=== PATIENT | male | born 1940 | race Caucasian/White ===

== ENCOUNTER 2016-05-04 06:25 | Day surgery (SDC) | payer OTHER, MEDICARE ==
[2016-05-03 11:36] VITALS: BMI 33.9
--- NOTE | 2016-05-04 06:13 | HP ---
History & Physical Update - History History: No Change - Physical Physical: No Change - Assessment Assessment: No Change - Plan Plan: No Change
[~2016-05-04 06:25] MED LIST: BUPIVACAINE HCL/PF 0.75% 10 ML VIAL RB ONE; CHONDROITIN SU A/HYALUR SOD 1 KIT IO ONE; CYCLOPENTOLATE HCL 1% OPHTH SOLN 2 ML BOTTLE OP SCH; EPINEPHrine/PF 1 MG/1 ML (1:1,000) AMPULE SQ ONE; LIDOCAINE HCL/PF 2% SDV 5ML VIAL PNB ONE; MOXIFLOXACIN HCL 0.5% OPHTHALMIC 3 ML BOTTLE OP SCH; PHENYLEPHRINE 2.5% OPHTH SOLN 15 ML BOTTLE OP SCH; TETRACAINE 0.5% HCL 0.6ML DROPPER.BOTTLE TP ONE; TOBRAMYCIN/DEXAMETHASONE OPHTH. OINTMENT 1 TUBE TP ONE; TROPICAMIDE 1% OPHTH SOLN 15 ML BOTTLE OP SCH
[2016-05-04] MEDS ORDERED: TROPICAMIDE 1% OPHTH SOLN 15 ML BOTTLE ONE (06:40)
[2016-05-04] MEDS ORDERED: MOXIFLOXACIN HCL 0.5% OPHTHALMIC 3 ML BOTTLE ONE (06:40)
[2016-05-04] MEDS ORDERED: CYCLOPENTOLATE HCL 1% OPHTH SOLN 2 ML BOTTLE ONE (06:40)
[2016-05-04] MEDS ORDERED: PHENYLEPHRINE 2.5% OPHTH SOLN 15 ML BOTTLE ONE (06:40)
[2016-05-04 06:51] VITALS: TEMP 97.7
[2016-05-04] MEDS ORDERED: EPINEPHrine/PF 1 MG/1 ML (1:1,000) AMPULE ONE (07:22)
[2016-05-04] MEDS ORDERED: TOBRAMYCIN/DEXAMETHASONE OPHTH. OINTMENT 1 TUBE ONE (07:22)
[2016-05-04] MEDS ORDERED: LIDOCAINE HCL/PF 2% SDV 5ML VIAL ONE (07:23)
[2016-05-04] MEDS ORDERED: BUPIVACAINE HCL/PF 0.75% 10 ML VIAL ONE ×2 (07:23→07:24)
[2016-05-04] MEDS ORDERED: TETRACAINE 0.5% OPHTH SOLN 2 ML BOTTLE ONE (07:23)
[2016-05-04] MEDS ORDERED: LIDOCAINE HCL/PF 1% SDV 5ML VIAL ONE (07:23)
[2016-05-04] MEDS ORDERED: POVIDONE-IODINE 5% OPHTHALMIC PREP 30 ML SOLUTION ONE (07:23)
[2016-05-04] MEDS ORDERED: PROPOFOL 20 ML ONE (07:55)
[2016-05-04] MEDS ORDERED: SUCCINYLCHOLINE CHLORIDE 200 MG/10 ML VIAL ONE (07:55)
[2016-05-04] MEDS ORDERED: TETRACAINE 0.5% HCL 0.6ML DROPPER.BOTTLE TP ONE (08:00)
[2016-05-04] MEDS ORDERED: LIDOCAINE HCL/PF 2% SDV 5ML VIAL PNB ONE (08:04)
[2016-05-04] MEDS ORDERED: BUPIVACAINE HCL/PF 0.75% 10 ML VIAL RB ONE (08:04)
[2016-05-04] MEDS ORDERED: CHONDROITIN SU A/HYALUR SOD 1 KIT IO ONE ×2 (08:06→08:25)
[2016-05-04] MEDS ORDERED: EPINEPHrine/PF 1 MG/1 ML (1:1,000) AMPULE SQ ONE (08:18)
[2016-05-04] MEDS ORDERED: TOBRAMYCIN/DEXAMETHASONE OPHTH. OINTMENT 1 TUBE TP ONE (08:33)
[2016-05-04 12:20] VITALS: BP 146/50; PULSE 51
--- NOTE | 2016-05-04 15:03 | OP ---
DATE OF OPERATION: 05/04/2016 SURGEON: Thierry Morel MD PREOPERATIVE DIAGNOSIS: Cataract, right eye. OPERATION: Phacoemulsification and intraocular lens implantation, right eye. POSTOPERATIVE DIAGNOSIS: Cataract, right eye. ANESTHESIA: Local with intravenous sedation. COMPLICATIONS: None. BLOOD LOSS: None. SPECIMEN: None. BRIEF HISTORY: The patient is a 76-year-old man with a past medical history of diabetes, who presented with decreased vision in the right eye down to 20/100 due to a dense 2+ nuclear sclerotic lens. After the risks, benefits and alternatives to cataract surgery were discussed with the patient, including the limited visual outcome due to his history of macular degeneration, the patient consented to surgery. The patient was brought to the operating room and administered retrobulbar block after receiving intravenous sedation. He was then prepped and draped in the usual sterile fashion and an eyelid speculum was inserted in the right eye. A paracentesis was made and the anterior chamber was inflated with Viscoat. A groove was made in the temporal clear cornea which tunneled forward with a crescent blade. The anterior chamber was entered with a 2.75 keratome. The cystotome was used to make an incision in the center of the capsule and a continuous curvilinear capsulorrhexis was created. The lens was hydrodissected until it was found to rotate freely within the capsular bag. Phacoemulsification was then used to remove the lens in its entirety. Irrigation and aspiration was used to remove residual cortical material. The anterior chamber and capsular bag were reinflated with ProVisc and a 21.5 diopter [id number] AcrySof intraocular lens was injected into the capsular bag using the [place] injector. The lens was dialed into place using the [place] hook. Irrigation and aspiration was used to remove residual viscoelastic. The wound was stromally hydrated until it was found to be watertight and the eye was at an appropriate pressure. The eyelid speculum was removed from the eye and TobraDex ointment and a patch and shield were placed over the right eye. The patient was transferred to the recovery room in stable condition and will follow up tomorrow. Fausto MEYERS/[id number] [facility]
== END 2016-05-04 09:30 | disposition home or self-care (01) ==
LOC: JASU-SURG 06:25
PROVIDERS: ATTEND Ophthalmology
PROC: 08RJ3JZ Replacement of Right Lens with Synthetic Substitute, Percutaneous Approach (ICD-10-PCS; principal; 2016-05-04 08:00)
DX: H25.11 Age-related nuclear cataract, right eye (principal); E11.9 Type 2 diabetes mellitus without complications

== ENCOUNTER 2016-06-22 07:24 | Day surgery (SDC) | payer OTHER, MEDICARE ==
[2016-06-17 13:34] VITALS: BMI 33.9
--- NOTE | 2016-06-22 06:18 | HP ---
History & Physical Update - History History: No Change - Physical Physical: No Change - Assessment Assessment: No Change - Plan Plan: No Change
[~2016-06-22 07:24] MED LIST changes: -BUPIVACAINE HCL/PF 0.75% 10 ML VIAL RB ONE; -CHONDROITIN SU A/HYALUR SOD 1 KIT IO ONE; -EPINEPHrine/PF 1 MG/1 ML (1:1,000) AMPULE SQ ONE; -LIDOCAINE HCL/PF 2% SDV 5ML VIAL PNB ONE; -TETRACAINE 0.5% HCL 0.6ML DROPPER.BOTTLE TP ONE
[2016-06-22] MEDS: MOXIFLOXACIN HCL 0.5% OPHTHALMIC 3 ML BOTTLE ONE ×3 (07:50→08:00)
[2016-06-22] MEDS: PHENYLEPHRINE 2.5% OPHTH SOLN 15 ML BOTTLE ONE ×3 (07:50→08:00)
[2016-06-22] MEDS: CYCLOPENTOLATE HCL 1% OPHTH SOLN 2 ML BOTTLE ONE ×3 (07:50→08:00)
[2016-06-22] MEDS: TROPICAMIDE 1% OPHTH SOLN 15 ML BOTTLE ONE ×3 (07:50→08:00)
[2016-06-22] MEDS ORDERED: TOBRAMYCIN/DEXAMETHASONE OPHTH. OINTMENT 1 TUBE ONE (08:50)
[2016-06-22] MEDS ORDERED: LIDOCAINE HCL/PF 2% SDV 5ML VIAL ONE (08:51)
[2016-06-22] MEDS ORDERED: BUPIVACAINE HCL/PF 0.75% 10 ML VIAL ONE (08:51)
[2016-06-22] MEDS ORDERED: LIDOCAINE 1% P/F 10 MG/ML VIAL ONE (08:51)
[2016-06-22] MEDS ORDERED: TETRACAINE 0.5% OPHTH SOLN 2 ML BOTTLE TP ONE (08:56)
[2016-06-22] MEDS ORDERED: LIDOCAINE HCL/PF 2% SDV 5ML VIAL PNB ONE (09:03)
[2016-06-22] MEDS ORDERED: BUPIVACAINE HCL/PF 0.75% 10 ML VIAL RB ONE (09:03)
[2016-06-22] MEDS ORDERED: CHONDROITIN SU A/HYALUR SOD 1 KIT IO ONE (09:13)
[2016-06-22] MEDS ORDERED: TOBRAMYCIN/DEXAMETHASONE OPHTH. OINTMENT 1 TUBE TP ONE (09:32)
[2016-06-22 09:55] VITALS: TEMP 97.9
[2016-06-22 10:28] VITALS: BP 130/66; PULSE 54
--- NOTE | 2016-06-23 08:06 | OP ---
DATE OF OPERATION: 06/22/2016 SURGEON: Thierry Morel MD PREOPERATIVE DIAGNOSIS: Cataract, left eye. OPERATION: Phacoemulsification and intraocular lens implantation, left eye. POSTOPERATIVE DIAGNOSIS: Cataract, left eye. ANESTHESIA: Local with intravenous sedation. COMPLICATIONS: None. BLOOD LOSS: None. SPECIMEN: None. BRIEF HISTORY: The patient is a 76-year-old man with a past medical history of diabetes who presented with decreased vision in the left eye down to 20/50+ due to a dense 2+ nuclear sclerotic lens. After the risks, benefits, and alternatives to cataract surgery were discussed with the patient, he consented to cataract surgery for the left eye. DESCRIPTION OF PROCEDURE: The patient was brought to the operating room and administered retrobulbar block after receiving intravenous sedation. He was then prepped and draped in the usual sterile fashion. Then, an eyelid speculum was inserted in the left eye, a paracentesis was made, and the anterior chamber was inflated with nonpreserved lidocaine. This was followed by injection of Viscoat. A groove was made in the superotemporal clear cornea which was tunneled forward with a crescent blade, and the anterior chamber was entered with a 2.75 keratome. The cystotome was used to make an incision at the center of the capsule, and a continuous curvilinear capsulorrhexis was created. The lens was hydrodissected until it was found to rotate freely within the capsular bag. Phacoemulsification was then used to remove the lens in its entirety. Irrigation and aspiration were used to remove residual cortical material. The anterior chamber and capsular bag were reinflated with Provisc, and a 21.0 diopter [id number] AcrySof intraocular lens was injected into the capsular bag using the Williams injector. The lens was dialed into place using the [employer] hook. Irrigation and aspiration were used to remove residual viscoelastic. The wound was stromally hydrated until it was found to be watertight and the eye was in an appropriate pressure. The eyelid speculum was removed from the eye and TobraDex ointment and a patch and shield were placed over the left eye. The patient was transferred to the recovery room in stable condition and will follow up tomorrow. Fausto [id number] [facility]TD[facility]
== END 2016-06-22 10:30 | disposition home or self-care (01) ==
LOC: JASU-SURG 07:24
PROVIDERS: ATTEND Ophthalmology
PROC: 08RK3JZ Replacement of Left Lens with Synthetic Substitute, Percutaneous Approach (ICD-10-PCS; principal; 2016-06-22 09:00)
DX: H25.12 Age-related nuclear cataract, left eye (principal)

== ENCOUNTER 2016-07-24 11:23 | Inpatient (IN) | payer OTHER, MEDICARE ==
[2016-07-24 11:31] VITALS: BMI 33.7
[2016-07-24 12:16] LABS: BASOPHIL 0.7 % (0-2.0); EOSINOPHIL 2.2 % (0-4.5); MCH 30.2 pg (25.7-33.7); MCHC 33.4 g/dl (32.0-35.9); MEAN CELL VOLUME 90.2 fl (80-96); MEAN PLT VOLUME 7.9 fl (7.5-11.1); NEUTROPHILS 71.2 % (42.8-82.8); PLATELET COUNT 168 K/MM3 (134-434); RDW 16.7 % (11.9-15.9); WHITE BLOOD COUNT 7.3 K/mm3 (4.0-10.0)
--- NOTE | 2016-07-24 12:18 | PDOC ---
History of Present Illness <Prem Howell - Last Filed: 07/24/16 14:01> - General History Source: Patient Exam Limitations: No Limitations - History of Present Illness Initial Comments: 07/24/16 14:52 The patient is a 76 year old male with a significant past medical history of stroke, CHF (on Eliquis and aspirin), ASHD, PVD, DM, COPD (former smoker), spinal stenosis, right cataract surgery and ?hernied disk in lower back who presents to the ED with left lower extremity weakness. Patient states that he was in the car for a couple of hours yesterday and started to experience tingling/numbness in the upper and lower left extremity.When he tried to get out of the car, he states he had some weakness of LLE and LUE as well as some tingilng. pt states he sometimes has some tingling of his LLE after he sits for long period of time but it resulves after he gets up. Pt had some back pain yesterday but had resolved. Pt denies any speech changes, cp, sob, f/c, cough, recent illness, diarrhea, dysuria, melena, bpr, headache, dizziness, n/v, vision changes, weakness of his RLE and RUE. The pt states he has had a former stroke with L sided weakness an daphasia but sypmtoms had basically resolved. He denies fever, chills, nausea, vomiting, diarrhea or constipation. PCP - Dr. Fallon <Kelly Child - Last Filed: 07/24/16 14:54> - General Chief Complaint: Weakness Stated Complaint: LT LEG NUMBNESS Time Seen by Provider: 07/24/16 11:39 Past History - Past Medical History Anemia: No Asthma: No Cardiac Disorders: Yes (UT, CARDIOVERSION X2) CVA: Yes (2009,2002 (NO RESIDUAL)) COPD: No CHF: Yes (H/O) Dementia: No Diabetes: Yes (BORDERLINE-DIET CONTROLLED) GI Disorders: Yes (diverticulosis) Disorders: No HTN: Yes Liver Disease: No Seizures: No Thyroid Disease: No - Surgical History Abdominal Surgery: No Appendectomy: No Cardiac Surgery: Yes (MARIS CAROTID EDARTERECTOMY) Cholecystectomy: No Lung Surgery: No Neurologic Surgery: No Orthopedic Surgery: No - Psycho/Social/Smoking Cessation Hx Anxiety: Yes Suicidal Ideation: No Smoking History: Never smoked Have you smoked in the past 12 months: No Number of Cigarettes Smoked Daily: 0 If you are a former smoker, when did you quit?: 7YRS AGO Information on smoking cessation initiated: No Hx Alcohol Use: No Drug/Substance Use Hx: No Substance Use Type: None Hx Substance Use Treatment: No <Prem Howell - Last Filed: 07/24/16 14:01> <Kelly Child - Last Filed: 07/24/16 14:54> - Past Medical History Allergies/Adverse Reactions: Allergies Allergy/AdvReac Type Severity Reaction Status Date / Time Penicillins Allergy "RASH" Verified 07/24/16 11:31 Home Medications: Ambulatory Orders Allopurinol [Zyloprim -] 300 mg PO DAILY 07/24/16 Amiodarone HCl 100 mg PO DAILY 07/24/16 Apixaban [Eliquis -] 5 mg PO BID 07/24/16 Aspirin [ASA -] 81 mg PO DAILY 07/24/16 Atorvastatin Ca [Lipitor] 20 mg PO HS 07/24/16 Doxazosin Mesylate 2 mg PO DAILY 07/24/16 Escitalopram Oxalate [Lexapro -] 15 mg PO DAILY 07/24/16 Furosemide [Lasix] 40 mg PO DAILY 07/24/16 Metoprolol Succinate [Toprol Xl] 50 mg PO DAILY 07/24/16 Review of Systems - Review of Systems Able to Perform ROS?: Yes Comments:: 07/24/16 14:53 CONSTITUTIONAL: No reported: Fever, Chills, Diaphoresis, Generalized Weakness, Malaise, Loss of Appetite HEENT: No reported: Rhinorrhea, Nasal Congestion, Throat Pain, Throat Swelling, Difficulty Swallowing, Mouth Swelling, Ear Pain, Eye Pain, Visual Changes CARDIOVASCULAR: No reported: Chest Pain, Syncope, Palpitations, Irregular Heart Rate, Lightheadedness, Peripheral Edema RESPIRATORY: No reported: Cough, Shortness of Breath, SOB with Exertion, Orthopnea, Wheezing , Stridor, Hemoptysis GASTROINTESTINAL: No reported: Abdominal pain, Abdominal Distension, Nausea, Vomiting, Diarrhea, Constipation, Melena, Hematochezia GENITOURINARY: No reported: Dysuria, Frequency, Urgency, Hesitancy, Flank Pain, Genital Pain MUSCULOSKELETAL: Reported: back pain No reported: Myalgia, Arthralgia, Joint Swelling, Neck Pain SKIN: No reported: Rash, Itching, Pallor HEMEATOLOGIC/IMMUNOLOGIC: No reported: Easy Bleeding, Easy Bruising, Lymphadenopathy, Frequent infections ENDOCRINE: No reported: Unexplained Weight Gain, Unexplained Weight Loss, Heat Intolerance , Cold Intolerance NEUROLOGIC: Reported: left lower extremity weakness, left upper extremity weakness No reported: Headache, Focal Weakness, Paresthesias, Vertigo, Lightheadedness, Seizure, Mental Status Changes, Incontinence PSYCHIATRIC: No reported: Anxiety, Depression <Kelly Child - Last Filed: 07/24/16 14:54> *Physical Exam - Vital Signs Last Vital Signs Temp Pulse Resp BP Pulse Ox 98.1 F 47 L 18 164/53 97 07/24/16 11:29 07/24/16 11:29 07/24/16 11:29 07/24/16 11:29 07/24/16 11:29 <DantePrem zamora - Last Filed: 07/24/16 14:01> - Vital Signs Last Vital Signs Temp Pulse Resp BP Pulse Ox 98.1 F 47 L 18 164/53 97 07/24/16 11:29 07/24/16 11:29 07/24/16 11:29 07/24/16 11:29 07/24/16 11:29 - Physical Exam Comments: 07/24/16 14:53 GENERAL: The patient is awake, alert, and fully oriented, Nontoxic - in no acute distress. HEAD: Normocephalic, atraumatic. EYES: extraocular movements intact, sclera anicteric, conjunctiva clear. ENT: Normal voice, Moist mucous membranes. NECK: Normal range of motion, supple BACK: No focal tenderness on cervical/throacic/lower back midline or paraspinal. LUNGS: Breath sounds equal, clear to auscultation bilaterally. No wheezes, no rhonchi, no rales. HEART: Regular rate and rhythm, normal S1 and S2 without murmur, rub or gallop. ABDOMEN: Soft, nontender, normoactive bowel sounds. No guarding, no rebound. . No CVA tenderness EXTREMITIES: Normal range of motion, no edema. No clubbing or cyanosis. No cords, erythema, or tenderness. NEURO: Mental status: The patient is oriented x3. Cranial nerves: Cranial nerves II through XII are intact Motor: The upper extremities are 5 over 5 in all muscle groups. mild drift of LLE (5-/5), rest of extermities 5/5. Negative pronator drift Sensation: Sensation is intact to light touch throughout. Cerebellar: [id number] is normal in both upper extremities. Heel-knee- hare is normal in both lower extremities. Gait: unsteady gait PSYCH: Normal mood, normal affect. SKIN: Warm, Dry, normal turgor, <Kelly Child - Last Filed: 07/24/16 14:54> NIH Stroke Scale - Last Known Well Date/Time & Onset Date Last Known Well: 07/23/16 Time Last Known Well: 11:00 - Initial Evaluation Level of consciousness: Alert Ask patient the month and their age: Answers both correctly Ask patient to open & close eyes; make fist and let go: Obeys both correctly Best gaze (horizontal eye movement): Normal Visual field testing: No visual field loss Facial paresis (Show teeth/raise eyebrows/close eyes tight): Normal symmetrical movement Motor Function: Left Arm: Normal Motor Function: Right Arm: Normal (extends arm 90 (or 45) degrees for 10 seconds without drift Motor Function: Left Leg: Drift Motor Function: Right Leg: Normal (extends leg 30 degrees for 5 seconds without drift) Limb Ataxia: No ataxia Sensory(Use pinprick test arms,legs,trunk,face/side to side): Normal Best language (Describe picture, name items, read sentences): No Aphasia Dysarthria (read several words): Normal articulation Extinction and Inattention: No abnormality - Total Score NIH Stroke Scale Score: 1 <Prem Howell - Last Filed: 07/24/16 14:01> tPA Exclusion Checklist 0-3hr - Time Elapsed Date last known well: 07/24/16 Time last known well: 11:00 Elaspsed time: Day(s) and 3 Hour(s) and 1 Minutes - Thrombolytic Therapy Candidate Is the patient eligible for Thrombolytic Therapy?: No - Ineligibility reason(s) Reasons No tPA given: Outside of window - delayed arrival <Prem Howell - Last Filed: 07/24/16 14:01> Heart Score/ECG Review - ECG Impressions Comment:: 07/24/16 12:26 Twelve-lead EKG was performed and reviewed by me. There is rate of 47 q wave in III no ST changes suggestive of acute ishemia <Prem Howell - Last Filed: 07/24/16 14:01> Critical Care Time/MDM Note - Medical Decision Making Note: 07/24/16 12:19 76y M hx of CVA, cad s/p mi, chf, htn, presents with L sided weakness and difficulty walking - the pt states he was in the car yesterday when he had some tingling/weakness in his left leg and arm, onset approx 11:30 yesterday, the arm weakness hasd improved/resolved, but pt was still unable to walk normally so came to the ED today. pt has no other complaints in cluding recent infectious complaints, cp, palpitations, dizziness. suspect possible cva as there is involvement of the LUE vs radiculopahty will obtain ct head sophia lobtain lab work, pt on media monitor will reassess anticipate admission/observation 07/24/16 13:26 labs reviewed case everton gutierrez states he will put in his own consult as there is a new neurologist he wants to use agree with admission for further management will admit for further management. 07/24/16 13:[address] changes on CT head will place in tele pts BP noted for approx 47 but not syptomatic - bp normal and pt not dizzy -- possible due BB? everton gutierrez, he will decrease her bb Case discussed in detail with admitting physician including history, physical exam and ancillary studies. Admitting physician has assumed care for the patient, will follow all pending diagnostics and will complete the evaluation and treatment. <Prem Howell - Last Filed: 07/24/16 14:01> Discharge Disposition - Discharge Dispostion Last Admission D/C Date: 02/24/14 Admit: Yes <Prem Howell - Last Filed: 07/24/16 14:01> <Kelly Child - Last Filed: 07/24/16 14:54> - Diagnosis Weakness, Bradycardia - Referrals
[2016-07-24 12:29] LABS: INR 1.8 (0.82-1.09)
[2016-07-24 12:39] LABS: ALBUMIN 3.5 g/dl (3.4-5.0); BILIRUBIN,TOTAL 0.6 mg/dL (0.2-1.0); CALCIUM 8.8 mg/dL (8.5-10.1); COCKROFT - GAULT 40.75; CREATININE 2.1 mg/dL (0.7-1.3); TOT PROT 6.6 g/dl (6.4-8.2)
[2016-07-24 12:41] LABS: TROPONIN I 0.02 ng/ml (0.00-0.05)
[2016-07-24 14:40] LABS: URINE APPEARANCE CLEAR; URINE BILIRUBIN NEGATIVE (NEGATIVE); URINE BLOOD NEGATIVE (NEGATIVE); URINE COLOR STRAW; URINE GLUCOSE (UA) NEGATIVE (NEGATIVE); URINE KETONE NEGATIVE (NEGATIVE); URINE LEUK ESTERASE NEGATIVE (NEGATIVE); URINE NITRITE NEGATIVE (NEGATIVE); URINE PROTEIN NEGATIVE (NEGATIVE); URINE UROBILINOGEN NEGATIVE E.U./dl (0.2-1.0)
--- NOTE | 2016-07-24 19:24 | CON.CARD ---
Consult Consult Specialty:: cardio Referred by:: zhao Reason for Consultation:: h/o afib, LLE weakness/tingling - History of Present Illness Chief Complaint: as above History of Present Illness: 76 yo male followed by Dr. Chadwick for cardiology for h/o chronic CAD and afib , came for acute LLE weakness after prolonged car ride. sx's resolved yest in hospital. returned this am after sat in chair next to bed for a while. denies palpitations, cp, sob, orthopnea PMH: AF CAD HTN HPL DM (borderline) h/o CEA CKD - Past Medical History DRY MIXER: Yes: CVA (Left sided weakness facial droop cognitive loss c/w Right CVA) Cardio/Vascular: Yes: Other (Severe PVD Bilateral Carotid Endarterectomies Claudication SFA occlusions bilaterally) Pulmonary: Yes: COPD Gastrointestinal: Yes: Diverticulitis (receurrent), Gastritis, GERD, GI Bleed ( Rectal), Hemorrhoids Renal/: Yes: Renal Inusuff, BPH Infectious Disease: Yes: C-Diff (recent resolved), Other (Chronic folliculitis) Psych: Yes: Other (Behavioral changes after CVA) Musculoskeletal: Yes: Chronic low back pain (Active presently) Endocrine: Yes: Diabetes Mellitus, Other (Insulin Resistance) Dermatology: Yes: Other (Acneiform rash/folliculitis/rosacea) - Past Surgical History Past Surgical History: Yes: Carotid Endarterectomy (Bilateral) - Alcohol/Substance Use Hx Alcohol Use: No - Smoking History Smoking history: Never smoked Have you smoked in the past 12 months: No Aproximately how many cigarettes per day: 0 If you are a former smoker, when did you quit?: 7YRS AGO - Social History ADL: Family Assistance Home Medications - Allergies Allergies/Adverse Reactions: Allergies Allergy/AdvReac Type Severity Reaction Status Date / Time Penicillins Allergy "RASH" Verified 07/24/16 11:31 - Home Medications Home Medications: Ambulatory Orders Allopurinol [Zyloprim -] 300 mg PO DAILY 07/24/16 Amiodarone HCl 100 mg PO DAILY 07/24/16 Apixaban [Eliquis -] 5 mg PO BID 07/24/16 Aspirin [ASA -] 81 mg PO DAILY 07/24/16 Atorvastatin Ca [Lipitor] 20 mg PO HS 07/24/16 Doxazosin Mesylate 2 mg PO DAILY 07/24/16 Escitalopram Oxalate [Lexapro -] 15 mg PO DAILY 07/24/16 Furosemide [Lasix] 40 mg PO DAILY 07/24/16 Metoprolol Succinate [Toprol Xl] 50 mg PO DAILY 07/24/16 Family Disease History - Family Disease History Family History: Denies (no cmp) Review of Systems - Review of Systems Constitutional: denies: Chills, Fever Eyes: denies: Eye Pain HENT: denies: Nasal Congestion Neck: denies: Stiffness Cardiovascular: denies: Palpitations Respiratory: denies: Orthopnea, PND Gastrointestinal: denies: Diarrhea, Rectal Bleeding Genitourinary: denies: Burning, Hematuria Musculoskeletal: denies: Muscle Pain Integumentary: denies: Rash Neurological: denies: Seizure, Syncope Endocrine: denies: Excessive Sweating Hematology/Lymphatic: denies: Excessive Bleeding Vital Signs: Vital Signs Temperature 97.9 F 07/24/16 18:20 Pulse Rate 46 L 07/24/16 18:20 Respiratory Rate 16 07/24/16 18:20 Blood Pressure 170/59 07/24/16 18:20 O2 Sat by Pulse Oximetry (%) 95 07/24/16 18:20 Constitutional: Yes: Well Nourished, No Distress Eyes: No: Sclera Icterus HENT: No: Nasal Congestion Neck: No: Decreased ROM Respiratory: Yes: CTA Bilaterally. No: Accessory Muscle Use, Rales, Wheezes Gastrointestinal: Yes: Normal Bowel Sounds. No: Distention, Hepatomegaly, Palpable Mass, Tenderness Cardiovascular: Yes: Regular Rate and Rhythm JVD: No Carotid Bruit: No PMI: Non-Displaced Heart Sounds: Yes: S1, S2. No: Gallop Murmur: Yes: Systolic Murmur (3/6 early DOMINIQUE rusb to carotids). No: Diastolic Murmur Musculoskeletal: Yes: Other (No kyphosis) Extremities: No: Cool, Cyanosis Edema: No Peripheral Pulses: 2+ Left Carotid, 2+ Right Carotid, 2+ Left Doralis Pedis, 2+ Right Dorsalis Pedis Integumentary: No: Jaundice Neurological: Yes: Alert, Oriented (x3) Psychiatric: No: Agitated - Other Data Labs, Other Data: INR, PTT INR 1.80 (0.82-1.09) H D 07/24/16 12:09 tele: NSR, sinus vesna to 40s during overnight/early AM hours ekg 07/24: sinus vesna 47 bpm, normal asix; IVCD; QT ok; no ST-T abnl; no path q' s (no old) Imaging - Results Chest X-ray: Report Reviewed, Image Reviewed Assessment/Plan 10/2015 L and R heart cath (at [facility]): KILN SETTER of LCX, diffuse 95% RCA, nonob ramus; luminal irregs LMCA and LAD; normal cardiac output; wedge 30; PA ; moderate with mean gradient 20 mmHg Echo 10/2015: mild LVH; nl LVEF; mild LAE; mild-mod AI/MR/TR; severe (mean 41 mmHg); RVSP 50-55 LLE weakness: -? 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 further w/u CAD: -remote VT , medically managed after cath at that time -cath last year KILN SETTER of LCX, diffuse obstructive RCA dz--managed medically -cont home meds: ASA (on this in addition to AC per outpt cardio), atorva (40), metopr (50 qd) -denies any angina sx's -outpt f/u with dr kaye re: need for ASA, ? AYANNA-I AFib: -s/p DCCV 10/17, maintained on amio by outpt cardio--QT <500 msec--cont same meds -on eliquis (5 bid) for AC -of note are chronic bilateral infarcts on CT head here -same meds as home regimen chronic diast chf: -outpt cardio notes scanned in dr olmstead's chart state pt with chronic SOTO sx's -wedge 30 at [facility] last year, with PA -pt hospitalized 2015 for chf he says--no sob sx's presently -on lasix 40 qd at home -cxr here likely mild incr intersitial markings chronic > mild interstitial edema (no vasc redistribution appreciated) -cont same lasix, outpt f/u with dr chadwick (scheduled for 07/28) sinus bradycardia: -HRs vary 40s-50s here -pt without any presyncope/syncope/new generalized weakness sx's -? vagal tone effect here (in bed) -? combo of metoprolol 50 plus amio 100 -given pt asymptomatic, has been tolerating this med combo for many months, and seeing his identification technician in 3 days, will cont same meds and defer to dr netta crowley HTN: -RHC suggests WHO 2 classification, i.e. secondary to LV diast chf -diuresis as doing h/o CEA: -cont home meds h/o PAD: -claudication sx's with abnormal PVRs -cont home meds HTN: -on BB only at home CKD: -office creatinine range 1.8-2.1 -renal fxn stable here OK FOR DISCHARGE FROM CV P.O.V., ONCE LEG WEAKNESS IS WORKED UP TO SATISFACTION OF DR OLMSTEAD
--- NOTE | 2016-07-24 19:48 | HP ---
Admitting History and Physical - Primary Care Physician PCP: Martinez Fallon - Admission Chief Complaint: left upper and lower extremity weakness. 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 According to the patient, he was in the car for couple of hours yesterday and started to experience tingling/numbness in the upper and lower left extremity.When he tried to get out of the car, he experienced weakness in left lower extremity with associated numbness. Patient gives h/o some tingling of his LLE after he sits for long period of time but it resolves after he gets up. He also reported back pain yesterday due to sitting in the car for a long time. Denies speech disturbance. Denies headache or blurring of vision. Denies bladder or bowel incontinence. Denies chest pain, shortness of breath, palpitation or dizziness. 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 cognitive loss c/w Right CVA) Cardiovascular: Yes: Other (Severe PVD Bilateral Carotid Endarterectomies Claudication SFA occlusions bilaterally) Pulmonary: Yes: COPD Gastrointestinal: Yes: Diverticulitis (receurrent), Gastritis, GERD, GI Bleed ( Rectal), Hemorrhoids Renal/: Yes: Renal Inusuff, BPH Infectious Disease: Yes: C-Diff (recent resolved), Other (Chronic folliculitis) Psych: Yes: Other (Behavioral changes after CVA) Musculoskeletal: Yes: Chronic low back pain (Active presently) Endocrine: Yes: Diabetes Mellitus, Other (Insulin Resistance) Dermatology: Yes: Other (Acneiform rash/folliculitis/rosacea) - Past Surgical History Past Surgical History: Yes: Carotid Endarterectomy (Bilateral) - Smoking History Smoking history: Never smoked Have you smoked in the past 12 months: No Aproximately how many cigarettes per day: 0 If you are a former smoker, when did you quit?: 7YRS AGO - Alcohol/Substance Use Hx Alcohol Use: No - Social History ADL: Family Assistance Home Medications - Allergies Allergies/Adverse Reactions: Allergies Allergy/AdvReac Type Severity Reaction Status Date / Time Penicillins Allergy "RASH" Verified 07/24/16 11:31 - Home Medications Home Medications: Ambulatory Orders Allopurinol [Zyloprim -] 300 mg PO DAILY 07/24/16 Amiodarone HCl 100 mg PO DAILY 07/24/16 Apixaban [Eliquis -] 5 mg PO BID 07/24/16 Aspirin [ASA -] 81 mg PO DAILY 07/24/16 Atorvastatin Ca [Lipitor] 20 mg PO HS 07/24/16 Doxazosin Mesylate 2 mg PO DAILY 07/24/16 Escitalopram Oxalate [Lexapro -] 15 mg PO DAILY 07/24/16 Furosemide [Lasix] 40 mg PO DAILY 07/24/16 Metoprolol Succinate [Toprol Xl] 50 mg PO DAILY 07/24/16 Review of Systems - Review of Systems Constitutional: reports: Weakness Eyes: reports: No Symptoms HENT: reports: No Symptoms Neck: reports: No Symptoms Cardiovascular: reports: No Symptoms Respiratory: reports: No Symptoms Gastrointestinal: reports: No Symptoms Genitourinary: reports: No Symptoms Musculoskeletal: reports: Back Pain, Muscle Weakness Integumentary: reports: No Symptoms Neurological: reports: Unsteady Gait, Weakness Endocrine: reports: No Symptoms Hematology/Lymphatic: reports: No Symptoms Psychiatric: reports: No Symptoms Physical Examination Vital Signs: Vital Signs Temperature 97.9 F 07/24/16 18:20 Pulse Rate 46 L 07/24/16 18:20 Respiratory Rate 16 07/24/16 18:20 Blood Pressure 170/59 07/24/16 18:20 O2 Sat by Pulse Oximetry (%) 95 07/24/16 18:20 Constitutional: Yes: Well Nourished, Calm, Mild Distress Eyes: Yes: Conjunctiva Clear, EOM Intact, PERRL HENT: Yes: Atraumatic, Normocephalic Neck: Yes: Supple, Trachea Midline Cardiovascular: Yes: Regular Rate and Rhythm, S1, S2 Respiratory: Yes: Regular, CTA Bilaterally Gastrointestinal: Yes: Normal Bowel Sounds, Soft ...Rectal Exam: Yes: WNL Musculoskeletal: Yes: Back Pain, Muscle Weakness Edema: No Peripheral Pulses WNL: Yes ...Motor Strength: LUE (5/5), LLE (4/5) Psychiatric: Yes: Alert, Oriented Imaging - Results Chest X-ray: Report Reviewed Cat Scan: Report Reviewed Problem List - Problems (1) Left-sided muscle weakness Assessment/Plan: CT head reviewed. Old infarcts. No acute pathology. Left lower extremity - 4/5 Left upper extremity -5/5. Left lower extremity weakness most likely from lower back due to prolonged sitting. Will consult neurology for opinion. Dr. Willie Ledezma. Code(s): M62.81 - MUSCLE WEAKNESS (GENERALIZED) (2) Back pain Assessment/Plan: H/O chronic back pain. Pain management and physical therapy. Code(s): M54.9 - DORSALGIA, UNSPECIFIED (3) Bradycardia Assessment/Plan: HR in high 40s. Patient asymptomatic. Will reduce metoprolol to 25 mg daily. Cardiac monitoring. Cardiology consulted. Code(s): R00.1 - BRADYCARDIA, UNSPECIFIED (4) Atrial fibrillation Assessment/Plan: Rate controlled. Continue Eliquis Code(s): I48.91 - UNSPECIFIED ATRIAL FIBRILLATION (5) Arteriosclerotic heart disease (ASHD) Assessment/Plan: Stable. Continue current medications. Code(s): I25.10 - ATHSCL HEART DISEASE OF [place] CORONARY ARTERY W/O ANG PCTRS (6) Diabetes Assessment/Plan: ISS Code(s): E11.9 - TYPE 2 DIABETES MELLITUS WITHOUT COMPLICATIONS (7) Hyperlipemia Assessment/Plan: Continue atorvastatin 20 mg daily. Code(s): E78.5 - HYPERLIPIDEMIA, UNSPECIFIED (8) Hypertension Assessment/Plan: Reasonable control. Continue current meds. Code(s): I10 - ESSENTIAL (PRIMARY) HYPERTENSION (9) Obesity Code(s): E66.9 - OBESITY, UNSPECIFIED (10) CKD (chronic kidney disease) Assessment/Plan: Creatinine 2.1. Baseline. Code(s): N18.9 - CHRONIC KIDNEY DISEASE, UNSPECIFIED
[2016-07-24] MEDS ORDERED: traMADol HCL 50 MG TABLET PO PRN (20:17)
[2016-07-24] MEDS ORDERED: ACETAMINOPHEN 325 MG TABLET (FP) PO PRN (20:17)
[2016-07-24] MEDS: APIXABAN 5 MG TABLET PO SCH (22:05)
[2016-07-24] MEDS: ATORVASTATIN CA 20 MG TABLET (FP) PO SCH (22:05)
[2016-07-25 08:14] LABS: EOSINOPHIL 3.5 % (0-4.5); MCH 30.4 pg (25.7-33.7); MCHC 33.6 g/dl (32.0-35.9); MEAN CELL VOLUME 90.4 fl (80-96); MEAN PLT VOLUME 8.9 fl (7.5-11.1); NEUTROPHILS 64.7 % (42.8-82.8); PLATELET COUNT 164 K/MM3 (134-434); RDW 15.8 % (11.9-15.9); WHITE BLOOD COUNT 7.3 K/mm3 (4.0-10.0)
[2016-07-25 08:34] LABS: ALBUMIN 3.4 g/dl (3.4-5.0); CALCIUM 8.7 mg/dL (8.5-10.1)
[2016-07-25 08:39] LABS: BILIRUBIN,TOTAL 0.6 mg/dL (0.2-1.0); COCKROFT - GAULT 40.75; CREATININE 2.1 mg/dL (0.7-1.3); TOT PROT 6.4 g/dl (6.4-8.2)
[2016-07-25] MEDS ORDERED: PT OWN MED DRAWER 7, Y5N ONE (09:40)
[2016-07-25] MEDS: DOXAZOSIN MESYLATE 2 MG TABLET (FP) PO SCH (09:43)
[2016-07-25] MEDS: AMIODARONE HCL 200 MG TABLET (FP) PO SCH (09:46)
[2016-07-25] MEDS: ESCITALOPRAM OXALATE 10 MG TABLET (FP) PO SCH (09:48)
[2016-07-25] MEDS: APIXABAN 5 MG TABLET PO SCH ×2 (09:48→22:55)
[2016-07-25] MEDS: PANTOPRAZOLE 40 MG TABLET (FP) PO SCH (09:49)
[2016-07-25] MEDS: METOPROLOL SUCCINATE 25 MG TAB.SR.24H (FP) PO SCH (09:49)
[2016-07-25] MEDS: FUROSEMIDE 40 MG TABLET (FP) PO SCH (09:49)
[2016-07-25] MEDS: ASPIRIN 81 MG CHEWABLE TABLETS PO SCH (09:49)
[2016-07-25] MEDS: ALLOPURINOL 300 MG TABLET (FP) PO SCH (09:49)
--- NOTE | 2016-07-25 10:40 | PN ---
Progress Note, Physician Chief Complaint: Left leg weakness History of Present Illness: As per previous notes. 76 yo male with long h/o diffuse vascular disease and multiple risk factors for vasculopathy, presented with weakness and dysfunction in left leg above the baseline post CVA status..Findings occurred after a prolonged car ride and appeared to have resolved spontaneously while in ER Admitted for further assessment. Cardiology note appreciated. Labs reviewed. Possible temporary peripheral nerve dysfunction related to physical factors. - Current Medication List Current Medications: Active Medications Acetaminophen (Tylenol -) 650 mg PO Q6H PRN PRN Reason: FEVER OR PAIN Last Admin: 07/24/16 22:28 Dose: 650 mg Allopurinol (Zyloprim -) 300 mg PO DAILY [facility] Last Admin: 07/25/16 09:49 Dose: 300 mg Amiodarone HCl (Cordarone -) 100 mg PO DAILY [facility] Last Admin: 07/25/16 09:46 Dose: 100 mg Apixaban (Eliquis -) 5 mg PO BID [facility] Last Admin: 07/25/16 09:48 Dose: 5 mg Aspirin (Asa -) 81 mg PO DAILY [facility] Last Admin: 07/25/16 09:49 Dose: 81 mg Atorvastatin Calcium (Lipitor -) 20 mg PO HS [facility] Last Admin: 07/24/16 22:05 Dose: 20 mg Doxazosin Mesylate (Cardura -) 2 mg PO DAILY [facility] Last Admin: 07/25/16 09:43 Dose: 2 mg Escitalopram Oxalate (Lexapro -) 15 mg PO DAILY [facility] Last Admin: 07/25/16 09:48 Dose: 15 mg Furosemide (Lasix -) 40 mg PO DAILY [facility] Last Admin: 07/25/16 09:49 Dose: 40 mg Metoprolol Succinate (Toprol Xl -) 25 mg PO DAILY [facility] Last Admin: 07/25/16 09:49 Dose: Not Given Pantoprazole Sodium (Protonix -) 40 mg PO DAILY [facility] Last Admin: 07/25/16 09:49 Dose: 40 mg Tramadol HCl (Ultram -) 50 mg PO Q8H PRN PRN Reason: PAIN - Objective Vital Signs: Vital Signs Temperature 98 F 07/25/16 10:00 Pulse Rate 48 L 07/25/16 10:00 Respiratory Rate 20 07/25/16 10:00 Blood Pressure 133/54 07/25/16 10:00 O2 Sat by Pulse Oximetry (%) 97 04/23/17 06:00 Constitutional: Yes: No Distress, Calm Eyes: No: Sclera Icterus Cardiovascular: Yes: Bradycardia, Pulse Irregular, Murmur (3/6 systolic murmur c /w radiating to both carotids) Respiratory: Yes: CTA Bilaterally Gastrointestinal: Yes: Normal Bowel Sounds, Soft. No: Tenderness Edema: No Neurological: Yes: Alert, Oriented, Unsteady Gait, Other (Left sided weakness( baseline) upper and lower extremity) Psychiatric: Yes: Alert, Oriented Labs: CBC, BMP 07/25/16 06:00 07/25/16 06:00 INR, PTT INR 1.80 (0.82-1.09) H D 07/24/16 12:09 Problem List - Problems (1) Left leg weakness Assessment/Plan: Appears to be at baseline Neuro evaluation due PT for ambulation Code(s): R29.898 - OTH SYMPTOMS AND SIGNS INVOLVING THE MUSCULOSKELETAL SYSTEM (2) Left-sided muscle weakness Assessment/Plan: Old Right CVA See above Code(s): M62.81 - MUSCLE WEAKNESS (GENERALIZED) (3) Atrial fibrillation Assessment/Plan: Chronic stable On Eliquis Code(s): I48.91 - UNSPECIFIED ATRIAL FIBRILLATION (4) Bradycardia Assessment/Plan: Telemetry noted Remains asymptomatic Code(s): R00.1 - BRADYCARDIA, UNSPECIFIED (5) CKD (chronic kidney disease) Assessment/Plan: Chronic stable Code(s): N18.9 - CHRONIC KIDNEY DISEASE, UNSPECIFIED (6) Arteriosclerotic heart disease (ASHD) Assessment/Plan: Stable Has cardiologic follow-up Code(s): I25.10 - ATHSCL HEART DISEASE OF [place] CORONARY ARTERY W/O ANG PCTRS (7) COPD (chronic obstructive pulmonary disease) Assessment/Plan: Stable Code(s): J44.9 - CHRONIC OBSTRUCTIVE PULMONARY DISEASE, UNSPECIFIED (8) Hyperlipemia Assessment/Plan: Stable on Rx Code(s): E78.5 - HYPERLIPIDEMIA, UNSPECIFIED (9) Hypertension Assessment/Plan: Stable on Rx Code(s): I10 - ESSENTIAL (PRIMARY) HYPERTENSION (10) Obesity Assessment/Plan: Chronic issue Code(s): E66.9 - OBESITY, UNSPECIFIED (11) PVD (peripheral vascular disease) Assessment/Plan: Multiple surgeries including bilateral CEAs Code(s): I73.9 - PERIPHERAL VASCULAR DISEASE, UNSPECIFIED (12) Aortic stenosis Assessment/Plan: Severe Close follow-up Code(s): I35.0 - NONRHEUMATIC AORTIC (VALVE) STENOSIS (13) Fatty liver Assessment/Plan: Chronic stable Code(s): K76.0 - FATTY (CHANGE OF) LIVER, NOT ELSEWHERE CLASSIFIED (14) Impaired glucose tolerance Assessment/Plan: Chronic Watch diet Encourage weight loss Code(s): R73.02 - IMPAIRED GLUCOSE TOLERANCE (ORAL) Assessment/Plan Plan as enumerated above Await neurology input Possible discharge in AM when cleared Would benefit from PT
--- NOTE | 2016-07-25 12:31 | EKG ---
Test Reason : Blood Pressure : / mmHG Vent. Rate : 047 BPM Atrial Rate : 047 BPM P-R Int : 156 ms QRS Dur : 104 ms QT Int : 530 ms P-R-T Axes : -19 053 048 degrees QTc Int : 469 ms MARKED SINUS BRADYCARDIA NONSPECIFIC T WAVE ABNORMALITY Confirmed by SCOTT SANTIAGO MD ([id number]) on 07/25/2016 12:31:27 PM Referred By: Confirmed By:SCOTT SANTIAGO MD
--- NOTE | 2016-07-25 20:38 | CON.NEURO ---
Consult Consult Specialty:: Neurology Referred by:: Derrick Lawson Reason for Consultation:: left leg and ? arm weakness - History of Present Illness Chief Complaint: left leg and left arm? weakness History of Present Illness: 76 year old male history of DM, HTN , CAD, S/P [place] , Kidney failure , stroke 7 years ago and bilateral CEA. He was coming from [place] and he was sitting in car for a long time and after that he has trouble getting out of car and felt left leg was weaker and also feel tingling and numbess. There is conflict of information about arm, thought that he bump into wall because of leg weakness and felt arm weakness while patient says his arm was weaker as well. there was no dysphagia , dysarthria or diplopia. His symptoms got better and now came back again, but no arm numbness. he denies any trauma, fever or cancer. He do nto have any incontinence of bladder or bowel. he had ct scan in ED and was unremarkable. 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 cognitive loss c/w Right CVA) Cardio/Vascular: Yes: Other (Severe PVD Bilateral Carotid Endarterectomies Claudication SFA occlusions bilaterally) Pulmonary: Yes: COPD Gastrointestinal: Yes: Diverticulitis (receurrent), Gastritis, GERD, GI Bleed ( Rectal), Hemorrhoids Renal/: Yes: Renal Inusuff, BPH Infectious Disease: Yes: C-Diff (recent resolved), Other (Chronic folliculitis) Psych: Yes: Other (Behavioral changes after CVA) Musculoskeletal: Yes: Chronic low back pain (Active presently) Endocrine: Yes: Diabetes Mellitus, Other (Insulin Resistance) Dermatology: Yes: Other (Acneiform rash/folliculitis/rosacea) - Past Surgical History Past Surgical History: Yes: Carotid Endarterectomy (Bilateral) - Alcohol/Substance Use Hx Alcohol Use: No - Smoking History Smoking history: Never smoked Have you smoked in the past 12 months: No Aproximately how many cigarettes per day: 0 If you are a former smoker, when did you quit?: 7YRS AGO - Social History ADL: Family Assistance Home Medications - Allergies Allergies/Adverse Reactions: Allergies Allergy/AdvReac Type Severity Reaction Status Date / Time Penicillins Allergy "RASH" Verified 07/24/16 11:31 - Home Medications Home Medications: Ambulatory Orders Allopurinol [Zyloprim -] 300 mg PO DAILY 07/24/16 Amiodarone HCl 100 mg PO DAILY 07/24/16 Apixaban [Eliquis -] 5 mg PO BID 07/24/16 Aspirin [ASA -] 81 mg PO DAILY 07/24/16 Atorvastatin Ca [Lipitor] 20 mg PO HS 07/24/16 Doxazosin Mesylate 2 mg PO DAILY 07/24/16 Escitalopram Oxalate [Lexapro -] 15 mg PO DAILY 07/24/16 Furosemide [Lasix] 40 mg PO DAILY 07/24/16 Metoprolol Succinate [Toprol Xl] 50 mg PO DAILY 07/24/16 Physical Exam-Neuro Vital Signs: Vital Signs Temperature 97.6 F 07/25/16 13:40 Pulse Rate 52 L 07/25/16 13:40 Respiratory Rate 19 07/25/16 13:40 Blood Pressure 153/51 07/25/16 13:40 O2 Sat by Pulse Oximetry (%) 98 07/25/16 09:00 Labs: CBC, BMP 07/25/16 06:00 07/25/16 06:00 INR, PTT INR 1.80 (0.82-1.09) H D 07/24/16 12:09 - Neuro Exam Level Of Consciousness: Yes: Alert, Oriented to Person, Oriented to Place, Oriented to Time Eyes: Yes: PERRLA Speech: WNL Cranial Nerves II-XII Intact: Yes Gag: Present DTR's: 2+ Left Bicep, 2+ Right Bicep, 2+ Left Achilles, 2+ Right Achilles Babinski: Absent Response to light touch: Normal Response to pain prick: Normal Motor Strength: 4/5: Left Arm, Left Leg, 5/5: Right Arm, Right Leg (slight dragging fo left leg ) NIH Stroke Scale - Total Score NIH Stroke Scale Score: 0 Imaging - Results Cat Scan: Report Reviewed Problem List - Problems (1) Atrial fibrillation Code(s): I48.91 - UNSPECIFIED ATRIAL FIBRILLATION (2) Left leg weakness Code(s): R29.898 - OT SYMPTOMS AND SIGNS INVOLVING THE MUSCULOSKELETAL SYSTEM Assessment/Plan 76 year old male history of left leg weakness after sitting for long time along with sensory symptoms, and he has history of spinal stenosis in past and also baseline left sided weakness and there is some doubt that he has left arm weakness/ numbness. his symptoms resolved yesterday adn came back again though very mild left leg weakness and no upper arm symptoms. on examination there is no sensory findings and there is mild left arm and leg weakness upto grade 4 , no sensory findings and reflexes are symmetrical. Suspect it could be spinal stenosis causing these symptoms and though possibility of tia cant be ruled out . Given he has risk factor and CEA in past Plan-- mri of brain and carotid ultrasound, echo , continue aspirin and anticoagulation - increase lipitor to 80 mg once a day for one month and than can be reduced to 40 mg once a day - PT , DVT Prophylaxis -mri of l spine for spinal stnosis , though it is doubtful that he would be surgical candidate given his medical condition and spoken to his and patient , and they agree . -- MRI of brain to rule out stroke -- as far as antithrmbotic therapy he is already on maximal medical therapy.
[2016-07-25] MEDS: ATORVASTATIN CA 80 MG TABLET (FP) PO SCH (22:55)
[2016-07-25] MEDS ORDERED: diphenhydrAMINE HCL 25 MG CAPSULE (FP) PO ONE (23:45)
[2016-07-25] MEDS: ATORVASTATIN CA 20 MG TABLET (FP) PO SCH (23:52)
--- NOTE | 2016-07-26 09:04 | PN ---
Progress Note, Physician Chief Complaint: LE weakness History of Present Illness: denies sob, orthopnea, leg swelling concerned that wt went up 2 lbs (209 to 211) here says home wt range 209-212 ( confirms) no cp, palpit - Current Medication List Current Medications: Active Medications Acetaminophen (Tylenol -) 650 mg PO Q6H PRN PRN Reason: FEVER OR PAIN Last Admin: 07/24/16 22:28 Dose: 650 mg Allopurinol (Zyloprim -) 300 mg PO DAILY [facility] Last Admin: 07/25/16 09:49 Dose: 300 mg Amiodarone HCl (Cordarone -) 100 mg PO DAILY [facility] Last Admin: 07/25/16 09:46 Dose: 100 mg Apixaban (Eliquis -) 5 mg PO BID [facility] Last Admin: 07/25/16 22:55 Dose: 5 mg Aspirin (Asa -) 81 mg PO DAILY [facility] Last Admin: 07/25/16 09:49 Dose: 81 mg Atorvastatin Calcium (Lipitor -) 80 mg PO HS [facility] Last Admin: 07/25/16 22:55 Dose: 80 mg Doxazosin Mesylate (Cardura -) 2 mg PO DAILY [facility] Last Admin: 07/25/16 09:43 Dose: 2 mg Escitalopram Oxalate (Lexapro -) 15 mg PO DAILY [facility] Last Admin: 07/25/16 09:48 Dose: 15 mg Furosemide (Lasix -) 40 mg PO DAILY [facility] Last Admin: 07/25/16 09:49 Dose: 40 mg Metoprolol Succinate (Toprol Xl -) 25 mg PO DAILY [facility] Last Admin: 07/25/16 09:49 Dose: Not Given Pantoprazole Sodium (Protonix -) 40 mg PO DAILY [facility] Last Admin: 07/25/16 09:49 Dose: 40 mg Tramadol HCl (Ultram -) 50 mg PO Q8H PRN PRN Reason: PAIN - Objective Vital Signs: Vital Signs Temperature 97.7 F 07/26/16 01:00 Pulse Rate 58 L 07/26/16 05:00 Respiratory Rate 20 07/26/16 05:00 Blood Pressure 148/56 07/26/16 05:00 O2 Sat by Pulse Oximetry (%) 98 07/25/16 21:00 Constitutional: Yes: Well Nourished, No Distress, Calm Cardiovascular: Yes: Regular Rate and Rhythm, Murmur (3/6 RSB c/w --as before) , S1, S2. No: JVD, Gallop Respiratory: Yes: Regular, CTA Bilaterally. No: Accessory Muscle Use, Rales, Wheezes Extremities: No: Cold Edema: No Neurological: Yes: Alert, Oriented Psychiatric: No: Agitated Labs: CBC, BMP 07/25/16 06:00 07/25/16 06:00 INR, PTT INR 1.80 (0.82-1.09) H D 07/24/16 12:09 - ....Imaging EKG: Other (tele: NSR, artifact) Assessment/Plan 10/2015 L and R heart cath (at [place]): VP PRODUCTION of LCX, diffuse 95% RCA, nonob ramus; luminal irregs LMCA and LAD; normal cardiac output; wedge 30; PA 51/26; moderate with mean gradient 20 mmHg Echo 10/2015: mild LVH; nl LVEF; mild LAE; mild-mod AI/MR/TR; severe (mean 41 mmHg); RVSP 50-55 LLE weakness: -? 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 spinal stenosis -bilateral old cerebral infarcts on CT head -neuro input reviewed--can't exclude superimposed TIA on top of chronic weakness --recommending mri of brain and carotid ultrasound (note pt had recent echo 10/17 --results above) -pt is adequately anticoagulated on eliquis 5 bid at home (confirms compliance) , continuing ASA as well for now per neuro rec CAD: -[place] , medically managed after cath at that time -cath last year VP PRODUCTION of LCX, diffuse obstructive RCA dz--managed medically -cont home meds: ASA (on this in addition to AC per outpt cardio), atorva (40), metopr (50 qd) -no angina sx's -outpt f/u with dr chadwick re: need for ASA, ? AYANNA-I AFib: -s/p DCCV 10/17, maintained on amio by outpt cardio--QT <500 msec--cont same meds -on eliquis (5 bid) for AC -of note are chronic bilateral infarcts on CT head here -same meds as home regimen chronic diast chf: -outpt cardio notes scanned in dr churchill's chart state pt with chronic SOTO sx's -wedge 30 at [facility] last year, with PA -pt hospitalized 2016 for chf he says--no sob sx's presently -on lasix 40 qd at home -cxr here likely mild incr intersitial markings chronic > mild interstitial edema (no vasc redistribution appreciated) -no s/sx of chf, wt up 2 lb, pt concerned -in light of signif renal dysfxn (chronic) with creat here at high end of his baseline range, will defer incr lasix unless wt rises further or if has any signs chf -cont same lasix, outpt f/u with dr chadwick (scheduled for 07/28) sinus bradycardia: -HRs vary 40s-50s here HD #1--stable 50s yesterday -pt without any presyncope/syncope/new generalized weakness sx's -? vagal tone effect here (in bed) -? 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 secondary to LV diast chf -diuresis as doing h/o CEA: -cont home meds h/o PAD: -claudication sx's with abnormal PVRs -cont home meds HTN: -on BB only at home CKD: -office creatinine range 1.8-2.1 -renal fxn stable here NO ONGOING INDICATION FOR TELE MONITORING--D/C'D
[2016-07-26] MEDS: AMIODARONE HCL 200 MG TABLET (FP) PO SCH (09:24)
[2016-07-26] MEDS: ESCITALOPRAM OXALATE 10 MG TABLET (FP) PO SCH (09:24)
[2016-07-26] MEDS: DOXAZOSIN MESYLATE 2 MG TABLET (FP) PO SCH (09:25)
[2016-07-26] MEDS: ASPIRIN 81 MG CHEWABLE TABLETS PO SCH (09:25)
[2016-07-26] MEDS: FUROSEMIDE 40 MG TABLET (FP) PO SCH (09:25)
[2016-07-26] MEDS: PANTOPRAZOLE 40 MG TABLET (FP) PO SCH (09:25)
[2016-07-26] MEDS: METOPROLOL SUCCINATE 25 MG TAB.SR.24H (FP) PO SCH (09:25)
[2016-07-26] MEDS: ALLOPURINOL 300 MG TABLET (FP) PO SCH (09:25)
[2016-07-26] MEDS: APIXABAN 5 MG TABLET PO SCH ×2 (09:25→21:40)
--- NOTE | 2016-07-26 11:54 | PN ---
Progress Note, Physician Chief Complaint: Mr Da Silva says he is doing well. However says he can only ambulate minimal distance secondary to weakness and numbness. This is chronic but worsening since Tuesday. No cp, sob, n/v. - Current Medication List Current Medications: Active Medications Acetaminophen (Tylenol -) 650 mg PO Q6H PRN PRN Reason: FEVER OR PAIN Last Admin: 07/24/16 22:28 Dose: 650 mg Allopurinol (Zyloprim -) 300 mg PO DAILY [facility] Last Admin: 07/26/16 09:25 Dose: 300 mg Amiodarone HCl (Cordarone -) 100 mg PO DAILY [facility] Last Admin: 07/26/16 09:24 Dose: 100 mg Apixaban (Eliquis -) 5 mg PO BID [facility] Last Admin: 07/26/16 09:25 Dose: 5 mg Aspirin (Asa -) 81 mg PO DAILY [facility] Last Admin: 07/26/16 09:25 Dose: 81 mg Atorvastatin Calcium (Lipitor -) 80 mg PO HS [facility] Last Admin: 07/25/16 22:55 Dose: 80 mg Doxazosin Mesylate (Cardura -) 2 mg PO DAILY [facility] Last Admin: 07/26/16 09:25 Dose: 2 mg Escitalopram Oxalate (Lexapro -) 15 mg PO DAILY [facility] Last Admin: 07/26/16 09:24 Dose: 15 mg Furosemide (Lasix -) 40 mg PO DAILY [facility] Last Admin: 07/26/16 09:25 Dose: 40 mg Lorazepam (Ativan Injection -) 1 mg IM ONCE ONE Stop: 07/26/16 11:49 Metoprolol Succinate (Toprol Xl -) 25 mg PO DAILY [facility] Last Admin: 07/26/16 09:25 Dose: 25 mg Pantoprazole Sodium (Protonix -) 40 mg PO DAILY [facility] Last Admin: 07/26/16 09:25 Dose: 40 mg Tramadol HCl (Ultram -) 50 mg PO Q8H PRN PRN Reason: PAIN - Objective Vital Signs: Vital Signs Temperature 97.7 F 07/26/16 01:00 Pulse Rate 58 L 07/26/16 05:00 Respiratory Rate 20 07/26/16 05:00 Blood Pressure 148/56 07/26/16 05:00 O2 Sat by Pulse Oximetry (%) 98 07/25/16 21:00 Constitutional: Yes: No Distress, Calm, Obese Cardiovascular: Yes: Regular Rate and Rhythm, Murmur. No: Gallop, Rub Respiratory: Yes: Regular, CTA Bilaterally. No: Rales, Rhonchi, Wheezes Gastrointestinal: Yes: Normal Bowel Sounds, Soft. No: Distention, Tenderness Extremities: Yes: WNL Edema: No Labs: CBC, BMP 07/25/16 06:00 07/25/16 06:00 INR, PTT INR 1.80 (0.82-1.09) H D 07/24/16 12:09 Problem List - Problems (1) Left leg weakness Code(s): R29.898 - OTH SYMPTOMS AND SIGNS INVOLVING THE MUSCULOSKELETAL SYSTEM (2) Left-sided muscle weakness Code(s): M62.81 - MUSCLE WEAKNESS (GENERALIZED) (3) Atrial fibrillation Code(s): I48.91 - UNSPECIFIED ATRIAL FIBRILLATION (4) Bradycardia Code(s): R00.1 - BRADYCARDIA, UNSPECIFIED (5) CKD (chronic kidney disease) Code(s): N18.9 - CHRONIC KIDNEY DISEASE, UNSPECIFIED (6) Arteriosclerotic heart disease (ASHD) Code(s): I25.10 - ATHSCL HEART DISEASE OF [place] CORONARY ARTERY W/O ANG PCTRS (7) COPD (chronic obstructive pulmonary disease) Code(s): J44.9 - CHRONIC OBSTRUCTIVE PULMONARY DISEASE, UNSPECIFIED (8) Hyperlipemia Code(s): E78.5 - HYPERLIPIDEMIA, UNSPECIFIED Assessment/Plan (1) Left leg weakness Assessment/Plan: -appreciate neurology assistance -carotid ultrasound read reviewed -MRI today -PT consult Code(s): R29.898 - OTH SYMPTOMS AND SIGNS INVOLVING THE MUSCULOSKELETAL SYSTEM (2) Left-sided muscle weakness Assessment/Plan: -secondary to old CVA -stable Code(s): M62.81 - MUSCLE WEAKNESS (GENERALIZED) (3) Atrial fibrillation Assessment/Plan: -chronic -on eliquis -rate controlled Code(s): I48.91 - UNSPECIFIED ATRIAL FIBRILLATION (4) Bradycardia Assessment/Plan: -asymptomatic Code(s): R00.1 - BRADYCARDIA, UNSPECIFIED (5) CKD (chronic kidney disease) Assessment/Plan: -stable Code(s): N18.9 - CHRONIC KIDNEY DISEASE, UNSPECIFIED (6) Arteriosclerotic heart disease (ASHD) Assessment/Plan: -appreciate cardiology assistance -continue current management Code(s): I25.10 - ATHSCL HEART DISEASE OF [place] CORONARY ARTERY W/O ANG PCTRS (7) COPD (chronic obstructive pulmonary disease) Assessment/Plan: -stable Code(s): J44.9 - CHRONIC OBSTRUCTIVE PULMONARY DISEASE, UNSPECIFIED (8) Hyperlipemia Assessment/Plan: -continue current regimen Code(s): E78.5 - HYPERLIPIDEMIA, UNSPECIFIED (9) Hypertension Assessment/Plan -controlled Code(s): I10 - ESSENTIAL (PRIMARY) HYPERTENSION (10) Obesity Assessment/Plan: -outpatient management Code(s): E66.9 - OBESITY, UNSPECIFIED (11) PVD (peripheral vascular disease) Assessment/Plan: -stable Code(s): I73.9 - PERIPHERAL VASCULAR DISEASE, UNSPECIFIED (12) Aortic stenosis Assessment/Plan: -murmur noted -cardiology following Code(s): I35.0 - NONRHEUMATIC AORTIC (VALVE) STENOSIS (13) Fatty liver Assessment/Plan: -chronic -continue current management Code(s): K76.0 - FATTY (CHANGE OF) LIVER, NOT ELSEWHERE CLASSIFIED (14) Impaired glucose tolerance Assessment/Plan: -diet control Code(s): R73.02 - IMPAIRED GLUCOSE TOLERANCE (ORAL)
[2016-07-26] MEDS ORDERED: LORAZEPAM CARPU-JECT 2 MG/ML DISP.SYRIN IM ONE (12:15)
[2016-07-26] MEDS ORDERED: LORAZEPAM CARPU-JECT 2 MG/ML DISP.SYRIN ONE (14:56)
[2016-07-26] MEDS: ATORVASTATIN CA 80 MG TABLET (FP) PO SCH (21:40)
[2016-07-27] MEDS ORDERED: PT OWN MED DRAWER 7, Y5N ONE (08:53)
[2016-07-27] MEDS: ASPIRIN 81 MG CHEWABLE TABLETS PO SCH (09:39)
[2016-07-27] MEDS: AMIODARONE HCL 200 MG TABLET (FP) PO SCH (09:39)
[2016-07-27] MEDS: DOXAZOSIN MESYLATE 2 MG TABLET (FP) PO SCH (09:39)
[2016-07-27] MEDS: METOPROLOL SUCCINATE 25 MG TAB.SR.24H (FP) PO SCH (09:39)
[2016-07-27] MEDS: FUROSEMIDE 40 MG TABLET (FP) PO SCH (09:39)
[2016-07-27] MEDS: PANTOPRAZOLE 40 MG TABLET (FP) PO SCH (09:39)
[2016-07-27] MEDS: APIXABAN 5 MG TABLET PO SCH ×2 (09:40→21:09)
[2016-07-27] MEDS: ALLOPURINOL 300 MG TABLET (FP) PO SCH (09:40)
[2016-07-27] MEDS: ESCITALOPRAM OXALATE 10 MG TABLET (FP) PO SCH (09:40)
--- NOTE | 2016-07-27 09:52 | PN ---
Progress Note (short form) - Note Progress Note: 76 year old male history of dm, htn , cad s/p mi , stroke x 7 years ago and mild left sided hemiparesis and became weak when he was coming from [place] after sitting for a long time. He is on novel anticoagulant and aspirin and had bilateral CEA in past. He developed left leg weakness and ? left arm weakness, initially thought was if it is due to spinal stenosis and mri of brain showed there is right albright radiata acute infarct On exmainatoin alert oriented x 3 cranial nerve intact left sided hemiparesis, leg is weaker than arm MRI of brain reviewd Assesmsent- Right mca acute stroke in albright radiata Plan -- already on maximal antithrombotic, incrase lipitor 80 mg swallowing evluation pt stroke education DVT Prophylaxis Thanks for consult feel free to call me if any concern mariusz charles MD Problem List - Problems (1) Atrial fibrillation Code(s): I48.91 - UNSPECIFIED ATRIAL FIBRILLATION (2) Left leg weakness Code(s): R29.898 - OT SYMPTOMS AND SIGNS INVOLVING THE MUSCULOSKELETAL SYSTEM
--- NOTE | 2016-07-27 10:22 | PN ---
Progress Note (short form) - Note Progress Note: Chief Complaint: LE weakness History of Present Illness: denies sob, orthopnea, leg swelling, cp, palps. says home wt range 209-212 ( confirms) Current Medications Acetaminophen (Tylenol -) 650 mg PO Q6H PRN PRN Reason: FEVER OR PAIN Last Admin: 07/24/16 22:28 Dose: 650 mg Allopurinol (Zyloprim -) 300 mg PO DAILY [facility] Last Admin: 07/27/16 09:40 Dose: 300 mg Amiodarone HCl (Cordarone -) 100 mg PO DAILY [facility] Last Admin: 07/27/16 09:39 Dose: 100 mg Apixaban (Eliquis -) 5 mg PO BID [facility] Last Admin: 07/27/16 09:40 Dose: 5 mg Aspirin (Asa -) 81 mg PO DAILY [facility] Last Admin: 07/27/16 09:39 Dose: 81 mg Atorvastatin Calcium (Lipitor -) 80 mg PO HS [facility] Last Admin: 07/26/16 21:40 Dose: 80 mg Doxazosin Mesylate (Cardura -) 2 mg PO DAILY [facility] Last Admin: 07/27/16 09:39 Dose: 2 mg Escitalopram Oxalate (Lexapro -) 15 mg PO DAILY [facility] Last Admin: 07/27/16 09:40 Dose: 15 mg Furosemide (Lasix -) 40 mg PO DAILY [facility] Last Admin: 07/27/16 09:39 Dose: 40 mg Metoprolol Succinate (Toprol Xl -) 25 mg PO DAILY [facility] Last Admin: 07/27/16 09:39 Dose: 25 mg Pantoprazole Sodium (Protonix -) 40 mg PO DAILY [facility] Last Admin: 07/27/16 09:39 Dose: 40 mg Tramadol HCl (Ultram -) 50 mg PO Q8H PRN PRN Reason: PAIN Vital Signs - 24 hr 07/26/16 07/26/16 07/26/16 14:10 17:00 21:00 Temperature 97.5 F L 98.3 F 98 F Pulse Rate 54 L 53 L 52 L Respiratory 20 20 20 Rate Blood Pressure 137/54 133/69 143/50 O2 Sat by Pulse 98 Oximetry (%) 07/27/16 07/27/16 01:00 05:00 Temperature 98.0 F 98 F Pulse Rate 51 L 58 L Respiratory 20 20 Rate Blood Pressure 140/50 170/78 O2 Sat by Pulse Oximetry (%) Intake & Output 07/25/16 07/26/16 07/27/16 07/28/16 07:59 07:59 07:59 07:59 Intake Total 500 260 Output Total 300 Balance 500 -300 260 Weight 209 lb 211 lb 6.4 oz 212 lb Constitutional: Yes: Well Nourished, No Distress, Calm. lying flat on his back. Cardiovascular: Yes: Regular Rate and Rhythm, Murmur (06/07 RSB c/w --as before) , S1, S2. No: JVD, Gallop Respiratory: Yes: Regular, CTA Bilaterally. 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 MRI report reveiwed LLE weakness/CVA: -? 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 spinal stenosis, but also with acute stroke on MRI (MCA territory) -bilateral old cerebral infarcts on CT head (h/o bilateral CEA) -neuro input reviewed-- lipitor dose was increased. -pt is adequately anticoagulated on eliquis 5 bid at home (confirms compliance) , continuing ASA as well for now per outpatient regimen. Discussed with pmd, will confirm also OK per neuro rec. Will defer to neuro regarding whether there is risk of hemorrhagic conversion. Currently no recommendation to hold AC. - In setting of recurrent CVA, will repeat echo to assess LV function and make sure no risk for LV thrombus as embolic source as that would change advisor ( NOAC change to coumadin). 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 AYANNA-I AFib: -s/p DCCV 10/17, maintained on amio by outpt cardio--QT <500 msec--cont same meds -on longstanding eliquis (5 bid) for AC as outpatient. Monitor closely with this degree of renal dysfunction. -of note are chronic bilateral infarcts on CT head here. Now here with acute stroke. On ASA in addition to AC. (see discussion above ) chronic diast chf/severe (mod on cath): -outpt cardio notes scanned in dr churchill's chart state pt with chronic SOTO sx's -wedge 30 at [facility] last year, with PA -pt hospitalized 2015 for chf he says--no sob sx's presently -on lasix 40 qd at home -cxr here likely mild incr intersitial markings chronic > mild interstitial edema (no vasc redistribution appreciated) -no s/sx of chf, wt up 1 lb, from yesterday, but patient denies sx's of volume retention today 07/27 (was concerned about weight yesterday) -in light of signif renal dysfxn (chronic) with creat here at high end of his baseline range, will defer incr lasix unless wt rises further or if has any signs chf -cont same lasix, outpt f/u with dr chadwick sinus bradycardia: -HRs vary 40s-50s here -pt without any presyncope/syncope/new generalized weakness sx's -? vagal tone effect here (in bed) -? 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 pulm HTN: -[facility] suggests WHO 2 classification, i.e. secondary to LV diast chf -diuresis as doing h/o CEA: -cont home meds h/o PAD: -claudication sx's with abnormal PVRs -cont home meds HTN: -on BB only at home CKD: -office creatinine range 1.8-2.1 -renal fxn stable here NO ONGOING INDICATION FOR TELE MONITORING--D/C'D
[2016-07-27 11:12] LABS: ALBUMIN 3.5 g/dl (3.4-5.0); BILIRUBIN,TOTAL 0.7 mg/dL (0.2-1.0); CALCIUM 9.2 mg/dL (8.5-10.1); COCKROFT - GAULT 43.4; TOT PROT 6.5 g/dl (6.4-8.2)
--- NOTE | 2016-07-27 14:47 | CONSULT ---
Admitting History and Physical - Primary Care Physician PCP: Josep Ochoa - Admission History of Present Illness: Per emr: "76 year old male history of dm, htn , cad s/p mi , stroke x 7 years ago and mild left sided hemiparesis and became weak when he was coming from [place] after sitting for a long time. He is on novel anticoagulant and aspirin and had bilateral CEA in past. He developed left leg weakness and ? 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 (Left sided weakness facial droop cognitive loss c/w Right CVA) Cardiovascular: Yes: Other (Severe PVD Bilateral Carotid Endarterectomies Claudication SFA occlusions bilaterally) Pulmonary: Yes: COPD Gastrointestinal: Yes: Diverticulitis (receurrent), Gastritis, GERD, GI Bleed ( Rectal), Hemorrhoids Renal/: Yes: Renal Inusuff, BPH Infectious Disease: Yes: C-Diff (recent resolved), Other (Chronic folliculitis) Psych: Yes: Other (Behavioral changes after CVA) Musculoskeletal: Yes: Chronic low back pain (Active presently) Endocrine: Yes: Diabetes Mellitus, Other (Insulin Resistance) Dermatology: Yes: Other (Acneiform rash/folliculitis/rosacea) - Past Surgical History Past Surgical History: Yes: Carotid Endarterectomy (Bilateral) - Smoking History Smoking history: Never smoked Have you smoked in the past 12 months: No Aproximately how many cigarettes per day: 0 If you are a former smoker, when did you quit?: 7YRS AGO - Alcohol/Substance Use Hx Alcohol Use: No - Social History ADL: Family Assistance History - Admission Reason For Visit: BRADYCARDIA, WEAKNESS - Diagnostics X-ray: Report Reviewed CT Scan: Report Reviewed MRI: Report Reviewed - General Mental Status: Alert and Oriented, Awake and Alert, Able to Follow Commands Attention: Intact Ability to Follow Directions: Good Head/Neck Control: WFL - Hearing Hearing: Normal Hearing Aide: No With Patient: No Speech Evaluation - Communication Primary Language: [place]UR[place] Communication: Yes: Within Normal Limits Oral Expression Ability: Yes: No Impairment - Speech Production Able to Make Needs Known: Yes: WNL Intelligibility: Yes: WNL - Speech Characteristics Voice Loudness: Normal Voice Pitch: Yes: Normal Voice Phonatory-based Quality: Yes: Normal Speech Pattern: Normal Speech Clarity: < 100% Nasal Resonance: Normal Articulation: Yes: Precise Rate of Speech: Intact - Language/Auditory Comprehension Follows: Yes: 2 Stage Simple Commands - Language/Verbal Expression Able to Respond to Simple Queries: Yes: WNL Able to Communicate Wants and Needs: Yes: WNL Functional Communication Status: Yes: WNL Attention: Yes: Intact - 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 "eats steak without teeth"), Dental Appliance Upper Facial Symmetry at Rest: Symmetrical Facial Symmetry on Retraction: Symmetrical Facial Movement: Controlled Against Resistance Opening: Normal Against Resistance Closing: Normal Pucker Lips: Normal Smile: Normal Lingual Movement: Normal, Symmetric Lingual Speed of Movement: Normal Lingual Movement Strgth Against Opposition: Normal Lingual Movement Characteristics: Normal Velopharyngeal Movement: Normal Laryngeal Elevation: WFL Laryngeal Movement: Able to Palpate Rate of Intake: WFL Bolus Size: WFL Labial Seal: WFL Chewing: WFL Oral Prep Time: WFL A-P Transit: WFL Pocketing: None Timing of Swallow: WFL Coughing/Throat Clear: No Change in Voice: No Recommendations - Speech Evaluation, Impression/Plan Impression: Speech,swallow, cognition unaffected by r mca acute stroke. - Dysphagia Impressions/Plan Swallowing Skills: WFL Dysphagia Impressions: No Impairment *Silent aspiration: cannot be R/O at bedside - Recommendations Diet Consistency: Regular Medication Administration: Whole with water Liquids: Thin Liquids
--- NOTE | 2016-07-27 14:59 | PN ---
Progress Note, Physician Chief Complaint: Mr Da Silva still with weakness on his left side, unchanged. No cp, sob, n/v. - Current Medication List Current Medications: Active Medications Acetaminophen (Tylenol -) 650 mg PO Q6H PRN PRN Reason: FEVER OR PAIN Last Admin: 07/24/16 22:28 Dose: 650 mg Allopurinol (Zyloprim -) 300 mg PO DAILY [facility] Last Admin: 07/27/16 09:40 Dose: 300 mg Amiodarone HCl (Cordarone -) 100 mg PO DAILY [facility] Last Admin: 07/27/16 09:39 Dose: 100 mg Apixaban (Eliquis -) 5 mg PO BID [facility] Last Admin: 07/27/16 09:40 Dose: 5 mg Aspirin (Asa -) 81 mg PO DAILY [facility] Last Admin: 07/27/16 09:39 Dose: 81 mg Atorvastatin Calcium (Lipitor -) 80 mg PO HS [facility] Last Admin: 07/26/16 21:40 Dose: 80 mg Doxazosin Mesylate (Cardura -) 2 mg PO DAILY [facility] Last Admin: 07/27/16 09:39 Dose: 2 mg Escitalopram Oxalate (Lexapro -) 15 mg PO DAILY [facility] Last Admin: 07/27/16 09:40 Dose: 15 mg Furosemide (Lasix -) 40 mg PO DAILY [facility] Last Admin: 07/27/16 09:39 Dose: 40 mg Metoprolol Succinate (Toprol Xl -) 25 mg PO DAILY [facility] Last Admin: 07/27/16 09:39 Dose: 25 mg Pantoprazole Sodium (Protonix -) 40 mg PO DAILY [facility] Last Admin: 07/27/16 09:39 Dose: 40 mg Tramadol HCl (Ultram -) 50 mg PO Q8H PRN PRN Reason: PAIN - Objective Vital Signs: Vital Signs Temperature 98.9 F 07/27/16 09:00 Pulse Rate 57 L 07/27/16 09:00 Respiratory Rate 20 07/27/16 09:00 Blood Pressure 136/55 07/27/16 09:00 O2 Sat by Pulse Oximetry (%) 98 07/27/16 09:00 Constitutional: Yes: Well Nourished, No Distress, Calm Cardiovascular: Yes: Pulse Irregular. No: Tachycardia, Gallop, Murmur, Rub Respiratory: Yes: Regular, CTA Bilaterally. No: Rales, Rhonchi, Wheezes Gastrointestinal: Yes: Normal Bowel Sounds, Soft. No: Distention, Tenderness Extremities: Yes: WNL Edema: No Labs: CBC, BMP 07/25/16 06:00 07/27/16 10:30 INR, PTT INR 1.80 (0.82-1.09) H D 07/24/16 12:09 Problem List - Problems (1) CVA (cerebrovascular accident) Code(s): I63.9 - CEREBRAL INFARCTION, UNSPECIFIED Qualifiers: CVA mechanism: embolism Laterality of affected vessel: right (2) Left leg weakness Code(s): R29.898 - OTH SYMPTOMS AND SIGNS INVOLVING THE MUSCULOSKELETAL SYSTEM (3) Left-sided muscle weakness Code(s): M62.81 - MUSCLE WEAKNESS (GENERALIZED) (4) Atrial fibrillation Code(s): I48.91 - UNSPECIFIED ATRIAL FIBRILLATION (5) Bradycardia Code(s): R00.1 - BRADYCARDIA, UNSPECIFIED (6) CKD (chronic kidney disease) Code(s): N18.9 - CHRONIC KIDNEY DISEASE, UNSPECIFIED (7) Arteriosclerotic heart disease (ASHD) Code(s): I25.10 - ATHSCL HEART DISEASE OF [place] CORONARY ARTERY W/O ANG PCTRS (8) COPD (chronic obstructive pulmonary disease) Code(s): J44.9 - CHRONIC OBSTRUCTIVE PULMONARY DISEASE, UNSPECIFIED (9) Hyperlipemia Code(s): E78.5 - HYPERLIPIDEMIA, UNSPECIFIED Assessment/Plan (1) R CVA Assessment/Plan: -MRI reviewed -neurology following and note reviewed -start on aspirin -PT consulted, speech consult -continue eliquis Code(s): R29.898 - OTH SYMPTOMS AND SIGNS INVOLVING THE MUSCULOSKELETAL SYSTEM (2) Left-sided muscle weakness Assessment/Plan: -exacerbated by new CVA -PT Code(s): M62.81 - MUSCLE WEAKNESS (GENERALIZED) (3) Atrial fibrillation Assessment/Plan: -chronic -on eliquis -rate controlled Code(s): I48.91 - UNSPECIFIED ATRIAL FIBRILLATION (4) Bradycardia Assessment/Plan: -asymptomatic Code(s): R00.1 - BRADYCARDIA, UNSPECIFIED (5) CKD (chronic kidney disease) Assessment/Plan: -stable Code(s): N18.9 - CHRONIC KIDNEY DISEASE, UNSPECIFIED (6) Arteriosclerotic heart disease (ASHD) Assessment/Plan: -appreciate cardiology assistance -continue current management Code(s): I25.10 - ATHSCL HEART DISEASE OF [place] CORONARY ARTERY W/O ANG PCTRS (7) COPD (chronic obstructive pulmonary disease) Assessment/Plan: -stable Code(s): J44.9 - CHRONIC OBSTRUCTIVE PULMONARY DISEASE, UNSPECIFIED (8) Hyperlipemia Assessment/Plan: -continue current regimen Code(s): E78.5 - HYPERLIPIDEMIA, UNSPECIFIED (9) Hypertension Assessment/Plan -controlled Code(s): I10 - ESSENTIAL (PRIMARY) HYPERTENSION (10) Obesity Assessment/Plan: -outpatient management Code(s): E66.9 - OBESITY, UNSPECIFIED (11) PVD (peripheral vascular disease) Assessment/Plan: -stable Code(s): I73.9 - PERIPHERAL VASCULAR DISEASE, UNSPECIFIED (12) Aortic stenosis Assessment/Plan: -murmur noted -cardiology following Code(s): I35.0 - NONRHEUMATIC AORTIC (VALVE) STENOSIS (13) Fatty liver Assessment/Plan: -chronic -continue current management Code(s): K76.0 - FATTY (CHANGE OF) LIVER, NOT ELSEWHERE CLASSIFIED (14) Impaired glucose tolerance Assessment/Plan: -diet control Code(s): R73.02 - IMPAIRED GLUCOSE TOLERANCE (ORAL)
[2016-07-27] MEDS: ATORVASTATIN CA 80 MG TABLET (FP) PO SCH (21:09)
[2016-07-28 08:11] LABS: EOSINOPHIL 4.5 % (0-4.5); MCH 29.7 pg (25.7-33.7); MCHC 32.9 g/dl (32.0-35.9); MEAN CELL VOLUME 90.4 fl (80-96); NEUTROPHILS 63.2 % (42.8-82.8); PLATELET COUNT 155 K/MM3 (134-434); RDW 16.1 % (11.9-15.9)
--- NOTE | 2016-07-28 08:55 | DS ---
Physical Examination Vital Signs: Vital Signs Temperature 98.5 F 07/28/16 06:00 Pulse Rate 53 L 07/28/16 06:00 Respiratory Rate 20 07/28/16 06:00 Blood Pressure 141/49 07/28/16 06:00 O2 Sat by Pulse Oximetry (%) 97 07/27/16 21:00 Constitutional: Yes: No Distress, Calm Eyes: No: Sclera Icterus Cardiovascular: Yes: Pulse Irregular, Murmur (3/6 systolic at base) Respiratory: Yes: Other (Clear with mild dry rales at bases). No: Rhonchi, Wheezes Gastrointestinal: Yes: Normal Bowel Sounds, Soft Edema: No Neurological: Yes: Weakness (mild residual LLE LUE) Labs: CBC, BMP 07/28/16 05:40 Discharge Summary Reason For Visit: BRADYCARDIA, WEAKNESS Current Active Problems Aortic stenosis (Chronic) Atrial fibrillation (Chronic) Bradycardia (Chronic) CKD (chronic kidney disease) (Chronic) Fatty liver (Chronic) Impaired glucose tolerance (Chronic) Left leg weakness (Chronic) Left-sided muscle weakness (Chronic) Weakness (Chronic) Hospital Course: Please refer to daily notes LLE>LUE weakness after prolonged car ride. Possibility of peripheral nerve involvement related to spinal OA was raised, but aftr an inbitial CT can, an MRI revealed acute/subacute ischemic changes in Right cerebral hemisphere c/w possible new CVA See scanned reports Cardiologic follow-up reviewed Currently scheduled for transfer to acute care [facility] [place] pending cardiologic clearance Condition: Fair - Instructions Diet, Activity, Other Instructions: Low Na+ diabetic diet low cholesterol PT as directed and as tolerated Referrals: Caleb Feliz [Non Staff, Medical] - Disposition: TRANSFER ACUTE CARE/OTHER HOSP - Home Medications Comprehensive Discharge Medication List: Ambulatory Orders Allopurinol [Zyloprim -] 300 mg PO DAILY 07/24/16 Amiodarone HCl 100 mg PO DAILY 07/24/16 Apixaban [Eliquis -] 5 mg PO BID 07/24/16 Aspirin [ASA -] 81 mg PO DAILY 07/24/16 Doxazosin Mesylate 2 mg PO DAILY 07/24/16 Escitalopram Oxalate [Lexapro -] 15 mg PO DAILY 07/24/16 Furosemide [Lasix] 40 mg PO DAILY 07/24/16 Acetaminophen [Tylenol .Regular Strength -] 650 mg PO Q6H PRN #0 tablet Atorvastatin Ca [Lipitor] 80 mg PO HS tablet 07/28/16 Tramadol HCl [Ultram -] 50 mg PO Q8H PRN #30 tablet MDD 3 07/28/16
[2016-07-28 09:01] LABS: CALCIUM 9.1 mg/dL (8.5-10.1); COCKROFT - GAULT 45.5; CREATININE 1.9 mg/dL (0.7-1.3); MAGNESIUM 2.4 mg/dL (1.8-2.4); PHOSPHOROUS 3.6 mg/dL (2.5-4.9)
[2016-07-28] MEDS ORDERED: PT OWN MED DRAWER 7, Y5N ONE (09:13)
[2016-07-28] MEDS: ASPIRIN 81 MG CHEWABLE TABLETS PO SCH (09:16)
[2016-07-28] MEDS: AMIODARONE HCL 200 MG TABLET (FP) PO SCH (09:17)
[2016-07-28] MEDS: ESCITALOPRAM OXALATE 10 MG TABLET (FP) PO SCH (09:18)
[2016-07-28] MEDS: APIXABAN 5 MG TABLET PO SCH (09:18)
[2016-07-28] MEDS: FUROSEMIDE 40 MG TABLET (FP) PO SCH (09:18)
[2016-07-28] MEDS: PANTOPRAZOLE 40 MG TABLET (FP) PO SCH (09:19)
[2016-07-28] MEDS: METOPROLOL SUCCINATE 25 MG TAB.SR.24H (FP) PO SCH (09:19)
[2016-07-28] MEDS: ALLOPURINOL 300 MG TABLET (FP) PO SCH (09:20)
[2016-07-28 10:17] LABS: THYROID STIMULATING HORMONE 5.66 uIU/ml (0.358-3.74)
--- NOTE | 2016-07-28 10:56 | PN ---
Progress Note (short form) - Note Progress Note: s: no cp sob palps dizzy o: Vital Signs Period Temp Pulse Resp BP Sys/Garcia Pulse Ox Last 24 Hr 97.4 F-98.5 F 53-57 18-20 141-154/49-54 97-97 Constitutional: Yes: Well Nourished, No Distress, Calm. Cardiovascular: Yes: Regular Rate and Rhythm, Murmur (3/6 RSB c/w --as before) , S1, S2. No: JVD, Gallop Respiratory: Yes: Regular, CTA Bilaterally. No: Accessory Muscle Use, Rales, Wheezes Extremities: No: Cold Edema: No le e/c/c Neurological: Yes: aaox3 Psychiatric: No: Agitated no jaundice diaphoresis Current Medications Generic Name Dose Route Start Last Admin Trade Name Freq PRN Reason Stop Dose Admin Acetaminophen 650 mg 07/24/16 20:17 07/24/16 22:28 Tylenol - PO 650 mg Q6H PRN Administration FEVER OR PAIN Allopurinol 300 mg 07/25/16 10:00 07/28/16 09:20 Zyloprim - PO 300 mg DAILY ABI Administration Amiodarone HCl 100 mg 07/25/16 10:00 07/28/16 09:17 Cordarone - PO 100 mg DAILY ABI Administration Apixaban 5 mg 07/24/16 22:00 07/28/16 09:18 Eliquis - PO 5 mg BID ABI Administration Aspirin 81 mg 07/25/16 10:00 07/28/16 09:16 Asa - PO 81 mg DAILY ABI Administration Atorvastatin Calcium 80 mg 07/25/16 22:00 07/27/16 21:09 Lipitor - PO 80 mg HS ABI Administration Doxazosin Mesylate 2 mg 07/25/16 10:00 07/27/16 09:39 Cardura - PO 2 mg DAILY ABI Administration Escitalopram Oxalate 15 mg 07/25/16 10:00 07/28/16 09:18 Lexapro - PO 15 mg DAILY ABI Administration Furosemide 40 mg 07/25/16 10:00 07/28/16 09:18 Lasix - PO 40 mg DAILY ABI Administration Metoprolol Succinate 25 mg 07/25/16 10:00 07/28/16 09:19 Toprol Xl - PO 25 mg DAILY ABI Administration Pantoprazole Sodium 40 mg 07/25/16 10:00 07/28/16 09:19 Protonix - PO 40 mg DAILY ABI Administration Tramadol HCl 50 mg 07/24/16 20:17 07/27/16 20:02 Ultram - PO 50 mg Q8H PRN Administration PAIN CBC, BMP 07/28/16 05:40 07/28/16 05:40 no tele 10/2015 L and R heart cath (at [place]): 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 a/p: LLE weakness/CVA: -? 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 spinal stenosis, but also with acute stroke on MRI (MCA territory) -bilateral old cerebral infarcts on CT head (h/o bilateral CEA) -neuro input reviewed-- lipitor dose was increased. -pt is adequately anticoagulated on eliquis 5 bid at home (confirms compliance) , continuing ASA as well for now per outpatient regimen. - In setting of recurrent CVA, will repeat echo to assess LV function and make sure no risk for LV thrombus as embolic source as that would guide changer ( NOAC change to coumadin). 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 AYANNA-I AFib: -s/p DCCV 10/17, maintained on amio by outpt cardio--QT <500 msec--cont same meds -on longstanding eliquis (5 bid) for AC as outpatient. -of note are chronic bilateral infarcts on CT head here. Now here with acute stroke. On ASA in addition to AC. (see discussion above ) chronic diast chf/severe (mod on cath): -outpt cardio notes scanned in dr churchill's chart state pt with chronic SOTO sx's -wedge 30 at [facility] last year, with PA -pt hospitalized 2016 for chf he says--no sob sx's presently -on lasix 40 qd at home -cxr here likely mild incr intersitial markings chronic > mild interstitial edema (no vasc redistribution appreciated) -no s/sx of chf, wt up 1 lb, from yesterday, but patient denies sx's of volume retention today 07/27 (was concerned about weight yesterday) -in light of signif renal dysfxn (chronic) with creat here at high end of his baseline range, will defer incr lasix unless wt rises further (baseline is 209- 212 lbs) or if has any signs chf -cont same lasix, outpt f/u with dr chadwick sinus bradycardia: -HRs vary 40s-50s here -pt without any presyncope/syncope/new generalized weakness sx's -? vagal tone effect here (in bed) -? combo of metoprolol plus amio 100 -given pt asymptomatic, has been tolerating this med combo for many months, will cont same meds and defer to dr netta crowley HTN: -[facility] suggests WHO 2 classification, i.e. secondary to LV diast chf -diuresis as doing h/o CEA: -cont home meds h/o PAD: -claudication sx's with abnormal PVRs -cont home meds HTN: -on BB only at home CKD: -office creatinine range 1.8-2.1 -renal fxn stable here cardiac garcia stable for the planned rehab of 3 hours daily at SNF.
[2016-07-28] MEDS ORDERED: ONDANSETRON *ODT* 4 MG TABLET SL ONE (12:25)
[2016-07-28] MEDS: DOXAZOSIN MESYLATE 2 MG TABLET (FP) PO SCH (12:30)
[2016-07-28 12:54] VITALS: BP 140/76; PULSE 78; TEMP 97.5
== END 2016-07-28 13:16 | DRG 65 ==
LOC: JER 11:23 → JERBED 13:28 → J4W 18:57
PROVIDERS: ADMIT Internal Medicine Geriatric Medicine; ATTEND Internal Medicine Geriatric Medicine
DX: I63.9 Cerebral infarction, unspecified (principal); I69.354 Hemiplegia and hemiparesis following cerebral infarction affecting left non-dominant side; I50.32 Chronic diastolic (congestive) heart failure; I13.0 Hypertensive heart and chronic kidney disease with heart failure and stage 1 through stage 4 chronic kidney disease, or unspecified chronic kidney disease; N18.9 Chronic kidney disease, unspecified; M54.9 Dorsalgia, unspecified; R00.1 Bradycardia, unspecified; I48.91 Unspecified atrial fibrillation; I25.10 Atherosclerotic heart disease of native coronary artery without angina pectoris; E11.9 Type 2 diabetes mellitus without complications; E78.5 Hyperlipidemia, unspecified; I73.9 Peripheral vascular disease, unspecified; I35.0 Nonrheumatic aortic (valve) stenosis; K76.0 Fatty (change of) liver, not elsewhere classified; I27.2 Other secondary pulmonary hypertension; E66.9 Obesity, unspecified; Z68.33 Body mass index [BMI] 33.0-33.9, adult
CPT/HCPCS: 36415; 70450-TC; 70551-TC; 71010-TC; 72148-TC; 80048; 80053; 81003; 82550; 83036; 83735; 84100; 84443; 84484; 85025; 85610; 93005; 93010; 93306-TC; 93880-TC; 97116-GP; 97161-GP; 99283-25

== ENCOUNTER 2017-09-22 08:48 | Emergency (ER) | payer OTHER, MEDICARE ==
[2017-09-22 09:03] VITALS: BMI 32.8
--- NOTE | 2017-09-22 09:09 | PDOC ---
History of Present Illness <Angelica Ugarte - Last Filed: 09/22/17 12:57> - General History Source: Patient Exam Limitations: No Limitations - History of Present Illness Initial Comments: 09/22/17 10:08 The patient is a 77 year old male with past medical history of COPD, DM, HTN, PVD, ASHD, CHF (on Eliquis), stroke w/ L. side residual (05/2009 and 07/2016), spinal stenosis, chronic back pain, baseline low creatinine level and diverticulosis presents to the emergency department complaining of abdominal pain. The patient states a history of chronic back pain, with a new onset of radiating pain to the abdomen, progressively worsening for the past 3 days. The patient rates the pain 10/10 in severity, no relief with extra strength tylenol (last dose 2:00 am today). The patient reports associated concerns of nausea, increase weakness to the lower extremity and to the left side of the body. The patient reports hes been following up with a chiropractor for the past 4 weeks. Denies fever, chills, cough or a headache. Denies chest pain or shortness of breath. Denies dysuria, hematuria, frequency or urgency to urinate. Denies diarrhea, constipation, melena or hematochezia. Denies vomiting or hematemesis. Denies any recent falls or trauma. Denies taking Eliquis today. Allergies: Penicillins Social history:Former smoker. Denies the use of alcohol or recreational drug. Surgical history: Right cataract Surgery, MARIS CAROTID ENDARTERECTOMY, and triple bypass and Aortic replacement. PCP: Dr. Fallon <Oneyda Ashford - Last Filed: 09/22/17 13:32> - General Chief Complaint: Back Pain Stated Complaint: PAIN/ BACK, LEG Time Seen by Provider: 09/22/17 09:08 Past History - Past Medical History Anemia: No Asthma: No Cardiac Disorders: Yes ([place], CARDIOVERSION X2) CVA: Yes ( mild L hemiparesis) COPD: No CHF: Yes (H/O) Dementia: No Diabetes: Yes (BORDERLINE-DIET CONTROLLED) GI Disorders: Yes (diverticulosis) Disorders: No HTN: Yes Liver Disease: No Seizures: No Thyroid Disease: No - Surgical History Abdominal Surgery: No Appendectomy: No Cardiac Surgery: Yes (MARIS CAROTID EDARTERECTOMY) Cholecystectomy: No Lung Surgery: No Neurologic Surgery: No Orthopedic Surgery: No - Suicide/Smoking/Psychosocial Hx Smoking History: Former smoker Have you smoked in the past 12 months: No Number of Cigarettes Smoked Daily: 0 If you are a former smoker, when did you quit?: 2009 Information on smoking cessation initiated: Yes Hx Alcohol Use: No Drug/Substance Use Hx: No Substance Use Type: None Hx Substance Use Treatment: No <Angelica Ugarte - Last Filed: 09/22/17 12:57> <Oneyda Ashford - Last Filed: 09/22/17 13:32> - Past Medical History Allergies/Adverse Reactions: Allergies Allergy/AdvReac Type Severity Reaction Status Date / Time Penicillins Allergy "RASH" Verified 09/22/17 08:58 Home Medications: Ambulatory Orders Allopurinol [Zyloprim -] 300 mg PO DAILY 07/24/16 Amiodarone HCl 100 mg PO DAILY 07/24/16 Apixaban [Eliquis -] 5 mg PO BID 07/24/16 Aspirin [ASA -] 81 mg PO DAILY 07/24/16 Doxazosin Mesylate 2 mg PO DAILY 07/24/16 Escitalopram Oxalate [Lexapro -] 15 mg PO DAILY 07/24/16 Furosemide [Lasix] 40 mg PO DAILY 07/24/16 Acetaminophen [Tylenol .Regular Strength -] 650 mg PO Q6H PRN #0 tablet Atorvastatin Ca [Lipitor] 80 mg PO HS tablet 07/28/16 traMADol HCL [Ultram -] 50 mg PO Q8H PRN #30 tablet MDD 3 07/28/16 Review of Systems - Review of Systems Able to Perform ROS?: Yes Comments:: 09/22/17 10:09 GENERAL/CONSTITUTIONAL: No fever or chills. No weakness. HEAD, EYES, EARS, NOSE AND THROAT: No change in vision. No ear pain or discharge. No sore throat. CARDIOVASCULAR: No chest pain or shortness of breath. RESPIRATORY: No cough, wheezing, or hemoptysis. GASTROINTESTINAL: (+) Abdominal pain. Nausea. No vomiting, diarrhea or constipation. GENITOURINARY: No dysuria, frequency, or change in urination. MUSCULOSKELETAL: (+) Chronic back pain.(+) Increased weakness to the legs. No joint or muscle swelling or pain. No neck. SKIN: No rash NEUROLOGIC: (+) Increased weakness to the Left side of the body. No headache, vertigo, loss of consciousness, or change in sensation. ENDOCRINE: No increased thirst. No abnormal weight change. HEMATOLOGIC/LYMPHATIC: No anemia, easy bleeding, or history of blood clots. ALLERGIC/IMMUNOLOGIC: No hives or skin allergy. <Oneyda Ashford - Last Filed: 09/22/17 13:32> *Physical Exam - Vital Signs Last Vital Signs Temp Pulse Resp BP Pulse Ox 98 F 68 16 158/79 99 09/22/17 08:59 09/22/17 08:59 09/22/17 08:59 09/22/17 08:59 09/22/17 08:59 <Angelica Ugarte - Last Filed: 09/22/17 12:57> - Vital Signs Last Vital Signs Temp Pulse Resp BP Pulse Ox 98 F 68 16 158/79 99 09/22/17 08:59 09/22/17 08:59 09/22/17 08:59 09/22/17 08:59 09/22/17 08:59 - Physical Exam Comments: 09/22/17 10:09 GENERAL: Awake, alert, and fully oriented, in no acute distress HEAD: No signs of trauma EYES: PERRLA, EOMI, sclera anicteric, conjunctiva clear ENT: Auricles normal inspection, hearing grossly normal, nares patent, oropharynx clear without exudates. Moist mucosa NECK: Normal ROM, supple, no lymphadenopathy, JVD, or masses LUNGS: Breath sounds equal, clear to auscultation bilaterally. No wheezes, and no crackles HEART: Regular rate and rhythm, normal S1 and S2, no murmurs, rubs or gallops ABDOMEN:(+) Mild tenderness to deep palpation diffused to the lower abdomen. Soft, normoactive bowel sounds. No guarding, no rebound. No masses EXTREMITIES: (+) No point tenderness to the back. Normal range of motion, no edema. No clubbing or cyanosis. No cords, erythema, or tenderness <Oneyda Ashford - Last Filed: 09/22/17 13:32> ED Treatment Course - LABORATORY CBC & Chemistry Diagram: 09/22/17 09:43 09/22/17 09:43 <Angelica Ugarte - Last Filed: 09/22/17 12:57> - LABORATORY CBC & Chemistry Diagram: 09/22/17 09:43 09/22/17 09:43 - ADDITIONAL ORDERS Additional order review: 09/22/17 09:43 RBC 3.83 L MCV 86.7 MCHC 33.6 RDW 16.5 H MPV 8.3 Neutrophils % 65.1 Lymphocytes % 20.8 Monocytes % 8.5 Eosinophils % 4.6 H Basophils % 1.0 - Medications Given in the ED: ED Medications Discontinued Medications Generic Name Dose Route Start Last Admin Trade Name Neymar PRN Reason Stop Dose Admin Acetaminophen 1,000 mg 09/22/17 09:23 09/22/17 09:48 Ofirmev Injection - IVPB 09/22/17 09:24 1,000 mg ONCE ONE Administration <Oneyda Ashford - Last Filed: 09/22/17 13:32> Medical Decision Making - Medical Decision Making 09/22/17 12:57 Pt presents to the ED complaining of lower abdominal pain and acute exacerbation of his chronic lower back pain. Initial concern for diverticulitis , abscess, less likely aortic pathology. CT scan checked to rule out abdominal pathology and is negative except for umbilical hernia. PAtient has no pain or tenderness in that area, and reports that the umbilical hernia is long standing. Pain is greatly improved after IV tylenol. Will discharge home. Patient will follow up with his PMD tomorrow. <Angelica Ugarte - Last Filed: 09/22/17 12:57> *DC/Admit/Observation/Transfer - Discharge Dispostion Decision to Admit order: No <Angelica Ugarte - Last Filed: 09/22/17 12:57> - Attestations Scribe Attestion: 09/22/17 10:09 Documentation prepared by Oneyda Ashford, acting as medical records director for Angelica Ugarte MD. <Oneyda Ashford - Last Filed: 09/22/17 13:32> Diagnosis at time of Disposition: Abdominal pain Qualifiers: Abdominal location: generalized Qualified Code(s): R10.84 - Generalized abdominal pain Back pain Qualifiers: Back pain location: low back pain Chronicity: chronic Back pain laterality: bilateral Sciatica presence: without sciatica Qualified Code(s): M54.5 - Low back pain - Discharge Dispostion Disposition: HOME Condition at time of disposition: Good - Referrals Referrals: Martinez Fallon MD [Primary Care Provider] - - Patient Instructions Printed Discharge Instructions: DI for Low Back Pain, DI for Abdominal Pain- Adult Additional Instructions: return to the ED for worsening pain, pain with fever, severe nausea and vomiting , new weakness in your legs, problems controlling your bowels or bladder, bloody vomit or stool, other new or worsening symptoms. Make sure you see Dr. Fallon tomorrow.
[2017-09-22] MEDS ORDERED: ACETAMINOPHEN 1000 MG/100 ML VIAL (NON FORMULARY) IVPB ONE (09:23)
[2017-09-22] MEDS ORDERED: ACETAMINOPHEN INJECTION 100 ML IVPB ONE (09:30)
[2017-09-22 10:01] LABS: EOS % 4.6 % (0-4.5); HEMATOCRIT 33.2 % (35.4-49); HEMOGLOBIN 11.2 GM/dL (11.7-16.9); LYMPH % 20.8 % (8-40); MCH 29.1 pg (25.7-33.7); MCHC 33.6 g/dl (32.0-35.9); MEAN CELL VOLUME 86.7 fl (80-96); MEAN PLT VOLUME 8.3 fl (7.5-11.1); MONO % 8.5 % (3.8-10.2); NEUT % 65.1 % (42.8-82.8); PLATELET COUNT 196 K/MM3 (134-434); RBC 3.83 M/mm3 (4.00-5.60); RDW 16.5 % (11.9-15.9); WHITE BLOOD COUNT 5.8 K/mm3 (4.0-10.0)
[2017-09-22 10:34] LABS: ALBUMIN 3.1 g/dl (3.4-5.0); ANION GAP 7 (8-16); BILIRUBIN,TOTAL 0.4 mg/dL (0.2-1.0); BLOOD UREA NITROGEN 40 mg/dL (7-18); CALCIUM 8.4 mg/dL (8.5-10.1); CHLORIDE 109 mmol/L (98-107); CO2 26 mmol/L (21-32); CREATININE 1.7 mg/dL (0.7-1.3); GLUCOSE,RANDOM 98 mg/dL (74-106); POTASSIUM 4.6 mmol/L (3.5-5.1); SGOT/AST 23 U/L (15-37); SGPT/ALT 25 U/L (12-78); SODIUM 142 mmol/L (136-145); TOT PROT 6.5 g/dl (6.4-8.2)
[2017-09-22 10:35] LABS: ALK PHOS 150 U/L (45-117)
[2017-09-22 10:45] LABS: INR 1.14 (0.82-1.09); PROTHROMBIN TIME (PATIENT) 12.9 SEC (9.7-13.0)
[2017-09-22 11:26] LABS: URINE APPEARANCE CLEAR; URINE BILIRUBIN NEGATIVE (<2.0 mg/dL); URINE COLOR LTYELLOW; URINE GLUCOSE (UA) NEGATIVE (NEGATIVE); URINE KETONE NEGATIVE (NEGATIVE); URINE LEUK ESTERASE NEGATIVE (NEGATIVE); URINE NITRITE NEGATIVE (NEGATIVE); URINE PROTEIN NEGATIVE (NEGATIVE); URINE UROBILINOGEN NEGATIVE mg/dL (0.2-1.0)
[2017-09-22 13:21] VITALS: BP 138/63; PULSE 67; TEMP 98.2
== END 2017-09-22 13:34 | disposition home or self-care (01) ==
LOC: JER 08:48
PROC: 3E033NZ Introduction of Analgesics, Hypnotics, Sedatives into Peripheral Vein, Percutaneous Approach (ICD-10-PCS; principal; 2017-09-22)
DX: R10.84 Generalized abdominal pain (principal); M54.5 Low back pain; G89.29 Other chronic pain; I25.10 Atherosclerotic heart disease of native coronary artery without angina pectoris; I11.0 Hypertensive heart disease with heart failure; Z95.1 Presence of aortocoronary bypass graft; Z87.891 Personal history of nicotine dependence; I25.2 Old myocardial infarction; Z79.01 Long term (current) use of anticoagulants; E11.9 Type 2 diabetes mellitus without complications; I73.89 Other specified peripheral vascular diseases; I69.854 Hemiplegia and hemiparesis following other cerebrovascular disease affecting left non-dominant side
CPT/HCPCS: 36415; 74176-TC; 80053; 81003; 83605; 85025; 85610; 99284-25; J0131

== ENCOUNTER 2017-10-27 09:11 | Observation (INO) | payer OTHER, MEDICARE ==
[2017-10-27 09:30] VITALS: BMI 32.3
--- NOTE | 2017-10-27 09:50 | PDOC ---
History of Present Illness <Juan C Power - Last Filed: 10/27/17 14:14> - History of Present Illness Initial Comments: 10/27/17 10:28 The patient is a 77 year old male with past medical history of COPD, DM, HTN, PVD, ASHD, afib (on Eliquis), stroke w/ L side residual weakness (05/2009 and 2016), spinal stenosis, chronic back pain, baseline low creatinine level and diverticulosis presents to the emergency department complaining of left foot pain for 11 hours. The patient states the left foot pain began gradually around 10 pm last night. The patient denies any recent injuries, trauma or twisting. The patient states he took 2 Tylenol last night for the left foot pain with minimal relief. The patient states he has a history of poor circulation which he thinks may be related to the pain. The patient also endorses slight left lower extremity swelling. The patient reports a history of CVA with residual baseline left lower extremity numbness/ weakness which he states is unchanged. The patient states his most recent surgery was a triple bypass 6 months ago. The patient states he is currently compliant with his Eliquis. The patient denies chest pain, palpitations, calf tenderness, lightheadedness, shortness of breath, headache and dizziness. Denies fever, chills, nausea, vomit, diarrhea and constipation. Denies dysuria, frequency, urgency and hematuria. Allergies: Penicillins Social history:Former smoker. Denies the use of alcohol or recreational drug. Surgical history: Right cataract Surgery, MARIS CAROTID ENDARTERECTOMY, and triple bypass and Aortic replacement. PCP: Dr. Fallon <Eliot Gonzalez - Last Filed: 10/29/17 08:30> - General Chief Complaint: Pain, Acute Stated Complaint: LT LEG PAIN, SWOLLEN FOOT PAIN Time Seen by Provider: 10/27/17 09:31 Past History <Juan C Power - Last Filed: 10/27/17 14:14> - Past Medical History Anemia: No Asthma: No Cardiac Disorders: Yes ([place], CARDIOVERSION X2) CVA: Yes ( mild L hemiparesis) COPD: No CHF: Yes (H/O) Dementia: No Diabetes: Yes (BORDERLINE-DIET CONTROLLED) GI Disorders: Yes (diverticulosis) Disorders: No HTN: Yes Liver Disease: No Seizures: No Thyroid Disease: No - Surgical History Abdominal Surgery: No Appendectomy: No Cardiac Surgery: Yes (MARIS CAROTID EDARTERECTOMY) Cholecystectomy: No Lung Surgery: No Neurologic Surgery: No Orthopedic Surgery: No - Immunization History Immunization Up to Date: Yes - Suicide/Smoking/Psychosocial Hx Smoking History: Former smoker Have you smoked in the past 12 months: No Number of Cigarettes Smoked Daily: 0 If you are a former smoker, when did you quit?: 2009 Information on smoking cessation initiated: No Hx Alcohol Use: No Drug/Substance Use Hx: No Substance Use Type: None Hx Substance Use Treatment: No <Eliot Gonzalez - Last Filed: 10/29/17 08:30> - Past Medical History Allergies/Adverse Reactions: Allergies Allergy/AdvReac Type Severity Reaction Status Date / Time Penicillins Allergy "RASH" Verified 10/27/17 09:26 Home Medications: Ambulatory Orders Allopurinol [Zyloprim -] 150 mg PO DAILY 10/27/17 Apixaban [Eliquis -] 2.5 mg PO BID 10/27/17 Aspirin [Aspirin EC] 81 mg PO DAILY 10/27/17 Atorvastatin Ca [Lipitor] 80 mg PO HS 10/27/17 Metoprolol Succinate 50 mg PO DAILY 10/27/17 Torsemide 20 mg PO DAILY 10/27/17 Review of Systems - Review of Systems Comments:: 10/27/17 10:45 "GENERAL/CONSTITUTIONAL: No fever or chills. No weakness. HEAD, EYES, EARS, NOSE AND THROAT: No change in vision. No ear pain or discharge. No sore throat. CARDIOVASCULAR: No chest pain or shortness of breath. RESPIRATORY: No cough, wheezing, or hemoptysis. GASTROINTESTINAL: No nausea, vomiting, diarrhea or constipation. GENITOURINARY: No dysuria, frequency, or change in urination. MUSCULOSKELETAL: +Left foot pain. No neck or back pain. SKIN: No rash NEUROLOGIC: +Baseline left foot numbness and weakness. No headache, vertigo, loss of consciousness. ENDOCRINE: No increased thirst. No abnormal weight change. HEMATOLOGIC/LYMPHATIC: No anemia, easy bleeding, or history of blood clots. ALLERGIC/IMMUNOLOGIC: No hives or skin allergy. " <Eliot Gonzalez - Last Filed: 10/29/17 08:30> *Physical Exam - Vital Signs Last Vital Signs Temp Pulse Resp BP Pulse Ox 97.5 F L 72 18 138/64 100 10/27/17 09:27 10/27/17 12:14 10/27/17 12:14 10/27/17 12:14 10/27/17 12:14 <Juan C Power - Last Filed: 10/27/17 14:14> - Vital Signs Last Vital Signs Temp Pulse Resp BP Pulse Ox 97.5 F L 46 L 16 140/69 99 10/27/17 09:27 10/27/17 09:27 10/27/17 09:27 10/27/17 09:27 10/27/17 09:27 - Physical Exam Comments: 10/27/17 10:46 "GENERAL: Awake, alert, and fully oriented, in no acute distress. HEAD: No signs of trauma EYES: PERRLA, EOMI, sclera anicteric, conjunctiva clear ENT: Auricles normal inspection, hearing grossly normal, nares patent, oropharynx clear without exudates. Moist mucosa NECK: Nontender, no stepoffs, Normal ROM, supple, no lymphadenopathy, JVD, or masses LUNGS: Breath sounds equal, clear to auscultation bilaterally. No wheezes, and no crackles HEART: Regular rate and rhythm, normal S1 and S2, no murmurs, rubs or gallops ABDOMEN: Soft, nontender, normoactive bowel sounds. No guarding, no rebound. No masses EXTREMITIES: L foot with no significant effusion, no deformity, + diffuse tenderness to dorsum and plantar surface, no focal bony tenderness, palpable DP on R foot, ABSENT DP L foot NEUROLOGICAL: Cranial nerves II through XII intact. 5/5 strength and sensation in all extremities, Normal speech, normal gait, normal cerebellar function SKIN: Warm, Dry, normal turgor, no rashes or lesions noted. " <Ou,Eliot - Last Filed: 10/29/17 08:30> Heart Score/ECG Review - ECG Impressions Comment:: 10/27/17 10:48 NSR, no REMA/STDs, no TWIs, +PVCs, rate 71 <Ou,Eliot - Last Filed: 10/29/17 08:30> ED Treatment Course - LABORATORY CBC & Chemistry Diagram: 10/27/17 10:30 10/27/17 10:30 - ADDITIONAL ORDERS Additional order review: Laboratory Results 10/27/17 10/27/17 10/27/17 11:17 10:30 10:30 PT with INR 13.60 H INR 1.20 H PTT (Actin FS) Sodium Potassium Chloride Carbon Dioxide Anion Gap BUN Creatinine Creat Clearance w eGFR Random Glucose Lactic Acid 1.2 Calcium Total Bilirubin AST ALT Alkaline Phosphatase Total Protein Albumin Blood Type O POSITIVE Antibody Screen Negative 10/27/17 10/27/17 10:30 10:30 PT with INR INR PTT (Actin FS) 30.3 Sodium 146 H Potassium 4.3 Chloride 110 H Carbon Dioxide 28 Anion Gap 8 BUN 48 H Creatinine 2.1 H Creat Clearance w eGFR 30.86 Random Glucose 111 H Lactic Acid Calcium 9.1 Total Bilirubin 0.4 AST 21 ALT 23 Alkaline Phosphatase 168 H Total Protein 7.0 Albumin 3.5 Blood Type Antibody Screen 10/27/17 10:30 RBC 4.13 MCV 87.2 MCHC 33.2 RDW 16.9 H MPV 9.4 D Neutrophils % 69.9 Lymphocytes % 18.9 Monocytes % 7.0 Eosinophils % 3.2 Basophils % 1.0 - RADIOLOGY Radiograph Interpretation: 10/27/17 14:13 EXAM#: TYPE/EXAM: RESULT: [id number] US/DUPLEX VASCUL US-1 LEG HISTORY PROVIDED: Pain and swelling left lower extremity. Real time and doppler evaluation of the left lower extremity demonstrates the following: There is no evidence of deep venous thrombosis within the common, deep and superficial femoral veins, as well as the popliteal and posterior tibial veins. The greater saphenous vein is also patent. These veins are fully compressible, as well. IMPRESSION: No evidence of deep venous thrombosis. Reported By: David Pena MD EXAM#: TYPE/EXAM: RESULT: [id number] US/DUPLEX ART. LEGS- LIMITED US History provided: Absent left foot pulses. Real-time and Doppler evaluation of the arteries of the left lower extremity demonstrates the following: Extensive atherosclerotic plaque is identified on real time images of the common and superficial femoral arteries, as well as the popliteal and posterior tibial arteries. Abnormal monophasic flow is noted within the common femoral artery. There is complete occlusion of the superficial femoral artery with reconstituted monophasic flow noted within the popliteal artery. No flow could be identified within the posterior tibial artery. Additional imaging studies, such as CTA or conventional angiography, may be warranted. IMPRESSION: 1. Occluded left SFA and posterior tibial arteries. 2. Abnormal monophasic flow within the common femoral and popliteal arteries. Clinical correlation and follow-up recommended. Please see above discussion. Reported By: David Pena MD <Juan C Power - Last Filed: 10/27/17 14:14> - LABORATORY CBC & Chemistry Diagram: 10/28/17 07:00 10/28/17 07:00 - RADIOLOGY Radiology Studies Ordered: Category Date Time Status ABDOMEN CTA AOR & BLE RUNOFF [CT] Stat CT Scan 10/27/17 09:46 Ordered DUPLEX VASCUL US-1 LEG [US] Stat Ultrasound 10/27/17 09:46 Ordered <Eliot Gonzalez - Last Filed: 10/29/17 08:30> Medical Decision Making - Medical Decision Making 10/27/17 14:[address] Astudillo. Case discussed. <Juan C Power - Last Filed: 10/27/17 14:14> - Medical Decision Making 10/27/17 09:48 77 M with acute onset LLE pain from mid-hare to foot. No history of trauma and no deformity or joint effusion noted. Pt with asymmetric pulses (palpable DP on R foot, absent on L foot). Will need to r/o arterial occlusion. - Labs, coags - LLE doppler to r/o DVT - CTA aorta w/ BLE runoff 10/27/17 15:35 Unable to obtain CTA due to CKD Cr 2.1. Arterial doppler shows occlusion of SFA. Pt evaluated by Dr. Astudillo, who recommends reassessment in AM to evaluate for potential additional imaging. Pt admitted to Dr. Ochoa <Eliot Gonzalez - Last Filed: 10/29/17 08:30> *DC/Admit/Observation/Transfer - Attestations Scribe Attestion: 10/27/17 14:15 Documentation prepared by Juan C Power, acting as medical technologist clinical for Eliot Gonzalez MD. <Juan C Power - Last Filed: 10/27/17 14:14> - Discharge Dispostion Decision to Admit order: Yes - Attestations Physician Attestion: 10/27/17 15:37 I, Dr. Eliot Gonzalez MD, attest that this document has been prepared under my direction and personally reviewed by me in its entirety. I further attest, that it accurately reflects all work, treatment, procedures and medical decision -making performed by me. <Eliot Gonzalez - Last Filed: 10/29/17 08:30> Diagnosis at time of Disposition: Claudication in peripheral vascular disease - Discharge Dispostion Disposition: HOME Condition at time of disposition: Good
[2017-10-27 11:15] LABS: INR 1.2 (0.82-1.09); PROTHROMBIN TIME (PATIENT) 13.6 SEC (9.7-13.0)
[2017-10-27 11:38] LABS: ALBUMIN 3.5 g/dl (3.4-5.0); ALK PHOS 168 U/L (45-117); ANION GAP 8 (8-16); BILIRUBIN,TOTAL 0.4 mg/dL (0.2-1.0); BLOOD UREA NITROGEN 48 mg/dL (7-18); CALCIUM 9.1 mg/dL (8.5-10.1); CHLORIDE 110 mmol/L (98-107); CO2 28 mmol/L (21-32); CREATININE 2.1 mg/dL (0.7-1.3); GLUCOSE,RANDOM 111 mg/dL (74-106); POTASSIUM 4.3 mmol/L (3.5-5.1); SGOT/AST 21 U/L (15-37); SGPT/ALT 23 U/L (12-78); SODIUM 146 mmol/L (136-145)
[2017-10-27 11:45] LABS: EOS % 3.2 % (0-4.5); LYMPH % 18.9 % (8-40); MCH 28.9 pg (25.7-33.7); MCHC 33.2 g/dl (32.0-35.9); MEAN CELL VOLUME 87.2 fl (80-96); MEAN PLT VOLUME 9.4 fl (7.5-11.1); NEUT % 69.9 % (42.8-82.8); PLATELET COUNT 202 K/MM3 (134-434); RBC 4.13 M/mm3 (4.00-5.60); RDW 16.9 % (11.9-15.9); WHITE BLOOD COUNT 8.3 K/mm3 (4.0-10.0)
--- NOTE | 2017-10-27 14:27 | EKG ---
Test Reason : Blood Pressure : / mmHG Vent. Rate : 071 BPM Atrial Rate : 071 BPM P-R Int : 194 ms QRS Dur : 096 ms QT Int : 438 ms P-R-T Axes : 071 035 017 degrees QTc Int : 475 ms SINUS RHYTHM WITH FREQUENT PREMATURE VENTRICULAR COMPLEXES INFERIOR INFARCT , AGE UNDETERMINED ABNORMAL ECG WHEN COMPARED WITH ECG OF 24-JUL-2016 11:44, PREMATURE VENTRICULAR COMPLEXES ARE NOW PRESENT VENT. RATE HAS INCREASED BY 24 BPM NONSPECIFIC T WAVE ABNORMALITY NOW EVIDENT IN INFERIOR LEADS Confirmed by JIN NICOLAS MD ([id number]) on 10/27/2017 2:27:19 PM Referred By: Confirmed By:JIN NICOLAS MD
[2017-10-27] MEDS ORDERED: ONDANSETRON 4 MG/2 ML VIAL IVPUSH PRN (15:52)
[2017-10-27] MEDS ORDERED: ACETAMINOPHEN 325 MG TABLET (FP) PO PRN (15:52)
--- NOTE | 2017-10-27 15:53 | HP ---
Admitting History and Physical - Primary Care Physician PCP: Martinez Fallon - Admission Chief Complaint: My left foot is hurting History of Present Illness: Mr Da Silva is a very pleasant 77 year old male who comes in with L foot pain starting this morning. He had this pain in the past but not as severe and it resolved. This morning he woke up to an aching pain in his heel that radiated up into his calf. He says it was constant and was worsened by standing on it. He was unable to walk secondary to the pain. He says at it's worse this morning it was a 7/10. It was not improving so he came to the ER for further assistance. Currently he says it is improved, he is now able to walk on it and it is a 5/10. Aside from this he has no new complaints. He has orthopnea which is chronic and unchanged. He also has nausea for 2 months but without loss of appetite or weight loss. He denies fevers, chills, lightheadedness, dizziness, chest pain or pressure, shortness of breath except when lying flat, abdominal pain, vomiting, diarrhea, constipation, difficulty or pain on urination, or worsening swelling. 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: CVA (Left sided weakness facial droop cognitive loss c/w Right CVA) Cardiovascular: Yes: Other (Severe PVD Bilateral Carotid Endarterectomies Claudication SFA occlusions bilaterally) Pulmonary: Yes: COPD Gastrointestinal: Yes: Diverticulitis (receurrent), Gastritis, GERD, GI Bleed ( Rectal), Hemorrhoids Renal/: Yes: Renal Inusuff, BPH Infectious Disease: Yes: C-Diff (recent resolved), Other (Chronic folliculitis) Psych: Yes: Other (Behavioral changes after CVA) Musculoskeletal: Yes: Chronic low back pain (Active presently) Endocrine: Yes: Diabetes Mellitus, Other (Insulin Resistance) Dermatology: Yes: Other (Acneiform rash/folliculitis/rosacea) - Past Surgical History Past Surgical History: Yes: CABG (3 vessel), Carotid Endarterectomy (Bilateral) , Valve Replacement (aortic) - Smoking History Smoking history: Former smoker Have you smoked in the past 12 months: No Aproximately how many cigarettes per day: 0 If you are a former smoker, when did you quit?: 2009 - Alcohol/Substance Use Hx Alcohol Use: No History of Substance Use: reports: None - Social History Usual Living Arrangement: Yes: With Spouse ADL: Family Assistance History of Recent Travel: No Home Medications - Allergies Allergies/Adverse Reactions: Allergies Allergy/AdvReac Type Severity Reaction Status Date / Time Penicillins Allergy "RASH" Verified 10/27/17 09:26 - Home Medications Home Medications: Ambulatory Orders Acetaminophen 650 mg PO PRN PRN 10/27/17 Allopurinol [Zyloprim -] 150 mg PO DAILY 10/27/17 Apixaban [Eliquis -] 2.5 mg PO BID 10/27/17 Aspirin [Aspirin EC] 81 mg PO DAILY 10/27/17 Atorvastatin Ca [Lipitor] 80 mg PO HS 10/27/17 Furosemide [Lasix -] 40 mg PO DAILY 10/27/17 Metoprolol Succinate 50 mg PO DAILY 10/27/17 Torsemide 20 mg PO DAILY 10/27/17 Family Disease History - Family Disease History Family Disease History: Heart Disease: Father, Mother Review of Systems Findings/Remarks: Full review of systems obtained, as per HPI and otherwise negative Physical Examination Vital Signs: Vital Signs Temperature 36.4 C L 10/27/17 09:27 Pulse Rate 72 10/27/17 12:14 Respiratory Rate 18 10/27/17 12:14 Blood Pressure 138/64 10/27/17 12:14 O2 Sat by Pulse Oximetry (%) 100 10/27/17 12:14 Constitutional: Yes: Well Nourished, No Distress, Calm Eyes: Yes: Conjunctiva Clear, EOM Intact, PERRL Cardiovascular: Yes: Regular Rate and Rhythm. No: Gallop, Murmur, Rub Respiratory: Yes: Regular, CTA Bilaterally. No: Rales, Rhonchi, Wheezes Gastrointestinal: Yes: Normal Bowel Sounds, Soft. No: Distention, Tenderness Extremities: Yes: WNL Edema: Yes Edema: LLE: Trace Labs: CBC, BMP 10/27/17 10:30 10/27/17 10:30 Imaging - Results Ultrasound: Report Reviewed Problem List - Problems (1) Claudication in peripheral vascular disease Assessment/Plan: -arterial occlusion noted on vascular study -Dr Astudillo aware, feels chronic and not cause of symptoms -admit under observation -continue eliquis -pain already improving -possible discharge tomorrow if symptoms resolved Code(s): I73.9 - PERIPHERAL VASCULAR DISEASE, UNSPECIFIED (2) Arteriosclerotic heart disease (ASHD) Assessment/Plan: -quiscent -recent 3V CABG -continue aspirin, metoprolol, and lipitor Code(s): I25.10 - ATHSCL HEART DISEASE OF [place] CORONARY ARTERY W/O ANG PCTRS (3) CKD (chronic kidney disease) Assessment/Plan: -stable Code(s): N18.9 - CHRONIC KIDNEY DISEASE, UNSPECIFIED (4) Hypertension Assessment/Plan: -controlled -continue metoprolol and torsemide Code(s): I10 - ESSENTIAL (PRIMARY) HYPERTENSION (5) Impaired glucose tolerance Assessment/Plan: -diabetic diet -follow glucose on bmp Code(s): R73.02 - IMPAIRED GLUCOSE TOLERANCE (ORAL) (6) Gout Assessment/Plan: -continue allopurinol Code(s): M10.9 - GOUT, UNSPECIFIED (7) BPH (benign prostatic hyperplasia) Assessment/Plan: -continue tamsulosin Code(s): N40.0 - BENIGN PROSTATIC HYPERPLASIA WITHOUT LOWER URINRY TRACT SYMP (8) Hyperlipemia Assessment/Plan: -continue lipitor Code(s): E78.5 - HYPERLIPIDEMIA, UNSPECIFIED
[2017-10-27] MEDS ORDERED: PT OWN MED DRAWER 7, Y5N ONE (21:28)
[2017-10-27] MEDS ORDERED: ATORVASTATIN CA 80 MG TABLET (FP) PO SCH (22:00)
[2017-10-27] MEDS: APIXABAN 2.5 MG TABLET PO SCH (22:11)
[2017-10-28 06:48] VITALS: TEMP 98.1
[2017-10-28 07:54] LABS: BASO % 0.9 % (0-2.0); HEMATOCRIT 32.7 % (35.4-49); HEMOGLOBIN 11.3 GM/dL (11.7-16.9); LYMPH % 21.4 % (8-40); MCH 29.7 pg (25.7-33.7); MCHC 34.4 g/dl (32.0-35.9); MEAN CELL VOLUME 86.4 fl (80-96); MEAN PLT VOLUME 9.3 fl (7.5-11.1); MONO % 7.5 % (3.8-10.2); NEUT % 66.2 % (42.8-82.8); PLATELET COUNT 178 K/MM3 (134-434); RBC 3.79 M/mm3 (4.00-5.60); RDW 16.9 % (11.9-15.9); WHITE BLOOD COUNT 7.4 K/mm3 (4.0-10.0)
[2017-10-28 08:21] LABS: ANION GAP 10 (8-16); BLOOD UREA NITROGEN 47 mg/dL (7-18); CHLORIDE 109 mmol/L (98-107); CO2 27 mmol/L (21-32); GLUCOSE,RANDOM 94 mg/dL (74-106); SODIUM 146 mmol/L (136-145)
[2017-10-28 08:29] LABS: CALCIUM 8.6 mg/dL (8.5-10.1); CREATININE 1.8 mg/dL (0.7-1.3); MAGNESIUM 2.3 mg/dL (1.8-2.4); PHOSPHOROUS 3.5 mg/dL (2.5-4.9)
[2017-10-28 09:06] VITALS: BP 150/77; PULSE 79
[2017-10-28] MEDS ORDERED: ALLOPURINOL 100 MG TABLET (FP) PO SCH (10:00)
[2017-10-28] MEDS ORDERED: TORSEMIDE 20 MG TABLET (FP) PO SCH (10:00)
[2017-10-28] MEDS ORDERED: ASPIRIN COATED 81 MG TABLET.EC PO SCH (10:00)
[2017-10-28] MEDS ORDERED: PT OWN MED DRAWER 7, Y5N ONE (10:11)
[2017-10-28] MEDS: APIXABAN 2.5 MG TABLET PO SCH (11:00)
--- NOTE | 2017-10-28 11:41 | DS ---
Physical Examination Vital Signs: Vital Signs Temperature 36.7 C 10/28/17 09:05 Pulse Rate 79 10/28/17 09:05 Respiratory Rate 20 10/28/17 09:05 Blood Pressure 150/77 10/28/17 09:05 O2 Sat by Pulse Oximetry (%) 100 10/28/17 00:00 Labs: CBC, BMP 10/28/17 07:00 10/28/17 07:00 Discharge Summary Reason For Visit: PERIPHERAL VASCULAR DISEASE Current Active Problems BPH (benign prostatic hyperplasia) (Acute) Claudication in peripheral vascular disease (Acute) Gout (Acute) Condition: Good - Instructions Diet, Activity, Other Instructions: resume previous diet and activity Referrals: Evens Astudillo MD [Staff Physician] - Martinez Fallon MD [Primary Care Provider] - Disposition: HOME - Home Medications Comprehensive Discharge Medication List: Ambulatory Orders Allopurinol [Zyloprim -] 150 mg PO DAILY 10/27/17 Apixaban [Eliquis -] 2.5 mg PO BID 10/27/17 Aspirin [Aspirin EC] 81 mg PO DAILY 10/27/17 Atorvastatin Ca [Lipitor] 80 mg PO HS 10/27/17 Metoprolol Succinate 50 mg PO DAILY 10/27/17 Torsemide 20 mg PO DAILY 10/27/17
== END 2017-10-28 13:03 | disposition home or self-care (01) ==
LOC: JER 09:11 → JERBED 15:37 → J6S 17:00
PROVIDERS: ADMIT Internal Medicine; ATTEND Internal Medicine
DX: I73.9 Peripheral vascular disease, unspecified (principal); I12.9 Hypertensive chronic kidney disease with stage 1 through stage 4 chronic kidney disease, or unspecified chronic kidney disease; N18.9 Chronic kidney disease, unspecified; I25.10 Atherosclerotic heart disease of native coronary artery without angina pectoris; R73.02 Impaired glucose tolerance (oral); M10.9 Gout, unspecified; N40.0 Benign prostatic hyperplasia without lower urinary tract symptoms; E78.5 Hyperlipidemia, unspecified; I48.91 Unspecified atrial fibrillation; J44.9 Chronic obstructive pulmonary disease, unspecified; I69.354 Hemiplegia and hemiparesis following cerebral infarction affecting left non-dominant side; M48.00 Spinal stenosis, site unspecified; M54.9 Dorsalgia, unspecified; G89.29 Other chronic pain; R73.03 Prediabetes; Z87.891 Personal history of nicotine dependence; Z79.01 Long term (current) use of anticoagulants; Z88.0 Allergy status to penicillin; Z79.82 Long term (current) use of aspirin
CPT/HCPCS: 36415; 80048; 80053; 83605; 83735; 84100; 85025; 85610; 85730; 86850; 86900; 86901; 93005; 93010; 93926-TC; 93971-TC; 99285-25; G0378

== ENCOUNTER 2018-02-20 11:12 | Inpatient (IN) | payer OTHER, MEDICARE ==
[2018-02-20 11:35] VITALS: BMI 33.0
--- NOTE | 2018-02-20 11:50 | PDOC ---
Attending Attestation - Resident Resident Name: Tevin Mabry - ED Attending Attestation I have performed the following: I have examined & evaluated the patient, The case was reviewed & discussed with the resident, I agree w/resident's findings & plan, Exceptions are as noted - HPI HPI: 02/20/18 12:15 77y M hx of CVA x 2 (residual L sided weakness), cabg x 3, afib sp ablation, on eliquis, presents with suddenonset acute on chronic LUE weakness, but has since resolved. Started this morning. denies any other sypmtoms including cp, sob, palpitations, headache, dizziness, visio nchanges, NIHSS = 2 - Physicial Exam PE: General: no acute distress HEAD: atraumatic PULM: cta b/l, no acute resp distress CARD: rrr, nomrg ABD: soft nontender neuro: L sided facial droop, LUE 5-/5, RUE 5/5, LLE deminished sensation, strength symmetric in LE - Medical Decision Making pt admitted for eval of TIA Heart Score/ECG Review - ECG Impressions Comment:: 02/20/18 12:22 Twelve-lead EKG was performed and reviewed by me. There is normal sinus rhythm with a rate of 59 q wave inferior abnormal r wave pgression
--- NOTE | 2018-02-20 12:01 | PDOC ---
History of Present Illness - General Chief Complaint: Weakness Stated Complaint: CVA/TIA Time Seen by Provider: 02/20/18 11:45 - History of Present Illness Initial Comments: The patient is a 77M w/ a history of prior stroke (Eliquis), CABG x3, ablation, and AVR who presents for evaluation of transient LUE weakness which has since resolved. He reports residual L sided deficits 2/2 previous strokes. This morning he reported sudden onset LUE weakness greater than usual which has since resolved. The patient reports residual LLE decreased sensation, chronic worsening LLE weakness. LUE acute on chronic weakness reported as resolved. Denies LUE change in sensation. Denies any other new symptoms Denies fevers/chills, MARCELINO, vision changes, chest pain, palpitations, SOB, abdominal pain, N/V/C/D Previous CVAs in 2010 and 2016 Neurologist at [facility] 02/20/18 12:01 NIH Stroke Scale - Last Known Well Date/Time & Onset Date Last Known Well: 02/20/18 - Initial Evaluation Level of consciousness: Alert Ask patient the month and their age: Answers both correctly Ask patient to open & close eyes; make fist and let go: Obeys both correctly Best gaze (horizontal eye movement): Normal Visual field testing: No visual field loss Facial paresis (Show teeth/raise eyebrows/close eyes tight): Partial paralysis ( total or near paralysis of lower face) (At baseline per patient and ) Motor Function: Left Arm: Normal Motor Function: Right Arm: Normal (extends arm 90 (or 45) degrees for 10 seconds without drift Motor Function: Left Leg: Normal (extends leg 30 degrees for 5 seconds without drift) Motor Function: Right Leg: Normal (extends leg 30 degrees for 5 seconds without drift) Limb Ataxia: No ataxia Sensory(Use pinprick test arms,legs,trunk,face/side to side): Normal Best language (Describe picture, name items, read sentences): No Aphasia Dysarthria (read several words): Normal articulation Extinction and Inattention: No abnormality - Total Score NIH Stroke Scale Score: 2 Past History - Past Medical History Allergies/Adverse Reactions: Allergies Allergy/AdvReac Type Severity Reaction Status Date / Time Penicillins Allergy "RASH" Verified 10/27/17 09:26 Home Medications: Ambulatory Orders Allopurinol [Zyloprim -] 150 mg PO DAILY 10/27/17 Apixaban [Eliquis -] 2.5 mg PO BID 10/27/17 Aspirin [Aspirin EC] 81 mg PO DAILY 10/27/17 Atorvastatin Ca [Lipitor] 80 mg PO HS 10/27/17 Metoprolol Succinate 50 mg PO DAILY 10/27/17 Torsemide 20 mg PO DAILY 10/27/17 Omeprazole 40 mg PO DAILY 02/20/18 Paroxetine HCl [Paxil] 10 mg PO DAILY 02/20/18 Anemia: No Asthma: No Cardiac Disorders: Yes (NE, CARDIOVERSION X2) CVA: Yes ( mild L hemiparesis) COPD: No CHF: Yes (H/O) Dementia: No Diabetes: Yes (BORDERLINE-DIET CONTROLLED) GI Disorders: Yes (diverticulosis) Disorders: No HTN: Yes Liver Disease: No Seizures: No Thyroid Disease: No - Surgical History Abdominal Surgery: No Appendectomy: No Cardiac Surgery: Yes (MARIS CAROTID EDARTERECTOMY) Cholecystectomy: No Lung Surgery: No Neurologic Surgery: No Orthopedic Surgery: No - Immunization History Immunization Up to Date: Yes - Suicide/Smoking/Psychosocial Hx Smoking History: Never smoked Have you smoked in the past 12 months: No Number of Cigarettes Smoked Daily: 0 If you are a former smoker, when did you quit?: 2009 Information on smoking cessation initiated: No Hx Alcohol Use: No Drug/Substance Use Hx: No Substance Use Type: None Hx Substance Use Treatment: No Review of Systems - Review of Systems Able to Perform ROS?: Yes Comments:: GENERAL/CONSTITUTIONAL: No fever or chills HEAD, EYES, EARS, NOSE AND THROAT: No change in vision. No ear pain or discharge. No sore throat CARDIOVASCULAR: No chest pain or shortness of breath RESPIRATORY: No cough, wheezing, or hemoptysis GASTROINTESTINAL: No nausea, vomiting, diarrhea or constipation GENITOURINARY: No dysuria, frequency, or change in urination SKIN: +back rash being treated by Dermatology ENDOCRINE: No increased thirst. No abnormal weight change HEMATOLOGIC/LYMPHATIC: No anemia, easy bleeding, or history of blood clots ALLERGIC/IMMUNOLOGIC: No hives or skin allergy 02/20/18 22:17 Is the patient limited Micronesian proficient: No *Physical Exam - Vital Signs Last Vital Signs Temp Pulse Resp BP Pulse Ox 98.2 F 67 16 159/73 100 02/20/18 11:15 02/20/18 11:15 02/20/18 11:45 02/20/18 11:15 02/20/18 11:45 - Physical Exam Comments: GENERAL: Awake, alert, and fully oriented, in no acute distress HEAD: No signs of trauma, normocephalic, atraumatic EYES: PERRLA, EOMI, sclera anicteric, conjunctiva clear ENT: Hearing grossly normal, nares patent, oropharynx clear without exudates LUNGS: No distress, speaks full sentences, clear to auscultation bilaterally HEART: Regular rate and rhythm, normal S1 and S2, no murmurs appreciated, peripheral pulses normal and equal bilaterally CHEST: Well healed midline sternotomy incision ABDOMEN: Soft, nontender, normoactive bowel sounds. No guarding, no rebound. No masses EXTREMITIES : Normal inspection, Normal range of motion, no edema. No clubbing or cyanosis NEUROLOGICAL: L sided facial droop, LUE 5-/5 strength when compared to RUE, LLE decreased sensation to light touch but strength intact 02/20/18 13:28 ED Treatment Course - LABORATORY CBC & Chemistry Diagram: 02/20/18 11:51 02/20/18 11:51 - RADIOLOGY Radiology Studies Ordered: Category Date Time Status HEAD CT WITHOUT CONTRAST [CT] Stat CT Scan 02/20/18 11:55 Ordered Medical Decision Making - Medical Decision Making The patient is a 77M w/ a history of CVA x2 w/ L-sided residual deficits who presents for evaluation of acute LUE weakness which started this morning and has since resolved. Ddx: TIA v stroke, dysrhythmia, metabolic disturbance, considered but less likely intracranial infection or mass ED Course NIHSS 2, patient currently at baseline function per himself and CMP, CBC, Coags, cardiac profile, lipids, Mg ECG CT Head w/o 02/20/18 12:11 CT head w/o evidence of acute pathology Trop I neg Cr 1.8, at baseline Lytes wnl No leukocytosis ECG RRR w/o evidence of acute ischemia UA w/o evidence of UTI Plan for admission for TIA Plan discussed w/ patient who is in agreement and verbalized understanding Dispo: Admit 02/20/18 13:30 *DC/Admit/Observation/Transfer Diagnosis at time of Disposition: TIA (transient ischemic attack), PVD (peripheral vascular disease) COPD (chronic obstructive pulmonary disease) Qualifiers: COPD type: unspecified COPD Qualified Code(s): J44.9 - Chronic obstructive pulmonary disease, unspecified Hypertension Qualifiers: Hypertension type: essential hypertension Qualified Code(s): I10 - Essential ( primary) hypertension - Discharge Dispostion Condition at time of disposition: Good Decision to Admit order: Yes - Referrals - Patient Instructions - Post Discharge Activity
[2018-02-20 12:03] LABS: HEMOGLOBIN 11.9 GM/dL (11.7-16.9)
[2018-02-20 12:20] LABS: INR 1.2 (0.83-1.09); PROTHROMBIN TIME (PATIENT) 14.2 SEC (9.7-13.0)
[2018-02-20 12:22] LABS: ACTIVATED PTT 27.8 SECONDS (25.2-36.5); BASO % 0.8 % (0-2.0); HEMATOCRIT 37.4 % (35.4-49); LYMPH % 15.2 % (8-40); MCH 28.3 pg (25.7-33.7); MCHC 31.8 g/dl (32.0-35.9); MEAN CELL VOLUME 88.9 fl (80-96); MEAN PLT VOLUME 9.2 fl (7.5-11.1); PLATELET COUNT 185 K/MM3 (134-434); RBC 4.21 M/mm3 (4.00-5.60); RDW 17.9 % (11.9-15.9); WHITE BLOOD COUNT 7.4 K/mm3 (4.0-10.0)
[2018-02-20 12:33] LABS: ALBUMIN 3.3 g/dl (3.4-5.0); ALK PHOS 144 U/L (45-117); ANION GAP 9 MMOL/L (8-16); BILIRUBIN,TOTAL 0.6 mg/dL (0.2-1); BLOOD UREA NITROGEN 40 mg/dL (7-18); CALCIUM 8.7 mg/dL (8.5-10.1); CHLORIDE 105 mmol/L (98-107); CHOLESTEROL 155 mg/dL (50-200); CO2 27 mmol/L (21-32); CREATININE 1.8 mg/dL (0.55-1.3); GLUCOSE,RANDOM 133 mg/dL (74-106); HDL CHOLESTEROL 40 mg/dL (40-60); POTASSIUM 4.4 mmol/L (3.5-5.1); SGOT/AST 38 U/L (15-37); SGPT/ALT 25 U/L (13-61); SODIUM 141 mmol/L (136-145); TOT PROT 6.8 g/dl (6.4-8.2); TRIGLYCERIDES 179 mg/dL (0-150)
[2018-02-20 12:43] LABS: URINE APPEARANCE CLEAR; URINE BILIRUBIN NEGATIVE (<2.0 mg/dL); URINE COLOR STRAW; URINE GLUCOSE (UA) NEGATIVE (NEGATIVE); URINE KETONE NEGATIVE (NEGATIVE); URINE LEUK ESTERASE NEGATIVE (NEGATIVE); URINE NITRITE NEGATIVE (NEGATIVE); URINE PROTEIN NEGATIVE (NEGATIVE); URINE UROBILINOGEN NEGATIVE mg/dL (0.2-1.0)
--- NOTE | 2018-02-20 15:05 | HP ---
CHIEF COMPLAINT: could not move my arm PCP: HISTORY OF PRESENT ILLNESS: 77 yo M with PMhx of CAD,HTN,CHF,afib,DM II and CVAx2 presents with few hour history of inability to move left arm. He states that this morning he woke and was unable to move his left arm. Symptom persisted for over an hour which prompted trip to ER. He has history of 2 previous strokes with residual left sided weakness but todays presentation was completely new.He is currently on eliquis for his afib as well as ASA for his CAD and h/o CVA. Denies CP,MARCELINO,SOB, palpitations, abdominal pain, nausea ,vomiting, or visual changes. ER course was notable for: (1)Head CT did not show acute pathology (2)Trops (-) x1 (3)Outside thrombolytic window Recent Travel:denies PAST MEDICAL HISTORY:CAD,HTN,CHF,afib(on Eliquis),DM II, CVA, and gout. PAST SURGICAL HISTORY: CABG, Carotid endar. x2, cataract, MAZE Social History: Smoking:previous smoker quit 2009 Alcohol:denies Drugs: denies Family History: Allergies Penicillins Allergy (Verified 10/27/17 09:26) "RASH" HOME MEDICATIONS: Home Medications Medication Instructions Recorded Allopurinol [Zyloprim -] 150 mg PO DAILY 10/27/17 Apixaban [Eliquis -] 2.5 mg PO BID 10/27/17 Aspirin [Aspirin EC] 81 mg PO DAILY 10/27/17 Atorvastatin Ca [Lipitor] 80 mg PO HS 10/27/17 Metoprolol Succinate 50 mg PO DAILY 10/27/17 Torsemide 20 mg PO DAILY 10/27/17 Omeprazole 40 mg PO DAILY 02/20/18 Paroxetine HCl [Paxil] 10 mg PO DAILY 02/20/18 REVIEW OF SYSTEMS CONSTITUTIONAL: Absent: fever, chills, diaphoresis, generalized weakness, malaise, loss of appetite, weight change HEENT: Absent: rhinorrhea, nasal congestion, throat pain, throat swelling, difficulty swallowing, mouth swelling, ear pain, eye pain, visual changes CARDIOVASCULAR: Absent: chest pain, syncope, palpitations, irregular heart rate, lightheadedness , peripheral edema RESPIRATORY: Absent: cough, shortness of breath, dyspnea with exertion, orthopnea, wheezing, stridor, hemoptysis GASTROINTESTINAL: Absent: abdominal pain, abdominal distension, nausea, vomiting, diarrhea, constipation, melena, hematochezia GENITOURINARY: Absent: dysuria, frequency, urgency, hesitancy, hematuria, flank pain, genital pain MUSCULOSKELETAL: Absent: myalgia, arthralgia, joint swelling, back pain, neck pain SKIN: Absent: rash, itching, pallor HEMATOLOGIC/IMMUNOLOGIC: Absent: easy bleeding, easy bruising, lymphadenopathy, frequent infections ENDOCRINE: Absent: unexplained weight gain, unexplained weight loss, heat intolerance, cold intolerance NEUROLOGIC: focal weakness Absent: headache, or paresthesias, dizziness, unsteady gait, seizure, mental status changes, bladder or bowel incontinence PSYCHIATRIC: Absent: anxiety, depression, suicidal or homicidal ideation, hallucinations. PHYSICAL EXAMINATION Vital Signs - 24 hr 02/20/18 02/20/18 02/20/18 11:15 11:45 14:46 Temperature 98.2 F 98 F Pulse Rate 67 Pulse Rate [ 64 Right Radial] Respiratory 16 16 18 Rate Blood Pressure 159/73 Blood Pressure 150/78 [Left Arm] O2 Sat by Pulse 100 100 100 Oximetry (%) GENERAL: Awake, alert, and fully oriented, in no acute distress. HEAD: Normal with no signs of trauma. EYES: Pupils equal, round and reactive to light, extraocular movements intact, sclera anicteric, conjunctiva clear. No lid lag. EARS, NOSE, THROAT: Ears normal, nares patent, oropharynx clear without exudates. Moist mucous membranes. NECK: Normal range of motion, supple without lymphadenopathy, JVD, or masses. LUNGS: Breath sounds equal, clear to auscultation bilaterally. No wheezes, and no crackles. No accessory muscle use. HEART: Regular rate and rhythm, normal S1 and S2 without murmur, rub or gallop. ABDOMEN: Soft, nontender, not distended, normoactive bowel sounds, no guarding, no rebound, no masses. No hepatomegaly or splenomegaly. MUSCULOSKELETAL: Normal range of motion at all joints. No bony deformities or tenderness. No CVA tenderness. UPPER EXTREMITIES: 2+ pulses, warm, well-perfused. No cyanosis. No clubbing. No peripheral edema. LOWER EXTREMITIES: 2+ pulses, warm, well-perfused. No calf tenderness. No peripheral edema. NEUROLOGICAL: Cranial nerves II-XII intact. Normal speech. 4/5 strength Left upper and lower ext. 5/5 strength R upper and lower ext. PSYCHIATRIC: Cooperative. Good eye contact. Appropriate mood and affect. SKIN: Warm, dry, normal turgor, no rashes or lesions noted, normal capillary refill. Laboratory Results - last 24 hr 02/20/18 02/20/18 02/20/18 11:51 11:51 11:51 WBC 7.4 RBC 4.21 Hgb 11.9 Hct 37.4 MCV 88.9 MCH 28.3 MCHC 31.8 L RDW 17.9 H Plt Count 185 MPV 9.2 Absolute Neuts (auto) 5.5 Neutrophils % 74.0 Lymphocytes % 15.2 D Monocytes % 6.0 Eosinophils % 4.0 Basophils % 0.8 Nucleated RBC % 0 PT with INR 14.20 H INR 1.20 H PTT (Actin FS) 27.8 Sodium 141 Potassium 4.4 Chloride 105 Carbon Dioxide 27 Anion Gap 9 BUN 40 H Creatinine 1.8 H Creat Clearance w eGFR 36.87 Random Glucose 133 H Calcium 8.7 Magnesium Cancelled Total Bilirubin 0.6 AST 38 H ALT 25 Alkaline Phosphatase 144 H Creatine Kinase Troponin I Total Protein 6.8 Albumin 3.3 L Triglycerides 179 H Cholesterol 155 Total LDL Cholesterol 87 HDL Cholesterol 40 Urine Color Urine Appearance Urine pH Ur Specific [place] Urine Protein Urine Glucose (UA) Urine Ketones Urine Blood Urine Nitrite Urine Bilirubin Urine Urobilinogen Ur Leukocyte Esterase 02/20/18 02/20/18 02/20/18 11:51 11:51 12:30 WBC RBC Hgb Hct MCV MCH MCHC RDW Plt Count MPV Absolute Neuts (auto) Neutrophils % Lymphocytes % Monocytes % Eosinophils % Basophils % Nucleated RBC % PT with INR INR PTT (Actin FS) Sodium Potassium Chloride Carbon Dioxide Anion Gap BUN Creatinine Creat Clearance w eGFR Random Glucose Calcium Magnesium Total Bilirubin AST ALT Alkaline Phosphatase Creatine Kinase 144 Troponin I < 0.02 Total Protein Albumin Triglycerides Cancelled Cholesterol Cancelled Total LDL Cholesterol Cancelled HDL Cholesterol Cancelled Urine Color Straw Urine Appearance Clear Urine pH 6.0 Ur Specific [place] 1.009 L Urine Protein Negative Urine Glucose (UA) Negative Urine Ketones Negative Urine Blood Negative Urine Nitrite Negative Urine Bilirubin Negative Urine Urobilinogen Negative Ur Leukocyte Esterase Negative ASSESSMENT/PLAN: 77 yo M with PMhx of CAD,HTN,CHF,afib,DM II and CVAx2 presents with few hour history of inability to move left arm admitted for TIA despite being on eliquis. Problem List - Problem (1) TIA (transient ischemic attack) Assessment/Plan: High risk for re-stroke ABCD's >4 * Admit to telemetry * Echo and carotids pending. * Neurology consult * MRI pending. * cont asa and statin * Continuous Monitoring X48H * Fall Risk Precautions Continuous * HOB up 15 Degrees Ischemic As directed * Pain or Rhythm Change do EKG As needed * Page Scale DISCH * Vital Signs Q4H * Speech / Swallow Consult Routine * Neurological Assessment Q6H * Vital Signs, Orthostatic Q12H * Physical Therapy Request Routine (2) Atrial fibrillation Assessment/Plan: continue Eliquis (3) Diabetes Assessment/Plan: * ADA diet * BGM ACHS * ISS ACHS (4) Hypertension Assessment/Plan: * Torsemide (Demadex -) 20 mg PO DAILY (5) Hyperlipemia Assessment/Plan: continue Lipitor 80mg HS (6) BPH (benign prostatic hyperplasia) Assessment/Plan: continue Flomax (7) DVT prophylaxis Assessment/Plan: On eliquis * SCD's bilat. Visit type - Emergency Visit Emergency Visit: Yes ED Registration Date: 02/20/18 Care time: The patient presented to the Emergency Department on the above date and was hospitalized for further evaluation of their emergent condition. - New Patient This patient is new to me today: Yes Date on this admission: 02/21/18 - Critical Care Critical Care patient: No
--- NOTE | 2018-02-20 18:02 | PN ---
Progress Note (short form) - Note Progress Note: Kaycee Da Silva is a very pleasant 77 year old male who comes in with L arm weakness.
--- NOTE | 2018-02-20 18:24 | EKG ---
Test Reason : Blood Pressure : / mmHG Vent. Rate : 059 BPM Atrial Rate : 059 BPM P-R Int : 170 ms QRS Dur : 100 ms QT Int : 462 ms P-R-T Axes : 070 024 -18 degrees QTc Int : 457 ms SINUS BRADYCARDIA INFERIOR INFARCT (CITED ON OR BEFORE 27-OCT-2017) POSSIBLE ANTERIOR INFARCT , AGE UNDETERMINED ABNORMAL ECG WHEN COMPARED WITH ECG OF 27-OCT-2017 10:43, PREMATURE VENTRICULAR COMPLEXES ARE NO LONGER PRESENT T WAVE VARIATION Confirmed by ROMANA HAQUE MD ([id number]) on 02/20/2018 6:23:51 PM Referred By: Confirmed By:ROMANA HAQUE MD
[2018-02-20] MEDS ORDERED: ACETAMINOPHEN 325 MG TABLET (FP) PO ONE (21:00)
[2018-02-20] MEDS: ATORVASTATIN CA 80 MG TABLET (FP) PO SCH (21:09)
[2018-02-20] MEDS: APIXABAN 2.5 MG TABLET PO SCH (21:09)
[2018-02-21] MEDS: INSULIN SLIDING SCALE (NOVOLOG) 1 VIAL SQ SCH ×3 (06:34→17:35)
[2018-02-21 06:39] LABS: EOS % 4.8 % (0-4.5); HEMATOCRIT 34.1 % (35.4-49); HEMOGLOBIN 11.1 GM/dL (11.7-16.9); LYMPH % 24.7 % (8-40); MCH 28.6 pg (25.7-33.7); MCHC 32.5 g/dl (32.0-35.9); MEAN CELL VOLUME 88.2 fl (80-96); MEAN PLT VOLUME 8.9 fl (7.5-11.1); MONO % 8.4 % (3.8-10.2); NEUT % 61.1 % (42.8-82.8); PLATELET COUNT 156 K/MM3 (134-434); RBC 3.86 M/mm3 (4.00-5.60); RDW 17.9 % (11.9-15.9); WHITE BLOOD COUNT 6.9 K/mm3 (4.0-10.0)
[2018-02-21 07:09] LABS: ALK PHOS 132 U/L (45-117); ANION GAP 7 MMOL/L (8-16); BILIRUBIN,TOTAL 0.7 mg/dL (0.2-1); BLOOD UREA NITROGEN 37 mg/dL (7-18); CALCIUM 8.6 mg/dL (8.5-10.1); CHLORIDE 106 mmol/L (98-107); CO2 29 mmol/L (21-32); CREATININE 1.7 mg/dL (0.55-1.3); GLUCOSE,RANDOM 97 mg/dL (74-106); MAGNESIUM 2.3 mg/dL (1.8-2.4); PHOSPHOROUS 3.4 mg/dL (2.5-4.9); POTASSIUM 3.6 mmol/L (3.5-5.1); SGOT/AST 21 U/L (15-37); SGPT/ALT 24 U/L (13-61); SODIUM 142 mmol/L (136-145); TOT PROT 6.2 g/dl (6.4-8.2)
--- NOTE | 2018-02-21 08:41 | CON.NEURO ---
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: CVA (Left sided weakness facial droop cognitive loss c/w Right CVA) Cardio/Vascular: Yes: Other (Severe PVD Bilateral Carotid Endarterectomies Claudication SFA occlusions bilaterally) Pulmonary: Yes: COPD Gastrointestinal: Yes: Diverticulitis (receurrent), Gastritis, GERD, GI Bleed ( Rectal), Hemorrhoids Renal/: Yes: Renal Inusuff, BPH Infectious Disease: Yes: C-Diff (recent resolved), Other (Chronic folliculitis) Psych: Yes: Other (Behavioral changes after CVA) Musculoskeletal: Yes: Chronic low back pain (Active presently) Endocrine: Yes: Diabetes Mellitus, Other (Insulin Resistance) Dermatology: Yes: Other (Acneiform rash/folliculitis/rosacea) - Past Surgical History Past Surgical History: Yes: CABG (3 vessel), Carotid Endarterectomy (Bilateral) , Valve Replacement (aortic) - Alcohol/Substance Use Hx Alcohol Use: No History of Substance Use: reports: None - Smoking History Smoking history: Never smoked Have you smoked in the past 12 months: No Aproximately how many cigarettes per day: 0 If you are a former smoker, when did you quit?: 2009 - Social History ADL: Family Assistance History of Recent Travel: No Home Medications - Allergies Allergies/Adverse Reactions: Allergies Allergy/AdvReac Type Severity Reaction Status Date / Time Penicillins Allergy "RASH" Verified 10/27/17 09:26 - Home Medications Home Medications: Ambulatory Orders Allopurinol [Zyloprim -] 150 mg PO DAILY 10/27/17 Apixaban [Eliquis -] 2.5 mg PO BID 10/27/17 Aspirin [Aspirin EC] 81 mg PO DAILY 10/27/17 Atorvastatin Ca [Lipitor] 80 mg PO HS 10/27/17 Metoprolol Succinate 50 mg PO DAILY 10/27/17 Torsemide 20 mg PO DAILY 10/27/17 Omeprazole 40 mg PO DAILY 02/20/18 Paroxetine HCl [Paxil] 10 mg PO DAILY 02/20/18 Family Disease History - Family Disease History Family Disease History: Heart Disease: Father, Mother Physical Exam-Neuro Vital Signs: Vital Signs Temperature 97.6 F 02/21/18 02:00 Pulse Rate 56 L 02/21/18 02:56 Respiratory Rate 20 02/21/18 02:00 Blood Pressure 167/71 02/21/18 02:56 O2 Sat by Pulse Oximetry (%) 95 02/20/18 21:00 Labs: CBC, BMP 02/21/18 06:00 02/21/18 06:00 INR, PTT INR 1.20 (0.83-1.09) H 02/20/18 11:51 Assessment/Plan cc Left arm weakness and slurring of spech on February 20 am HPI 80 year old man lives with his at home, need assistance with ton. He has hitory of CAD, CHF, HTN, DM, Stroke , valve replacement. He did have left arm weakness and slurring of speech, He feels his arm is still weak. His speech is back to normal. His mri of brain no acute stroke and carotid ultrasound no stenosis. PAST MEDICAL HISTORY:CAD,HTN,CHF,afib(on Eliquis),DM II, CVA, and gout. PAST SURGICAL HISTORY: CABG, Carotid endar. x2, cataract, MAZE Social History: Smoking:previous smoker quit 2009 Alcohol:denies Drugs: denies Allergies Penicillins Allergy (Verified 10/27/17 09:26) "RASH" HOME MEDICATIONS: Home Medications Medication Instructions Recorded Allopurinol [Zyloprim -] 150 mg PO DAILY 10/27/17 Apixaban [Eliquis -] 2.5 mg PO BID 10/27/17 Aspirin [Aspirin EC] 81 mg PO DAILY 10/27/17 Atorvastatin Ca [Lipitor] 80 mg PO HS 10/27/17 Metoprolol Succinate 50 mg PO DAILY 10/27/17 Torsemide 20 mg PO DAILY 10/27/17 Omeprazole 40 mg PO DAILY 02/20/18 Paroxetine HCl [Paxil] 10 mg PO DAILY 02/20/18 ROS FH reviewed in chart NEUROLOGICAL EXAMINATION Alert oriented x 3, able to tell this is february 2018 and got date wrong( 15), speech is normal EOMI, pupils reacive, face symmetrical therd is left upper extermity is grade 4- and left lower extremity is grade 4- diminished senstaion on left arm and leg ( old as per patient) mri no acute stroke carotid ultrasound is normal Assessment- Concur with assessment of TIA, work up including mri o fbrain and carotid ultrasound is normal. He continue to have subjective left arm weakness ( possibly old ) Plan: PT, SPEECH, Dvt prophylaxis, stroke education - continue bp and diabetic control - at this time, he is on max medical therapy including eliquis , statin and apsirin - Consider Rehab Thanking you so much Willie Ledezma MD
[2018-02-21] MEDS ORDERED: TORSEMIDE 20 MG TABLET (FP) PO SCH (10:00)
--- NOTE | 2018-02-21 10:23 | CONSULT ---
Admitting History and Physical - Primary Care Physician PCP: Josep Ochoa - Admission History of Present Illness: HISTORY OF PRESENT ILLNESS: 77 yo M with PMhx of CAD,HTN,CHF,afib,DM II and CVAx2 presents with few hour history of inability to move left arm. He states that this morning he woke and was unable to move his left arm. Symptom persisted for over an hour which prompted trip to ER. He has history of 2 previous strokes with residual left sided weakness but todays presentation was completely new.He is currently on eliquis for his afib as well as ASA for his CAD and h/o CVA. Denies CP,MARCELINO,SOB, palpitations, abdominal pain, nausea ,vomiting, or visual changes. ER course was notable for: (1)Head CT did not show acute pathology (2)Trops (-) x1 (3)Outside thrombolytic window mri no acute stroke carotid ultrasound is normal Per nursing-Continues to have left sided weakness. Drags left foot when attempting to ambulate Pt's reports reduced functioning for ADL over last 1 1/2 weeks with significant decrease in left UE function since yesterday. Pt oriented except for date (day.year). pt's reports decline in memory, reasoning. 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: CVA (Left sided weakness facial droop cognitive loss c/w Right CVA) Cardiovascular: Yes: Other (Severe PVD Bilateral Carotid Endarterectomies Claudication SFA occlusions bilaterally) Pulmonary: Yes: COPD Gastrointestinal: Yes: Diverticulitis (receurrent), Gastritis, GERD, GI Bleed ( Rectal), Hemorrhoids Renal/: Yes: Renal Inusuff, BPH Infectious Disease: Yes: C-Diff (recent resolved), Other (Chronic folliculitis) Psych: Yes: Other (Behavioral changes after CVA) Musculoskeletal: Yes: Chronic low back pain (Active presently) Endocrine: Yes: Diabetes Mellitus, Other (Insulin Resistance) Dermatology: Yes: Other (Acneiform rash/folliculitis/rosacea) - Past Surgical History Past Surgical History: Yes: CABG (3 vessel), Carotid Endarterectomy (Bilateral) , Valve Replacement (aortic) - Smoking History Smoking history: Never smoked Have you smoked in the past 12 months: No Aproximately how many cigarettes per day: 0 If you are a former smoker, when did you quit?: 2009 - Alcohol/Substance Use Hx Alcohol Use: No History of Substance Use: reports: None - Social History ADL: Family Assistance History of Recent Travel: No History - Admission Reason For Visit: TRANSIENT ISCHEMIC ATTACK; COPD; HYPERTENSION - Diagnostics X-ray: Report Reviewed CT Scan: Report Reviewed MRI: Report Reviewed - General Mental Status: Awake and Alert, Able to Follow Commands, Forgetful, Flat Affect Attention: Mild Impairment Ability to Follow Directions: Fair Head/Neck Control: Fair - Hearing Hearing: Functional Hearing: Normal Speech Evaluation - Communication Primary Language: KYRGYZ - Speech Production Able to Make Needs Known: Yes: WNL Intelligibility: Yes: WNL - Speech Characteristics Voice Loudness: Normal Voice Pitch: Yes: Normal Voice Phonatory-based Quality: Yes: Normal Speech Pattern: Normal Speech Clarity: < 100% Nasal Resonance: Normal Articulation: Yes: Precise Rate of Speech: Too Slow (slight) - Language/Auditory Comprehension Follows: Yes: 1 Stage Simple Commands - Language/Verbal Expression Able to Respond to Simple Queries: Yes: WNL Able to Communicate Wants and Needs: Yes: WNL Functional Communication Status: Yes: WNL - Swallow Evaluation/Bedside Assessment Current Nutritional Intake: Regular, Thin Liquids Oral Secretions: Yes: WFL Dentition: Yes: Adequate Facial Symmetry at Rest: Facial Droop Left Facial Symmetry on Retraction: Facial Droop Left Against Resistance Opening: Normal Against Resistance Closing: Normal Pucker Lips: Droops Left Smile: Droops Left Lingual Movement: Symmetric Lingual Speed of Movement: Reduced Lingual Movement Strgth Against Opposition: Normal Lingual Movement Characteristics: Normal Velopharyngeal Movement: Normal Laryngeal Elevation: WFL Laryngeal Movement: Able to Palpate Rate of Intake: WFL Bolus Size: WFL Labial Seal: WFL Chewing: WFL Oral Prep Time: WFL A-P Transit: WFL Timing of Swallow: WFL Coughing/Throat Clear: No Change in Voice: No Recommendations - Speech Evaluation, Impression/Plan Impression: Pt's reports declining function for ADL over last 1 1/2 weeks. and new onset decreased left UE function, memory deficits/reasoning. - Disposition [facility]charge to: [facility], [facility], To be Determined - Dysphagia Impressions/Plan Swallowing Skills: WFL Dysphagia Impressions: No Impairment *Silent aspiration: cannot be R/O at bedside - Recommendations Diet Consistency: Regular Medication Administration: Whole with water Liquids: Thin Liquids
[2018-02-21] MEDS: PANTOPRAZOLE 40 MG TABLET (FP) PO SCH (10:59)
[2018-02-21] MEDS: ALLOPURINOL 100 MG TABLET (FP) PO SCH (10:59)
[2018-02-21] MEDS: PARoxetine HCL 10 MG TABLET (FP) PO SCH (10:59)
[2018-02-21] MEDS: APIXABAN 2.5 MG TABLET PO SCH ×2 (10:59→21:18)
[2018-02-21] MEDS: ASPIRIN COATED 81 MG TABLET.EC PO SCH (10:59)
--- NOTE | 2018-02-21 12:53 | ECHO ---
Name: NAOMYMATEUS TOBAR Exam:Adult Echocardiogram Study Date: 02/21/2018 09:50 AM Age: 77 yrs Reason For Study: ASSESS LV FN Height: 66 in Weight: 205 lb BSA: 2.0 m2 MMode/2D Measurements & Calculations IVSd: 1.1 cm Ao root diam: 3.6 cm LVIDd: 5.2 cm LA dimension: 4.8 cm LVIDs: 3.5 cm LVPWd: 0.86 cm IVSs: 1.4 cm LVPWs: 1.1 cm EDV(Teich): 132.4 ml ESV(Teich): 50.1 ml LVOT diam: 2.0 cm Doppler Measurements & Calculations MV E max ankur: 83.9 cm/sec Ao V2 max: 193.6 cm/sec MV A max ankur: 82.4 cm/sec Ao max P.0 mmHg MV E/A: 1.0 Ao V2 mean: 125.4 cm/sec Ao mean P.3 mmHg Ao V2 VTI: 41.6 cm JEN(I,D): 1.4 cm2 JEN(V,D): 1.3 cm2 LV V1 max P.7 mmHg MR max ankur: 493.0 cm/sec LV V1 mean P.7 mmHg MR max P.2 mmHg LV V1 max: 82.1 cm/sec LV V1 mean: 61.6 cm/sec LV V1 VTI: 19.6 cm SV(LVOT): 58.7 ml TR max ankur: 214.2 cm/sec TR max P.4 mmHg Med Peak E' Ankur: 4.6 cm/sec Med E/e': 18.2 Lat Peak E' Ankur: 8.1 cm/sec Lat E/e': 10.3 Procedure A complete two-dimensional transthoracic echocardiogram was performed (2D, M-mode, Doppler and color flow Doppler). Left Ventricle The left ventricular size, thickness and function are normal. Ejection Fraction = 60%. The transmitra l spectral Doppler flow pattern is suggestive of impaired LV relaxation. The left ventricular wall felice on is normal. Right Ventricle The right ventricle is normal in size and function. Atria Normal left and right atrial size and function. Mitral Valve There is mild mitral annular calcification. There is moderate mitral valve thickening. There is trace to mild mitral regurgitation. Tricuspid Valve The tricuspid valve is normal. There is trace tricuspid regurgitation. Right ventricular systolic pre ssure is 23 mmhg. Assuming the RA pressure is 5 mmHg. Aortic Valve There is moderate aortic valve thickening. Mild valvular aortic stenosis. Pulmonic Valve The pulmonic valve is normal in structure and function. Great Vessels The aortic root is normal size. Pericardium/Pleura There is no pericardial effusion. There is no pleural effusion. Interpretation Summary The left ventricular size, thickness and function are normal Ejection Fraction = 60%. There is mild mitral annular calcification. There is moderate mitral valve thickening. There is trace to mild mitral regurgitation. There is trace tricuspid regurgitation. Right ventricular systolic pressure is 23 mmhg. Assuming the RA pressure is 5 mmHg There is moderate aortic valve thickening. Mild valvular aortic stenosis. MD Santiago Lizama 02/21/2018 12:52 PM
--- NOTE | 2018-02-21 12:59 | EKG ---
Test Reason : Blood Pressure : / mmHG Vent. Rate : 062 BPM Atrial Rate : 062 BPM P-R Int : 174 ms QRS Dur : 094 ms QT Int : 446 ms P-R-T Axes : 082 033 015 degrees QTc Int : 452 ms NORMAL SINUS RHYTHM INFERIOR INFARCT (CITED ON OR BEFORE 27-OCT-2017) POSSIBLE ANTERIOR INFARCT (CITED ON OR BEFORE 20-FEB-2018) ABNORMAL ECG WHEN COMPARED WITH ECG OF 20-FEB-2018 11:24, QUESTIONABLE CHANGE IN INITIAL FORCES OF ANTERIOR LEADS Confirmed by Santiago Lizama MD ([id number]) on 02/21/2018 12:59:17 PM Referred By: ROBERT GALVAN Confirmed By:Santiago Lizama MD
--- NOTE | 2018-02-21 17:40 | PN ---
Teaching Attending Note Name of Resident: Juan Escamilla ATTENDING PHYSICIAN STATEMENT I saw and evaluated the patient. I reviewed the resident's note and discussed the case with the resident. I agree with the resident's findings and plan as documented. SUBJECTIVE: Mr Da Silva is a very pleasant 77 year old male with history of CVA who comes in with sudden onset L arm weakness and worsening LLE weakness OBJECTIVE: Gen: nad CV: rrr w/o m/r/g Pulm: ctab GI: +bs, s/nt/nd Ext: no c/c/e MSK: 4/5 strength in LUE and LLE ASSESSMENT AND PLAN: 1. L arm weakness -patient with history of CVA in past -anticoagulated with eliquis -admit to telemetry -ECHO and carotid ultrasound -MRI head w/o contrast -neurology consult -continue home regimen Problem List - Problems (1) TIA (transient ischemic attack) Code(s): G45.9 - TRANSIENT CEREBRAL ISCHEMIC ATTACK, UNSPECIFIED (2) COPD (chronic obstructive pulmonary disease) Code(s): J44.9 - CHRONIC OBSTRUCTIVE PULMONARY DISEASE, UNSPECIFIED Qualifiers: COPD type: unspecified COPD Qualified Code(s): J44.9 - Chronic obstructive pulmonary disease, unspecified (3) Hypertension Code(s): I10 - ESSENTIAL (PRIMARY) HYPERTENSION Qualifiers: Hypertension type: essential hypertension Qualified Code(s): I10 - Essential (primary) hypertension (4) PVD (peripheral vascular disease) Code(s): I73.9 - PERIPHERAL VASCULAR DISEASE, UNSPECIFIED (5) BPH (benign prostatic hyperplasia) Code(s): N40.0 - BENIGN PROSTATIC HYPERPLASIA WITHOUT LOWER URINRY TRACT SYMP Qualifiers: Lower urinary tract symptom presence: symptoms present Lower urinary tract symptom detail: nocturia Qualified Code(s): N40.1 - Benign prostatic hyperplasia with lower urinary tract symptoms; R35.1 - Nocturia (6) Atrial fibrillation Code(s): I48.91 - UNSPECIFIED ATRIAL FIBRILLATION (7) CKD (chronic kidney disease) Code(s): N18.9 - CHRONIC KIDNEY DISEASE, UNSPECIFIED (8) Diabetes Code(s): E11.9 - TYPE 2 DIABETES MELLITUS WITHOUT COMPLICATIONS Qualifiers: Diabetes mellitus type: type 2 Diabetes mellitus salvage determiner insulin use: without prison use Diabetes mellitus complication status: with unspecified complications Qualified Code(s): E11.8 - Type 2 diabetes mellitus with unspecified complications (9) Left leg weakness Code(s): R29.898 - OTH SYMPTOMS AND SIGNS INVOLVING THE MUSCULOSKELETAL SYSTEM (10) Obesity Code(s): E66.9 - OBESITY, UNSPECIFIED
--- NOTE | 2018-02-21 17:45 | PN ---
Teaching Attending Note Name of Resident: Juan Escamilla ATTENDING PHYSICIAN STATEMENT I saw and evaluated the patient. I reviewed the resident's note and discussed the case with the resident. I agree with the resident's findings and plan as documented. SUBJECTIVE: Mr Da Silva says he is still having LUE weakness. Denies cp, sob, n/ v OBJECTIVE: GEN: nad CV: irreg irreg, rate controlled, no m/r/g PULM: ctab w/o w/r/r ABD: +bs, s/nt/nd EXT: no c/c/e MSK: LUE 06/06 ASSESSMENT AND PLAN: 1. LUE weakness -stroke work-up negative -appreciate neurology assistance -patient states he has history of spinal canal stenosis -? if cause of weakness -will d/w Dr Fallon, patient states had recent MRI -continue PT -will need SNF placement 2. Orthostatic hypotension -will gently hydrate -hold torsemide -re-evaluate after hydration Otherwise continue current management Problem List - Problems (1) TIA (transient ischemic attack) Code(s): G45.9 - TRANSIENT CEREBRAL ISCHEMIC ATTACK, UNSPECIFIED (2) COPD (chronic obstructive pulmonary disease) Code(s): J44.9 - CHRONIC OBSTRUCTIVE PULMONARY DISEASE, UNSPECIFIED Qualifiers: COPD type: unspecified COPD Qualified Code(s): J44.9 - Chronic obstructive pulmonary disease, unspecified (3) Hypertension Code(s): I10 - ESSENTIAL (PRIMARY) HYPERTENSION Qualifiers: Hypertension type: essential hypertension Qualified Code(s): I10 - Essential (primary) hypertension (4) PVD (peripheral vascular disease) Code(s): I73.9 - PERIPHERAL VASCULAR DISEASE, UNSPECIFIED (5) BPH (benign prostatic hyperplasia) Code(s): N40.0 - BENIGN PROSTATIC HYPERPLASIA WITHOUT LOWER URINRY TRACT SYMP Qualifiers: Lower urinary tract symptom presence: symptoms present Lower urinary tract symptom detail: nocturia Qualified Code(s): N40.1 - Benign prostatic hyperplasia with lower urinary tract symptoms; R35.1 - Nocturia (6) Atrial fibrillation Code(s): I48.91 - UNSPECIFIED ATRIAL FIBRILLATION (7) CKD (chronic kidney disease) Code(s): N18.9 - CHRONIC KIDNEY DISEASE, UNSPECIFIED (8) Diabetes Code(s): E11.9 - TYPE 2 DIABETES MELLITUS WITHOUT COMPLICATIONS Qualifiers: Diabetes mellitus type: type 2 Diabetes mellitus skilled nursing insulin use: without skilled nursing use Diabetes mellitus complication status: with unspecified complications Qualified Code(s): E11.8 - Type 2 diabetes mellitus with unspecified complications (9) Left leg weakness Code(s): R29.898 - OTH SYMPTOMS AND SIGNS INVOLVING THE MUSCULOSKELETAL SYSTEM (10) Obesity Code(s): E66.9 - OBESITY, UNSPECIFIED
[2018-02-21] MEDS: ATORVASTATIN CA 80 MG TABLET (FP) PO SCH (21:18)
[2018-02-21] MEDS ORDERED: ACETAMINOPHEN 325 MG TABLET (FP) PO ONE (23:11)
[2018-02-22] MEDS: INSULIN SLIDING SCALE (NOVOLOG) 1 VIAL SQ SCH ×3 (06:30→17:06)
[2018-02-22 06:53] LABS: BASO % 0.7 % (0-2.0); EOS % 3.5 % (0-4.5); HEMATOCRIT 34.7 % (35.4-49); HEMOGLOBIN 11.3 GM/dL (11.7-16.9); LYMPH % 15.2 % (8-40); MCH 28.7 pg (25.7-33.7); MCHC 32.5 g/dl (32.0-35.9); MEAN CELL VOLUME 88.1 fl (80-96); MONO % 8.2 % (3.8-10.2); NEUT % 72.4 % (42.8-82.8); PLATELET COUNT 160 K/MM3 (134-434); RBC 3.94 M/mm3 (4.00-5.60); RDW 17.8 % (11.9-15.9); WHITE BLOOD COUNT 8.6 K/mm3 (4.0-10.0)
[2018-02-22 07:41] LABS: ALK PHOS 152 U/L (45-117); ANION GAP 8 MMOL/L (8-16); BILIRUBIN,TOTAL 0.6 mg/dL (0.2-1); BLOOD UREA NITROGEN 40 mg/dL (7-18); CALCIUM 8.5 mg/dL (8.5-10.1); CHLORIDE 106 mmol/L (98-107); CO2 28 mmol/L (21-32); CREATININE 1.9 mg/dL (0.55-1.3); GLUCOSE,RANDOM 110 mg/dL (74-106); POTASSIUM 3.8 mmol/L (3.5-5.1); SGOT/AST 25 U/L (15-37); SGPT/ALT 28 U/L (13-61); SODIUM 142 mmol/L (136-145); TOT PROT 6.2 g/dl (6.4-8.2)
[2018-02-22] MEDS ORDERED: predniSONE 10 MG TABLET (UD) PO ONE (09:07)
[2018-02-22] MEDS ORDERED: COLCHICINE 0.6 MG TABLET (FP) PO ONE ×2 (09:07→09:09)
[2018-02-22] MEDS: ALLOPURINOL 100 MG TABLET (FP) PO SCH (09:54)
[2018-02-22] MEDS: PANTOPRAZOLE 40 MG TABLET (FP) PO SCH (09:55)
[2018-02-22] MEDS: APIXABAN 2.5 MG TABLET PO SCH ×2 (09:56→22:12)
[2018-02-22] MEDS: PARoxetine HCL 10 MG TABLET (FP) PO SCH (09:56)
[2018-02-22] MEDS: ASPIRIN COATED 81 MG TABLET.EC PO SCH (09:56)
[2018-02-22] MEDS: COLCHICINE 0.6 MG TABLET (FP) PO SCH (11:18)
--- NOTE | 2018-02-22 14:40 | PN ---
Physical Exam: SUBJECTIVE: Patient seen and examined at bedside. NO overnight events. Is complaining of left wrist pain and increased weakness on Left side. Denies CP,MARCELINO ,SOB, abdominal pain, nausea or vomiting. OBJECTIVE: Vital Signs Period Temp Pulse Resp BP Sys/Garcia Pulse Ox Last 24 Hr 98.0 F-98.3 F 61-70 18-20 136-153/52-82 94-95 GENERAL: Awake and alert , NAD NECK: Supple, No JVD LUNGS: CTAB, no wheezes, no crackles, no accessory muscle use. HEART: RRR, S1, S2 without murmur, rub or gallop. ABDOMEN: Soft, NTND, NABS, no guarding, no rebound, no hepatosplenomegaly, no masses. EXTREMITIES: 2+ pulses, warm, well-perfused, no edema. NEUROLOGICAL: Cranial nerves II through XII grossly intact.2/5 strength upper left ext. 4/5 strength Left lower ext. sensation diminished lower ext. Normal speech, gait not observed. PSYCH: Normal mood, normal affect. Laboratory Results - last 24 hr 02/21/18 02/22/18 02/22/18 17:32 06:00 06:00 WBC 8.6 RBC 3.94 L Hgb 11.3 L Hct 34.7 L MCV 88.1 MCH 28.7 MCHC 32.5 RDW 17.8 H Plt Count 160 MPV 9.0 Absolute Neuts (auto) 6.2 Neutrophils % 72.4 Lymphocytes % 15.2 D Monocytes % 8.2 Eosinophils % 3.5 Basophils % 0.7 Nucleated RBC % 0 Sodium 142 Potassium 3.8 Chloride 106 Carbon Dioxide 28 Anion Gap 8 BUN 40 H Creatinine 1.9 H Creat Clearance w eGFR 34.64 POC Glucometer 117 Random Glucose 110 H Calcium 8.5 Total Bilirubin 0.6 AST 25 ALT 28 Alkaline Phosphatase 152 H Total Protein 6.2 L Albumin 3.0 L 02/22/18 02/22/18 06:07 11:25 WBC RBC Hgb Hct MCV MCH MCHC RDW Plt Count MPV Absolute Neuts (auto) Neutrophils % Lymphocytes % Monocytes % Eosinophils % Basophils % Nucleated RBC % Sodium Potassium Chloride Carbon Dioxide Anion Gap BUN Creatinine Creat Clearance w eGFR POC Glucometer 115 166 Random Glucose Calcium Total Bilirubin AST ALT Alkaline Phosphatase Total Protein Albumin Active Medications Generic Name Dose Route Start Last Admin Trade Name Freq PRN Reason Stop Dose Admin Allopurinol 150 mg 02/21/18 10:00 02/22/18 09:54 Zyloprim - PO 150 mg DAILY ABI Administration Apixaban 2.5 mg 02/20/18 22:00 02/22/18 09:56 Eliquis - PO 2.5 mg BID ABI Administration Aspirin 81 mg 02/21/18 10:00 02/22/18 09:56 Ecotrin - PO 81 mg DAILY ABI Administration Atorvastatin Calcium 80 mg 02/20/18 22:00 02/21/18 21:18 Lipitor - PO 80 mg HS ABI Administration Colchicine 0.6 mg 02/22/18 10:00 02/22/18 11:18 Colcrys - PO 0.6 mg DAILY ABI Administration Insulin Aspart 1 vial 02/21/18 07:00 02/22/18 11:34 Novolog Vial Sliding Scale - SQ Not Given [facility] Protocol Metoprolol Succinate 50 mg 02/21/18 10:00 02/22/18 09:56 Toprol Xl - PO 50 mg DAILY ABI Administration Pantoprazole Sodium 40 mg 02/21/18 10:00 02/22/18 09:55 Protonix - PO 40 mg DAILY ABI Administration Paroxetine HCl 10 mg 02/21/18 10:00 02/22/18 09:56 Paxil - PO 10 mg DAILY ABI Administration ASSESSMENT/PLAN: 77 yo M with PMhx of CAD,HTN,CHF,afib,DM II and CVAx2 presents with few hour history of inability to move left arm admitted for TIA despite being on eliquis. Problem List - Problems (1) Left-sided weakness Assessment/Plan: NO CVA on imaging however weakness persist. * Has history of spinal stenosis and chronic spine issues * WIll obtain an cervical and lumbar MRI r/o spinal cord pathology. (2) TIA (transient ischemic attack) Assessment/Plan: High risk for re-stroke ABCD's >4 * Admit to telemetry * Echo and carotids WNL * Neurology consult * MRI was negative for acute CVA * cont asa and statin * Speech / Swallow Consult done * Physical Therapy Request Routine (3) Atrial fibrillation Assessment/Plan: continue Eliquis (4) Diabetes Assessment/Plan: * ADA diet * BGM ACHS * ISS ACHS (5) Hypertension Assessment/Plan: * Torsemide (Demadex -) 20 mg PO DAILY (6) Hyperlipemia Assessment/Plan: continue Lipitor 80mg HS (7) BPH (benign prostatic hyperplasia) Assessment/Plan: continue Flomax (8) DVT prophylaxis Assessment/Plan: On eliquis * SCD's bilat. (9) Acute gout Assessment/Plan: * Given 0.6mg colchicine followed by 0.6mg one hour later * 10mg prednisone also given. * will continue colchicine daily. Visit type - Emergency Visit Emergency Visit: Yes ED Registration Date: 02/20/18 Care time: The patient presented to the Emergency Department on the above date and was hospitalized for further evaluation of their emergent condition. - New Patient This patient is new to me today: No - Critical Care Critical Care patient: No
--- NOTE | 2018-02-22 15:11 | PN ---
Teaching Attending Note Name of Resident: Juan Escamilla ATTENDING PHYSICIAN STATEMENT I saw and evaluated the patient. I reviewed the resident's note and discussed the case with the resident. I agree with the resident's findings and plan as documented. SUBJECTIVE: OBJECTIVE: ASSESSMENT AND PLAN:
[2018-02-22] MEDS: ATORVASTATIN CA 80 MG TABLET (FP) PO SCH (22:12)
[2018-02-22] MEDS ORDERED: ACETAMINOPHEN 325 MG TABLET (FP) PO ONE (22:30)
[2018-02-23] MEDS: INSULIN SLIDING SCALE (NOVOLOG) 1 VIAL SQ SCH ×3 (06:49→17:29)
[2018-02-23 08:36] LABS: BASO % 0.8 % (0-2.0); EOS % 2.5 % (0-4.5); HEMATOCRIT 33.2 % (35.4-49); HEMOGLOBIN 10.9 GM/dL (11.7-16.9); LYMPH % 19.5 % (8-40); MCH 28.9 pg (25.7-33.7); MCHC 32.8 g/dl (32.0-35.9); MEAN PLT VOLUME 8.6 fl (7.5-11.1); MONO % 7.2 % (3.8-10.2); PLATELET COUNT 168 K/MM3 (134-434); RBC 3.78 M/mm3 (4.00-5.60); RDW 17.5 % (11.9-15.9); WHITE BLOOD COUNT 8.8 K/mm3 (4.0-10.0)
[2018-02-23 09:07] LABS: BLOOD UREA NITROGEN 33 mg/dL (7-18); CHLORIDE 106 mmol/L (98-107); CO2 29 mmol/L (21-32); CREATININE 1.5 mg/dL (0.55-1.3); GLUCOSE,RANDOM 93 mg/dL (74-106); POTASSIUM 3.6 mmol/L (3.5-5.1); SODIUM 141 mmol/L (136-145)
[2018-02-23 09:08] LABS: ALK PHOS 141 U/L (45-117); ANION GAP 6 MMOL/L (8-16); BILIRUBIN,TOTAL 0.8 mg/dL (0.2-1); CALCIUM 8.6 mg/dL (8.5-10.1); SGOT/AST 27 U/L (15-37); SGPT/ALT 29 U/L (13-61); TOT PROT 6.4 g/dl (6.4-8.2)
--- NOTE | 2018-02-23 11:01 | PN ---
Physical Exam: SUBJECTIVE: Patient seen and examined at bedside. MRI cancelled yesterday. Will attempt again today. No new complains. Continued Left sided weakness. Denies CP, MARCELINO, SOB, abdominal pain. OBJECTIVE: Vital Signs Period Temp Pulse Resp BP Sys/Garcia Pulse Ox Last 24 Hr 97.8 F-98.3 F 60-72 18-20 124-170/62-88 94 GENERAL: Awake and alert , NAD NECK: Supple, No JVD LUNGS: CTAB, no wheezes, no crackles, no accessory muscle use. HEART: RRR, S1, S2 without murmur, rub or gallop. ABDOMEN: Soft, NTND, NABS, no guarding, no rebound, no hepatosplenomegaly, no masses. EXTREMITIES: 2+ pulses, warm, well-perfused, no edema. NEUROLOGICAL: Cranial nerves II through XII grossly intact.2/5 strength upper left ext. 4/5 strength Left lower ext. sensation diminished lower ext. Normal speech, gait not observed. PSYCH: Normal mood, normal affect. Laboratory Results - last 24 hr 02/22/18 02/22/18 02/22/18 11:25 17:03 22:03 WBC RBC Hgb Hct MCV MCH MCHC RDW Plt Count MPV Absolute Neuts (auto) Neutrophils % Lymphocytes % Monocytes % Eosinophils % Basophils % Nucleated RBC % Sodium Potassium Chloride Carbon Dioxide Anion Gap BUN Creatinine Creat Clearance w eGFR POC Glucometer 166 128 140 Random Glucose Calcium Total Bilirubin AST ALT Alkaline Phosphatase Total Protein Albumin 02/23/18 02/23/18 02/23/18 06:07 07:35 07:35 WBC 8.8 RBC 3.78 L Hgb 10.9 L Hct 33.2 L MCV 88.0 MCH 28.9 MCHC 32.8 RDW 17.5 H Plt Count 168 MPV 8.6 Absolute Neuts (auto) 6.1 Neutrophils % 70.0 Lymphocytes % 19.5 D Monocytes % 7.2 Eosinophils % 2.5 Basophils % 0.8 Nucleated RBC % 0 Sodium 141 Potassium 3.6 Chloride 106 Carbon Dioxide 29 Anion Gap 6 L BUN 33 H Creatinine 1.5 H Creat Clearance w eGFR 45.50 POC Glucometer 98 Random Glucose 93 Calcium 8.6 Total Bilirubin 0.8 AST 27 ALT 29 Alkaline Phosphatase 141 H Total Protein 6.4 Albumin 3.0 L Active Medications Generic Name Dose Route Start Last Admin Trade Name Neymar PRN Reason Stop Dose Admin Allopurinol 150 mg 02/21/18 10:00 02/22/18 09:54 Zyloprim - PO 150 mg DAILY ABI Administration Apixaban 2.5 mg 02/20/18 22:00 02/22/18 22:12 Eliquis - PO 2.5 mg BID AIB Administration Aspirin 81 mg 02/21/18 10:00 02/22/18 09:56 Ecotrin - PO 81 mg DAILY ABI Administration Atorvastatin Calcium 80 mg 02/20/18 22:00 02/22/18 22:12 Lipitor - PO 80 mg HS ABI Administration Colchicine 0.6 mg 02/22/18 10:00 02/22/18 11:18 Colcrys - PO 0.6 mg DAILY ABI Administration Insulin Aspart 1 vial 02/21/18 07:00 02/23/18 06:49 Novolog Vial Sliding Scale - SQ Not Given TIDAC [facility] Protocol Metoprolol Succinate 50 mg 02/21/18 10:00 02/22/18 09:56 Toprol Xl - PO 50 mg DAILY ABI Administration Pantoprazole Sodium 40 mg 02/21/18 10:00 02/22/18 09:55 Protonix - PO 40 mg DAILY ABI Administration Paroxetine HCl 10 mg 02/21/18 10:00 02/22/18 09:56 Paxil - PO 10 mg DAILY ABI Administration ASSESSMENT/PLAN: 77 yo M with PMhx of CAD,HTN,CHF,afib,DM II and CVAx2 presents with few hour history of inability to move left arm admitted for TIA despite being on eliquis. Problem List - Problems (1) Left-sided weakness Assessment/Plan: NO CVA on imaging however weakness persist. * Has history of spinal stenosis and chronic spine issues * cervical and lumbar MRI r/o spinal cord pathology today. (2) TIA (transient ischemic attack) Assessment/Plan: * Neurology consult appreciated. * No evidence of CVA on MRI- however small lacunar stroke may be missed on MRI * Patient is medically optimized on medical therapy. * Echo and carotids WNL * cont asa eliquis and statin * Speech / Swallow Consult completed * Physical Therapy Request Routine-will require short term rehab. (3) Atrial fibrillation Assessment/Plan: continue Eliquis (4) Diabetes Assessment/Plan: * ADA diet * BGM ACHS * ISS ACHS (5) Hypertension Assessment/Plan: * Torsemide (Demadex -) 20 mg PO DAILY (6) Hyperlipemia Assessment/Plan: continue Lipitor 80mg HS (7) BPH (benign prostatic hyperplasia) Assessment/Plan: continue Flomax (8) DVT prophylaxis Assessment/Plan: On eliquis * SCD's bilat. (9) Acute gout Assessment/Plan: * Colchicine 0.6mg PO daily. Visit type - Emergency Visit Emergency Visit: Yes ED Registration Date: 02/20/18 Care time: The patient presented to the Emergency Department on the above date and was hospitalized for further evaluation of their emergent condition. - New Patient This patient is new to me today: No - Critical Care Critical Care patient: No
[2018-02-23] MEDS: ASPIRIN COATED 81 MG TABLET.EC PO SCH (11:17)
[2018-02-23] MEDS: PARoxetine HCL 10 MG TABLET (FP) PO SCH (11:17)
[2018-02-23] MEDS: ALLOPURINOL 100 MG TABLET (FP) PO SCH (11:17)
[2018-02-23] MEDS: APIXABAN 2.5 MG TABLET PO SCH ×2 (11:17→22:25)
[2018-02-23] MEDS: PANTOPRAZOLE 40 MG TABLET (FP) PO SCH (11:17)
[2018-02-23] MEDS: COLCHICINE 0.6 MG TABLET (FP) PO SCH (11:18)
--- NOTE | 2018-02-23 14:31 | PN ---
Teaching Attending Note Name of Resident: Juan Escamilla ATTENDING PHYSICIAN STATEMENT I saw and evaluated the patient. I reviewed the resident's note and discussed the case with the resident. I agree with the resident's findings and plan as documented. SUBJECTIVE:c/o continued weakness of LUE with pain in the neck., pain and swelling of the L hand has improved. denies CP, SOB, fever, chills, N/V/C/D OBJECTIVE: Last Vital Signs Temp Pulse Resp BP Pulse Ox 97.9 F 65 18 156/98 94 L 02/23/18 09:14 02/23/18 11:31 02/23/18 11:31 02/23/18 11:31 02/22/18 21:00 General NAD CV S1 S2 RRR Extremities sensation grossly intact, LUE 1/5 with warmth and swelling noted at the 1st digit MCP joint. +tenderness LLE 3/5 proximal and distal motor strength. sensation grossly intact Point tenderness along the cervical spine, no muscle spasms ASSESSMENT AND PLAN: 77yo M with PMH CAD, CHF, HTN, DM, Stroke , valve replacement presenting with LUE and TIA/CVA was ruled out 1. LUE weakness- TIA/CVA r/o however could have had a small lacunar infarct not evident on imaging. high possibility of radiculopathy as pt has known DJD. underwent MRI this AM. if negative will need to consider EMG testing. symptoms do not seem to progress with fatigue. Neuro on board. will need DANNY on discharge 2. L hand gout flare- has known hx of gout. improved on colchicine. cont 3. CKD- stable 4. spoke with and daughter present at bedside. agreeable to DANNY placement. all questions answered.
[2018-02-23] MEDS: ATORVASTATIN CA 80 MG TABLET (FP) PO SCH (22:24)
[2018-02-24] MEDS: INSULIN SLIDING SCALE (NOVOLOG) 1 VIAL SQ SCH ×3 (06:29→17:13)
[2018-02-24 06:52] LABS: EOS % 4.4 % (0-4.5); HEMATOCRIT 36.9 % (35.4-49); HEMOGLOBIN 12.2 GM/dL (11.7-16.9); LYMPH % 18.9 % (8-40); MCH 29.1 pg (25.7-33.7); MCHC 32.9 g/dl (32.0-35.9); MEAN CELL VOLUME 88.5 fl (80-96); MEAN PLT VOLUME 8.9 fl (7.5-11.1); MONO % 8.2 % (3.8-10.2); NEUT % 67.5 % (42.8-82.8); PLATELET COUNT 175 K/MM3 (134-434); RBC 4.17 M/mm3 (4.00-5.60); RDW 17.7 % (11.9-15.9); WHITE BLOOD COUNT 9.1 K/mm3 (4.0-10.0)
[2018-02-24 07:26] LABS: ALK PHOS 163 U/L (45-117); ANION GAP 8 MMOL/L (8-16); BILIRUBIN,TOTAL 0.6 mg/dL (0.2-1); BLOOD UREA NITROGEN 33 mg/dL (7-18); CALCIUM 8.6 mg/dL (8.5-10.1); CHLORIDE 107 mmol/L (98-107); CO2 26 mmol/L (21-32); CREATININE 1.5 mg/dL (0.55-1.3); GLUCOSE,RANDOM 96 mg/dL (74-106); POTASSIUM 3.9 mmol/L (3.5-5.1); SGOT/AST 35 U/L (15-37); SGPT/ALT 38 U/L (13-61); SODIUM 141 mmol/L (136-145); TOT PROT 6.6 g/dl (6.4-8.2)
[2018-02-24] MEDS ORDERED: PT OWN MED DRAWER 7, Y5N ONE (09:57)
[2018-02-24] MEDS: ALLOPURINOL 100 MG TABLET (FP) PO SCH (10:00)
[2018-02-24] MEDS: PARoxetine HCL 10 MG TABLET (FP) PO SCH (10:00)
[2018-02-24] MEDS: ASPIRIN COATED 81 MG TABLET.EC PO SCH (10:00)
[2018-02-24] MEDS: COLCHICINE 0.6 MG TABLET (FP) PO SCH (10:00)
[2018-02-24] MEDS: APIXABAN 2.5 MG TABLET PO SCH ×2 (10:01→22:40)
[2018-02-24] MEDS: PANTOPRAZOLE 40 MG TABLET (FP) PO SCH (10:01)
--- NOTE | 2018-02-24 15:39 | PN ---
Teaching Attending Note Name of Resident: Juan Escamilla ATTENDING PHYSICIAN STATEMENT I saw and evaluated the patient. I reviewed the resident's note and discussed the case with the resident. I agree with the resident's findings and plan as documented. SUBJECTIVE: He is in no distress, states that the pain and swelling of the L wrist has improved OBJECTIVE: In no distress Last Vital Signs Temp Pulse Resp BP Pulse Ox 97.3 F L 59 L 18 150/71 97 02/24/18 14:00 02/24/18 14:00 02/24/18 14:00 02/24/18 14:00 02/24/18 09:00 morbidly obese M, in no distress MMM No occular discharge No nasal discharge CVS:S1S2 CTAB Abd: Obese, NT/ND EXT: no edema Has erythema, swelling in the L 1st finger, with limitation of ROM. L upper EXT 1/5, ;EX 2/5, but sensory is intact. ASSESSMENT AND PLAN: 77yo M with morbid obesity, CAD, CHF, HTN, DM, Stroke , valve replacement P/W left sided weakness, no acute event on Brain MRI. Upper and lower EXT weakness: has intact sensory , MRI spine with spical stenosis,but he has no sensory complaints, will ask neuro for further evaluation and followup. He is to go to rehab for further management CAD/CHF/valve replacement /cva: no complaints, on home ASA, atorvastatin 80mg eliques, metoprolol Goat attack: will benefit from short term predispose but as he believes in his PMD and his PMD recommended cholchicine, is still uncontrolled. pain can be controlled with tylenol 3. Morbid obesity: he was counseled about weight loss Nutrition consult for obesity and low albumin DM: Has been well controlled here will C/W current management Depression: he is on paxil at home dose GERD/ gastritis: he is on home omeprazol which has been continued. Dispo:Will dc the patient to rehab FC Diet: cardica- diabetic Current Medications Generic Name Dose Route Start Last Admin Trade Name Freq PRN Reason Stop Dose Admin Allopurinol 150 mg 02/21/18 10:00 02/24/18 10:00 Zyloprim - PO 150 mg DAILY ABI Administration Apixaban 2.5 mg 02/20/18 22:00 02/24/18 10:01 Eliquis - PO 2.5 mg BID ABI Administration Aspirin 81 mg 02/21/18 10:00 02/24/18 10:00 Ecotrin - PO 81 mg DAILY ABI Administration Atorvastatin Calcium 80 mg 02/20/18 22:00 02/23/18 22:24 Lipitor - PO 80 mg HS ABI Administration Colchicine 0.6 mg 02/22/18 10:00 02/24/18 10:00 Colcrys - PO 0.6 mg DAILY ABI Administration Insulin Aspart 1 vial 02/21/18 07:00 02/24/18 11:52 Novolog Vial Sliding Scale - SQ Not Given TIDAC [facility] Protocol Metoprolol Succinate 50 mg 02/21/18 10:00 02/24/18 10:00 Toprol Xl - PO 50 mg DAILY [facility] Administration Pantoprazole Sodium 40 mg 02/21/18 10:00 02/24/18 10:01 Protonix - PO 40 mg DAILY ABI Administration Paroxetine HCl 10 mg 02/21/18 10:00 02/24/18 10:00 Paxil - PO 10 mg DAILY ABI Administration Home Medications Medication Instructions Recorded Allopurinol [Zyloprim -] 150 mg PO DAILY 10/27/17 Apixaban [Eliquis -] 2.5 mg PO BID 10/27/17 Aspirin [Aspirin EC] 81 mg PO DAILY 10/27/17 Atorvastatin Ca [Lipitor] 80 mg PO HS 10/27/17 Metoprolol Succinate 50 mg PO DAILY 10/27/17 Torsemide 20 mg PO DAILY 10/27/17 Omeprazole 40 mg PO DAILY 02/20/18 Paroxetine HCl [Paxil] 10 mg PO DAILY 02/20/18
--- NOTE | 2018-02-24 17:41 | PN ---
Physical Exam: SUBJECTIVE: Patient seen and examined at bedside. MRI cancelled yesterday. Will attempt again today. No new complains. Continued Left sided weakness. Denies CP, MARCELINO, SOB, abdominal pain. OBJECTIVE: Vital Signs Period Temp Pulse Resp BP Sys/Garcia Pulse Ox Last 24 Hr 97.8 F-98.3 F 60-72 18-20 124-170/62-88 94 GENERAL: Awake and alert , NAD NECK: Supple, No JVD LUNGS: CTAB, no wheezes, no crackles, no accessory muscle use. HEART: RRR, S1, S2 without murmur, rub or gallop. ABDOMEN: Soft, NTND, NABS, no guarding, no rebound, no hepatosplenomegaly, no masses. EXTREMITIES: 2+ pulses, warm, well-perfused, no edema. NEUROLOGICAL: Cranial nerves II through XII grossly intact.2/5 strength upper left ext. 4/5 strength Left lower ext. sensation diminished lower ext. Normal speech, gait not observed. PSYCH: Normal mood, normal affect. Laboratory Results - last 24 hr 02/24/18 02/24/18 02/24/18 06:00 06:00 06:20 WBC 9.1 RBC 4.17 Hgb 12.2 Hct 36.9 MCV 88.5 MCH 29.1 MCHC 32.9 RDW 17.7 H Plt Count 175 MPV 8.9 Absolute Neuts (auto) 6.2 Neutrophils % 67.5 Lymphocytes % 18.9 Monocytes % 8.2 Eosinophils % 4.4 Basophils % 1.0 Nucleated RBC % 0 Sodium 141 Potassium 3.9 Chloride 107 Carbon Dioxide 26 Anion Gap 8 BUN 33 H Creatinine 1.5 H Creat Clearance w eGFR 45.50 POC Glucometer 104 Random Glucose 96 Calcium 8.6 Total Bilirubin 0.6 AST 35 ALT 38 Alkaline Phosphatase 163 H Total Protein 6.6 Albumin 3.0 L 02/24/18 02/24/18 11:30 16:45 WBC RBC Hgb Hct MCV MCH MCHC RDW Plt Count MPV Absolute Neuts (auto) Neutrophils % Lymphocytes % Monocytes % Eosinophils % Basophils % Nucleated RBC % Sodium Potassium Chloride Carbon Dioxide Anion Gap BUN Creatinine Creat Clearance w eGFR POC Glucometer 126 101 Random Glucose Calcium Total Bilirubin AST ALT Alkaline Phosphatase Total Protein Albumin Active Medications Generic Name Dose Route Start Last Admin Trade Name Freq PRN Reason Stop Dose Admin Allopurinol 150 mg 02/21/18 10:00 02/24/18 10:00 Zyloprim - PO 150 mg DAILY ABI Administration Apixaban 2.5 mg 02/20/18 22:00 02/24/18 10:01 Eliquis - PO 2.5 mg BID ABI Administration Aspirin 81 mg 02/21/18 10:00 02/24/18 10:00 Ecotrin - PO 81 mg DAILY ABI Administration Atorvastatin Calcium 80 mg 02/20/18 22:00 02/23/18 22:24 Lipitor - PO 80 mg HS ABI Administration Colchicine 0.6 mg 02/22/18 10:00 02/24/18 10:00 Colcrys - PO 0.6 mg DAILY ABI Administration Insulin Aspart 1 vial 02/21/18 07:00 02/24/18 17:13 Novolog Vial Sliding Scale - SQ Not Given TIDAC [facility] Protocol Metoprolol Succinate 50 mg 02/21/18 10:00 02/24/18 10:00 Toprol Xl - PO 50 mg DAILY ABI Administration Pantoprazole Sodium 40 mg 02/21/18 10:00 02/24/18 10:01 Protonix - PO 40 mg DAILY ABI Administration Paroxetine HCl 10 mg 02/21/18 10:00 02/24/18 10:00 Paxil - PO 10 mg DAILY ABI Administration ASSESSMENT/PLAN: 77 yo M with PMhx of CAD,HTN,CHF,afib,DM II and CVAx2 presents with few hour history of inability to move left arm admitted for TIA despite being on eliquis. Problem List - Problems (1) Left-sided weakness Assessment/Plan: NO CVA on imaging however weakness persist. * Has history of spinal stenosis and chronic spine issues * cervical and lumbar MRI shows multilevel degenerative disc changes with bilateral foraminal stenoses. . (2) TIA (transient ischemic attack) Assessment/Plan: * Neurology consult appreciated. * No evidence of CVA on MRI- however small lacunar stroke may be missed on MRI * Patient is medically optimized on medical therapy. * Echo and carotids WNL * cont asa eliquis and statin * Speech / Swallow Consult completed * Physical Therapy Request Routine-will require short term rehab. (3) Atrial fibrillation Assessment/Plan: continue Eliquis (4) Diabetes Assessment/Plan: * ADA diet * BGM ACHS * ISS ACHS (5) Hypertension Assessment/Plan: * Torsemide (Demadex -) 20 mg PO DAILY (6) Hyperlipemia Assessment/Plan: continue Lipitor 80mg HS (7) BPH (benign prostatic hyperplasia) Assessment/Plan: continue Flomax (8) DVT prophylaxis Assessment/Plan: On eliquis * SCD's bilat. (9) Acute gout Assessment/Plan: * Colchicine 0.6mg PO daily. Visit type - Emergency Visit Emergency Visit: Yes ED Registration Date: 02/20/18 Care time: The patient presented to the Emergency Department on the above date and was hospitalized for further evaluation of their emergent condition. - New Patient This patient is new to me today: No - Critical Care Critical Care patient: No
[2018-02-24] MEDS: ATORVASTATIN CA 80 MG TABLET (FP) PO SCH (22:40)
[2018-02-25] MEDS: INSULIN SLIDING SCALE (NOVOLOG) 1 VIAL SQ SCH ×3 (06:09→16:32)
[2018-02-25 07:09] LABS: EOS % 4.9 % (0-4.5); HEMOGLOBIN 11.3 GM/dL (11.7-16.9); LYMPH % 20.5 % (8-40); MCH 28.5 pg (25.7-33.7); MCHC 32.4 g/dl (32.0-35.9); MEAN CELL VOLUME 87.9 fl (80-96); MEAN PLT VOLUME 8.8 fl (7.5-11.1); MONO % 7.5 % (3.8-10.2); NEUT % 66.1 % (42.8-82.8); PLATELET COUNT 190 K/MM3 (134-434); RBC 3.98 M/mm3 (4.00-5.60); RDW 17.6 % (11.9-15.9); WHITE BLOOD COUNT 7.5 K/mm3 (4.0-10.0)
[2018-02-25 07:43] LABS: ALBUMIN 2.7 g/dl (3.4-5.0); ALK PHOS 156 U/L (45-117); ANION GAP 5 MMOL/L (8-16); BILIRUBIN,TOTAL 0.5 mg/dL (0.2-1); BLOOD UREA NITROGEN 30 mg/dL (7-18); CALCIUM 8.5 mg/dL (8.5-10.1); CHLORIDE 109 mmol/L (98-107); CO2 27 mmol/L (21-32); CREATININE 1.5 mg/dL (0.55-1.3); GLUCOSE,RANDOM 100 mg/dL (74-106); POTASSIUM 4.3 mmol/L (3.5-5.1); SGOT/AST 35 U/L (15-37); SGPT/ALT 35 U/L (13-61); SODIUM 141 mmol/L (136-145); TOT PROT 6.2 g/dl (6.4-8.2)
[2018-02-25] MEDS: PARoxetine HCL 10 MG TABLET (FP) PO SCH (10:13)
[2018-02-25] MEDS: APIXABAN 2.5 MG TABLET PO SCH ×2 (10:13→21:03)
[2018-02-25] MEDS: ALLOPURINOL 100 MG TABLET (FP) PO SCH (10:13)
[2018-02-25] MEDS: ASPIRIN COATED 81 MG TABLET.EC PO SCH (10:13)
[2018-02-25] MEDS: PANTOPRAZOLE 40 MG TABLET (FP) PO SCH (10:13)
[2018-02-25] MEDS: COLCHICINE 0.6 MG TABLET (FP) PO SCH (10:13)
--- NOTE | 2018-02-25 17:08 | PN ---
Physical Exam: SUBJECTIVE: Patient seen and examined OBJECTIVE: Vital Signs Period Temp Pulse Resp BP Sys/Garcia Pulse Ox Last 24 Hr 97.8 F-98.4 F 61-62 16-20 143-189/68-80 97-97 morbidly obese M, in no distress MMM No occular discharge No nasal discharge CVS:S1S2 CTAB Abd: Obese, NT/ND EXT: no edema Has erythema, swelling in the L 1st finger, with limitation of ROM. L upper EXT 1/5, ;EX 2/5, but sensory is intact. Laboratory Results - last 24 hr 02/24/18 02/25/18 02/25/18 16:45 06:06 06:40 WBC 7.5 RBC 3.98 L Hgb 11.3 L Hct 35.0 L MCV 87.9 MCH 28.5 MCHC 32.4 RDW 17.6 H Plt Count 190 MPV 8.8 Absolute Neuts (auto) 5.0 Neutrophils % 66.1 Lymphocytes % 20.5 Monocytes % 7.5 Eosinophils % 4.9 H Basophils % 1.0 Nucleated RBC % 0 Sodium Potassium Chloride Carbon Dioxide Anion Gap BUN Creatinine Creat Clearance w eGFR POC Glucometer 101 107 Random Glucose Calcium Total Bilirubin AST ALT Alkaline Phosphatase Total Protein Albumin 02/25/18 02/25/18 06:40 11:56 WBC RBC Hgb Hct MCV MCH MCHC RDW Plt Count MPV Absolute Neuts (auto) Neutrophils % Lymphocytes % Monocytes % Eosinophils % Basophils % Nucleated RBC % Sodium 141 Potassium 4.3 Chloride 109 H Carbon Dioxide 27 Anion Gap 5 L BUN 30 H Creatinine 1.5 H Creat Clearance w eGFR 45.50 POC Glucometer 156 Random Glucose 100 Calcium 8.5 Total Bilirubin 0.5 AST 35 ALT 35 Alkaline Phosphatase 156 H Total Protein 6.2 L Albumin 2.7 L Active Medications Generic Name Dose Route Start Last Admin Trade Name Freq PRN Reason Stop Dose Admin Allopurinol 150 mg 02/21/18 10:00 02/25/18 10:13 Zyloprim - PO 150 mg DAILY ABI Administration Apixaban 2.5 mg 02/20/18 22:00 02/25/18 10:13 Eliquis - PO 2.5 mg BID ABI Administration Aspirin 81 mg 02/21/18 10:00 02/25/18 10:13 Ecotrin - PO 81 mg DAILY ABI Administration Atorvastatin Calcium 80 mg 02/20/18 22:00 02/24/18 22:40 Lipitor - PO 80 mg HS ABI Administration Colchicine 0.6 mg 02/22/18 10:00 02/25/18 10:13 Colcrys - PO 0.6 mg DAILY ABI Administration Insulin Aspart 1 vial 02/21/18 07:00 02/25/18 11:57 Novolog Vial Sliding Scale - SQ Not Given TIDAC [facility] Protocol Metoprolol Succinate 50 mg 02/21/18 10:00 02/25/18 10:13 Toprol Xl - PO 50 mg DAILY ABI Administration Pantoprazole Sodium 40 mg 02/21/18 10:00 02/25/18 10:13 Protonix - PO 40 mg DAILY ABI Administration Paroxetine HCl 10 mg 02/21/18 10:00 02/25/18 10:13 Paxil - PO 10 mg DAILY ABI Administration ASSESSMENT/PLAN: 77yo M with morbid obesity, CAD, CHF, HTN, DM, Stroke , valve replacement P/W left sided weakness, no acute event on Brain MRI. Upper and lower EXT weakness: has intact sensory , MRI spine with spical stenosis,but he has no sensory complaints, will ask neuro for further evaluation and followup. He is to go to rehab for further management CAD/CHF/valve replacement /cva: no complaints, on home ASA, atorvastatin 80mg eliques, metoprolol Goat attack: will benefit from short term predispose but as he believes in his PMD and his PMD recommended cholchicine, is still uncontrolled. pain can be controlled with tylenol 3. Morbid obesity: he was counseled about weight loss Nutrition consult for obesity and low albumin DM: Has been well controlled here will C/W current management Depression: he is on paxil at home dose GERD/ gastritis: he is on home omeprazol which has been continued. Dispo:Will dc the patient to rehab FC Diet: cardica- diabetic Visit type - Emergency Visit Emergency Visit: Yes ED Registration Date: 02/20/18 Care time: The patient presented to the Emergency Department on the above date and was hospitalized for further evaluation of their emergent condition. - New Patient This patient is new to me today: No - Critical Care Critical Care patient: No - Discharge Referral Referred to [facility] Med P.C.: No
[2018-02-25] MEDS: ATORVASTATIN CA 80 MG TABLET (FP) PO SCH (21:03)
[2018-02-25] MEDS: ACETAMINOPHEN 325 MG TABLET (FP) PO PRN (22:50)
[2018-02-26] MEDS: INSULIN SLIDING SCALE (NOVOLOG) 1 VIAL SQ SCH ×3 (06:03→18:06)
[2018-02-26] MEDS: PANTOPRAZOLE 40 MG TABLET (FP) PO SCH (11:00)
[2018-02-26] MEDS: APIXABAN 2.5 MG TABLET PO SCH ×2 (11:00→21:39)
[2018-02-26] MEDS: ASPIRIN COATED 81 MG TABLET.EC PO SCH (11:00)
[2018-02-26] MEDS: PARoxetine HCL 10 MG TABLET (FP) PO SCH (11:00)
[2018-02-26] MEDS: COLCHICINE 0.6 MG TABLET (FP) PO SCH (11:00)
[2018-02-26] MEDS: ALLOPURINOL 100 MG TABLET (FP) PO SCH (11:45)
--- NOTE | 2018-02-26 18:15 | PN ---
Physical Exam: SUBJECTIVE: Patient seen and examined OBJECTIVE: Vital Signs Period Temp Pulse Resp BP Sys/Garcia Pulse Ox Last 24 Hr 97.6 F-98.3 F 57-62 18-18 145-161/67-77 95-95 morbidly obese M, in no distress MMM No occular discharge No nasal discharge CVS:S1S2 CTAB Abd: Obese, NT/ND EXT: no edema Has erythema, swelling in the L 1st finger, with limitation of ROM. L upper EXT 1/5, ;EX 2/5, but sensory is intact. Laboratory Results - last 24 hr 02/26/18 02/26/18 05:36 12:04 POC Glucometer 89 136 Active Medications Generic Name Dose Route Start Last Admin Trade Name Freq PRN Reason Stop Dose Admin Acetaminophen 650 mg 02/25/18 22:28 02/25/18 22:50 Tylenol - PO 650 mg Q6H PRN Administration PAIN LEVEL 1 - 3 Allopurinol 150 mg 02/21/18 10:00 02/26/18 11:45 Zyloprim - PO 150 mg DAILY ABI Administration Apixaban 2.5 mg 02/20/18 22:00 02/26/18 11:00 Eliquis - PO 2.5 mg BID ABI Administration Aspirin 81 mg 02/21/18 10:00 02/26/18 11:00 Ecotrin - PO 81 mg DAILY ABI Administration Atorvastatin Calcium 80 mg 02/20/18 22:00 02/25/18 21:03 Lipitor - PO 80 mg HS ABI Administration Colchicine 0.6 mg 02/22/18 10:00 02/26/18 11:00 Colcrys - PO 0.6 mg DAILY ABI Administration Insulin Aspart 1 vial 02/21/18 07:00 02/26/18 18:06 Novolog Vial Sliding Scale - SQ Not Given TIDAC [facility] Protocol Metoprolol Succinate 50 mg 02/21/18 10:00 02/26/18 11:00 Toprol Xl - PO 50 mg DAILY ABI Administration Pantoprazole Sodium 40 mg 02/21/18 10:00 02/26/18 11:00 Protonix - PO 40 mg DAILY ABI Administration Paroxetine HCl 10 mg 02/21/18 10:00 02/26/18 11:00 Paxil - PO 10 mg DAILY ABI Administration ASSESSMENT/PLAN: 77yo M with morbid obesity, CAD, CHF, HTN, DM, Stroke , valve replacement P/W left sided weakness, no acute event on Brain MRI. Upper and lower EXT weakness: has intact sensory , MRI spine with special stenosis,but he has no sensory complaints, will ask neuro for further evaluation and followup. He is to go to rehab for further management CAD/CHF/valve replacement /CVA: no complaints, on home ASA, atorvastatin 80mg eliques, metoprolol Gout attack: is improving, will monitor tomorrow Morbid obesity: he was counseled about weight loss Nutrition consult for obesity and low albumin DM: Has been well controlled here will C/W current management
[2018-02-26] MEDS: ATORVASTATIN CA 80 MG TABLET (FP) PO SCH (21:39)
[2018-02-26] MEDS: ACETAMINOPHEN 325 MG TABLET (FP) PO PRN (21:39)
[2018-02-27] MEDS: INSULIN SLIDING SCALE (NOVOLOG) 1 VIAL SQ SCH ×3 (06:25→16:25)
[2018-02-27 09:03] LABS: ANION GAP 8 MMOL/L (8-16); BLOOD UREA NITROGEN 33 mg/dL (7-18); CALCIUM 8.6 mg/dL (8.5-10.1); CHLORIDE 110 mmol/L (98-107); CO2 24 mmol/L (21-32); CREATININE 1.5 mg/dL (0.55-1.3); GLUCOSE,RANDOM 91 mg/dL (74-106); MAGNESIUM 2.1 mg/dL (1.8-2.4); POTASSIUM 4.1 mmol/L (3.5-5.1); SODIUM 142 mmol/L (136-145)
[2018-02-27] MEDS ORDERED: PT OWN MED DRAWER 7, Y5N ONE ×2 (09:58→23:50)
[2018-02-27] MEDS: COLCHICINE 0.6 MG TABLET (FP) PO SCH (10:22)
[2018-02-27] MEDS: ALLOPURINOL 100 MG TABLET (FP) PO SCH (10:22)
[2018-02-27] MEDS: ASPIRIN COATED 81 MG TABLET.EC PO SCH (10:23)
[2018-02-27] MEDS: PARoxetine HCL 10 MG TABLET (FP) PO SCH (10:23)
[2018-02-27] MEDS: APIXABAN 2.5 MG TABLET PO SCH ×2 (10:23→22:21)
[2018-02-27] MEDS: PANTOPRAZOLE 40 MG TABLET (FP) PO SCH (10:23)
[2018-02-27] MEDS ORDERED: INSULIN SLIDING SCALE (NOVOLOG) 1 VIAL SQ ONE (12:10)
--- NOTE | 2018-02-27 16:02 | PN ---
Teaching Attending Note Name of Resident: Juan Escamilla ATTENDING PHYSICIAN STATEMENT I saw and evaluated the patient. I reviewed the resident's note and discussed the case with the resident. I agree with the resident's findings and plan as documented. SUBJECTIVE:No complaints OBJECTIVE: Vital Signs Period Temp Pulse Resp BP Sys/Garcia Pulse Ox Last 24 Hr 97.5 F-98.1 F 54-62 16-18 146-176/63-90 94-95 Elderly man not in distress HEENT: Mm moist mild anemia NECK: No JVd No Bruit CHEST: CTA B/L CVS: s1S2 R ABD: Notenderness EXT: No edema feet; COMMISSIONS MANAGER: AOX3 non focal ASSESSMENT AND PLAN: 77 yrs old man H/O HTN, T@DM< CAD s/p AVR admitted with stroke like sym[ptoms evaluted by Cardiology and Neurolgy consult imaging no acute stroke, agrees with plan of care. Patient cabn be discharged home
--- NOTE | 2018-02-27 17:59 | PN ---
Physical Exam: SUBJECTIVE: Patient seen and examined at bedside. No overnight events. No new complaints. Moving his arm better today. Denies CP,MARCELINO, SOB, abdominal pain , nausea or vomiting. OBJECTIVE: Vital Signs Period Temp Pulse Resp BP Sys/Garcia Pulse Ox Last 24 Hr 97.5 F-98.1 F 54-62 16-18 146-176/63-90 94-95 General NAD CV S1 S2 RRR Extremities sensation grossly intact, LUE 1/5 with warmth and swelling noted at the 1st digit MCP joint. +tenderness LLE 3/5 proximal and distal motor strength. sensation grossly intact Point tenderness along the cervical spine, no muscle spasms Laboratory Results - last 24 hr 02/27/18 02/27/18 02/27/18 05:47 08:20 12:02 Sodium 142 Potassium 4.1 Chloride 110 H Carbon Dioxide 24 Anion Gap 8 BUN 33 H Creatinine 1.5 H Creat Clearance w eGFR 45.50 POC Glucometer 105 175 Random Glucose 91 Calcium 8.6 Phosphorus 3.0 Magnesium 2.1 02/27/18 16:12 Sodium Potassium Chloride Carbon Dioxide Anion Gap BUN Creatinine Creat Clearance w eGFR POC Glucometer 123 Random Glucose Calcium Phosphorus Magnesium Active Medications Generic Name Dose Route Start Last Admin Trade Name Freq PRN Reason Stop Dose Admin Acetaminophen 650 mg 02/25/18 22:28 02/26/18 21:39 Tylenol - PO 650 mg Q6H PRN Administration PAIN LEVEL 1 - 3 Allopurinol 150 mg 02/21/18 10:00 02/27/18 10:22 Zyloprim - PO 150 mg DAILY ABI Administration Apixaban 2.5 mg 02/20/18 22:00 02/27/18 10:23 Eliquis - PO 2.5 mg BID ABI Administration Aspirin 81 mg 02/21/18 10:00 02/27/18 10:23 Ecotrin - PO 81 mg DAILY ABI Administration Atorvastatin Calcium 80 mg 02/20/18 22:00 02/26/18 21:39 Lipitor - PO 80 mg HS ABI Administration Colchicine 0.6 mg 02/22/18 10:00 02/27/18 10:22 Colcrys - PO 0.6 mg DAILY ABI Administration Insulin Aspart 1 vial 02/21/18 07:00 02/27/18 16:25 Novolog Vial Sliding Scale - SQ Not Given [facility] Protocol Metoprolol Succinate 50 mg 02/21/18 10:00 02/27/18 10:23 Toprol Xl - PO 50 mg DAILY ABI Administration Pantoprazole Sodium 40 mg 02/21/18 10:00 02/27/18 10:23 Protonix - PO 40 mg DAILY ABI Administration Paroxetine HCl 10 mg 02/21/18 10:00 02/27/18 10:23 Paxil - PO 10 mg DAILY ABI Administration ASSESSMENT/PLAN: 77 yo M with PMhx of CAD,HTN,CHF,afib,DM II and CVAx2 presents with few hour history of inability to move left arm admitted for TIA despite being on eliquis. Problem List - Problems (1) Left-sided weakness Assessment/Plan: NO CVA on imaging however weakness persist. * Has history of spinal stenosis and chronic spine issues * cervical and lumbar MRI shows multilevel degenerative disc changes with bilateral foraminal stenoses. * awaiting placement for Rehab facility. (2) TIA (transient ischemic attack) Assessment/Plan: * Neurology consult appreciated. * No evidence of CVA on MRI- however small lacunar stroke may be missed on MRI * Patient is medically optimized on medical therapy. * Echo and carotids WNL * cont asa eliquis and statin * Speech / Swallow Consult completed * Physical Therapy Request Routine-will require short term rehab. (3) Atrial fibrillation Assessment/Plan: continue Eliquis (4) Diabetes Assessment/Plan: * ADA diet * BGM ACHS * ISS ACHS (5) Hypertension Assessment/Plan: * Torsemide (Demadex -) 20 mg PO DAILY (6) Hyperlipemia Assessment/Plan: continue Lipitor 80mg HS (7) BPH (benign prostatic hyperplasia) Assessment/Plan: continue Flomax (8) DVT prophylaxis Assessment/Plan: On eliquis * SCD's bilat. (9) Acute gout Assessment/Plan: * Colchicine 0.6mg PO daily. Visit type - Emergency Visit Emergency Visit: Yes ED Registration Date: 02/20/18 Care time: The patient presented to the Emergency Department on the above date and was hospitalized for further evaluation of their emergent condition. - New Patient This patient is new to me today: No - Critical Care Critical Care patient: No
[2018-02-27] MEDS: ACETAMINOPHEN 325 MG TABLET (FP) PO PRN (22:21)
[2018-02-27] MEDS: ATORVASTATIN CA 80 MG TABLET (FP) PO SCH (22:21)
[2018-02-28] MEDS: INSULIN SLIDING SCALE (NOVOLOG) 1 VIAL SQ SCH ×3 (06:32→17:01)
[2018-02-28] MEDS ORDERED: INSULIN SLIDING SCALE (NOVOLOG) 1 VIAL SQ ONE (06:59)
[2018-02-28 07:11] LABS: BASO % 0.9 % (0-2.0); EOS % 5.2 % (0-4.5); HEMOGLOBIN 11.3 GM/dL (11.7-16.9); LYMPH % 24.4 % (8-40); MCHC 33.1 g/dl (32.0-35.9); MEAN CELL VOLUME 87.5 fl (80-96); MEAN PLT VOLUME 8.8 fl (7.5-11.1); MONO % 7.4 % (3.8-10.2); NEUT % 62.1 % (42.8-82.8); PLATELET COUNT 205 K/MM3 (134-434); RBC 3.89 M/mm3 (4.00-5.60); RDW 17.6 % (11.9-15.9); WHITE BLOOD COUNT 7.3 K/mm3 (4.0-10.0)
[2018-02-28 07:33] LABS: ALBUMIN 2.7 g/dl (3.4-5.0); ALK PHOS 166 U/L (45-117); ANION GAP 8 MMOL/L (8-16); BILIRUBIN,TOTAL 0.5 mg/dL (0.2-1); BLOOD UREA NITROGEN 31 mg/dL (7-18); CALCIUM 8.5 mg/dL (8.5-10.1); CHLORIDE 110 mmol/L (98-107); CO2 23 mmol/L (21-32); CREATININE 1.5 mg/dL (0.55-1.3); GLUCOSE,RANDOM 91 mg/dL (74-106); SGOT/AST 25 U/L (15-37); SGPT/ALT 25 U/L (13-61); SODIUM 142 mmol/L (136-145)
[2018-02-28] MEDS: ASPIRIN COATED 81 MG TABLET.EC PO SCH (09:26)
[2018-02-28] MEDS: ALLOPURINOL 100 MG TABLET (FP) PO SCH (09:26)
[2018-02-28] MEDS: PANTOPRAZOLE 40 MG TABLET (FP) PO SCH (09:26)
[2018-02-28] MEDS: PARoxetine HCL 10 MG TABLET (FP) PO SCH (09:27)
[2018-02-28] MEDS: APIXABAN 2.5 MG TABLET PO SCH ×2 (09:27→22:34)
[2018-02-28] MEDS: COLCHICINE 0.6 MG TABLET (FP) PO SCH (09:27)
--- NOTE | 2018-02-28 10:31 | DS ---
Physical Exam: SUBJECTIVE: Patient seen and examined at bedside. No overnight events. No new complaints. Left wrist pain improved. Left arm strength improved. Denies CP,MARCELINO, SOB, abdominal pain, nausea or vomiting. OBJECTIVE: Vital Signs Period Temp Pulse Resp BP Sys/Garcia Pulse Ox Last 24 Hr 97.5 F-98.4 F 56-61 18-18 145-161/59-71 94 PHYSICAL EXAM GENERAL:AAOx3, NAD HEAD: NCAT EYES: PERRL, EOMI, sclera anicteric, conjunctiva clear. ENT: moist mucous membranes. NECK: Trachea midline, full range of motion, supple. No JVD LUNGS: CTAB, no wheezes, no crackles, no accessory muscle use. HEART: Irregular, S1, S2 without murmur, rub or gallop. ABDOMEN: Soft, mild epigastric tenderness, nondistended, NABS, no guarding, no rebound, no hepatosplenomegaly, no masses. EXTREMITIES: 2+ pulses, warm, well-perfused, no edema. NEUROLOGICAL: Cranial nerves II through XII grossly intact. Normal speech, gait not observed.Extremities sensation grossly intact, LUE 2/5 with LLE 3/5 proximal and distal motor strength. sensation grossly intact.Point tenderness along the cervical spine, no muscle spasms PSYCH: Normal mood, normal affect. SKIN: Warm, dry, normal turgor, no rashes or lesions noted. LABS Laboratory Results - last 24 hr 02/27/18 02/27/18 02/28/18 12:02 16:12 06:00 WBC 7.3 RBC 3.89 L Hgb 11.3 L Hct 34.0 L MCV 87.5 MCH 29.0 MCHC 33.1 RDW 17.6 H Plt Count 205 MPV 8.8 Absolute Neuts (auto) 4.6 Neutrophils % 62.1 Lymphocytes % 24.4 Monocytes % 7.4 Eosinophils % 5.2 H Basophils % 0.9 Nucleated RBC % 0 Sodium Potassium Chloride Carbon Dioxide Anion Gap BUN Creatinine Creat Clearance w eGFR POC Glucometer 175 123 Random Glucose Calcium Total Bilirubin AST ALT Alkaline Phosphatase Total Protein Albumin 02/28/18 02/28/18 06:00 06:25 WBC RBC Hgb Hct MCV MCH MCHC RDW Plt Count MPV Absolute Neuts (auto) Neutrophils % Lymphocytes % Monocytes % Eosinophils % Basophils % Nucleated RBC % Sodium 142 Potassium 4.0 Chloride 110 H Carbon Dioxide 23 Anion Gap 8 BUN 31 H Creatinine 1.5 H Creat Clearance w eGFR 45.38 POC Glucometer 100 Random Glucose 91 Calcium 8.5 Total Bilirubin 0.5 AST 25 ALT 25 Alkaline Phosphatase 166 H Total Protein 6.0 L Albumin 2.7 L HOSPITAL COURSE: 77 yo M with PMhx of CAD,HTN,CHF,afib,DM II and CVAx2 presented with few hour history of inability to move left arm admitted for TIA despite being on Eliquis. CT and MRI imaging were negative for acute pathology. Echocardiogram and carotids were both were negative for thombus and stenosis respectively. Neurology evaluated patient and he is on optimal medical therapy. He will continue his high intensity statin, ASA and Eliquis AC. His weakness persisted and MRI imaging of cervical and lumbar spine reveled multilevel degenerative disc changes with bilateral foraminal stenoses. No surgical intervention warranted at this time. He was evaluated by physical therapy and he qualified for short term rehab. He is stable for discharge to [facility]. He is instructed to continue home medications as previously prescribed. Also he had an acute flare of his gout and was given Colchicine which will be continued upon discharge. In terms of his atrial fib he was continued on his eliquis. Diabetic management consisted on ADA diet and insulin sliding scale. He was instructed to return to ER if weakness worsens or he develops fever, chills, or signs of bleeding. Date of Admission:02/20/18 Date of Discharge: 02/28/18 Minutes to complete discharge: 42 Discharge Summary Reason For Visit: TRANSIENT ISCHEMIC ATTACK; COPD; HYPERTENSION Current Active Problems Acute gout (Acute) DVT prophylaxis (Acute) Left-sided weakness (Acute) TIA (transient ischemic attack) (Acute) COPD (chronic obstructive pulmonary disease) (Chronic) Hypertension (Chronic) PVD (peripheral vascular disease) (Chronic) Condition: Improved - Instructions Diet, Activity, Other Instructions: You have been seen and treated for your left sided weakness and acute gout flare. Imaging did not show a new stroke. You are going [facility]. Increase your activity as tolerated. Resume a low salt diabetic diet. Resume all your home meds as previously prescribed. You will need to continue Colchicine until your flare has resolved. You should follow up with your Primary doctor and Neurology in one week. If you develop worsening weakness, fever or chills please return to ER immediately. Referrals: Willie Ledezma MD [Staff Physician] - 1 Week Martinez Fallon MD [Primary Care Provider] - 1 Week Disposition: [facility] - Home Medications Comprehensive Discharge Medication List: Ambulatory Orders Allopurinol [Zyloprim -] 150 mg PO DAILY 10/27/17 Apixaban [Eliquis -] 2.5 mg PO BID 10/27/17 Aspirin [Aspirin EC] 81 mg PO DAILY 10/27/17 Atorvastatin Ca [Lipitor] 80 mg PO HS 10/27/17 Metoprolol Succinate 50 mg PO DAILY 10/27/17 Torsemide 20 mg PO DAILY 10/27/17 Omeprazole 40 mg PO DAILY 02/20/18 Paroxetine HCl [Paxil] 10 mg PO DAILY 02/20/18 Colchicine [Colcrys -] 0.6 mg PO DAILY tablet 02/28/18 Problem List - Problems (1) Left-sided weakness (2) TIA (transient ischemic attack) (3) Atrial fibrillation (4) Diabetes (5) Hypertension (6) Hyperlipemia (7) BPH (benign prostatic hyperplasia) (8) DVT prophylaxis (9) Acute gout This patient is new to me today: No Emergency Visit: Yes ED Registration Date: 02/20/18 Care time: The patient presented to the Emergency Department on the above date and was hospitalized for further evaluation of their emergent condition. Critical Care patient: No - Discharge Referral Referred to [facility] Med [facility] No
--- NOTE | 2018-02-28 11:12 | PN ---
Teaching Attending Note Name of Resident: Juan Escamilla ATTENDING PHYSICIAN STATEMENT I saw and evaluated the patient. I reviewed the resident's note and discussed the case with the resident. I agree with the resident's findings and plan as documented. SUBJECTIVE:No Comfortable not in distress OBJECTIVE: Vital Signs Period Temp Pulse Resp BP Sys/Garcia Pulse Ox Last 24 Hr 97.5 F-98.4 F 56-61 18-18 145-161/59-77 94 Elderly man not in distress HEENT: Mm moist mild anemia NECK: No JVd No Bruit CHEST: CTA B/L CVS: s1S2 R ABD: No tenderness BS + EXT: No edema feet; MINERAL SURVEYING TECHNICIAN: AOX3 non focal ASSESSMENT AND PLAN:77 yrs old man H/O HTN, T@DM< CAD s/p AVR admitted with stroke like sym[ptoms evaluted by Cardiology and Neurolgy consult imaging no acute stroke, agrees with plan of care. Patient cabn be discharged home
[2018-02-28] MEDS: ATORVASTATIN CA 80 MG TABLET (FP) PO SCH (22:34)
[2018-02-28] MEDS: ACETAMINOPHEN 325 MG TABLET (FP) PO PRN (22:34)
[2018-03-01] MEDS: INSULIN SLIDING SCALE (NOVOLOG) 1 VIAL SQ SCH ×2 (06:05→12:10)
[2018-03-01] MEDS ORDERED: PT OWN MED DRAWER 7, Y5N ONE (10:10)
[2018-03-01] MEDS: ASPIRIN COATED 81 MG TABLET.EC PO SCH (10:17)
[2018-03-01] MEDS: APIXABAN 2.5 MG TABLET PO SCH (10:17)
[2018-03-01] MEDS: PARoxetine HCL 10 MG TABLET (FP) PO SCH (10:18)
[2018-03-01] MEDS: PANTOPRAZOLE 40 MG TABLET (FP) PO SCH (10:18)
[2018-03-01] MEDS: ALLOPURINOL 100 MG TABLET (FP) PO SCH (10:18)
[2018-03-01] MEDS: COLCHICINE 0.6 MG TABLET (FP) PO SCH (10:18)
[2018-03-01 11:46] VITALS: BP 138/92; PULSE 59; TEMP 98.7
== END 2018-03-01 13:15 | DRG 552 ==
LOC: JER 11:12 → JERBED 14:15 → OBSVTOIN 14:54 → J4S 17:07
PROVIDERS: ADMIT Internal Medicine; ATTEND Internal Medicine
DX: M48.02 Spinal stenosis, cervical region (principal); G45.9 Transient cerebral ischemic attack, unspecified; I69.354 Hemiplegia and hemiparesis following cerebral infarction affecting left non-dominant side; E66.01 Morbid (severe) obesity due to excess calories; Z68.33 Body mass index [BMI] 33.0-33.9, adult; I48.91 Unspecified atrial fibrillation; E11.9 Type 2 diabetes mellitus without complications; Z79.01 Long term (current) use of anticoagulants; J44.9 Chronic obstructive pulmonary disease, unspecified; I25.2 Old myocardial infarction; K57.30 Diverticulosis of large intestine without perforation or abscess without bleeding; Z87.891 Personal history of nicotine dependence; I25.10 Atherosclerotic heart disease of native coronary artery without angina pectoris; M10.9 Gout, unspecified; N40.0 Benign prostatic hyperplasia without lower urinary tract symptoms; E78.5 Hyperlipidemia, unspecified; I10 Essential (primary) hypertension; Z95.1 Presence of aortocoronary bypass graft; I95.1 Orthostatic hypotension; Z95.4 Presence of other heart-valve replacement; K21.9 Gastro-esophageal reflux disease without esophagitis; K29.70 Gastritis, unspecified, without bleeding
CPT/HCPCS: 36415; 70450-TC; 70551-TC; 72141-TC; 72148-TC; 80048; 80053; 80061; 81003; 82550; 82607; 82962; 83036; 83721; 83735; 84100; 84443; 84484; 85025; 85610; 85730; 93005; 93010; 93306-TC; 93880-TC; 97116-GP; 97161-GP; 99285-25; G0378

== ENCOUNTER 2018-05-16 11:12 | Emergency (ER) | payer OTHER, MEDICARE ==
[2018-05-16 11:34] VITALS: TEMP 98.4; BMI 33.2
--- NOTE | 2018-05-16 12:05 | PDOC ---
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 He was walking with his BATCH PLANT SUPERVISOR from the bed to the bathroom, approx 50 steps, when be began to feel dizzy and could no longer walk. He was helped to the ground by his and BATCH PLANT SUPERVISOR being gently brought to the ground resulting in his left knee bending behind him. he stayed there for few minutes in that position and was then helped to the bed by his , BATCH PLANT SUPERVISOR and neighbor. no head trauma or syncope. He received his anti-HTNive medications later than usual yesterday and had physical therapy yesterday. no chest pain, palpitations, cough, fevers, dysuria, visual changes, headache. Surghx: CABG 201105/16/18 12:52 Occurred: reports: this morning Pain Location: reports: lower extremity Past History - Travel Traveled outside of the country in the last 30 days: No Close contact w/someone who was outside of country & ill: No - Past Medical History Allergies/Adverse Reactions: Allergies Allergy/AdvReac Type Severity Reaction Status Date / Time Penicillins Allergy "RASH" Verified 10/27/17 09:26 Home Medications: Ambulatory Orders Allopurinol [Zyloprim -] 150 mg PO DAILY 10/27/17 Apixaban [Eliquis -] 5 mg PO BID 10/27/17 Aspirin [Aspirin EC] 81 mg PO DAILY 10/27/17 Atorvastatin Ca [Lipitor] 80 mg PO HS 10/27/17 Metoprolol Succinate 50 mg PO DAILY 10/27/17 Torsemide 20 mg PO DAILY 10/27/17 Omeprazole 40 mg PO DAILY 02/20/18 Paroxetine HCl [Paxil] 10 mg PO DAILY 02/20/18 Colchicine [Colcrys -] 0.6 mg PO DAILY tablet 02/28/18 Amlodipine Besylate 10 mg PO DAILY 05/16/18 Anemia: No Asthma: No Cardiac Disorders: Yes ([place], CARDIOVERSION X2) CVA: Yes ( mild L hemiparesis) COPD: No CHF: Yes (H/O) Dementia: No Diabetes: Yes (BORDERLINE-DIET CONTROLLED) GI Disorders: Yes (diverticulosis) Disorders: No HTN: Yes Hypercholesterolemia: No Liver Disease: No Seizures: No Thyroid Disease: No - Surgical History Abdominal Surgery: No Appendectomy: No Cardiac Surgery: Yes (MARIS CAROTID EDARTERECTOMY) Cholecystectomy: No Lung Surgery: No Neurologic Surgery: No Orthopedic Surgery: No - Immunization History Immunization Up to Date: Yes - Suicide/Smoking/Psychosocial Hx Smoking History: Never smoked Have you smoked in the past 12 months: No Number of Cigarettes Smoked Daily: 0 If you are a former smoker, when did you quit?: 2009 Information on smoking cessation initiated: No Hx Alcohol Use: No Drug/Substance Use Hx: No Substance Use Type: None Hx Substance Use Treatment: No Review of Systems - Review of Systems Constitutional: Yes: Weakness, Weight Stable. No: Chills, Fever, Loss of Appetite HEENTM: No: Blurred Vision, Nose Congestion, Difficulty Swallowing Respiratory: No: Cough, Shortness of Breath, SOB at Rest, Wheezing Cardiac (ROS): No: Chest Pain, Edema, Lightheadedness, Palpitations, Syncope, Chest Tightness ABD/GI: No: Nausea, Poor Appetite, Vomiting : No: Dysuria, Hematuria, Urgency Musculoskeletal: Yes: Back Pain (chronic lower back pain from stenosis), Joint Pain (left knee), Muscle Weakness (residual defict from CVA), Joint Stiffness ( left knee ) Integumentary: Yes: Bruising. No: Lesions, Pallor, Pruritus, Rash Neurological: Yes: Weakness, Unsteady Gait, Dizziness. No: Headache, Numbness, Paresthesia, Tremors Psychiatric: No: Sleep Pattern Change *Physical Exam - Vital Signs Last Vital Signs Temp Pulse Resp BP Pulse Ox 98.4 F 67 16 133/58 L 100 05/16/18 11:12 05/16/18 11:12 05/16/18 11:12 05/16/18 11:12 05/16/18 11:12 - Physical Exam General Appearance: Yes: Appropriately Dressed, Apparent Distress HEENT: positive: EOMI, RADHA, Pharynx Normal, Hearing Grossly Normal. negative: Pharyngeal Erythema, Tonsillar Exudate, Tonsillar Erythema, Rhinorrhea Neck: positive: Trachea midline, Normal Thyroid, Supple. negative: Carotid bruit, Thyromegaly Respiratory/Chest: positive: Lungs Clear, Normal Breath Sounds. negative: Crackles, Rales, Rhonchi, Wheezing Cardiovascular: positive: Regular Rhythm, Regular Rate, S1, S2, Murmur (DOMINIQUE). negative: Edema Gastrointestinal/Abdominal: positive: Normal Bowel Sounds, Protuberent. negative: Organomegaly, Distended, Guarding, Rebound, Tenderness Extremity: positive: Tender (b/l hips), Other (decr ROM at left knee with extension and flexion, decr rom at left shoulder extension) Neurologic: positive: Fully Oriented, Alert, Other (unable to left shoulder shrug, 3/5 left hand electronic publisher, 3/5 left hip extension, knee extension and flexion, 4 /5 dorsi and plantar flexion b/l ankles.) Moderate Sedation - Procedure Monitoring Vital Signs: Procedure Monitoring Vital Signs Temperature 98.4 F 05/16/18 11:12 Pulse Rate 67 05/16/18 11:12 Respiratory Rate 16 05/16/18 11:12 Blood Pressure 133/58 L 05/16/18 11:12 O2 Sat by Pulse Oximetry (%) 100 05/16/18 11:12 ED Treatment Course - LABORATORY CBC & Chemistry Diagram: 05/16/18 13:00 05/16/18 13:00 Medical Decision Making - Medical Decision Making 05/16/18 12:47 78 yr old man with hx of HTN, chf, afib, gout, renal insufficiency CVA x3 presenting with dizziness after walking 50ft to urinate. differentials include infection, ACS, CVA, vasovagal, gout flare. check u/a for UTI, chest xray for infiltrate. ekg for acute ischemia/afib with RVR, uric acid for gout. EKG is in sinus rhythm without any acute ischemic changes, BNP for CHf evaluation. cbc and cmp for any elevated wbc, anemia, worsening Cr as indication for renal insufficiency. pt has no crackles or LE edema so CHF is low suspicion. 05/16/18 14:49 no electrolyte abnormalities/leucocytosis. trop x1 negative. BUN/Cr at baseline pending xrays and mobility challenge to decide dispo. 05/16/18 16:24 pt was able to weight bare on left knee. VSS repeated 150/75. HR67, 95% on RA. reviewed labs and findings with and patient. answered questions to their satisfaction. pt and declined to provide urine for urinalysis and were eager to return home. 05/16/18 16:36 *DC/Admit/Observation/Transfer Diagnosis at time of Disposition: Near syncope, H/O: CVA (cerebrovascular accident) - Discharge Dispostion Disposition: HOME Condition at time of disposition: Stable Decision to Admit order: No - Referrals Referrals: Martinez Fallon MD [Primary Care Provider] - - Patient Instructions Printed Discharge Instructions: DI for Knee Sprain Additional Instructions: Labs today showed no new abnormalities. use jose luis wrap for knee support, take tylenol for pain. If symptoms persist for more than one week, consider follow-up with an orthopedic doctor. you may need an MRI for further evaluation. Please your primary care in 1 week for post-hospital follow-up If you develop chest pain, worsening weakness or any new symptoms please return to the hospital. - Post Discharge Activity
--- NOTE | 2018-05-16 13:10 | PDOC ---
Attending Attestation - Resident Resident Name: VikramMaddie - ED Attending Attestation I have performed the following: I have examined & evaluated the patient, The case was reviewed & discussed with the resident, I agree w/resident's findings & plan - HPI HPI: 05/16/18 13:06 78-year-old male with multiple medical problems including CVA 3 with left- sided weakness requiring walker at baseline for ambulating presents brought in by with EMS after episode of lightheadedness. Home health aide and were assisting patient to the restroom, en route he became lightheaded and generally weak, they assisted him to the ground where he rested on his left knee and developed some discomfort, presents now for evaluation. No new focal neurological or cardiopulmonary complaints, no recent dehydration or infectious complaints. - Physicial Exam PE: 05/16/18 13:08 Vital signs are within normal limits Patient appears at baseline, lying in stretcher conversant in no acute distress Exam is atraumatic without deformity Heart is regular with occasional premature beats, 3/6 systolic ejection murmur Lungs are clear, abdomen benign Baseline left-sided weakness 4-/5. No focal bony discomfort to the left knee, full range of motion, but tender over the medial joint space. Stable on anterior/posterior/valgus/varus stress - Medical Decision Making 05/16/18 13:09 78-year-old male with multiple medical problems presents with near syncopal episode and without the bathroom, otherwise asymptomatic without red flags on history or physical exam. Likely left knee strain, neurovascularly intact. Check labs, EKG, chest x-ray to rule out metabolic versus infectious versus cardiopulmonary etiology Left knee x-ray Tylenol for pain Reassess, disposition accordingly with Dr. Hand, his PCP 05/16/18 16:36 labs at baseline, xrays show no acute pathology on my prelim review. pt able to stand independently, did not want to provide urine sample. have [employer] services, will arrange ambulette home given baseline difficulty ambulating 2/2 past cva. will f/u with Dr. Fallon later this week, understand return criteria. Heart Score/ECG Review #1 ECG reviewed & interpreted by me at: 12:24 General ECG Interpretation: Sinus Rhythm (pvc noted), Normal Rate (68), Normal Intervals (qtc 465), No acute ischemic changes
[2018-05-16 13:11] LABS: BASO % 0.9 % (0-2.0); EOS % 1.8 % (0-4.5); HEMATOCRIT 34.2 % (35.4-49); HEMOGLOBIN 11.8 GM/dL (11.7-16.9); LYMPH % 16.6 % (8-40); MCH 30.5 pg (25.7-33.7); MCHC 34.4 g/dl (32.0-35.9); MEAN CELL VOLUME 88.7 fl (80-96); MEAN PLT VOLUME 9.2 fl (7.5-11.1); MONO % 6.2 % (3.8-10.2); NEUT % 74.5 % (42.8-82.8); PLATELET COUNT 201 K/MM3 (134-434); RBC 3.85 M/mm3 (4.00-5.60); RDW 17.2 % (11.9-15.9); WHITE BLOOD COUNT 8.3 K/mm3 (4.0-10.0)
[2018-05-16 13:48] LABS: ALBUMIN 3.3 g/dl (3.4-5.0); ALK PHOS 167 U/L (45-117); ANION GAP 6 MMOL/L (8-16); BILIRUBIN,TOTAL 0.4 mg/dL (0.2-1); BLOOD UREA NITROGEN 37 mg/dL (7-18); CALCIUM 8.8 mg/dL (8.5-10.1); CHLORIDE 108 mmol/L (98-107); CO2 30 mmol/L (21-32); CREATININE 1.6 mg/dL (0.55-1.3); GLUCOSE,RANDOM 107 mg/dL (74-106); POTASSIUM 3.8 mmol/L (3.5-5.1); SGOT/AST 21 U/L (15-37); SGPT/ALT 24 U/L (13-61); SODIUM 144 mmol/L (136-145); TOT PROT 6.7 g/dl (6.4-8.2)
[2018-05-16] MEDS ORDERED: ACETAMINOPHEN 325 MG TABLET (FP) PO ONE (14:22)
--- NOTE | 2018-05-16 16:24 | EKG ---
Test Reason : Blood Pressure : / mmHG Vent. Rate : 068 BPM Atrial Rate : 068 BPM P-R Int : 154 ms QRS Dur : 096 ms QT Int : 438 ms P-R-T Axes : 108 025 011 degrees QTc Int : 465 ms POOR DATA QUALITY, INTERPRETATION MAY BE ADVERSELY AFFECTED SINUS RHYTHM WITH OCCASIONAL PREMATURE VENTRICULAR COMPLEXES INFERIOR INFARCT (CITED ON OR BEFORE 27-OCT-2017) ABNORMAL ECG WHEN COMPARED WITH ECG OF 21-FEB-2018 12:41, PREMATURE VENTRICULAR COMPLEXES ARE NOW PRESENT Confirmed by Zev Mcconnell ([id number]) on 05/16/2018 4:23:34 PM Referred By: Confirmed By:Zev Mcconnell
[2018-05-16 17:02] VITALS: BP 128/63; PULSE 68
== END 2018-05-16 17:45 | disposition home or self-care (01) ==
LOC: JER 11:12
DX: R55 Syncope and collapse (principal); I25.10 Atherosclerotic heart disease of native coronary artery without angina pectoris; I11.0 Hypertensive heart disease with heart failure; I50.9 Heart failure, unspecified; I48.91 Unspecified atrial fibrillation; Z79.01 Long term (current) use of anticoagulants; I25.2 Old myocardial infarction; E11.9 Type 2 diabetes mellitus without complications; I69.854 Hemiplegia and hemiparesis following other cerebrovascular disease affecting left non-dominant side; R26.89 Other abnormalities of gait and mobility; Z99.89 Dependence on other enabling machines and devices; M10.9 Gout, unspecified
CPT/HCPCS: 36415; 71045-TC-FY; 73560-TC-LT-FY; 80053; 83880; 84484; 84550; 85025; 93005; 93010; 99285-25

== ENCOUNTER 2018-09-28 23:20 | Emergency (ER) | payer OTHER, MEDICARE ==
--- NOTE | 2018-09-28 23:36 | PDOC ---
History of Present Illness - General Chief Complaint: Edema Stated Complaint: LEFT LEG SWELLING Time Seen by Provider: 09/28/18 23:35 History Source: Patient Exam Limitations: No Limitations - History of Present Illness Initial Comments: Colin Da Silva is a 78 yo gentleman with a pmh of CAD, CABG, Carotid endarterectomy x2, HTN, CHF, A-Fib on Eliquis, NIDDM, CVAx2, and gout who presents to the [facility] for lower extremity swelling Left more so than the right. The patient states he has been experiencing some pretty bad left leg pain which started today that prompted the patient to come into the ER to be evaluated. The who is with the patient at bedside states that the patient started a new medication today - quietiapine and is concerned that might have had an affect on the patient's leg swelling. Patient denies experiencing recent chest pain, SOB, difficulty breathing, palpitations, headache, neck pain, blurry vision, new weakness, numbness, nausea , vomiting, tingling, or chills. PCP: Caleb Fallon Allergies: Penicillins Social Hx: Former smoker, quit in 2009. Denies current cigarette, alcohol, or other substance usage. PSH: CABG, Carotid endar. x2, cataract, MAZE Past History - Past Medical History Allergies/Adverse Reactions: Allergies Allergy/AdvReac Type Severity Reaction Status Date / Time Penicillins Allergy "RASH" Verified 09/28/18 23:32 Home Medications: Ambulatory Orders Allopurinol [Zyloprim -] 150 mg PO DAILY 10/27/17 Apixaban [Eliquis -] 5 mg PO BID 10/27/17 Aspirin [Aspirin EC] 81 mg PO DAILY 10/27/17 Atorvastatin Ca [Lipitor] 80 mg PO HS 10/27/17 Metoprolol Succinate 50 mg PO DAILY 10/27/17 Torsemide 20 mg PO DAILY 10/27/17 Omeprazole 40 mg PO DAILY 02/20/18 Amlodipine Besylate 10 mg PO DAILY 05/16/18 Quetiapine Fumarate [Seroquel -] 25 mg PO HS 09/29/18 Anemia: No Asthma: No Cardiac Disorders: Yes (NH, CARDIOVERSION X2) CVA: Yes ( mild L hemiparesis) COPD: No CHF: Yes (H/O) Dementia: No Diabetes: Yes (BORDERLINE-DIET CONTROLLED) GI Disorders: Yes (diverticulosis) Disorders: No HTN: Yes Hypercholesterolemia: No Liver Disease: No Seizures: No Thyroid Disease: No - Surgical History Abdominal Surgery: No Appendectomy: No Cardiac Surgery: Yes (MARIS CAROTID EDARTERECTOMY) Cholecystectomy: No Lung Surgery: No Neurologic Surgery: No Orthopedic Surgery: No - Immunization History Immunization Up to Date: Yes - Suicide/Smoking/Psychosocial Hx Smoking History: Never smoked Have you smoked in the past 12 months: No Number of Cigarettes Smoked Daily: 0 If you are a former smoker, when did you quit?: 2009 Information on smoking cessation initiated: No Hx Alcohol Use: No Drug/Substance Use Hx: No Substance Use Type: None Hx Substance Use Treatment: No Review of Systems - Review of Systems Able to Perform ROS?: Yes Comments:: CONSTITUTIONAL: Absent: fever, no chills, no fatigue EYES: Absent: visual changes ENT: Absent: ear pain, no sore throat CARDIOVASCULAR: Absent: chest pain, no palpitations RESPIRATORY: Absent: cough, no SOB GI: Present: Abdominal discomfort. Absent: no nausea, no vomiting, no constipation, no diarrhea GENITOURINARY: Absent: dysuria, no frequency, no hematuria MUSKULOSKELETAL: Present: Arthralgia Absent: back pain, no myalgia SKIN: Absent: rash NEURO: Absent: headache *Physical Exam - Vital Signs Last Vital Signs Temp Pulse Resp BP Pulse Ox 97.6 F 59 L 22 H 144/60 94 L 09/28/18 23:32 09/28/18 23:32 09/28/18 23:32 09/28/18 23:32 09/28/18 23:32 - Physical Exam Comments: GENERAL: Well-appearing, well-nourished. No apparent distress. HEENT: Normocephalic, atraumatic. PERRL, EOM intact. CARDIOVASCULAR: Normal S1, S2. Regular rate and rhythm. PULMONARY: There are bilateral crackles at the bases. ABDOMEN: Soft, non-distended, non-tender. EXTREMITIES: Limited ROM in lower extremities. There is bilateral lower extremity edema 1/2+ up to the knees. SKIN: Warm, dry. NEUROLOGICAL: Left sided weakness. ED Treatment Course - LABORATORY CBC & Chemistry Diagram: 09/29/18 00:35 09/29/18 03:12 Medical Decision Making - Medical Decision Making Colin Da Silva is a 78 yo gentleman with a pmh of CAD, CABG, Carotid endarterectomy x2, HTN, CHF, A-Fib on Eliquis, NIDDM, CVAx2, and gout who presents to the [facility] for lower extremity swelling Left more so than the right. The patient states he has been experiencing some pretty bad left leg pain which started today that prompted the patient to come into the ER to be evaluated. The who is with the patient at bedside states that the patient started a new medication today - quietiapine and is concerned that might have had an affect on the patient's leg swelling. Patient denies experiencing recent chest pain, SOB, difficulty breathing, palpitations, headache, neck pain, blurry vision, new weakness, numbness, nausea , vomiting, tingling, or chills. Vital Signs Temp Pulse Resp BP Pulse Ox 97.6 F 59 L 22 H 144/60 94 L 09/28/18 23:32 09/28/18 23:32 09/28/18 23:32 09/28/18 23:32 09/28/18 23:32 DDX IBNLT: ACS/NH, Heart failure exacerbation, DVT/PE Plan: Labs, Duplex, EKG, CXR, re-assess. Received call from radiologist recreation leader for a critical finding: Arterial US Superficial Femoral artery is occluded. - Reconstitution around it. - This is an old finding which has been present for many years now. Patient feels much better after analgesia and requests to be discharged. Copies of US results handed to patient and instructed to speak with PCP regarding the findings. Will DC with PCP and vascular follow up. *DC/Admit/Observation/Transfer Diagnosis at time of Disposition: Left leg pain - Discharge Dispostion Disposition: HOME Condition at time of disposition: Improved Decision to Admit order: No - Referrals Referrals: Martinez Fallon MD [Primary Care Provider] - - Patient Instructions Printed Discharge Instructions: DI for Peripheral Edema -- Bilateral Additional Instructions: You came into the ER with lower leg pain and swelling. We did an ultrasound which showed no acute findings. It is extremely important for you to follow up with both your primary doctor and your vascular doctor in the next 3 to5 days. Come back to the ER immediately if your pain worsens or you have any other new or worsening concerns. Thank you for coming to the [facility]. We hope you feel better soon! Print Language: MALTESE - Post Discharge Activity
[2018-09-28 23:39] VITALS: TEMP 97.6; BMI 29.0
[2018-09-28] MEDS ORDERED: FUROSEMIDE 40 MG/4 ML INJECTABLE VIAL IVPUSH ONE (23:55)
--- NOTE | 2018-09-29 00:16 | PDOC ---
Documentation entered by Iftikhar Moreno SCRIBE, acting as scribe for Eliot Gonzalez MD. Eliot Gonzalez MD: This documentation has been prepared by the Josh neumann Elijah, SCRIBE, under my direction and personally reviewed by me in its entirety. I confirm that the documentation accurately reflects all work, treatment, procedures, and medical decision making performed by me. Attending Attestation - Resident Resident Name: Juan C Bhakta - ED Attending Attestation I have performed the following: I have examined & evaluated the patient, The case was reviewed & discussed with the resident, I agree w/resident's findings & plan, Exceptions are as noted - HPI HPI: 09/29/18 00:01 The patient is a 78 year old male with a significant past medical history of CVA x3(Most Recently 02/20/18 w/ residual left sided weakness, CHF, HTN, afib ( Eliquis) who presents to the ED with swelling and pain in both lower extremities (left more than right). He states that both legs are chronically swollen, though it has increased in the last few days. Pt states that what concerned him most was the pain in his left leg. Denies any recent falls/trauma. Denies: SOB, CP, Neck pain, Headache Allergies: Penicillins Surgical History: CABG 2012 PCP: Dr. Fallon - Physicial Exam PE: 09/29/18 00:01 GENERAL: Awake, alert, and fully oriented, in no acute distress. HEAD: No signs of trauma EYES: PERRLA, EOMI, sclera anicteric, conjunctiva clear ENT: Auricles normal inspection, hearing grossly normal, nares patent, oropharynx clear without exudates. Moist mucosa NECK: Nontender, no stepoffs, Normal ROM, supple, no lymphadenopathy, JVD, or masses LUNGS: Breath sounds equal, clear to auscultation bilaterally. No wheezes, and no crackles HEART: Regular rate and rhythm, normal S1 and S2, no murmurs, rubs or gallops ABDOMEN: Soft, nontender, normoactive bowel sounds. No guarding, no rebound. No masses EXTREMITIES: +2 PE BLE, No clubbing or cyanosis. No cords, erythema, or tenderness NEUROLOGICAL: Cranial nerves II through XII intact. 5/5 strength and sensation in all extremities, Normal speech, normal gait, normal cerebellar function SKIN: Warm, Dry, normal turgor, no rashes or lesions noted. - Medical Decision Making 09/29/18 00:24 78 M with BLE swelling and LLE pain. BLE edema is likely 2/2 volume overload. Pt also has h/o arterial occlusion in LLE, and given h/o afib, will need to r/o acute occlusion. Will also evaluate for DVT. - Labs - Arterial and venous dopplers - Lasix 09/29/18 05:22 Labs unremarkable US negative for DVT arterial US shows occlusion of SFA with reconstitution of popliteal artery, consistent with prior studies - no acute occlusion Pt reassessed - states he urinated twice after receiving lasix and notices significant improvement in his swelling and pain. I spoke with pt and family and recommended f/u with his vascular surgeon for re- evaluation of possible claudication pain. Also recommended cards f/u for further evaluation of his lower extremity edema. Pt is well appearing, with normal vitals. Clinically stable for DC at this time. I discussed the physical exam findings, ancillary test results and final diagnoses with the patient. I answered all of the patient's questions. The patient was satisfied with the care received and felt comfortable with the discharge plan and treatment plan. The patient agrees to follow up with the primary care physician within 24-72 hours.
[2018-09-29] MEDS ORDERED: FUROSEMIDE 40 MG/4 ML INJECTABLE VIAL ONE (00:42)
[2018-09-29 00:56] LABS: BASO % 1.2 % (0-2.0); EOS % 4.3 % (0-4.5); HEMATOCRIT 33.9 % (35.4-49); HEMOGLOBIN 11.1 GM/dL (11.7-16.9); LYMPH % 26.6 % (8-40); MCH 28.8 pg (25.7-33.7); MCHC 32.7 g/dl (32.0-35.9); MEAN CELL VOLUME 88.3 fl (80-96); MEAN PLT VOLUME 8.8 fl (7.5-11.1); MONO % 8.8 % (3.8-10.2); NEUT % 59.1 % (42.8-82.8); PLATELET COUNT 197 K/MM3 (134-434); RBC 3.84 M/mm3 (4.00-5.60); RDW 17.5 % (11.9-15.9); WHITE BLOOD COUNT 6.9 K/mm3 (4.0-10.0)
[2018-09-29 01:12] LABS: INR 1.3 (0.83-1.09); PROTHROMBIN TIME (PATIENT) 15.4 SEC (9.7-13.0)
[2018-09-29 04:20] LABS: ALBUMIN 3.3 g/dl (3.4-5.0); ALK PHOS 156 U/L (45-117); ANION GAP 6 MMOL/L (8-16); BILIRUBIN,TOTAL 0.4 mg/dL (0.2-1); CALCIUM 8.9 mg/dL (8.5-10.1); CHLORIDE 107 mmol/L (98-107); CO2 29 mmol/L (21-32); CREATININE 1.8 mg/dL (0.55-1.3); GLUCOSE,RANDOM 100 mg/dL (74-106); N-TERMINAL BNP 784.6 pg/ml (5-450); POTASSIUM 3.7 mmol/L (3.5-5.1); SGOT/AST 22 U/L (15-37); SGPT/ALT 28 U/L (13-61); SODIUM 142 mmol/L (136-145); TOT PROT 6.8 g/dl (6.4-8.2)
[2018-09-29 05:39] VITALS: BP 132/60; PULSE 62
--- NOTE | 2018-09-29 11:33 | EKG ---
Test Reason : Blood Pressure : / mmHG Vent. Rate : 065 BPM Atrial Rate : 065 BPM P-R Int : 186 ms QRS Dur : 092 ms QT Int : 440 ms P-R-T Axes : 090 030 009 degrees QTc Int : 457 ms POOR DATA QUALITY, INTERPRETATION MAY BE ADVERSELY AFFECTED NORMAL SINUS RHYTHM CANNOT RULE OUT INFERIOR INFARCT , AGE UNDETERMINED ABNORMAL ECG WHEN COMPARED WITH ECG OF 16-MAY-2018 12:24, PREMATURE VENTRICULAR COMPLEXES ARE NO LONGER PRESENT Confirmed by SCOTT SANTIAGO MD ([id number]) on 09/29/2018 11:32:40 AM Referred By: Confirmed By:SCOTT SANTIAGO MD
== END 2018-09-29 06:34 | disposition home or self-care (01) ==
LOC: JER 23:20
DX: R60.0 Localized edema (principal); I25.10 Atherosclerotic heart disease of native coronary artery without angina pectoris; I11.0 Hypertensive heart disease with heart failure; I50.9 Heart failure, unspecified; Z95.1 Presence of aortocoronary bypass graft; I48.91 Unspecified atrial fibrillation; Z79.01 Long term (current) use of anticoagulants; E11.9 Type 2 diabetes mellitus without complications; Z79.84 Long term (current) use of oral hypoglycemic drugs; I69.854 Hemiplegia and hemiparesis following other cerebrovascular disease affecting left non-dominant side; M10.9 Gout, unspecified; Z88.0 Allergy status to penicillin
CPT/HCPCS: 36415; 80053; 82550; 83605; 83880; 84484; 85025; 85610; 93005; 93010; 93926-TC; 93970-TC; 99283-25

== ENCOUNTER 2019-10-23 11:21 | Inpatient (IN) | payer OTHER, MEDICARE ==
--- NOTE | 2019-10-23 11:41 | PDOC ---
History of Present Illness - General Stated Complaint: WEAKNESS Time Seen by Provider: 10/23/19 11:41 History Source: Patient Exam Limitations: No Limitations - History of Present Illness Initial Comments: 78F with hx/o CVA x3 with residual left sided weakness, CHF, HTN, kidney failure, Afib (Eliquis), ACS s/p CABG (2011), and diverticulitis presents to the ED with sudden onset left sided weakness. He first noticed it when he woke up this morning and had weakness most notably in the left leg with some left arm weakness, both of which is worse than baseline. He reports some SOB and LE edema, but denied syncope/falls, headache, chest pain, or numbness/tingling that's different from baseline (some numbness in the left leg). PMH: See HPI SH: CABG Meds: See chart Allergies: PCN PCP: Dr. Fallon Neurologist: Dr. Ledezma tPA Exclusion checklist 3-4.5h - Time Elapsed Date last known well: 10/22/19 Time last known well: 10:00 Elaspsed time: 1 Day(s) and 5 Hour(s) and 50 Minutes - Thrombolytic Therapy Candidate Is patient eligible for thrombolytic therapy: No - Exclusion Criteria 3-4.5 hr SBP greater than 185 or DBP greater than 110mmHg despite tx: No Recent IC/spinal surgery,head trauma or stroke<3mos.: No Hx IC hemorrhage, IC neoplasm, AV malformation or aneurysm: No Active internal bleeding: No Blding diathesis(low plt ct, inc PTT,INR>1.7 or use of NOAC): Yes Symptoms suggest subarachnoid hemorrhage: No CT demonstrates multilobar infarct(>1/3 cerebral hemiphere): No Arterial puncture at noncompressible site in previous 7 days: No Blood glucose concentration less than 50mg/dL (2.7mmol/L): No - Relative Exclusion Criteria 3-4.5 hr Care team unable to determine eligibility: No IV/IA thrombolysis/thrombectomy @ another hosp prior arrival: No Life expectancy <1 yr or severe co-morbid illness: No : No Patient/family refused: No Stroke severity too mild (non-disabling): No Recent acute IA (w/in previous 3 months): No Seizure at onset with postictal residual neuro impairments: No Major surgery or serious trauma w/in previous 14 days: No Recent GI or hemorrhage (w/in previous 21 days): No - Add'l Relative Exclusion 3-4.5 hr Age > 80: No Hx of both diabetes AND prior ischemic stroke: No Taking an oral anticoagulant regardless of INR: Yes Severe Stroke (NIHSS >25): No - Ineligibility reason(s) Reasons No tPA given: Outside of window - delayed arrival NIH Stroke Scale - Last Known Well Date/Time & Onset Date Last Known Well: 10/22/19 Time Last Known Well: 10:00 - Initial Evaluation Level of consciousness: Alert Ask patient the month and their age: Answers both correctly Ask patient to open & close eyes; make fist and let go: Obeys both correctly Best gaze (horizontal eye movement): Normal Visual field testing: No visual field loss (hx/o macular degeneration) Facial paresis (Show teeth/raise eyebrows/close eyes tight): Normal symmetrical movement Motor Function: Left Arm: No effort against gravity Motor Function: Right Arm: Normal (extends arm 90 (or 45) degrees for 10 seconds without drift Motor Function: Left Leg: No effort against gravity Motor Function: Right Leg: Normal (extends leg 30 degrees for 5 seconds without drift) Limb Ataxia: Present in two limbs (left limbs) Sensory(Use pinprick test arms,legs,trunk,face/side to side): Normal Best language (Describe picture, name items, read sentences): No Aphasia Dysarthria (read several words): Normal articulation Extinction and Inattention: No abnormality - Total Score NIH Stroke Scale Score: 8 Past History - Medical History Allergies/Adverse Reactions: Allergies Allergy/AdvReac Type Severity Reaction Status Date / Time Penicillins Allergy "RASH" Verified 10/23/19 14:01 Home Medications: Ambulatory Orders Allopurinol [Zyloprim -] 150 mg PO DAILY 10/27/17 Apixaban [Eliquis -] 5 mg PO BID 10/27/17 Aspirin [Aspirin EC] 81 mg PO DAILY 10/27/17 Atorvastatin Ca [Lipitor] 80 mg PO HS 10/27/17 Metoprolol Succinate 50 mg PO DAILY 10/27/17 Torsemide 20 mg PO DAILY 10/27/17 Omeprazole 40 mg PO DAILY 02/20/18 Amlodipine Besylate 10 mg PO DAILY 05/16/18 Duloxetine HCl 60 mg PO DAILY 10/23/19 Tamsulosin HCl [Flomax] 0.4 mg PO DAILY 10/23/19 traZODone HCL [Desyrel -] 50 mg PO HS 10/23/19 Anemia: No Asthma: No Cardiac Disorders: Yes (IA, CARDIOVERSION X2) CVA: Yes ( mild L hemiparesis) COPD: No CHF: Yes (H/O) Dementia: No Diabetes: Yes (BORDERLINE-DIET CONTROLLED) GI Disorders: Yes (diverticulosis) Disorders: No HTN: Yes Hypercholesterolemia: No Liver Disease: No Seizures: No Thyroid Disease: No - Surgical History Abdominal Surgery: No Appendectomy: No Cardiac Surgery: Yes (MARIS CAROTID EDARTERECTOMY) Cholecystectomy: No Lung Surgery: No Neurologic Surgery: No Orthopedic Surgery: No - Immunization History Td Vaccination: Yes TDAP Vaccination: Yes Immunization Up to Date: Yes - Psycho-Social/Smoking History Smoking History: Never smoked Have you smoked in the past 12 months: No Number of Cigarettes Smoked Daily: 0 If you are a former smoker, when did you quit?: 2009 Review of Systems - Review of Systems Able to Perform ROS?: Yes Is the patient limited Macedonian proficient: No Constitutional: No: Chills, Fever Respiratory: Yes: Shortness of Breath. No: Orthopnea Cardiac (ROS): Yes: Edema. No: Chest Pain, Syncope, Chest Tightness ABD/GI: No: Constipated, Diarrhea, Nausea, Vomiting : No: Burning, Dysuria Neurological: Yes: Numbness (no change from baseline), Paresthesia (no change from baseline), Weakness (left arm and leg weakness worse than baseline). No: Headache All Other Systems: Reviewed and Negative *Physical Exam - Physical Exam General Appearance: Yes: Nourished, Appropriately Dressed. No: Apparent Distress HEENT: positive: EOMI, RADHA Respiratory/Chest: positive: Lungs Clear, Normal Breath Sounds Cardiovascular: positive: Regular Rhythm, Regular Rate, S1, S2, Edema (+1 pitting) Vascular Pulses: Dorsalis-Pedis (R): 2+, Doralis-Pedis (L): 2+ Gastrointestinal/Abdominal: positive: Soft. negative: Tender Musculoskeletal: positive: Normal Inspection Extremity: positive: Normal Inspection Integumentary: positive: Normal Color, Dry, Warm Neurologic: positive: post anesthesia nurse II-XII NML intact (mild possible deficit CNXI), Fully Oriented, Alert, Normal Mood/Affect, Sensory Deficit (left leg). negative: Motor Strength 5/5 (3/5 strength LUE, 2/5 strength LLE), Facial Droop, Finger to Nose (ataxia left arm), Babinski ED Treatment Course - LABORATORY CBC & Chemistry Diagram: 10/23/19 12:44 10/23/19 12:44 Medical Decision Making - Medical Decision Making 78F with hx/o CVA x3 with residual left sided weakness, CHF, HTN, kidney failure, Afib (Eliquis), ACS s/p CABG (2011), and diverticulitis presents to the ED with sudden onset left sided weakness. CBC unremarkable. CMP remarkable for elevated Cr and BUN, but consistent with previous labs. Coags demonstrated PT 21.4, INR 1.8, PTT 32.1. Head CT unremarkable for any acute intracranial process. I spoke with Dr. Ledezma, he is aware of the patient and will follow up with him tomorrow. Dr. Ledezma recommended 1x dose aspirin 81mg, continue Eliquis, and increasing dose of statin. On repeat physical exam, patient had slight improvement of strength of left arm and leg, still both around 3/5 strength. Patient will be admitted for further workup and management of CVA. Discharge - Discharge Information Problems reviewed: Yes Clinical Impression/Diagnosis: Left leg weakness Condition: Stable - Admission Yes - Follow up/Referral - Patient Discharge Instructions - Post Discharge Activity
[2019-10-23] MEDS ORDERED: ACETAMINOPHEN 325 MG TABLET (FP) PO ONE (12:36)
[2019-10-23] MEDS ORDERED: ACETAMINOPHEN 325 MG TABLET (FP) ONE (12:59)
[2019-10-23 13:11] LABS: EOS % 3.5 % (0-4.5); HEMATOCRIT 31.7 % (35.4-49); HEMOGLOBIN 10.4 GM/dL (11.7-16.9); LYMPH % 15.8 % (8-40); MCH 28.5 pg (25.7-33.7); MCHC 32.9 g/dl (32.0-35.9); MEAN CELL VOLUME 86.4 fl (80-96); MEAN PLT VOLUME 8.2 fl (7.5-11.1); MONO % 8.5 % (3.8-10.2); NEUT % 71.2 % (42.8-82.8); PLATELET COUNT 329 K/MM3 (134-434); RBC 3.67 M/mm3 (4.00-5.60); RDW 17.3 % (11.9-15.9); WHITE BLOOD COUNT 7.9 K/mm3 (4.0-10.0)
--- NOTE | 2019-10-23 13:13 | PDOC ---
Attending Attestation - Resident Resident Name: Rayo Fernandez - ED Attending Attestation I have performed the following: I have examined & evaluated the patient, The case was reviewed & discussed with the resident, I agree w/resident's findings & plan - HPI HPI: 10/23/19 13:08 79-year-old male with history of multiple medical problems including atherosclerotic disease with CVA in the past and residual left-sided weakness requiring walker to ambulate presents now with episode this morning of left- sided numbness and weakness. Patient has baseline left leg weakness but is able to ambulate with a walker, went to bed last night at 8 PM feeling at his baseline, awoke at 12 AM to use the restroom and felt that his baseline, but upon awakening at 8 AM was unable to get out of bed because of left leg paralysis and left arm heaviness compared to baseline. No headache or vision change or speech deficit, called aide, who activated EMS. Patient now feels relatively back to baseline, states the symptoms only lasted a few minutes. - Physicial Exam PE: 10/23/19 1:10 PM Vital signs stable, afebrile Alert lying in stretcher, conversant Heart is regular with occasional premature beats, lungs are clear Abdomen benign 5 out of 5 strength in the left bilateral upper extremities, 3 out of 5 strength in left lower extremity, 5 out of 5 strength in the right lower extremity. Subtle left facial droop, speech is clear. - Medical Decision Making 10/23/19 13:10 79-year-old male with history of CVA and left-sided weakness presents with presentation concerning for TIA/CVA, possibly in same distribution as prior vascular abnormalities. Hemodynamically stable here, seemingly returned to near baseline. Last known well was about 12 hours prior to arrival. Limb ischemic ep isode also on ddx but patient well-perfused now with palpable pulses. stroke protocol initiated but given lack of deviation from baseline, code arauz was not activated CT head, labs, EKG Left lower extremity Doppler to rule out DVT given slightly asymmetric swelling Reassess, likely admission Heart Score/ECG Review #1 ECG reviewed & interpreted by me at: 11:45 General ECG Interpretation: Sinus Rhythm (with APC noted), Normal Rate (80), Normal Intervals (qtc 477), No acute ischemic changes Discharge - Discharge Information Problems reviewed: Yes Clinical Impression/Diagnosis: Left leg weakness - Follow up/Referral Referrals: Martinez Fallon MD [Primary Care Provider] - - Patient Discharge Instructions - Post Discharge Activity
[2019-10-23 13:15] LABS: INR 1.8 (0.83-1.09); PROTHROMBIN TIME (PATIENT) 21.4 SEC (9.7-13.0)
[2019-10-23 13:18] LABS: ACTIVATED PTT 32.1 SECONDS (25.2-36.5)
[2019-10-23 13:35] LABS: ALBUMIN 2.8 g/dl (3.4-5.0); ALK PHOS 125 U/L (45-117); ANION GAP 6 MMOL/L (8-16); BILIRUBIN,TOTAL 0.3 mg/dL (0.2-1); BLOOD UREA NITROGEN 35.1 mg/dL (7-18); CHLORIDE 102 mmol/L (98-107); CHOLESTEROL 128 mg/dL (50-200); CO2 32 mmol/L (21-32); CREATININE 1.9 mg/dL (0.55-1.3); GLUCOSE,RANDOM 106 mg/dL (74-106); HDL CHOLESTEROL 37 mg/dL (40-60); LDL CHOLESTEROL (ONLY SJRH) 70 mg/dL (5-100); SGOT/AST 20 U/L (15-37); SGPT/ALT 14 U/L (13-61); SODIUM 141 mmol/L (136-145); TOT PROT 6.8 g/dl (6.4-8.2); TRIGLYCERIDES 144 mg/dL (0-150)
[2019-10-23] MEDS ORDERED: ASPIRIN 81 MG CHEWABLE TABLETS PO ONE (14:20)
[2019-10-23] MEDS ORDERED: ASPIRIN 81 MG CHEWABLE TABLETS ONE (14:54)
--- NOTE | 2019-10-23 15:16 | PN ---
Teaching Attending Note Name of Resident: Abraham Robison ATTENDING PHYSICIAN STATEMENT I saw and evaluated the patient. I reviewed the resident's note and discussed the case with the resident. I agree with the resident's findings and plan as documented. SUBJECTIVE: 79 year old male with known history of CAD, diverticulitis, atrial f ibrillation, hypertension, DM 2, COPD, PVD, CVA with residual left-sided weakness who presents to the ED with worsened left-sided weakness. He noticed inability to get out of bed when he woke up this morning. 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 Strength LUE 4/5. There is partial loss of control of the left sided extremities as well. Right sided extremities are strong with good coordination. Positive pronator drift. He is exhibiting occasional word finding difficulties. Integumentary: rash, no lesions ASSESSMENT AND PLAN: 1. Acute on chronic left sided weakness - concerning for a CVA - CT of the head negative - MRI of the brain- deferred to neurologist - patient on eliquis, will continue - will add aspirin (if not on it yet) - neurology consultation - remote telemetry monitoring - echocardiogram - statin - PT Evaluation 2. Atrial fibrillation - cont with AC - rate is controoled 3. DM 2 - cont SSI, accuchecks 4. PVD 5. DVT prophylaxis - cont DOAC DW Dr Abraham Robison and agree with his plans of care.
[2019-10-23 15:48] LABS: URINE APPEARANCE CLEAR; URINE BILIRUBIN NEGATIVE (NEGATIVE); URINE COLOR YELLOW; URINE GLUCOSE (UA) NEGATIVE (NEGATIVE); URINE KETONE NEGATIVE (NEGATIVE); URINE LEUK ESTERASE NEGATIVE (NEGATIVE); URINE NITRITE NEGATIVE (NEGATIVE); URINE PROTEIN NEGATIVE (NEGATIVE); URINE UROBILINOGEN 0.2 mg/dL (0.2-1.0)
--- NOTE | 2019-10-23 16:09 | EKG ---
Test Reason : Blood Pressure : / mmHG Vent. Rate : 080 BPM Atrial Rate : 080 BPM P-R Int : 176 ms QRS Dur : 096 ms QT Int : 414 ms P-R-T Axes : 020 029 001 degrees QTc Int : 477 ms SINUS RHYTHM WITH PREMATURE ATRIAL COMPLEXES CANNOT RULE OUT ANTERIOR INFARCT , AGE UNDETERMINED ABNORMAL ECG Confirmed by MD KALA, GAIL ([id number]) on 10/23/2019 4:09:22 PM Referred By: Confirmed By:GAIL ARMENDARIZ MD
--- NOTE | 2019-10-23 16:51 | HP ---
CHIEF COMPLAINT: left sided weakness PCP: Dr. Mina Cardio: Dr. Blue Vascular: Dr. Brown Neuro: Dr. 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 and diverticulitis, presents with lefts sided weakness and numbness of few hours duration that began spontaneously when patient awoke from sleep and lasted for a few minutes leading to inability to move untill patient's nurse arrived to assist him. Pt was brought to the hospital, and on initial evaluation as per ED procurement intern, pt had a NIH of 8. Patient's symptoms improved in the ED. As per Ed resident, Neurology was consulted and recommending continue ASA and AC/Eliquis until tomorrow. Pt has had similar symptoms in the past admissions, but at the time MRI and carotid dopplers were negative. Patient follows his neurologist and cordwainer regularly. He reports he was recently treated fro diverticulitis with abx, the name of which he does not recall. Denies f/c/n/v/d/sob/chest pain, numbness or tingling. 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, CHF, HTN, kidney failure, Afib (Eliquis), gout, and diverticulitis, PAST SURGICAL HISTORY: carotid endarterectomy?, ACS s/p CABG (2011) Social History: Smoking: denies Alcohol:denies Drugs: denies Allergies Penicillins Allergy (Verified 10/23/19 14:01) "RASH" HOME MEDICATIONS: Home Medications Medication Instructions Recorded Allopurinol [Zyloprim -] 150 mg PO DAILY 10/27/17 Apixaban [Eliquis -] 5 mg PO BID 10/27/17 Aspirin [Aspirin EC] 81 mg PO DAILY 10/27/17 Atorvastatin Ca [Lipitor] 80 mg PO HS 10/27/17 Metoprolol Succinate 50 mg PO DAILY 10/27/17 Torsemide 20 mg PO DAILY 10/27/17 Omeprazole 40 mg PO DAILY 02/20/18 Amlodipine Besylate 10 mg PO DAILY 05/16/18 Duloxetine HCl 60 mg PO DAILY 10/23/19 Tamsulosin HCl [Flomax] 0.4 mg PO DAILY 10/23/19 traZODone HCL [Desyrel -] 50 mg PO HS 10/23/19 REVIEW OF SYSTEMS CONSTITUTIONAL: Absent: fever, chills, diaphoresis, generalized weakness, HEENT: Absent: rhinorrhea, nasal congestion, eye pain, visual changes CARDIOVASCULAR: Absent: chest pain, syncope, palpitations, peripheral edema RESPIRATORY: Absent: cough, shortness of breath, dyspnea with exertion, orthopnea, wheezing, stridor, hemoptysis GASTROINTESTINAL: Absent: abdominal pain, abdominal distension, nausea, vomiting, diarrhea, constipation, melena, GENITOURINARY: Absent: dysuria, frequency, urgency, hesitancy, MUSCULOSKELETAL: Absent: myalgia, arthralgia, HEMATOLOGIC/IMMUNOLOGIC: Absent: easy bleeding, easy bruising, lymphadenopathy, frequent infections ENDOCRINE: Absent: unexplained weight gain, unexplained weight loss NEUROLOGIC: Absent: headache, focal weakness or paresthesias, dizziness, unsteady gait, seizure PSYCHIATRIC: Absent: anxiety, depression, suicidal or homicidal ideation, hallucinations. PHYSICAL EXAMINATION Vital Signs - 24 hr 10/23/19 10/23/19 10/23/19 11:35 11:47 12:49 Temperature 98.3 F 98.3 F Pulse Rate 60 Pulse Rate [ 60 75 Left Radial] Respiratory 20 18 18 Rate Blood Pressure 129/38 L Blood Pressure 129/38 L 135/80 [Left Arm] O2 Sat by Pulse 96 96 95 Oximetry (%) 10/23/19 10/23/19 10/23/19 13:58 14:13 15:35 Temperature 98.2 F Pulse Rate Pulse Rate [ 78 75 Left Radial] Respiratory 16 16 18 Rate Blood Pressure Blood Pressure 125/65 121/68 [Left Arm] O2 Sat by Pulse 94 L 94 L 96 Oximetry (%) GENERAL: Awake, alert, and fully oriented, in no acute distress. EYES: Pupils equal, round and reactive to light, extraocular movements intact, sclera anicteric EARS, NOSE, THROAT: Moist mucous membranes. NECK: Normal range of motion, supple without lymphadenopathy, jvd LUNGS: Breath sounds equal, clear to auscultation bilaterally. No wheezes, and no crackles. HEART: Regular rate and rhythm, normal S1 and S2 without murmur, rub or gallop. ABDOMEN: Soft, nontender, mildly distended and large, normoactive bowel sounds, no guarding, no rebound, no masses. MUSCULOSKELETAL: No CVA tenderness. LOWER EXTREMITIES: 2+ pulses, warm, well-perfused. No calf tenderness. 2+ pitting peripheral edema b/l. NEUROLOGICAL: Cranial nerves II-XII intact. Left sided facial drop visible, likely baseline. Left UE strength 4/5, LE strength 4/5. Sensation LUE 5/5, LLE 4/5. Left dorsiflexion weak, plantar flexion weak. PSYCHIATRIC: Cooperative. Good eye contact. Appropriate mood and affect. SKIN: Warm, dry, normal turgor, no rashes or lesions noted, normal capillary refill. Laboratory Results - last 24 hr 10/23/19 10/23/19 10/23/19 12:44 12:44 12:44 WBC 7.9 RBC 3.67 L Hgb 10.4 L Hct 31.7 L MCV 86.4 MCH 28.5 MCHC 32.9 RDW 17.3 H Plt Count 329 D MPV 8.2 Absolute Neuts (auto) 5.6 Neutrophils % 71.2 D Lymphocytes % 15.8 D Monocytes % 8.5 Eosinophils % 3.5 Basophils % 1.0 Nucleated RBC % 0 PT with INR 21.40 H INR 1.80 H PTT (Actin FS) 32.1 Sodium 141 Potassium 4.0 Chloride 102 Carbon Dioxide 32 Anion Gap 6 L BUN 35.1 H Creatinine 1.9 H Est GFR (CKD-EPI)AfAm 38.28 Est GFR (CKD-EPI)NonAf 33.03 Random Glucose 106 Calcium 9.0 Total Bilirubin 0.3 AST 20 ALT 14 Alkaline Phosphatase 125 H Creatine Kinase 51 Troponin I < 0.02 Total Protein 6.8 Albumin 2.8 L Triglycerides 144 Cholesterol 128 Total LDL Cholesterol 70 HDL Cholesterol 37 L Urine Color Urine Appearance Urine pH Ur Specific [place] Urine Protein Urine Glucose (UA) Urine Ketones Urine Blood Urine Nitrite Urine Bilirubin Urine Urobilinogen Ur Leukocyte Esterase Blood Type Antibody Screen 10/23/19 10/23/19 13:42 14:30 WBC RBC Hgb Hct MCV MCH MCHC RDW Plt Count MPV Absolute Neuts (auto) Neutrophils % Lymphocytes % Monocytes % Eosinophils % Basophils % Nucleated RBC % PT with INR INR PTT (Actin FS) Sodium Potassium Chloride Carbon Dioxide Anion Gap BUN Creatinine Est GFR (CKD-EPI)AfAm Est GFR (CKD-EPI)NonAf Random Glucose Calcium Total Bilirubin AST ALT Alkaline Phosphatase Creatine Kinase Troponin I Total Protein Albumin Triglycerides Cholesterol Total LDL Cholesterol HDL Cholesterol Urine Color Yellow Urine Appearance Clear Urine pH 5.0 Ur Specific [place] 1.010 Urine Protein Negative Urine Glucose (UA) Negative Urine Ketones Negative Urine Blood Negative Urine Nitrite Negative Urine Bilirubin Negative Urine Urobilinogen 0.2 Ur Leukocyte Esterase Negative Blood Type O POSITIVE Antibody Screen Negative ASSESSMENT/PLAN: 79, yo pmh 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 and diverticulitis, presents with lefts sided weakness and numbness of few hours duration likely 2/2 to breakthrough TIA #Unilateral weakness 2/2 to TIA left sided weakness, transient in nature, self resolved return to baseline, left sided residual deficit breakthrough CVA/TIA on Eliquis and ASA CT head negative Will need to consider MRI Neuro consulted- agrees to eval patient in am Cont Eliquis, Statins, ASA Duplex of b/l legs Carotid duplex ordered ECHO ordered to eval for thromboembolic origin Previous 2018 ECHO EF 60%, moderate Aortic valve thickening noted monitor neuro checks fall precautions PT Speech and swallow Trops neg x2 #normocytic anemia stable, chronic likely 2/2 to ACD iron panel SOBT neg #CHF CXR for am home meds- Torsemide 20mg- hold and reassess in am #CKD Cre 1.9 at baseline- will need to confirm with PCP #BPH flomax hold and reassess in am #PVD cont douxetine #HTN norvasc hold and reassess in am #A-fib Metoprolol hold and reassess in am #Insomnia Trazodone- verify what patient uses this for #DVT ppx on Eliquis FEN sodium/diabetic diet monitor lytes Dispo: Cont agricultural chemist, cont eliquis and asa, neuro f/u. Visit type - Medication Review Med list reviewed for High Risk Meds patients 65 and older: Yes - Emergency Visit Emergency Visit: Yes ED Registration Date: 10/23/19 Care time: The patient presented to the Emergency Department on the above date and was hospitalized for further evaluation of their emergent condition. - New Patient This patient is new to me today: No - Critical Care Critical Care patient: No ATTENDING PHYSICIAN STATEMENT I saw and evaluated the patient. I reviewed the resident's note and discussed the case with the resident. I agree with the resident's findings and plan as documented. SUBJECTIVE: OBJECTIVE: ASSESSMENT AND PLAN:
[2019-10-23] MEDS ORDERED: APIXABAN 5 MG TABLET PO SCH (22:00)
[2019-10-23] MEDS ORDERED: APIXABAN 2.5 MG TABLET PO SCH (22:00)
[2019-10-23] MEDS ORDERED: ATORVASTATIN CA 80 MG TABLET (FP) PO SCH (22:00)
[2019-10-23] MEDS ORDERED: APIXABAN 5 MG TABLET ONE (22:32)
[2019-10-23] MEDS ORDERED: ATORVASTATIN CA 40 MG TABLET (FP) ONE (22:34)
[2019-10-23] MEDS: ATORVASTATIN CA 80 MG TABLET (FP) PO SCH (23:41)
[2019-10-23] MEDS: APIXABAN 5 MG TABLET PO SCH (23:41)
[2019-10-24] MEDS: traZODone HCL 50 MG TABLET (FP) PO ONE ×2 (00:33→00:40)
[2019-10-24 02:57] LABS: IRON SERUM 34 ug/dL (50-175); TOTAL IRON BINDING CAPACITY 149 ug/dL (250-450)
[2019-10-24 08:13] LABS: BASO % 1.1 % (0-2.0); EOS % 4.1 % (0-4.5); HEMATOCRIT 31.6 % (35.4-49); HEMOGLOBIN 10.3 GM/dL (11.7-16.9); LYMPH % 17.1 % (8-40); MCH 27.9 pg (25.7-33.7); MCHC 32.5 g/dl (32.0-35.9); MEAN CELL VOLUME 85.9 fl (80-96); MEAN PLT VOLUME 8.3 fl (7.5-11.1); MONO % 8.2 % (3.8-10.2); NEUT % 69.5 % (42.8-82.8); PLATELET COUNT 316 K/MM3 (134-434); RBC 3.68 M/mm3 (4.00-5.60); RDW 16.9 % (11.9-15.9); WHITE BLOOD COUNT 7.3 K/mm3 (4.0-10.0)
[2019-10-24 08:15] LABS: ALBUMIN 2.7 g/dl (3.4-5.0); BILIRUBIN,TOTAL 0.5 mg/dL (0.2-1); BLOOD UREA NITROGEN 29.9 mg/dL (7-18); CREATININE 1.8 mg/dL (0.55-1.3); MAGNESIUM 2.5 mg/dL (1.8-2.4); TOT PROT 6.5 g/dl (6.4-8.2)
--- NOTE | 2019-10-24 09:14 | CON.NEURO ---
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 (Left sided weakness facial droop cognitive loss c/w Right CVA) Cardio/Vascular: Yes: Other (Severe PVD Bilateral Carotid Endarterectomies Claudication SFA occlusions bilaterally) Pulmonary: Yes: COPD Gastrointestinal: Yes: Diverticulitis (receurrent), Gastritis, GERD, GI Bleed (Rectal), Hemorrhoids Renal/: Yes: Renal Inusuff, BPH Infectious Disease: Yes: C-Diff (recent resolved), Other (Chronic folliculitis) Psych: Yes: Other (Behavioral changes after CVA) Musculoskeletal: Yes: Chronic low back pain (Active presently) Endocrine: Yes: Diabetes Mellitus, Other (Insulin Resistance) Dermatology: Yes: Other (Acneiform rash/folliculitis/rosacea) - Past Surgical History Past Surgical History: Yes: CABG (3 vessel), Carotid Endarterectomy (Bilateral), Valve Replacement (aortic) - Alcohol/Substance Use Hx Alcohol Use: No History of Substance Use: reports: None - Smoking History Smoking history: Former smoker Have you smoked in the past 12 months: No Aproximately how many cigarettes per day: 0 If you are a former smoker, when did you quit?: 2009 - Social History ADL: Family Assistance History of Recent Travel: No Home Medications - Allergies Allergies/Adverse Reactions: Allergies Allergy/AdvReac Type Severity Reaction Status Date / Time Penicillins Allergy "RASH" Verified 10/23/19 14:01 - Home Medications Home Medications: Ambulatory Orders Allopurinol [Zyloprim -] 150 mg PO DAILY 10/27/17 Apixaban [Eliquis -] 5 mg PO BID 10/27/17 Aspirin [Aspirin EC] 81 mg PO DAILY 10/27/17 Atorvastatin Ca [Lipitor] 80 mg PO HS 10/27/17 Metoprolol Succinate 50 mg PO DAILY 10/27/17 Torsemide 20 mg PO DAILY 10/27/17 Omeprazole 40 mg PO DAILY 02/20/18 Amlodipine Besylate 10 mg PO DAILY 05/16/18 Duloxetine HCl 60 mg PO DAILY 10/23/19 Tamsulosin HCl [Flomax] 0.4 mg PO DAILY 10/23/19 traZODone HCL [Desyrel -] 50 mg PO HS 10/23/19 Physical Exam-Neuro Vital Signs: Vital Signs Temperature 98.7 F 10/24/19 08:04 Pulse Rate 88 10/24/19 08:04 Respiratory Rate 18 10/24/19 08:04 Blood Pressure 114/80 10/24/19 08:04 O2 Sat by Pulse Oximetry (%) 100 10/24/19 08:04 Labs: CBC, BMP 10/24/19 06:43 10/24/19 06:43 INR, PTT INR 1.80 (0.83-1.09) H 10/23/19 12:44 Assessment/Plan cc Worsening of left sided weakness HPI 79 year old male hsitory of left HP with residual weakness, chf, HTN, CKD,Atrial fibrillation, s/p cabg, gout, carotid endartectomy. Patient came with worsenign of left sided weakness. Pateint has ct head was un remarkable for acute findings, his nih score was 8 and he improved in ed. 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, CHF, HTN, kidney failure, Afib (Eliquis), gout, and diverticulitis, PAST SURGICAL HISTORY: carotid endarterectomy?, ACS s/p CABG (2011) Social History: Smoking: denies Alcohol:denies Drugs: denies Allergies Penicillins Allergy (Verified 10/23/19 14:01) "RASH" HOME MEDICATIONS: Home Medications Medication Instructions Recorded Allopurinol [Zyloprim -] 150 mg PO DAILY 10/27/17 Apixaban [Eliquis -] 5 mg PO BID 10/27/17 Aspirin [Aspirin EC] 81 mg PO DAILY 10/27/17 Atorvastatin Ca [Lipitor] 80 mg PO HS 10/27/17 Metoprolol Succinate 50 mg PO DAILY 10/27/17 Torsemide 20 mg PO DAILY 10/27/17 Omeprazole 40 mg PO DAILY 02/20/18 Amlodipine Besylate 10 mg PO DAILY 05/16/18 Duloxetine HCl 60 mg PO DAILY 10/23/19 Tamsulosin HCl [Flomax] 0.4 mg PO DAILY 10/23/19 traZODone HCL [Desyrel -] 50 mg PO HS 10/23/19 ROS,FH,SH reviewed in chart NEUROLOGICAL EXAMINATION Alert oriented x 2, speech is slightly dysarthric eomi, left facial weakness left hemiparesis ct head unremarkable carotid ultrasound no stenosis Assessment/Plan TIA , risk factor stroke, cad, previous carotid stenosis, on eliquis and lipitor at home Plan: mri of brain , carotid ultrasound uremarkable, speech consult appreciated - stroke education -add aspirin, risk explained - continue statin - dvt prophylaxis, and pt Thanking you so much Willie Ledezma MD
--- NOTE | 2019-10-24 10:18 | CONSULT ---
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 and diverticulitis, presents with lefts sided weakness and numbness of few hours d uration likely 2/2 to breakthrough TIA Unilateral weakness 2/2 to TIA left sided weakness, transient in nature, self resolved return to baseline, left sided residual deficit breakthrough CVA/TIA on Eliquis and ASA CT head negative MRI Selected Entries 10/24/19 10/24/19 10/24/19 01:49 05:00 08:04 Breakfast Diet Tolerated Temperature 98.5 F 98.7 F Pulse Rate 82 83 88 Blood Pressure 149/71 114/53 L 114/80 10/24/19 09:46 Breakfast 75% Diet Tolerated Well Temperature Pulse Rate Blood Pressure Laboratory Tests 10/23/19 10/24/19 14:55 06:43 WBC 7.3 COVID-19 (DANIEL) Pending Passed Dysphagia screen, reg diet/thin liquids ordered. Last seen by me in 2018- memory, reasoning deficits with normal swallowing function. 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 (Left sided weakness facial droop cognitive loss c/w Right CVA) Cardiovascular: Yes: Other (Severe PVD Bilateral Carotid Endarterectomies Claudication SFA occlusions bilaterally) Pulmonary: Yes: COPD Gastrointestinal: Yes: Diverticulitis (receurrent), Gastritis, GERD, GI Bleed (Rectal), Hemorrhoids Renal/: Yes: Renal Inusuff, BPH Infectious Disease: Yes: C-Diff (recent resolved), Other (Chronic folliculitis) Psych: Yes: Other (Behavioral changes after CVA) Musculoskeletal: Yes: Chronic low back pain (Active presently) Endocrine: Yes: Diabetes Mellitus, Other (Insulin Resistance) Dermatology: Yes: Other (Acneiform rash/folliculitis/rosacea) - Past Surgical History Past Surgical History: Yes: CABG (3 vessel), Carotid Endarterectomy (Bilateral), Valve Replacement (aortic) - Smoking History Smoking history: Former smoker Have you smoked in the past 12 months: No Aproximately how many cigarettes per day: 0 If you are a former smoker, when did you quit?: 2009 - Alcohol/Substance Use Hx Alcohol Use: No History of Substance Use: reports: None - Social History ADL: Family Assistance History of Recent Travel: No History - Admission Reason For Visit: WEAKNESS OF LEFT SIDE OF BODY CVA - Diagnostics X-ray: Report Reviewed CT Scan: Report Reviewed MRI: Pending - General Mental Status: Awake and Alert, Able to Follow Commands, Forgetful, Vague, Intermittently Confused (impaired insight, memory) Attention: Intact Ability to Follow Directions: Good Head/Neck Control: Good - Hearing Hearing: Normal Hearing Aide: No With Patient: No Speech Evaluation - Communication Primary Language: HEBREW Communication: Yes: Dysarthria Oral Expression Ability: Yes: Mild Impairment - Speech Production Able to Make Needs Known: Yes: WNL Intelligibility: Yes: Mildly Impaired - Speech Characteristics Voice Loudness: Normal Voice Pitch: Yes: Normal Voice Phonatory-based Quality: Yes: Normal Speech Clarity: < 100% Nasal Resonance: Normal Articulation: Yes: Imprecise (mild) - Language/Auditory Comprehension Observation: Able to respond to yes/no queries: Yes, Yes/No Confusion: No, Comprehends Conversational Speech: Yes - Language/Verbal Expression Functional Communication Status: Yes: WNL - Swallow Evaluation/Bedside Assessment Current Nutritional Intake: Regular, Thin Liquids Oral Secretions: Yes: WFL Dentition: Yes: Adequate Facial Symmetry at Rest: Facial Droop Left Lingual Movement: Symmetric Lingual Speed of Movement: Reduced Lingual Movement Strgth Against Opposition: Reduced Laryngeal Movement: Able to Palpate, Labored,delay initiation Rate of Intake: WFL Bolus Size: WFL Labial Seal: WFL Chewing: WFL Oral Prep Time: WFL A-P Transit: WFL Pocketing: None Timing of Swallow: WFL Coughing/Throat Clear: Yes (1 instance while drinking reported, not observed) Recommendations - Speech Evaluation, Impression/Plan Impression: 1 instance of brief cough noted while drinking reported, not observed. Mild Dysarthria, memory deficits. - Dysphagia Impressions/Plan Dysphagia Impressions: Mild Impairment, Ongoing Evaluation *Silent aspiration: cannot be R/O at bedside Dysphagia Treatment Plan: Small Bites, Chin Tuck/Down, Clear Pocket Food, Trial Feedings, Facilitative Feeding, Safe Rate, Elevate HOB during feed, Other (remind pt to drink slowly and carefully) Recommendations: Modified Barium Swallow (if cough, congestion, fever) - Recommendations Diet Consistency: Regular Medication Administration: Whole with water Liquids: Thin Liquids
--- NOTE | 2019-10-24 11:11 | PN ---
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 Pt was brought to the hospital, and on initial evaluation as per ED real estate intern, pt had a NIH of 8. Patient's symptoms improved in the ED. As per Ed resident, Neurology was consulted and recommending continue ASA and AC/Eliquis until tomorrow. Pt has had similar symptoms in the past admissions, but at the time MRI and carotid dopplers were negative. Patient follows his neurologist and police liaison officer regularly. He reports he was recently treated for diverticulitis with abx, the name of which he does not recall. Denies f/c/n/v/d/sob/chest pain, numbness or tingling. 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 HEAD: Normal with no signs of trauma. + left facial droop EYES: PERRL, extraocular movements intact, sclera anicteric, conjunctiva clear. No ptosis. ENT: Ears normal, nares patent, oropharynx clear without exudates, moist mucous membranes. NECK: Trachea midline, full range of motion, supple. LUNGS: Breath sounds equal, diminished, clear to auscultation bilaterally, no wheezes, no crackles, no accessory muscle use. HEART: Irregular rhythm, regular rate, S1, S2 without murmur, rub or gallop. ABDOMEN: Soft, nontender, distended, normoactive bowel sounds, no guarding, no rebound, no hepatosplenomegaly, no masses. EXTREMITIES: 2+ pulses right DP, 1+ pulses left DP, warm, well-perfused, no edema. Good cap refill BL lower MSK: +weakness left upper and lower extremity, +back pain NEUROLOGICAL: Cranial nerves II through XII grossly intact. slow speech, gait not observed. decreased strength left upper and lower extremity, strong hand grasps BL, normal sensation BL lower PSYCH: Normal mood, normal affect. SKIN: Warm, dry, normal turgor, no rashes or lesions noted Laboratory Results - last 24 hr 10/23/19 10/23/19 10/23/19 12:44 12:44 12:44 WBC 7.9 RBC 3.67 L Hgb 10.4 L Hct 31.7 L MCV 86.4 MCH 28.5 MCHC 32.9 RDW 17.3 H Plt Count 329 D MPV 8.2 Absolute Neuts (auto) 5.6 Neutrophils % 71.2 D Lymphocytes % 15.8 D Monocytes % 8.5 Eosinophils % 3.5 Basophils % 1.0 Nucleated RBC % 0 PT with INR 21.40 H INR 1.80 H PTT (Actin FS) 32.1 Sodium 141 Potassium 4.0 Chloride 102 Carbon Dioxide 32 Anion Gap 6 L BUN 35.1 H Creatinine 1.9 H Est GFR (CKD-EPI)AfAm 38.28 Est GFR (CKD-EPI)NonAf 33.03 POC Glucometer Random Glucose 106 Hemoglobin A1c % Calcium 9.0 Phosphorus Magnesium Iron TIBC Iron Saturation Unsaturated IBC Total Bilirubin 0.3 AST 20 ALT 14 Alkaline Phosphatase 125 H Creatine Kinase 51 Troponin I < 0.02 Total Protein 6.8 Albumin 2.8 L Triglycerides 144 Cholesterol 128 Total LDL Cholesterol 70 HDL Cholesterol 37 L Urine Color Urine Appearance Urine pH Ur Specific [place] Urine Protein Urine Glucose (UA) Urine Ketones Urine Blood Urine Nitrite Urine Bilirubin Urine Urobilinogen Ur Leukocyte Esterase Blood Type Antibody Screen 10/23/19 10/23/19 10/23/19 12:44 13:42 14:30 WBC RBC Hgb Hct MCV MCH MCHC RDW Plt Count MPV Absolute Neuts (auto) Neutrophils % Lymphocytes % Monocytes % Eosinophils % Basophils % Nucleated RBC % PT with INR INR PTT (Actin FS) Sodium Potassium Chloride Carbon Dioxide Anion Gap BUN Creatinine Est GFR (CKD-EPI)AfAm Est GFR (CKD-EPI)NonAf POC Glucometer Random Glucose Hemoglobin A1c % Calcium Phosphorus Magnesium Iron 34 L TIBC 149 L Iron Saturation 22 Unsaturated IBC 115 L Total Bilirubin AST ALT Alkaline Phosphatase Creatine Kinase Troponin I Total Protein Albumin Triglycerides Cholesterol Total LDL Cholesterol HDL Cholesterol Urine Color Yellow Urine Appearance Clear Urine pH 5.0 Ur Specific [place] 1.010 Urine Protein Negative Urine Glucose (UA) Negative Urine Ketones Negative Urine Blood Negative Urine Nitrite Negative Urine Bilirubin Negative Urine Urobilinogen 0.2 Ur Leukocyte Esterase Negative Blood Type O POSITIVE Antibody Screen Negative 10/24/19 10/24/19 10/24/19 06:04 06:43 06:43 WBC RBC Hgb Hct MCV MCH MCHC RDW Plt Count MPV Absolute Neuts (auto) Neutrophils % Lymphocytes % Monocytes % Eosinophils % Basophils % Nucleated RBC % PT with INR INR PTT (Actin FS) Sodium 142 Potassium 4.0 Chloride 105 Carbon Dioxide 31 Anion Gap 6 L BUN 29.9 H Creatinine 1.8 H Est GFR (CKD-EPI)AfAm 40.87 Est GFR (CKD-EPI)NonAf 35.26 POC Glucometer 103 Random Glucose 102 Hemoglobin A1c % 6.3 Calcium 9.0 Phosphorus 3.0 Magnesium 2.5 H Iron TIBC Iron Saturation Unsaturated IBC Total Bilirubin 0.5 AST 14 L ALT 13 Alkaline Phosphatase 114 Creatine Kinase Troponin I Total Protein 6.5 Albumin 2.7 L Triglycerides 155 H Cholesterol 124 Total LDL Cholesterol 71 HDL Cholesterol 35 L Urine Color Urine Appearance Urine pH Ur Specific [place] Urine Protein Urine Glucose (UA) Urine Ketones Urine Blood Urine Nitrite Urine Bilirubin Urine Urobilinogen Ur Leukocyte Esterase Blood Type Antibody Screen 10/24/19 06:43 WBC 7.3 RBC 3.68 L Hgb 10.3 L Hct 31.6 L MCV 85.9 MCH 27.9 MCHC 32.5 RDW 16.9 H Plt Count 316 MPV 8.3 Absolute Neuts (auto) 5.1 Neutrophils % 69.5 Lymphocytes % 17.1 Monocytes % 8.2 Eosinophils % 4.1 Basophils % 1.1 Nucleated RBC % 0 PT with INR INR PTT (Actin FS) Sodium Potassium Chloride Carbon Dioxide Anion Gap BUN Creatinine Est GFR (CKD-EPI)AfAm Est GFR (CKD-EPI)NonAf POC Glucometer Random Glucose Hemoglobin A1c % Calcium Phosphorus Magnesium Iron TIBC Iron Saturation Unsaturated IBC Total Bilirubin AST ALT Alkaline Phosphatase Creatine Kinase Troponin I Total Protein Albumin Triglycerides Cholesterol Total LDL Cholesterol HDL Cholesterol Urine Color Urine Appearance Urine pH Ur Specific [place] Urine Protein Urine Glucose (UA) Urine Ketones Urine Blood Urine Nitrite Urine Bilirubin Urine Urobilinogen Ur Leukocyte Esterase Blood Type Antibody Screen Active Medications Generic Name Dose Route Start Last Admin Trade Name Germanq PRN Reason Stop Dose Admin Apixaban 5 mg 10/23/19 16:32 10/23/19 23:41 Eliquis - PO 5 mg BID ABI Administration Aspirin 81 mg 10/24/19 10:00 Ecotrin - PO DAILY ABI Atorvastatin Calcium 80 mg 10/23/19 16:09 10/23/19 23:41 Lipitor - PO 80 mg HS ABI Administration Duloxetine HCl 60 mg 10/24/19 10:00 Cymbalta - PO DAILY ABI Trazodone HCl 50 mg 10/24/19 22:00 Desyrel - PO HS ABI ASSESSMENT/PLAN: Problem List - Problems (1) TIA (transient ischemic attack) Assessment/Plan: pt states symptoms have resolved however c/o persistent BL feet tingling Head CT neg Brain MRI pending for today neurology following continue asa and eliquis (as per patient's , eliquis was increased to 5mg BID from 2.5mg BID 2 years ago after pt had CVA) Code(s): G45.9 - TRANSIENT CEREBRAL ISCHEMIC ATTACK, UNSPECIFIED (2) H/O: CVA (cerebrovascular accident) Assessment/Plan: continue eliquis 5mg PO BID neurology following residual left side weakness PT daily continue cardiac monitoring Code(s): Z86.73 - PRSNL HX OF TIA (TIA), AND CEREB INFRC W/O RESID DEFICITS (3) Left-sided weakness Assessment/Plan: residual left side weakness from prior CVA pt reports weakness is same as before admission, however as per pt's lily del cid has been getting progressively worse over the past week and almost fell 1 day prior to admission plan for inpatient rehab once discharged, pt's reports pt was previously at [facility] for rehab Code(s): R53.1 - WEAKNESS (4) Arteriosclerotic heart disease (ASHD) Assessment/Plan: continue lipitor Code(s): I25.10 - ATHSCL HEART DISEASE OF [place] CORONARY ARTERY W/O ANG PCTRS (5) Atrial fibrillation Assessment/Plan: continue cardiac monitoring HR in 80s continue eliquis and asa Code(s): I48.91 - UNSPECIFIED ATRIAL FIBRILLATION Qualifiers: Atrial fibrillation type: unspecified chronic Qualified Code(s): I48.20 - Chronic atrial fibrillation, unspecified; I48.2 - Chronic atrial fibrillation (6) Back pain Assessment/Plan: pt has chronic back pain encourage out of bed ambulation add lidocaine patch and tylenol PRN Code(s): M54.9 - DORSALGIA, UNSPECIFIED Qualifiers: Back pain location: low back pain Chronicity: chronic Back pain laterality: bilateral Sciatica presence: without sciatica Qualified Code(s): M54.5 - Low back pain; G89.29 - Other chronic pain (7) Hypertension Assessment/Plan: resume home dose metoprolol and norvasc Code(s): I10 - ESSENTIAL (PRIMARY) HYPERTENSION Qualifiers: Hypertension type: essential hypertension Qualified Code(s): I10 - Essential (primary) hypertension (8) CKD (chronic kidney disease) Assessment/Plan: creatinine 1.8, stable at baseline continue to monitor encourage free water PO intake repeats labs in AM Code(s): N18.9 - CHRONIC KIDNEY DISEASE, UNSPECIFIED Qualifiers: Chronic kidney disease stage: unspecified stage Qualified Code(s): N18.9 - Chronic kidney disease, unspecified (9) Depression Assessment/Plan: continue trazadone and cymbalta Problems reviewed: Yes Code(s): F32.9 - MAJOR DEPRESSIVE DISORDER, SINGLE EPISODE, UNSPECIFIED Qualifiers: Depression Type: unspecified Qualified Code(s): F32.9 - Major depressive disorder, single episode, unspecified (10) SVT (supraventricular tachycardia) Assessment/Plan: episode of SVT noted on monitor car operator overnight resume home dose metoprolol cardiology consult added Code(s): I47.1 - SUPRAVENTRICULAR TACHYCARDIA (11) CHF (congestive heart failure) Assessment/Plan: resume home dose torsemide echo completed 10/23 - EF 60% no s/s fluid overload at this time Code(s): I50.9 - HEART FAILURE, UNSPECIFIED Qualifiers: Heart failure type: unspecified Heart failure chronicity: chronic Qualified Code(s): I50.9 - Heart failure, unspecified (12) Anemia Assessment/Plan: hgb 10.4, hct 31.7 chronic f/u with Dr Fallon outpt Code(s): D64.9 - ANEMIA, UNSPECIFIED Qualifiers: Anemia type: iron deficiency (13) BPH (benign prostatic hyperplasia) Assessment/Plan: resume home dose flomax Code(s): N40.0 - BENIGN PROSTATIC HYPERPLASIA WITHOUT LOWER URINRY TRACT SYMP (14) PVD (peripheral vascular disease) Assessment/Plan: pt sees vascular doctor outpatient f/u outpt Code(s): I73.9 - PERIPHERAL VASCULAR DISEASE, UNSPECIFIED (15) DVT prophylaxis Assessment/Plan: on eliquis out of bed Code(s): Z29.9 - ENCOUNTER FOR PROPHYLACTIC MEASURES, UNSPECIFIED Visit type - Emergency Visit Emergency Visit: Yes ED Registration Date: 10/23/19 Care time: The patient presented to the Emergency Department on the above date and was hospitalized for further evaluation of their emergent condition. - New Patient This patient is new to me today: Yes Date on this admission: 10/24/19 - Critical Care Critical Care patient: No - Discharge Referral Referred to [facility] No - Medication Review Med list reviewed for High Risk Meds patients 65 and older: Yes
[2019-10-24] MEDS: ASPIRIN COATED 81 MG TABLET.EC PO SCH (11:22)
[2019-10-24] MEDS: APIXABAN 5 MG TABLET PO SCH ×2 (11:22→22:03)
[2019-10-24] MEDS: DULoxetine HCL 30 MG CAPSULE.DR PO SCH (11:22)
--- NOTE | 2019-10-24 12:02 | ECHO ---
Version: 1 Name: MATEUS GUSMAN Exam: Adult Echocardiogram Study Date: 10/24/2019, 10:25 AM Age: 79 Years MMode/2D Measurements & Calculations IVSd: 0.85 cm LVIDs: 2.7 cm LVIDd: 4.5 cm LVPWd: 0.68 cm LAV (MOD-bp): 57.0 ml LVOT diam: 1.99 cm LA dimension: 3.6 cm Doppler Measurements & Calculations Lat Peak E' Ankur: 7.1 cm/sec Med Peak E' Ankur: 5.2 cm/sec Ao max P.0 mmHg Ao V2 max: 165.8 cm/sec Procedure A limited two-dimensional transthoracic echocardiogram was performed (2D). The patient was in atrial fibrillation with controlled ventricular rate during the exam. Left Ventricle The left ventricle is normal in size. Ejection Fraction = 60%. The left ventricular ejection fractio n is normal. There is moderate inferior wall hypokinesis. Right Ventricle The right ventricle is normal in size and function. Atria The left atrium is mildly dilated. Right atrium not well visualized. Mitral Valve There is moderate to severe mitral annular calcification. There is no mitral valve stenosis. Tricuspid Valve The tricuspid valve is normal in structure and function. Aortic Valve There is a bioprosthetic aortic valve. Normal valve function. Pulmonic Valve The pulmonic valve is not well visualized. Great Vessels The aortic root is normal size. Pericardium/Pleura There is no pericardial effusion. Summary Statements A limited two-dimensional transthoracic echocardiogram was performed (2D). The left ventricle is normal in size. There is moderate inferior wall hypokinesis. The left ventricular ejection fraction is normal. The right ventricle is normal in size and function. There is moderate to severe mitral annular calcification. There is a bioprosthetic aortic valve. Normal valve function. Zev Mcconnell 10/24/2019, 12:01 PM Ordering Physician: Abraham Robison Referring Physician: ABRAHAM ROBISON Performed By: Maty Brantley
[2019-10-24] MEDS: PANTOPRAZOLE 40 MG TABLET PO SCH (12:57)
[2019-10-24] MEDS: LIDOCAINE 5% TOPICAL PATCH TP SCH (13:14)
--- NOTE | 2019-10-24 13:49 | CON.CARD ---
Consult Consult Specialty:: Cardiology Referred by:: Hospitalist Reason for Consultation:: Stroke/afib/SVT - History of Present Illness Chief Complaint: weakness History of Present Illness: 79 year old man with pmh HTN, CVA x 3, CAD s/p CABG 2011, AFib on eliquis, CKD, PAD, admitted with L sided weakness and numbness, being treated for TIA. On tele noted to have afib with HR adequately controlled and brief episodes of PSVT vs regularized afib. pt seen and examined today in nad. states he is being discharged today. states that he follows with Dr. Quesada as outpatient and plans to see Dr. Bay. He denies any palpitations. no sob, pnd, orthopnea, or LE edema. Notes chest discomfort when being pulled for assistance in moving in bed but otherwise no chest pain. - History Source History Provided By: Patient, Medical Record Limitations to Obtaining History: No Limitations - Past Medical History SUB ACUTE CARE NURSE: Yes: CVA (Left sided weakness facial droop cognitive loss c/w Right CVA) Cardio/Vascular: Yes: Other (Severe PVD Bilateral Carotid Endarterectomies Claudication SFA occlusions bilaterally) Pulmonary: Yes: COPD Gastrointestinal: Yes: Diverticulitis (receurrent), Gastritis, GERD, GI Bleed (Rectal), Hemorrhoids Renal/: Yes: Renal Inusuff, BPH Infectious Disease: Yes: C-Diff (recent resolved), Other (Chronic folliculitis) Psych: Yes: Other (Behavioral changes after CVA) Musculoskeletal: Yes: Chronic low back pain (Active presently) Endocrine: Yes: Diabetes Mellitus, Other (Insulin Resistance) Dermatology: Yes: Other (Acneiform rash/folliculitis/rosacea) - Past Surgical History Past Surgical History: Yes: CABG (3 vessel), Carotid Endarterectomy (Bilateral), Valve Replacement (aortic) - Alcohol/Substance Use Hx Alcohol Use: No History of Substance Use: reports: None - Smoking History Smoking history: Former smoker Have you smoked in the past 12 months: No Aproximately how many cigarettes per day: 0 If you are a former smoker, when did you quit?: 2009 - Social History ADL: Family Assistance History of Recent Travel: No Home Medications - Allergies Allergies/Adverse Reactions: Allergies Allergy/AdvReac Type Severity Reaction Status Date / Time Penicillins Allergy "RASH" Verified 10/23/19 14:01 - Home Medications Home Medications: Ambulatory Orders Allopurinol [Zyloprim -] 150 mg PO DAILY 10/27/17 Apixaban [Eliquis -] 5 mg PO BID 10/27/17 Aspirin [Aspirin EC] 81 mg PO DAILY 10/27/17 Atorvastatin Ca [Lipitor] 80 mg PO HS 10/27/17 Metoprolol Succinate 50 mg PO DAILY 10/27/17 Torsemide 20 mg PO DAILY 10/27/17 Omeprazole 40 mg PO DAILY 02/20/18 Amlodipine Besylate 10 mg PO DAILY 05/16/18 Duloxetine HCl 60 mg PO DAILY 10/23/19 Tamsulosin HCl [Flomax] 0.4 mg PO DAILY 10/23/19 traZODone HCL [Desyrel -] 50 mg PO HS 10/23/19 Family Medical History Family History: Denies Review of Systems - Review of Systems Constitutional: reports: Weakness. denies: No Symptoms, Chills, Diaphoresis, Fever, Lethargy, Loss of Appetite, Malaise, Night Sweats, Unintentional Wgt. Loss, Other Eyes: denies: No Symptoms, Blind Spots, Blurred Vision, Double Vision, Eye Pain, Floaters, Photophobia, Recent Change in Vision, Other HENT: denies: No Symptoms, Difficult Swallowing, Ear Discharge, Ear Pain, Epistaxis, Gingival Bleeding, Hearing Loss, Mouth Swelling, Nasal Congestion, Ocular Prosthesis, Throat Pain, Toothache, Ringing in Ears, Other Neck: denies: No Symptoms, Decreased ROM, Lumps, Pain on Movement, Stiffness, Swollen Glands, Tenderness, Other Cardiovascular: reports: Chest Pain. denies: No Symptoms, Edema, Palpitations, Shortness of Breath, Other Respiratory: denies: No Symptoms, Cough, Exercise Intolerance, Hemoptysis, Orthopnea, PND, Snoring, SOB, SOB on Exertion, Wheezing, Other Gastrointestinal: denies: No Symptoms, Abdominal Pain, Bloating, Constipation, Diarrhea, Dysphagia, Indigestion, Melena, Nausea, Rectal Bleeding, Vomiting, Vomiting Blood, Other Genitourinary: denies: No Symptoms, Burning, Discharge, Dysuria, Flank Pain, Frequency, Hematuria, Incontinence, Lesions, Menses, Pain, Testicular Mass, Testicular Pain, Testicular Swelling, Urgency, Vaginal Bleeding, Other Breasts: denies: No Symptoms Reported, See HPI, Breast Implants, Discharge from Nipple, Lumps, Pain, Skin Changes, Other Musculoskeletal: reports: Muscle Weakness. denies: No Symptoms, Back Pain, Crepitus, Decreased ROM, Extremity Pain, Joint Pain, Joint Swelling, Muscle Pain, Muscle Cramps, Other Integumentary: denies: No Symptoms, Blister, Bruising, Change in Color, Eczema, Erythema, Incision, Lesions, Lump, Pallor, Pruritis, Rash, Wound, Other Neurological: reports: Numbness, Weakness. denies: No Symptoms, Change in LOC, Change in Speech, Confusion, Dizziness, Headache, Incoordination, Parasthesia, Pre-Existing Deficit, Seizure, Syncope, Tremors, Unsteady Gait, Other Endocrine: denies: No Symptoms, Excessive Sweating, Flushing, Increased Hunger, Increased Thirst, Intolerance to Cold, Intolerance to Heat, Unexplained Weight Gain, Unexplained Weight Loss, Other Hematology/Lymphatic: denies: No Symptoms, Easily Bruised, Excessive Bleeding, Swollen Glands, Other Psychiatric: denies: No Symptoms, Altered Sleep Pattern, Anxiety, Depression, Hallucinations, Panic, Paranoia, Suicidal, Other - Risk Factors Known Risk Factors: Yes: Hypercholesterolemia, Hypertension, Prior AK /Emb Stroke Vital Signs: Vital Signs Temperature 98.7 F 10/24/19 08:04 Pulse Rate 88 10/24/19 08:04 Respiratory Rate 18 10/24/19 08:04 Blood Pressure 114/80 10/24/19 08:04 O2 Sat by Pulse Oximetry (%) 100 10/24/19 08:04 Constitutional: Yes: No Distress, Calm Eyes: Yes: Conjunctiva Clear, EOM Intact HENT: Yes: Atraumatic, Normocephalic Neck: Yes: Supple, Trachea Midline Respiratory: Yes: Regular, CTA Bilaterally. No: Rales, Rhonchi, SOB Gastrointestinal: Yes: Normal Bowel Sounds, Soft. No: Distention, Tenderness Cardiovascular: Yes: Pulse Irregular. No: Regular Rate and Rhythm, Bradycardia, Tachycardia, Gallop, Rub, Varicosities JVD: No Carotid Bruit: No PMI: Non-Displaced Heart Sounds: Yes: S1, S2. No: Split S2, S3, S4, Clicks, Gallop, Rub, Bruit Murmur: Yes: Systolic Murmur, Grade 2 Extremities: Yes: WNL Edema: No Peripheral Pulses WNL: Yes Neurological: Yes: Alert, Oriented Psychiatric: Yes: Alert, Oriented - Other Data Labs, Other Data: CBC, BMP 10/24/19 06:43 10/24/19 06:43 INR, PTT INR 1.80 (0.83-1.09) H 10/23/19 12:44 nsr with apcs Echo: Report Reviewed Imaging - Results Chest X-ray: Report Reviewed, Image Reviewed EKG: Report Reviewed, Image Reviewed Other: Report Reviewed, Image Reviewed (tele-nsr, pafib HR controlled, brief psvt) Assessment/Plan 79 year old man with pmh HTN, CVA x 3, CAD s/p CABG 2011, Bio[employer]R, AFib on eliquis, CKD, PAD, admitted with L sided weakness and numbness, being treated for TIA. On tele noted to have afib with HR adequately controlled and brief episodes of PSVT vs regularized afib. states he is being discharged today. states that he follows with Dr. Quesada as outpatient and plans to see Dr. Bay. He denies any palpitations. no sob, pnd, orthopnea, or LE edema. Notes chest discomfort when being pulled for assistance in moving in bed but otherwise no chest pain. CVA -pt with h/o multiple CVA's -known pafib -already on eliquis -echo showed mod inferior wall hypokinesis but normal LVEF, normal functioning bio AVR -no additional inpatient cardiac work up is needed AFib-presume Pafib -pafib seen on tele, HR adequately controlled -cont apixaban -cont metoprolol at current dose PSVT -very brief self limited, asymptomatic episodes -cont toprol -no additional inpatient monitoring is needed Chest pain- -reported when being pulled for assistance in movement in bed -otherwise no chest pain -likely MSK -does not require inpatient ischemic evaluation, outpatient fup [facility] 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
[2019-10-24] MEDS: traZODone HCL 50 MG TABLET (FP) PO SCH (22:03)
[2019-10-24] MEDS: ATORVASTATIN CA 80 MG TABLET (FP) PO SCH (22:03)
[2019-10-24] MEDS: LIDOCAINE PATCH REMOVAL MC SCH (22:15)
[2019-10-25 07:44] LABS: BASO % 1.1 % (0-2.0); EOS % 4.1 % (0-4.5); HEMATOCRIT 30.8 % (35.4-49); HEMOGLOBIN 9.9 GM/dL (11.7-16.9); LYMPH % 16.2 % (8-40); MCH 27.8 pg (25.7-33.7); MCHC 32.3 g/dl (32.0-35.9); MEAN CELL VOLUME 86.2 fl (80-96); MEAN PLT VOLUME 8.2 fl (7.5-11.1); MONO % 8.3 % (3.8-10.2); NEUT % 70.3 % (42.8-82.8); PLATELET COUNT 301 K/MM3 (134-434); RBC 3.57 M/mm3 (4.00-5.60); RDW 16.7 % (11.9-15.9); WHITE BLOOD COUNT 7.2 K/mm3 (4.0-10.0)
[2019-10-25 08:13] LABS: ALBUMIN 2.5 g/dl (3.4-5.0); BILIRUBIN,TOTAL 0.6 mg/dL (0.2-1); BLOOD UREA NITROGEN 28.7 mg/dL (7-18); CALCIUM 8.7 mg/dL (8.5-10.1); CREATININE 1.7 mg/dL (0.55-1.3); POTASSIUM 3.8 mmol/L (3.5-5.1); TOT PROT 6.1 g/dl (6.4-8.2)
--- NOTE | 2019-10-25 10:01 | PN ---
Physical Exam: SUBJECTIVE: Patient seen and examined Patient seen and examined lying in bed, denies chest pain, headache, blurry vision, reports persistent left sided weakness and c/o back pain and tingling to BL feet. MRi pending. 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 Pt was brought to the hospital, and on initial evaluation as per ED quality assurance intern, pt had a NIH of 8. Patient's symptoms improved in the ED. As per Ed resident, Neurology was consulted and recommending continue ASA and AC/Eliquis until tomorrow. Pt has had similar symptoms in the past admissions, but at the time MRI and carotid dopplers were negative. Patient follows his neurologist and health data administrator regularly. He reports he was recently treated for diverticulitis with abx, the name of which he does not recall. Denies f/c/n/v/d/sob/chest pain, numbness or tingling. Overnight cardiac monitor technician events:none reported 10/[address] = negative for acute findings 10/22 Carotid Doppler = negative for stenosis 10/22 Duplex B/L = negative for DVT 10/22 Chest Xray = L base atelectasis vs infiltrate, valve replacement Period Temp Pulse Resp BP Sys/Garcia Pulse Ox Last 24 Hr 98.0 F-98.1 F 78-89 18-20 128-153/65-78 95-100 GENERAL: The patient is awake, alert, and fully oriented, in no acute distress. HEAD: Normal with no signs of trauma. + left facial droop EYES: PERRL, extraocular movements intact, sclera anicteric, conjunctiva clear. No ptosis. ENT: Ears normal, nares patent, oropharynx clear without exudates, moist mucous membranes. NECK: Trachea midline, full range of motion, supple. LUNGS: Breath sounds equal, diminished, clear to auscultation bilaterally, no wheezes, no crackles, no accessory muscle use. HEART: Irregular rhythm, regular rate, S1, S2 without murmur, rub or gallop. ABDOMEN: Soft, nontender, distended, normoactive bowel sounds, no guarding, no rebound, no hepatosplenomegaly, no masses. EXTREMITIES: 2+ pulses right DP, 1+ pulses left DP, warm, well-perfused, no edema. Good cap refill BL lower MSK: +weakness left upper and lower extremity, +back pain NEUROLOGICAL: slow speech, gait not observed. decreased strength left upper and lower extremity, strong hand grasps BL, normal sensation BL lower PSYCH: Normal mood, normal affect. SKIN: Warm, dry, normal turgor, no rashes or lesions noted Laboratory Results - last 24 hr 10/23/19 10/24/19 10/25/19 14:55 17:06 06:24 WBC 7.2 RBC 3.57 L Hgb 9.9 L Hct 30.8 L MCV 86.2 MCH 27.8 MCHC 32.3 RDW 16.7 H Plt Count 301 MPV 8.2 Absolute Neuts (auto) 5.1 Neutrophils % 70.3 Lymphocytes % 16.2 Monocytes % 8.3 Eosinophils % 4.1 Basophils % 1.1 Nucleated RBC % 0 Sodium Potassium Chloride Carbon Dioxide Anion Gap BUN Creatinine Est GFR (CKD-EPI)AfAm Est GFR (CKD-EPI)NonAf POC Glucometer 118 Random Glucose Calcium Total Bilirubin AST ALT Alkaline Phosphatase Total Protein Albumin COVID-19 (DANIEL) Not detected 10/25/19 10/25/19 06:24 06:43 WBC RBC Hgb Hct MCV MCH MCHC RDW Plt Count MPV Absolute Neuts (auto) Neutrophils % Lymphocytes % Monocytes % Eosinophils % Basophils % Nucleated RBC % Sodium 142 Potassium 3.8 Chloride 106 Carbon Dioxide 30 Anion Gap 7 L BUN 28.7 H Creatinine 1.7 H Est GFR (CKD-EPI)AfAm 43.79 Est GFR (CKD-EPI)NonAf 37.79 POC Glucometer 108 Random Glucose 102 Calcium 8.7 Total Bilirubin 0.6 AST 16 ALT 15 Alkaline Phosphatase 112 Total Protein 6.1 L Albumin 2.5 L COVID-19 (DANIEL) Active Medications Generic Name Dose Route Start Last Admin Trade Name Freq PRN Reason Stop Dose Admin Apixaban 5 mg 10/23/19 16:32 10/24/19 22:03 Eliquis - PO 5 mg BID ABI Administration Aspirin 81 mg 10/24/19 10:00 10/24/19 11:22 Ecotrin - PO 81 mg DAILY ABI Administration Atorvastatin Calcium 80 mg 10/23/19 16:09 10/24/19 22:03 Lipitor - PO 80 mg HS ABI Administration Duloxetine HCl 60 mg 10/24/19 10:00 10/24/19 11:22 Cymbalta - PO 60 mg DAILY ABI Administration Lidocaine 1 patch 10/24/19 13:15 10/24/19 13:14 Lidoderm Patch - TP 1 patch DAILY ABI Administration Lorazepam 1 mg 10/24/19 14:59 Ativan - PO Q12H PRN ANXIETY Metoprolol Succinate 50 mg 10/24/19 12:45 10/24/19 12:57 Toprol Xl - PO 50 mg DAILY ABI Administration Miscellaneous 1 each 10/24/19 22:00 10/24/19 22:15 Lidoderm Patch Removal MC 1 each DAILY@2200 ABI Administration Pantoprazole Sodium 40 mg 10/24/19 12:45 10/24/19 12:57 Protonix - PO 40 mg DAILY ABI Administration Trazodone HCl 50 mg 10/24/19 22:00 10/24/19 22:03 Desyrel - PO 50 mg HS ABI Administration ASSESSMENT/PLAN: Problem List - Problems (1) TIA (transient ischemic attack) Assessment/Plan: pt states symptoms have resolved however c/o persistent BL feet tingling Head CT neg Brain MRI pending for today neurology following continue asa and eliquis (as per patient's , eliquis was increased to 5mg BID from 2.5mg BID 2 years ago after pt had CVA) Code(s): G45.9 - TRANSIENT CEREBRAL ISCHEMIC ATTACK, UNSPECIFIED (2) H/O: CVA (cerebrovascular accident) Assessment/Plan: continue eliquis 5mg PO BID neurology following residual left side weakness PT daily continue cardiac monitoring Code(s): Z86.73 - PRSNL HX OF TIA (TIA), AND CEREB INFRC W/O RESID DEFICITS (3) Left-sided weakness Assessment/Plan: residual left side weakness from prior CVA pt reports weakness is same as before admission, however as per pt's weakness has been getting progressively worse over the past week and almost fell 1 day prior to admission plan for inpatient rehab once discharged, pt's reports pt was previously at [place] for rehab Code(s): R53.1 - WEAKNESS (4) Arteriosclerotic heart disease (ASHD) Assessment/Plan: continue lipitor Code(s): I25.10 - ATHSCL HEART DISEASE OF [place] CORONARY ARTERY W/O ANG PCTRS (5) Atrial fibrillation Assessment/Plan: continue cardiac monitoring HR in 80s continue eliquis and asa Code(s): I48.91 - UNSPECIFIED ATRIAL FIBRILLATION Qualifiers: Atrial fibrillation type: unspecified chronic Qualified Code(s): I48.20 - Chronic atrial fibrillation, unspecified; I48.2 - Chronic atrial fibrillation (6) Back pain Assessment/Plan: pt has chronic back pain encourage out of bed ambulation add lidocaine patch and tylenol PRN Code(s): M54.9 - DORSALGIA, UNSPECIFIED Qualifiers: Back pain location: low back pain Chronicity: chronic Back pain laterality: bilateral Sciatica presence: without sciatica Qualified Code(s): M54.5 - Low back pain; G89.29 - Other chronic pain (7) Hypertension Assessment/Plan: resume home dose metoprolol and norvasc Code(s): I10 - ESSENTIAL (PRIMARY) HYPERTENSION Qualifiers: Hypertension type: essential hypertension Qualified Code(s): I10 - Essential (primary) hypertension (8) CKD (chronic kidney disease) Assessment/Plan: creatinine 1.8, stable at baseline continue to monitor encourage free water PO intake repeats labs in AM Code(s): N18.9 - CHRONIC KIDNEY DISEASE, UNSPECIFIED Qualifiers: Chronic kidney disease stage: unspecified stage Qualified Code(s): N18.9 - Chronic kidney disease, unspecified (9) Depression Assessment/Plan: continue trazadone and cymbalta Code(s): F32.9 - MAJOR DEPRESSIVE DISORDER, SINGLE EPISODE, UNSPECIFIED Qualifiers: Depression Type: unspecified Qualified Code(s): F32.9 - Major depressive disorder, single episode, unspecified (10) SVT (supraventricular tachycardia) Assessment/Plan: cardiology notes reviewed and appreciated. no overnight events on tele Code(s): I47.1 - SUPRAVENTRICULAR TACHYCARDIA (11) CHF (congestive heart failure) Assessment/Plan: resume home dose torsemide echo completed 10/23 - EF 60% no s/s fluid overload at this time Code(s): I50.9 - HEART FAILURE, UNSPECIFIED Qualifiers: Heart failure type: unspecified Heart failure chronicity: chronic Qualified Code(s): I50.9 - Heart failure, unspecified (12) Anemia Assessment/Plan: chronic f/u with Dr Fallon outpt Code(s): D64.9 - ANEMIA, UNSPECIFIED Qualifiers: Anemia type: iron deficiency (13) BPH (benign prostatic hyperplasia) Assessment/Plan: resume home dose flomax Code(s): N40.0 - BENIGN PROSTATIC HYPERPLASIA WITHOUT LOWER URINRY TRACT SYMP (14) PVD (peripheral vascular disease) Assessment/Plan: pt sees vascular doctor outpatient f/u outpt Code(s): I73.9 - PERIPHERAL VASCULAR DISEASE, UNSPECIFIED (15) DVT prophylaxis Assessment/Plan: on eliquis out of bed Code(s): Z29.9 - ENCOUNTER FOR PROPHYLACTIC MEASURES, UNSPECIFIED Visit type - Emergency Visit Emergency Visit: Yes ED Registration Date: 10/23/19 Care time: The patient presented to the Emergency Department on the above date and was hospitalized for further evaluation of their emergent condition. - New Patient This patient is new to me today: No - Critical Care Critical Care patient: No - Discharge Referral Referred to [facility] Med P.C[facility] No - Medication Review Med list reviewed for High Risk Meds patients 65 and older: Yes
[2019-10-25] MEDS: ASPIRIN COATED 81 MG TABLET.EC PO SCH (10:15)
[2019-10-25] MEDS: DULoxetine HCL 30 MG CAPSULE.DR PO SCH (10:15)
[2019-10-25] MEDS: LIDOCAINE 5% TOPICAL PATCH TP SCH (10:16)
[2019-10-25] MEDS: PANTOPRAZOLE 40 MG TABLET PO SCH (10:16)
[2019-10-25] MEDS: APIXABAN 5 MG TABLET PO SCH ×2 (10:16→21:41)
--- NOTE | 2019-10-25 10:34 | PN ---
Progress Note, SLUDGE CONTROL ATTENDANT - Note Progress Note: Selected Entries 10/24/19 10/24/19 10/24/19 01:49 05:00 08:04 Breakfast Diet Tolerated Supper Temperature Respiratory 20 18 18 Rate Respiratory Normal Depth Respiratory Non-Labored Effort Blood Pressure 10/24/19 10/24/19 10/24/19 09:46 13:00 17:00 Breakfast 75% Diet Tolerated Well Supper Temperature Respiratory 18 20 Rate Respiratory Depth Respiratory Effort Blood Pressure 10/24/19 10/24/19 10/25/19 19:14 21:00 01:00 Breakfast Diet Tolerated Well Supper 75% Temperature 98.0 F Respiratory 18 Rate Respiratory Depth Respiratory Effort Blood Pressure 153/73 10/25/19 05:00 Breakfast Diet Tolerated Supper Temperature Respiratory Rate Respiratory Depth Respiratory Effort Blood Pressure 128/72 Laboratory Tests 10/25/19 06:24 WBC 7.2 On reg/thin liquids Tolerating diet without cough or overt signs of difficulty
--- NOTE | 2019-10-25 11:49 | PN ---
Progress Note, Physician History of Present Illness: seen and examined today in nad. states his head felt more cloudy overnight and this am. - Current Medication List Current Medications: Active Medications Apixaban (Eliquis -) 5 mg PO BID [facility] Last Admin: 10/25/19 10:16 Dose: 5 mg Documented by: Aspirin (Ecotrin -) 81 mg PO DAILY [facility] Last Admin: 10/25/19 10:15 Dose: 81 mg Documented by: Atorvastatin Calcium (Lipitor -) 80 mg PO [facility] Last Admin: 10/24/19 22:03 Dose: 80 mg Documented by: Duloxetine HCl (Cymbalta -) 60 mg PO DAILY [facility] Last Admin: 10/25/19 10:15 Dose: 60 mg Documented by: Lidocaine (Lidoderm Patch -) 1 patch TP DAILY [facility] Last Admin: 10/25/19 10:16 Dose: 1 patch Documented by: Lorazepam (Ativan -) 1 mg PO Q12H PRN PRN Reason: ANXIETY Metoprolol Succinate (Toprol Xl -) 50 mg PO DAILY [facility] Last Admin: 10/25/19 10:16 Dose: 50 mg Documented by: Miscellaneous (Lidoderm Patch Removal) 1 each MC DAILY@2200 [facility] Last Admin: 10/24/19 22:15 Dose: 1 each Documented by: Pantoprazole Sodium (Protonix -) 40 mg PO DAILY [facility] Last Admin: 10/25/19 10:16 Dose: 40 mg Documented by: Trazodone HCl (Desyrel -) 50 mg PO [facility] Last Admin: 10/24/19 22:03 Dose: 50 mg Documented by: - Objective Vital Signs: Vital Signs Temperature 98.4 F 10/25/19 09:00 Pulse Rate 98 H 10/25/19 09:00 Respiratory Rate 22 H 10/25/19 09:00 Blood Pressure 136/84 10/25/19 09:00 O2 Sat by Pulse Oximetry (%) 94 L 10/25/19 09:00 Constitutional: Yes: No Distress, Calm Eyes: Yes: Conjunctiva Clear, EOM Intact HENT: Yes: Atraumatic, Normocephalic Neck: Yes: Supple, Trachea Midline Cardiovascular: Yes: Regular Rate and Rhythm, S1, S2. No: Bradycardia, Tachycardia, Pulse Irregular, Bruit, JVD, Gallop, Murmur, Rub, S3, S4, Varicosities Respiratory: Yes: Regular, CTA Bilaterally Gastrointestinal: Yes: Normal Bowel Sounds, Soft Musculoskeletal: Yes: WNL Extremities: Yes: WNL Edema: No Peripheral Pulses WNL: Yes Peripheral Pulses: Left Doralis Pedis: 2+, Right Dorsalis Pedis: 2+ Neurological: Yes: Alert Psychiatric: Yes: Alert Labs: CBC, BMP 10/25/19 06:24 10/25/19 06:24 INR, PTT INR 1.80 (0.83-1.09) H 10/23/19 12:44 - ....Imaging Chest X-ray: Report Reviewed, Image Reviewed EKG: Report Reviewed, Image Reviewed Other: Report Reviewed, Image Reviewed (tele-adalgisa, pafib, episodes of PSVT) Assessment/Plan 79 year old man with pmh HTN, CVA x 3, CAD s/p CABG 2011, BioAVR, AFib on eliquis, CKD, PAD, admitted with L sided weakness and numbness, being treated for TIA. On tele noted to have afib with HR adequately controlled and brief episodes of PSVT vs regularized afib. states he is being discharged today. states that he follows with Dr. Quesada as outpatient and plans to see Dr. Bay. He denies any palpitations. no sob, pnd, orthopnea, or LE edema. Notes chest discomfort when being pulled for assistance in moving in bed but otherwise no chest pain. CVA -pt with h/o multiple CVA's -known pafib -already on eliquis -echo showed mod inferior wall hypokinesis but normal LVEF, normal functioning bio AVR -no additional inpatient cardiac work up is needed AFib-presume Pafib -pafib seen on tele, HR on average adequately controlled at times above goal -cont apixaban -cont metoprolol at current dose and uptitrate if needed for HR control PSVT -very brief self limited, asymptomatic episodes -cont metoprolol at current dose and uptitrate if needed for HR control -no additional inpatient monitoring is needed Chest pain- -reported when being pulled for assistance in movement in bed -otherwise no chest pain -likely MSK -does not require inpatient ischemic evaluation, outpatient fup [facility] 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
--- NOTE | 2019-10-25 13:20 | PN ---
Progress Note (short form) - Note Progress Note: cc Worsening of left sided weakness HPI 79 year old male hsitory of left HP with residual weakness, chf, HTN, CKD,Atrial fibrillation, s/p cabg, gout, carotid endartectomy. Patient came with worsenign of left sided weakness. Pateint has ct head was unremarkable for acute findings, his nih score was 8 and he improved in ed. no new complain, aspirin was added to eliquis. Mri of brain is pending NEUROLOGICAL EXAMINATION Alert oriented x 2, speech is slightly dysarthric eomi, left facial weakness left hemiparesis ct head unremarkable carotid ultrasound no stenosis mri of brain is normal Assessment/Plan TIA , risk factor stroke, cad, previous carotid stenosis, on eliquis and lipitor at home Plan: mri of brain pending carotid ultrasound uremarkable, speech consult appreciated - stroke education -add aspirin, risk explained - continue statin - dvt prophylaxis, and pt Thanking you so much Willie Ledezma MD
[2019-10-25 15:01] VITALS: BMI 35.3
[2019-10-25] MEDS: LORazepam 1 MG TABLET PO PRN (17:59)
[2019-10-25] MEDS: ATORVASTATIN CA 80 MG TABLET (FP) PO SCH (21:41)
[2019-10-25] MEDS: traZODone HCL 50 MG TABLET (FP) PO SCH (21:42)
[2019-10-25] MEDS: LIDOCAINE PATCH REMOVAL MC SCH (21:48)
[2019-10-26 07:06] LABS: BASO % 0.8 % (0-2.0); EOS % 4.6 % (0-4.5); HEMATOCRIT 30.5 % (35.4-49); HEMOGLOBIN 10.1 GM/dL (11.7-16.9); LYMPH % 18.6 % (8-40); MCH 28.1 pg (25.7-33.7); MEAN CELL VOLUME 85.3 fl (80-96); MEAN PLT VOLUME 8.4 fl (7.5-11.1); MONO % 8.6 % (3.8-10.2); NEUT % 67.4 % (42.8-82.8); PLATELET COUNT 287 K/MM3 (134-434); RBC 3.58 M/mm3 (4.00-5.60); RDW 17.5 % (11.9-15.9); WHITE BLOOD COUNT 7.4 K/mm3 (4.0-10.0)
[2019-10-26 07:21] LABS: ALBUMIN 2.4 g/dl (3.4-5.0); BILIRUBIN,TOTAL 0.4 mg/dL (0.2-1); BLOOD UREA NITROGEN 25.2 mg/dL (7-18); CALCIUM 8.8 mg/dL (8.5-10.1); CREATININE 1.5 mg/dL (0.55-1.3); MAGNESIUM 2.6 mg/dL (1.8-2.4); POTASSIUM 4.2 mmol/L (3.5-5.1); TOT PROT 5.9 g/dl (6.4-8.2)
[2019-10-26] MEDS: DULoxetine HCL 30 MG CAPSULE.DR PO SCH (09:39)
[2019-10-26] MEDS: APIXABAN 5 MG TABLET PO SCH (09:40)
[2019-10-26] MEDS: PANTOPRAZOLE 40 MG TABLET PO SCH (09:40)
[2019-10-26] MEDS: ASPIRIN COATED 81 MG TABLET.EC PO SCH (09:40)
[2019-10-26] MEDS: LIDOCAINE 5% TOPICAL PATCH TP SCH (09:40)
[2019-10-26] MEDS ORDERED: TORSEMIDE 20 MG TABLET (FP) PO SCH (10:00)
--- NOTE | 2019-10-26 11:47 | PN ---
Progress Note, Physician History of Present Illness: no overnight events. no new complaints. - Current Medication List Current Medications: Active Medications Apixaban (Eliquis -) 5 mg PO BID [facility] Last Admin: 10/26/19 09:40 Dose: 5 mg Documented by: Aspirin (Ecotrin -) 81 mg PO DAILY [facility] Last Admin: 10/26/19 09:40 Dose: 81 mg Documented by: Atorvastatin Calcium (Lipitor -) 80 mg PO [facility] Last Admin: 10/25/19 21:41 Dose: 80 mg Documented by: Duloxetine HCl (Cymbalta -) 60 mg PO DAILY [facility] Last Admin: 10/26/19 09:39 Dose: 60 mg Documented by: Lidocaine (Lidoderm Patch -) 1 patch TP DAILY [facility] Last Admin: 10/26/19 09:40 Dose: 1 patch Documented by: Lorazepam (Ativan -) 1 mg PO Q12H PRN PRN Reason: ANXIETY Last Admin: 10/25/19 17:59 Dose: 1 mg Documented by: Metoprolol Succinate (Toprol Xl -) 50 mg PO DAILY [facility] Last Admin: 10/26/19 09:39 Dose: 50 mg Documented by: Miscellaneous (Lidoderm Patch Removal) 1 each MC DAILY@2200 [facility] Last Admin: 10/25/19 21:48 Dose: 1 each Documented by: Pantoprazole Sodium (Protonix -) 40 mg PO DAILY [facility] Last Admin: 10/26/19 09:40 Dose: 40 mg Documented by: Torsemide (Demadex -) 20 mg PO DAILY [facility] Last Admin: 10/26/19 09:40 Dose: 20 mg Documented by: Trazodone HCl (Desyrel -) 50 mg PO [facility] Last Admin: 10/25/19 21:42 Dose: 50 mg Documented by: - Objective Vital Signs: Vital Signs Temperature 98.8 F 10/26/19 05:54 Pulse Rate 78 10/26/19 05:54 Respiratory Rate 18 10/26/19 05:54 Blood Pressure 137/53 L 10/26/19 05:54 O2 Sat by Pulse Oximetry (%) 95 10/26/19 05:54 Constitutional: Yes: No Distress, Calm Eyes: Yes: Conjunctiva Clear, EOM Intact HENT: Yes: Atraumatic, Normocephalic Neck: Yes: Supple, Trachea Midline Cardiovascular: Yes: Pulse Irregular, S1, S2. No: Regular Rate and Rhythm, Bradycardia, Tachycardia, Bruit, JVD, Gallop, Murmur, Rub, S3, S4, Varicosities Respiratory: Yes: Regular, CTA Bilaterally. No: Rales, Rhonchi, Wheezes Gastrointestinal: Yes: Normal Bowel Sounds, Soft Extremities: Yes: WNL Edema: No Peripheral Pulses WNL: Yes Peripheral Pulses: Left Doralis Pedis: 2+, Right Dorsalis Pedis: 2+ Neurological: Yes: Alert, Oriented Psychiatric: Yes: Alert, Oriented Labs: CBC, BMP 10/26/19 05:50 10/26/19 05:50 INR, PTT INR 1.80 (0.83-1.09) H 10/23/19 12:44 - ....Imaging Chest X-ray: Report Reviewed, Image Reviewed EKG: Report Reviewed, Image Reviewed Other: Report Reviewed, Image Reviewed (tele-Afib, HR controlled, PVCs) Assessment/Plan 79 year old man with pmh HTN, CVA x 3, CAD s/p CABG 2011, BioAVR, AFib on eliquis, CKD, PAD, admitted with L sided weakness and numbness, being treated for TIA. On tele noted to have afib with HR adequately controlled and brief episodes of PSVT vs regularized afib. states he is being discharged today. states that he follows with Dr. Quesada as outpatient and plans to see Dr. Bay. He denies any palpitations. no sob, pnd, orthopnea, or LE edema. Notes chest discomfort when being pulled for assistance in moving in bed but otherwise no chest pain. CVA -pt with h/o multiple CVA's -known pafib -already on eliquis -echo showed mod inferior wall hypokinesis but normal LVEF, normal functioning bio AVR -no additional inpatient cardiac work up is needed AFib-presume Pafib -pafib seen on tele, HR on average adequately controlled at times above goal -cont apixaban -cont metoprolol at current dose and uptitrate if needed for HR control PSVT -very brief self limited, asymptomatic episodes -cont metoprolol at current dose and uptitrate if needed for HR control -no additional inpatient monitoring is needed Chest pain- -reported when being pulled for assistance in movement in bed -otherwise no chest pain -likely MSK -does not require inpatient ischemic evaluation, outpatient fup [facility] 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 Will see as needed. Please call with any additional questions.
[2019-10-26] MEDS ORDERED: POLYETHYLENE GLYCOL 3350 119 GM BTL PO ONE (12:07)
--- NOTE | 2019-10-26 12:19 | DS ---
Physical Exam: SUBJECTIVE: Patient seen and examined. sitting in chair, denies discomfort. 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 Pt was brought to the hospital, and on initial evaluation as per ED fall internship, pt had a NIH of 8. Patient's symptoms improved in the ED. As per Ed resident, Neurology was consulted and recommending continue ASA and AC/Eliquis. Pt has had similar symptoms in the past admissions, but at the time MRI and carotid dopplers were negative. 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 He reports he was recently treated for diverticulitis with abx, the name of which he does not recall. Denies f/c/n/v/d/sob/chest pain, numbness or tingling. imagin/[address] = negative for acute findings 10/22 Carotid Doppler = negative for stenosis 10/22 Duplex B/L = negative for DVT 10/22 Chest Xray = L base atelectasis vs infiltrate, valve replacement brain mri 10/26/2019: no acute infarct Vital Signs Period Temp Pulse Resp BP Sys/Garcia Pulse Ox Last 24 Hr 97.7 F-98.8 F 72-85 18-20 114-143/53-77 93-96 PHYSICAL EXAM GENERAL: The patient is awake, alert, and fully oriented, in no acute distress. HEAD: Normal with no signs of trauma. + left facial droop EYES: PERRL, extraocular movements intact, sclera anicteric, conjunctiva clear. No ptosis. ENT: Ears normal, nares patent, oropharynx clear without exudates, moist mucous membranes. NECK: Trachea midline, full range of motion, supple. LUNGS: Breath sounds equal, diminished, clear to auscultation bilaterally, no wheezes, no crackles, no accessory muscle use. HEART: Irregular rhythm, regular rate, S1, S2 without murmur, rub or gallop. ABDOMEN: Soft, nontender, distended, normoactive bowel sounds, no guarding, no rebound, no hepatosplenomegaly, no masses. EXTREMITIES: 2+ pulses right DP, 1+ pulses left DP, warm, well-perfused, no edema. Good cap refill BL lower MSK: +weakness left upper and lower extremity, +back pain NEUROLOGICAL: slow speech, gait not observed. decreased strength left upper and lower extremity, strong hand grasps BL, normal sensation BL lower PSYCH: Normal mood, normal affect. SKIN: Warm, dry, normal turgor, no rashes or lesions noted LABS Laboratory Results - last 24 hr 10/25/19 10/26/19 10/26/19 22:01 05:50 05:50 WBC 7.4 RBC 3.58 L Hgb 10.1 L Hct 30.5 L MCV 85.3 MCH 28.1 MCHC 33.0 RDW 17.5 H Plt Count 287 MPV 8.4 Absolute Neuts (auto) 5.0 Neutrophils % 67.4 Lymphocytes % 18.6 Monocytes % 8.6 Eosinophils % 4.6 H Basophils % 0.8 Nucleated RBC % 0 Sodium 143 Potassium 4.2 Chloride 107 Carbon Dioxide 30 Anion Gap 6 L BUN 25.2 H Creatinine 1.5 H Est GFR (CKD-EPI)AfAm 50.95 Est GFR (CKD-EPI)NonAf 43.96 POC Glucometer 110 Random Glucose 93 Calcium 8.8 Magnesium 2.6 H Total Bilirubin 0.4 AST 17 ALT 15 Alkaline Phosphatase 111 Total Protein 5.9 L Albumin 2.4 L 10/26/19 06:00 WBC RBC Hgb Hct MCV MCH MCHC RDW Plt Count MPV Absolute Neuts (auto) Neutrophils % Lymphocytes % Monocytes % Eosinophils % Basophils % Nucleated RBC % Sodium Potassium Chloride Carbon Dioxide Anion Gap BUN Creatinine Est GFR (CKD-EPI)AfAm Est GFR (CKD-EPI)NonAf POC Glucometer 93 Random Glucose Calcium Magnesium Total Bilirubin AST ALT Alkaline Phosphatase Total Protein Albumin HOSPITAL COURSE: Date of Admission:10/23/19 Date of Discharge: 10/26/19 Minutes to complete discharge: 45 Discharge Summary Problems reviewed: Yes Reason For Visit: WEAKNESS OF LEFT SIDE OF BODY CVA Current Active Problems [id number] kidney injury (Acute) Anemia (Acute) BPH (benign prostatic hyperplasia) (Acute) CHF (congestive heart failure) (Acute) CKD (chronic kidney disease) (Acute) DVT prophylaxis (Acute) Depression (Acute) PVD (peripheral vascular disease) (Acute) SVT (supraventricular tachycardia) (Acute) TIA (transient ischemic attack) (Acute) Condition: Fair - Instructions Diet, Activity, Other Instructions: DISCHARGE TO [facility] Referrals: Martinez Fallon MD [Primary Care Provider] - Willie Ledezma MD [Staff Physician] - Disposition: PHYSICAL REHABILATION FACILITY - Home Medications Comprehensive Discharge Medication List: Ambulatory Orders Allopurinol [Zyloprim -] 150 mg PO DAILY 10/27/17 Apixaban [Eliquis -] 5 mg PO BID 10/27/17 Aspirin [Aspirin EC] 81 mg PO DAILY 10/27/17 Atorvastatin Ca [Lipitor] 80 mg PO HS 10/27/17 Metoprolol Succinate 50 mg PO DAILY 10/27/17 Torsemide 20 mg PO DAILY 10/27/17 Omeprazole 40 mg PO DAILY 02/20/18 Duloxetine HCl 60 mg PO DAILY 10/23/19 Tamsulosin HCl [Flomax] 0.4 mg PO DAILY 10/23/19 traZODone HCL [Desyrel -] 50 mg PO HS 10/23/19 Lidocaine 5% Patch [Lidoderm -] 1 patch TP DAILY patch 10/26/19 Pantoprazole Sodium [Protonix -] 40 mg PO DAILY tablet.ec 10/26/19 Problem List - Problems (1) TIA (transient ischemic attack) Assessment/Plan: pt states symptoms have resolved however c/o persistent BL feet tingling Head CT neg Brain MRI with no acute infarcts neurology following continue asa and eliquis (as per patient's , eliquis was increased to 5mg BID from 2.5mg BID 2 years ago after pt had CVA) Code(s): G45.9 - TRANSIENT CEREBRAL ISCHEMIC ATTACK, UNSPECIFIED (2) H/O: CVA (cerebrovascular accident) Assessment/Plan: continue eliquis 5mg PO BID neurology following residual left side weakness PT daily continue cardiac monitoring Code(s): Z86.73 - PRSNL HX OF TIA (TIA), AND CEREB INFRC W/O RESID DEFICITS (3) Left-sided weakness Assessment/Plan: residual left side weakness from prior CVA pt reports weakness is same as before admission, however as per pt's weakness has been getting progressively worse over the past week and almost fell 1 day prior to admission discharge for Du zuniga Code(s): R53.1 - WEAKNESS (4) Arteriosclerotic heart disease (ASHD) Assessment/Plan: continue lipitor Code(s): I25.10 - ATHSCL HEART DISEASE OF [place] CORONARY ARTERY W/O ANG PCTRS (5) Atrial fibrillation Assessment/Plan: continue cardiac monitoring HR in 80s continue eliquis and asa Code(s): I48.91 - UNSPECIFIED ATRIAL FIBRILLATION Qualifiers: Atrial fibrillation type: unspecified chronic Qualified Code(s): I48.20 - Chronic atrial fibrillation, unspecified; I48.2 - Chronic atrial fibrillation (6) Back pain Assessment/Plan: pt has chronic back pain encourage out of bed ambulation add lidocaine patch and tylenol PRN Code(s): M54.9 - DORSALGIA, UNSPECIFIED Qualifiers: Back pain location: low back pain Chronicity: chronic Back pain laterality: bilateral Sciatica presence: without sciatica Qualified Code(s): M54.5 - Low back pain; G89.29 - Other chronic pain (7) Hypertension Assessment/Plan: resume home dose metoprolol and norvasc Code(s): I10 - ESSENTIAL (PRIMARY) HYPERTENSION Qualifiers: Hypertension type: essential hypertension Qualified Code(s): I10 - Essential (primary) hypertension (8) CKD (chronic kidney disease) Assessment/Plan: creatinine 1.8, stable at baseline continue to monitor encourage free water PO intake repeats labs in AM Code(s): N18.9 - CHRONIC KIDNEY DISEASE, UNSPECIFIED Qualifiers: Chronic kidney disease stage: unspecified stage Qualified Code(s): N18.9 - Chronic kidney disease, unspecified (9) Depression Assessment/Plan: continue trazadone and cymbalta Code(s): F32.9 - MAJOR DEPRESSIVE DISORDER, SINGLE EPISODE, UNSPECIFIED Qualifiers: Depression Type: unspecified Qualified Code(s): F32.9 - Major depressive disorder, single episode, unspecified (10) SVT (supraventricular tachycardia) Assessment/Plan: cardiology notes reviewed and appreciated. no overnight events on tele Code(s): I47.1 - SUPRAVENTRICULAR TACHYCARDIA (11) CHF (congestive heart failure) Assessment/Plan: resume home dose torsemide echo completed 10/23 - EF 60% no s/s fluid overload at this time Code(s): I50.9 - HEART FAILURE, UNSPECIFIED Qualifiers: Heart failure type: unspecified Heart failure chronicity: chronic Qualified Code(s): I50.9 - Heart failure, unspecified (12) Anemia Assessment/Plan: chronic f/u with Dr Fallon outpt Code(s): D64.9 - ANEMIA, UNSPECIFIED Qualifiers: Anemia type: iron deficiency (13) BPH (benign prostatic hyperplasia) Assessment/Plan: resume home dose flomax Code(s): N40.0 - BENIGN PROSTATIC HYPERPLASIA WITHOUT LOWER URINRY TRACT SYMP (14) PVD (peripheral vascular disease) Assessment/Plan: pt sees vascular doctor outpatient f/u outpt Code(s): I73.9 - PERIPHERAL VASCULAR DISEASE, UNSPECIFIED (15) DVT prophylaxis Assessment/Plan: on eliquis out of bed Code(s): Z29.9 - ENCOUNTER FOR PROPHYLACTIC MEASURES, UNSPECIFIED This patient is new to me today: No Emergency Visit: Yes ED Registration Date: 10/23/19 Care time: The patient presented to the Emergency Department on the above date and was hospitalized for further evaluation of their emergent condition. Critical Care patient: No - Discharge Referral Referred to [facility] Med P.C.: No
[2019-10-26 14:15] VITALS: BP 120/66; PULSE 76; TEMP 98
[2019-10-26] MEDS: LORazepam 1 MG TABLET PO PRN (14:15)
--- NOTE | 2019-10-26 22:43 | PN ---
Progress Note (short form) - Note Progress Note: 79 year old male hsitory of left HP with residual weakness, chf, HTN, CKD,Atrial fibrillation, s/p cabg, gout, carotid endartectomy. Patient came with worsenign of left sided weakness. Pateint has ct head was unremarkable for acute findings, his nih score was 8 and he improved in ed. no new complain, aspirin was added to eliquis. Mri of brain is pending NEUROLOGICAL EXAMINATION Alert oriented x 2, speech is slightly dysarthric eomi, left facial weakness left hemiparesis ct head unremarkable carotid ultrasound no stenosis mri of brain is normal Assessment/Plan TIA , risk factor stroke, cad, previous carotid stenosis, on eliquis and lipitor at home Plan: mri of brain pending carotid ultrasound uremarkable, - continue statin and eliquis - dvt prophylaxis, and pt Thanking you so much Willie Ledezma MD
== END 2019-10-26 15:08 | DRG 69 ==
LOC: JER 11:21 → JERBED 15:45 → INTOOBSV 15:45 → OBSVTOIN 15:45 → J4W 22:53
PROVIDERS: ADMIT Internal Medicine; ATTEND Nurse Practitioner Family
DX: G45.9 Transient cerebral ischemic attack, unspecified (principal); I47.1 Supraventricular tachycardia; N17.9 Acute kidney failure, unspecified; I69.354 Hemiplegia and hemiparesis following cerebral infarction affecting left non-dominant side; D64.9 Anemia, unspecified; I50.9 Heart failure, unspecified; N18.9 Chronic kidney disease, unspecified; N40.0 Benign prostatic hyperplasia without lower urinary tract symptoms; F32.9 Major depressive disorder, single episode, unspecified; I25.10 Atherosclerotic heart disease of native coronary artery without angina pectoris; I48.91 Unspecified atrial fibrillation; M54.5 Low back pain; I73.9 Peripheral vascular disease, unspecified; Z95.1 Presence of aortocoronary bypass graft; R07.9 Chest pain, unspecified
CPT/HCPCS: 36415; 70450-TC; 70551-TC; 71045-TC-FY; 80053; 80061; 81003; 82550; 82962; 83036; 83540; 83550; 83721; 83735; 84100; 84484; 85025; 85610; 85730; 86850; 86900; 86901; 93005; 93010; 93306-TC; 93880-TC; 93925-TC; 93971-TC; 97116-GP; 97162-GP; 99285-25; U0003

== ENCOUNTER 2020-03-09 11:16 | Emergency (ER) | payer OTHER, MEDICARE ==
[2020-03-09 11:24] VITALS: BMI 33.0
[2020-03-09 13:49] LABS: EOS % 1.3 % (0-4.5); HEMATOCRIT 28.6 % (35.4-49); HEMOGLOBIN 9.1 GM/dL (11.7-16.9); LYMPH % 14.6 % (8-40); MCH 24.4 pg (25.7-33.7); MCHC 31.6 g/dl (32.0-35.9); MEAN CELL VOLUME 77.2 fl (80-96); MONO % 14.3 % (3.8-10.2); NEUT % 68.8 % (42.8-82.8); PLATELET COUNT 270 K/MM3 (134-434); RBC 3.71 M/mm3 (4.00-5.60); RDW 21.9 % (11.9-15.9); WHITE BLOOD COUNT 4.4 K/mm3 (4.0-10.0)
[2020-03-09 13:52] LABS: CHLORIDE 102 mmol/L (98-107); POTASSIUM 3.9 mmol/L (3.5-5.1); SODIUM 139 mmol/L (136-145)
[2020-03-09 13:54] LABS: CALCIUM 8.4 mg/dL (8.5-10.1)
[2020-03-09 13:55] LABS: ALBUMIN 2.6 g/dl (3.4-5.0); ANION GAP 9 MMOL/L (8-16); BLOOD UREA NITROGEN 29.2 mg/dL (7-18); CO2 28 mmol/L (21-32); GLUCOSE,RANDOM 124 mg/dL (74-106)
[2020-03-09 13:57] LABS: INR 1.96 (0.83-1.09); PROTHROMBIN TIME (PATIENT) 23.2 SEC (9.7-13.0)
[2020-03-09 13:58] LABS: CREATININE 1.8 mg/dL (0.55-1.3); SGOT/AST 30 U/L (15-37); SGPT/ALT 23 U/L (13-61)
[2020-03-09 13:59] LABS: BILIRUBIN,TOTAL 0.3 mg/dL (0.2-1); TOT PROT 6.9 g/dl (6.4-8.2)
[2020-03-09 14:01] LABS: ALK PHOS 140 U/L (45-117)
[2020-03-09] MEDS ORDERED: ACETAMINOPHEN 325 MG TABLET (FP) PO ONE (14:08)
[2020-03-09] MEDS ORDERED: LIDOCAINE 5% TOPICAL PATCH TP ONE (14:08)
[2020-03-09] MEDS ORDERED: LIDOCAINE 5% TOPICAL PATCH ONE (14:25)
[2020-03-09] MEDS ORDERED: ACETAMINOPHEN 325 MG TABLET (FP) ONE (14:25)
[2020-03-09 14:54] LABS: ANISOCYTOSIS 1+; PLATELET ESTIMATE NORMAL
[2020-03-09 18:14] VITALS: BP 120/72; PULSE 76; TEMP 97.8
[2020-03-09] MEDS ORDERED: LIDOCAINE PATCH REMOVAL MC ONE (22:00)
== END 2020-03-09 18:27 | disposition home or self-care (01) ==
LOC: JER 11:16
DX: S39.012A Strain of muscle, fascia and tendon of lower back, initial encounter (principal)
CPT/HCPCS: 36415; 70450-TC; 72125-TC; 80053; 82550; 84484; 85025; 85610; 99285-25

== ENCOUNTER 2020-03-18 13:31 | Inpatient (IN) | payer OTHER, MEDICARE ==
[2020-03-18] MEDS ORDERED: ACETAMINOPHEN INJECTION 100 ML IVPB ONE ×2 (14:28→22:54)
[2020-03-18] MEDS ORDERED: ACETAMINOPHEN 1000 MG/100 ML BAG IVPB ONE ×2 (14:29→22:49)
[2020-03-18] MEDS ORDERED: SODIUM CHLORIDE 1,000 ML IV SCH (14:30)
[2020-03-18 14:54] LABS: BASO % 0.8 % (0-2.0); EOS % 0.3 % (0-4.5); HEMATOCRIT 27.9 % (35.4-49); LYMPH % 12.3 % (8-40); MCH 24.5 pg (25.7-33.7); MCHC 32.3 g/dl (32.0-35.9); NEUT % 79.6 % (42.8-82.8); PLATELET COUNT 268 K/MM3 (134-434); RBC 3.68 M/mm3 (4.00-5.60); RDW 21.5 % (11.9-15.9); WHITE BLOOD COUNT 4.3 K/mm3 (4.0-10.0)
[2020-03-18 15:03] LABS: INR 2.37 (0.83-1.09); PROTHROMBIN TIME (PATIENT) 28.4 SEC (9.7-13.0)
[2020-03-18 15:05] LABS: ACTIVATED PTT 34.1 SECONDS (25.2-36.5); URINE APPEARANCE Error; URINE BILIRUBIN NEGATIVE (NEGATIVE); URINE COLOR YELLOW; URINE GLUCOSE (UA) NEGATIVE (NEGATIVE); URINE KETONE NEGATIVE (NEGATIVE); URINE LEUK ESTERASE NEGATIVE (NEGATIVE); URINE NITRITE NEGATIVE (NEGATIVE); URINE PROTEIN NEGATIVE (NEGATIVE); URINE UROBILINOGEN 0.2 mg/dL (0.2-1.0)
[2020-03-18 15:19] LABS: ALBUMIN 2.6 g/dl (3.4-5.0); CALCIUM 8.9 mg/dL (8.5-10.1)
[2020-03-18 15:20] LABS: BLOOD UREA NITROGEN 49.2 mg/dL (7-18)
[2020-03-18 15:23] LABS: CREATININE 2.3 mg/dL (0.55-1.3)
[2020-03-18 15:24] LABS: BILIRUBIN,TOTAL 0.6 mg/dL (0.2-1); TOT PROT 7.2 g/dl (6.4-8.2)
[2020-03-18 15:28] LABS: VENOUS BASE EXCESS 2.4 mmol/L (-2-2); VENOUS PCO2 47.4 mmHg (38-52); VENOUS PH 7.385 (7.310-7.410)
[2020-03-18 16:23] LABS: ANISOCYTOSIS 2+; MACROCYTOSIS 2+; PLATELET ESTIMATE NORMAL
[2020-03-18] MEDS ORDERED: DEXAMETHASONE SOD PHOSPHATE 10 MG/1 ML VIAL IVPUSH ONE (16:24)
[2020-03-18] MEDS ORDERED: DEXAMETHASONE SOD PHOSPHATE 10 MG/1 ML VIAL ONE (17:47)
[2020-03-18] MEDS: LACTATED RINGERS SOLUTION 1,000 ML/1,000 ML INFUS.BAG IV SCH (19:15)
[2020-03-18] MEDS ORDERED: APIXABAN 5 MG TABLET ONE (21:18)
[2020-03-18] MEDS ORDERED: ATORVASTATIN CA 80 MG TABLET (FP) ONE (21:18)
[2020-03-18] MEDS ORDERED: AZITHROMYCIN IVPB 500 MG/250 ML BAG IVPB ONE ×2 (21:20→21:25)
[2020-03-18] MEDS: APIXABAN 5 MG TABLET PO SCH (21:55)
[2020-03-18] MEDS: ATORVASTATIN CA 80 MG TABLET (FP) PO SCH (21:56)
[2020-03-18] MEDS ORDERED: traZODone HCL 50 MG TABLET (FP) PO SCH (23:00)
[2020-03-19 07:49] LABS: BASO % 0.5 % (0-2.0); HEMATOCRIT 24.8 % (35.4-49); HEMOGLOBIN 7.9 GM/dL (11.7-16.9); LYMPH % 12.4 % (8-40); MCH 24.5 pg (25.7-33.7); MCHC 31.9 g/dl (32.0-35.9); MEAN CELL VOLUME 76.8 fl (80-96); MEAN PLT VOLUME 8.8 fl (7.5-11.1); MONO % 4.5 % (3.8-10.2); NEUT % 82.6 % (42.8-82.8); PLATELET COUNT 250 K/MM3 (134-434); RBC 3.23 M/mm3 (4.00-5.60); RDW 21.1 % (11.9-15.9); WHITE BLOOD COUNT 3.1 K/mm3 (4.0-10.0)
[2020-03-19] MEDS ORDERED: ASCORBIC ACID 500 MG TABLET (FP) ONE (08:07)
[2020-03-19] MEDS ORDERED: amLODIPine BESYLATE 5 MG TABLET (FP) ONE (08:08)
[2020-03-19] MEDS ORDERED: APIXABAN 5 MG TABLET ONE (08:08)
[2020-03-19] MEDS ORDERED: ASPIRIN COATED 81 MG TABLET.EC ONE (08:08)
[2020-03-19] MEDS ORDERED: TAMSULOSIN HCL 0.4 MG CAP ONE (08:09)
[2020-03-19] MEDS ORDERED: PANTOPRAZOLE 20 MG TABLET PO ONE (08:09)
[2020-03-19] MEDS: TAMSULOSIN HCL 0.4 MG CAP PO SCH (08:30)
[2020-03-19 08:32] LABS: CALCIUM 8.3 mg/dL (8.5-10.1)
[2020-03-19 08:33] LABS: ALBUMIN 2.3 g/dl (3.4-5.0); BLOOD UREA NITROGEN 57.9 mg/dL (7-18); MAGNESIUM 2.2 mg/dL (1.8-2.4)
[2020-03-19 08:35] LABS: PHOSPHOROUS 3.5 mg/dL (2.5-4.9)
[2020-03-19 08:36] LABS: CREATININE 2.4 mg/dL (0.55-1.3)
[2020-03-19 08:37] LABS: TOT PROT 6.4 g/dl (6.4-8.2)
[2020-03-19] MEDS: PANTOPRAZOLE 40 MG TABLET PO SCH (09:10)
[2020-03-19] MEDS: ASCORBIC ACID 500 MG TABLET (FP) PO SCH (09:10)
[2020-03-19] MEDS: amLODIPine BESYLATE 10 MG TABLET (FP) PO SCH (09:10)
[2020-03-19] MEDS: APIXABAN 5 MG TABLET PO SCH ×2 (09:10→22:02)
[2020-03-19] MEDS: ASPIRIN COATED 81 MG TABLET.EC PO SCH (09:10)
[2020-03-19] MEDS ORDERED: CEFTRIAXONE 1 GM in DEXTROSE 5%-WATER - 50 ML IVPB SCH (10:00)
[2020-03-19] MEDS ORDERED: LIDOCAINE 5% TOPICAL PATCH TP ONE (13:59)
[2020-03-19] MEDS ORDERED: ACETAMINOPHEN 1000 MG/100 ML BAG IVPB ONE (14:00)
[2020-03-19] MEDS ORDERED: LIDOCAINE 5% TOPICAL PATCH ONE (14:05)
[2020-03-19] MEDS ORDERED: ACETAMINOPHEN INJECTION 100 ML IVPB ONE (14:05)
[2020-03-19] MEDS ORDERED: DEXAMETHASONE SOD PHOSPHATE 10 MG/1 ML VIAL ONE (15:19)
[2020-03-19] MEDS: DEXAMETHASONE SOD PHOSPHATE 4 MG/1 ML VIAL IVPUSH SCH (15:48)
[2020-03-19] MEDS: CEFTRIAXONE 1 GM in DEXTROSE 5%-WATER - 50 ML IVPB SCH (15:52)
[2020-03-19] MEDS ORDERED: CEFTRIAXONE 1 GM/50 ML BAG ONE (15:52)
[2020-03-19] MEDS: LACTATED RINGERS SOLUTION 1,000 ML/1,000 ML INFUS.BAG IV SCH (18:17)
[2020-03-19] MEDS ORDERED: LIDOCAINE PATCH REMOVAL MC SCH (22:00)
[2020-03-19] MEDS: traZODone HCL 50 MG TABLET (FP) PO SCH (22:02)
[2020-03-19] MEDS: ATORVASTATIN CA 80 MG TABLET (FP) PO SCH (22:02)
[2020-03-19] MEDS: ACETAMINOPHEN 325 MG TABLET (FP) PO PRN (22:02)
[2020-03-20 07:58] LABS: HEMATOCRIT 20.7 % (35.4-49); MCH 24.4 pg (25.7-33.7); MCHC 32.3 g/dl (32.0-35.9); MEAN CELL VOLUME 75.5 fl (80-96); MEAN PLT VOLUME 8.5 fl (7.5-11.1); PLATELET COUNT 282 K/MM3 (134-434); RBC 2.74 M/mm3 (4.00-5.60); RDW 21.3 % (11.9-15.9); WHITE BLOOD COUNT 7.2 K/mm3 (4.0-10.0)
[2020-03-20 08:05] LABS: ALBUMIN 2.1 g/dl (3.4-5.0); BLOOD UREA NITROGEN 77.9 mg/dL (7-18); CALCIUM 8.3 mg/dL (8.5-10.1)
[2020-03-20 08:10] LABS: BILIRUBIN,TOTAL 0.5 mg/dL (0.2-1); TOT PROT 5.6 g/dl (6.4-8.2)
[2020-03-20 08:24] LABS: HEMOGLOBIN 6.7 GM/dL (11.7-16.9)
[2020-03-20] MEDS: TAMSULOSIN HCL 0.4 MG CAP PO SCH (09:02)
[2020-03-20] MEDS ORDERED: cefTRIAXone SODIUM 1 GM VIAL ONE (09:37)
[2020-03-20] MEDS ORDERED: DEXTROSE 5%-WATER - 50 ML IVPB ONE (09:37)
[2020-03-20] MEDS: ASPIRIN COATED 81 MG TABLET.EC PO SCH (09:41)
[2020-03-20] MEDS: DEXAMETHASONE SOD PHOSPHATE 4 MG/1 ML VIAL IVPUSH SCH (09:41)
[2020-03-20] MEDS: amLODIPine BESYLATE 10 MG TABLET (FP) PO SCH (09:41)
[2020-03-20] MEDS: CEFTRIAXONE 1 GM in DEXTROSE 5%-WATER - 50 ML IVPB SCH (09:42)
[2020-03-20] MEDS: ASCORBIC ACID 500 MG TABLET (FP) PO SCH (09:42)
[2020-03-20] MEDS: PANTOPRAZOLE 40 MG TABLET PO SCH (09:42)
[2020-03-20 10:07] LABS: ERYTHROCYTE SEDIMENTATION RATE 101 mm/hr (0-20)
[2020-03-20] MEDS ORDERED: REMDESIVIR 200 MG in SODIUM CHLORIDE 210 ML IVPB ONE (16:15)
[2020-03-20 20:56] LABS: BASO % 0.6 % (0-2.0); EOS % 0.1 % (0-4.5); MCH 24.1 pg (25.7-33.7); MEAN CELL VOLUME 75.5 fl (80-96); MEAN PLT VOLUME 8.5 fl (7.5-11.1); MONO % 2.4 % (3.8-10.2); NEUT % 92.9 % (42.8-82.8); PLATELET COUNT 291 K/MM3 (134-434); RBC 2.78 M/mm3 (4.00-5.60); RDW 21.9 % (11.9-15.9); WHITE BLOOD COUNT 8.1 K/mm3 (4.0-10.0)
[2020-03-20 21:09] LABS: HEMOGLOBIN 6.7 GM/dL (11.7-16.9)
[2020-03-20] MEDS: ATORVASTATIN CA 80 MG TABLET (FP) PO SCH (21:33)
[2020-03-20] MEDS: traZODone HCL 50 MG TABLET (FP) PO SCH (21:33)
[2020-03-20 23:01] LABS: ANISOCYTOSIS 3+; MACROCYTOSIS 0; OVALOCYTE 2+; PLATELET ESTIMATE NORMAL
[2020-03-21 03:20] LABS: BASO % 0.2 % (0-2.0); HEMATOCRIT 23.2 % (35.4-49); HEMOGLOBIN 7.5 GM/dL (11.7-16.9); LYMPH % 4.5 % (8-40); MCH 24.5 pg (25.7-33.7); MCHC 32.2 g/dl (32.0-35.9); MEAN CELL VOLUME 76.1 fl (80-96); MEAN PLT VOLUME 8.2 fl (7.5-11.1); MONO % 4.9 % (3.8-10.2); NEUT % 90.4 % (42.8-82.8); PLATELET COUNT 279 K/MM3 (134-434); RBC 3.05 M/mm3 (4.00-5.60); RDW 20.6 % (11.9-15.9); WHITE BLOOD COUNT 7.7 K/mm3 (4.0-10.0)
[2020-03-21 07:19] LABS: BASO % 0.1 % (0-2.0); HEMATOCRIT 25.6 % (35.4-49); HEMOGLOBIN 8.4 GM/dL (11.7-16.9); LYMPH % 4.9 % (8-40); MCH 24.8 pg (25.7-33.7); MCHC 32.7 g/dl (32.0-35.9); MEAN CELL VOLUME 76.1 fl (80-96); MEAN PLT VOLUME 8.2 fl (7.5-11.1); MONO % 5.6 % (3.8-10.2); NEUT % 89.4 % (42.8-82.8); PLATELET COUNT 294 K/MM3 (134-434); RBC 3.37 M/mm3 (4.00-5.60); RDW 20.5 % (11.9-15.9); WHITE BLOOD COUNT 8.3 K/mm3 (4.0-10.0)
[2020-03-21 07:33] LABS: CALCIUM 8.6 mg/dL (8.5-10.1)
[2020-03-21 07:34] LABS: ALBUMIN 2.3 g/dl (3.4-5.0); BLOOD UREA NITROGEN 66.3 mg/dL (7-18); MAGNESIUM 2.2 mg/dL (1.8-2.4)
[2020-03-21 07:37] LABS: CREATININE 1.7 mg/dL (0.55-1.3); PHOSPHOROUS 2.7 mg/dL (2.5-4.9)
[2020-03-21 07:39] LABS: BILIRUBIN,TOTAL 0.7 mg/dL (0.2-1)
[2020-03-21] MEDS: DEXAMETHASONE SOD PHOSPHATE 4 MG/1 ML VIAL IVPUSH SCH (10:05)
[2020-03-21] MEDS: ASCORBIC ACID 500 MG TABLET (FP) PO SCH (10:05)
[2020-03-21] MEDS: ASPIRIN COATED 81 MG TABLET.EC PO SCH (10:08)
[2020-03-21] MEDS: CHOLECALCIFEROL (VIT D3) 1,000 UNIT (25 MCG) TABLET PO SCH (10:09)
[2020-03-21] MEDS: TAMSULOSIN HCL 0.4 MG CAP PO SCH (10:09)
[2020-03-21] MEDS: amLODIPine BESYLATE 10 MG TABLET (FP) PO SCH (10:09)
[2020-03-21] MEDS: PANTOPRAZOLE 40 MG TABLET PO SCH (10:09)
[2020-03-21] MEDS ORDERED: PT OWN MED DRAWER 7, Y5N ONE (13:38)
[2020-03-21] MEDS: REMDESIVIR 100 MG in SODIUM CHLORIDE 230 ML IVPB SCH (15:49)
[2020-03-21] MEDS: ATORVASTATIN CA 80 MG TABLET (FP) PO SCH (21:24)
[2020-03-21] MEDS: traZODone HCL 50 MG TABLET (FP) PO SCH (21:24)
[2020-03-21] MEDS: APIXABAN 5 MG TABLET PO SCH (21:24)
[2020-03-22 07:29] LABS: HEMATOCRIT 26.5 % (35.4-49); HEMOGLOBIN 8.7 GM/dL (11.7-16.9); MCHC 32.9 g/dl (32.0-35.9); MEAN PLT VOLUME 8.1 fl (7.5-11.1); PLATELET COUNT 333 K/MM3 (134-434); RBC 3.49 M/mm3 (4.00-5.60); RDW 20.8 % (11.9-15.9); WHITE BLOOD COUNT 6.7 K/mm3 (4.0-10.0)
[2020-03-22 07:56] LABS: ALBUMIN 2.3 g/dl (3.4-5.0); BLOOD UREA NITROGEN 55.4 mg/dL (7-18); CALCIUM 8.3 mg/dL (8.5-10.1); MAGNESIUM 2.4 mg/dL (1.8-2.4)
[2020-03-22 07:59] LABS: CREATININE 1.6 mg/dL (0.55-1.3)
[2020-03-22 08:00] LABS: BILIRUBIN,TOTAL 0.5 mg/dL (0.2-1); PHOSPHOROUS 2.8 mg/dL (2.5-4.9)
[2020-03-22 08:01] LABS: TOT PROT 6.2 g/dl (6.4-8.2)
[2020-03-22] MEDS: CHOLECALCIFEROL (VIT D3) 1,000 UNIT (25 MCG) TABLET PO SCH (09:12)
[2020-03-22] MEDS: ASCORBIC ACID 500 MG TABLET (FP) PO SCH (09:12)
[2020-03-22] MEDS: amLODIPine BESYLATE 10 MG TABLET (FP) PO SCH (09:12)
[2020-03-22] MEDS: APIXABAN 5 MG TABLET PO SCH ×2 (09:12→21:33)
[2020-03-22] MEDS: TAMSULOSIN HCL 0.4 MG CAP PO SCH (09:12)
[2020-03-22] MEDS: ASPIRIN COATED 81 MG TABLET.EC PO SCH (09:12)
[2020-03-22] MEDS: PANTOPRAZOLE 40 MG TABLET PO SCH (09:12)
[2020-03-22] MEDS: DEXAMETHASONE SOD PHOSPHATE 4 MG/1 ML VIAL IVPUSH SCH (09:13)
[2020-03-22] MEDS ORDERED: SODIUM CHLORIDE 0.45% 1,000 ML IV SCH (09:45)
[2020-03-22] MEDS: REMDESIVIR 100 MG in SODIUM CHLORIDE 230 ML IVPB SCH (16:25)
[2020-03-22] MEDS: ATORVASTATIN CA 80 MG TABLET (FP) PO SCH (21:33)
[2020-03-22] MEDS: traZODone HCL 50 MG TABLET (FP) PO SCH (21:33)
[2020-03-23 07:21] LABS: BASO % 0.1 % (0-2.0); HEMOGLOBIN 8.6 GM/dL (11.7-16.9); LYMPH % 9.4 % (8-40); MCH 25.2 pg (25.7-33.7); MCHC 32.9 g/dl (32.0-35.9); MEAN CELL VOLUME 76.4 fl (80-96); MEAN PLT VOLUME 7.9 fl (7.5-11.1); MONO % 7.2 % (3.8-10.2); NEUT % 83.3 % (42.8-82.8); PLATELET COUNT 350 K/MM3 (134-434); RBC 3.41 M/mm3 (4.00-5.60); RDW 21.3 % (11.9-15.9); WHITE BLOOD COUNT 7.4 K/mm3 (4.0-10.0)
[2020-03-23 07:35] LABS: ALBUMIN 2.3 g/dl (3.4-5.0); CALCIUM 8.4 mg/dL (8.5-10.1)
[2020-03-23 07:36] LABS: BLOOD UREA NITROGEN 50.1 mg/dL (7-18); MAGNESIUM 2.6 mg/dL (1.8-2.4)
[2020-03-23 07:38] LABS: CREATININE 1.4 mg/dL (0.55-1.3)
[2020-03-23 07:40] LABS: BILIRUBIN,TOTAL 0.5 mg/dL (0.2-1); TOT PROT 6.1 g/dl (6.4-8.2)
[2020-03-23 09:09] LABS: ANISOCYTOSIS 3+; MACROCYTOSIS 0; PLATELET ESTIMATE NORMAL
[2020-03-23] MEDS: APIXABAN 5 MG TABLET PO SCH ×2 (10:26→21:17)
[2020-03-23] MEDS: ASCORBIC ACID 500 MG TABLET (FP) PO SCH (10:26)
[2020-03-23] MEDS: ASPIRIN COATED 81 MG TABLET.EC PO SCH (10:26)
[2020-03-23] MEDS: DEXAMETHASONE SOD PHOSPHATE 4 MG/1 ML VIAL IVPUSH SCH (10:26)
[2020-03-23] MEDS: TAMSULOSIN HCL 0.4 MG CAP PO SCH (10:26)
[2020-03-23] MEDS: PANTOPRAZOLE 40 MG TABLET PO SCH (10:27)
[2020-03-23] MEDS: amLODIPine BESYLATE 10 MG TABLET (FP) PO SCH (10:27)
[2020-03-23] MEDS: CHOLECALCIFEROL (VIT D3) 1,000 UNIT (25 MCG) TABLET PO SCH (10:27)
[2020-03-23] MEDS: REMDESIVIR 100 MG in SODIUM CHLORIDE 230 ML IVPB SCH (16:40)
[2020-03-23] MEDS: traZODone HCL 50 MG TABLET (FP) PO SCH (21:17)
[2020-03-23] MEDS: ATORVASTATIN CA 80 MG TABLET (FP) PO SCH (21:17)
[2020-03-24 07:56] LABS: HEMATOCRIT 27.2 % (35.4-49); HEMOGLOBIN 8.7 GM/dL (11.7-16.9); MCH 24.8 pg (25.7-33.7); MEAN CELL VOLUME 77.4 fl (80-96); MEAN PLT VOLUME 8.1 fl (7.5-11.1); PLATELET COUNT 372 K/MM3 (134-434); RBC 3.51 M/mm3 (4.00-5.60); RDW 20.8 % (11.9-15.9); WHITE BLOOD COUNT 6.7 K/mm3 (4.0-10.0)
[2020-03-24 08:13] LABS: ALBUMIN 2.4 g/dl (3.4-5.0); BLOOD UREA NITROGEN 46.7 mg/dL (7-18); CALCIUM 8.4 mg/dL (8.5-10.1)
[2020-03-24 08:16] LABS: CREATININE 1.4 mg/dL (0.55-1.3)
[2020-03-24 08:18] LABS: BILIRUBIN,TOTAL 0.5 mg/dL (0.2-1); TOT PROT 6.1 g/dl (6.4-8.2)
[2020-03-24] MEDS ORDERED: PT OWN MED DRAWER 7, Y5N ONE (08:50)
[2020-03-24] MEDS: ASPIRIN COATED 81 MG TABLET.EC PO SCH (09:01)
[2020-03-24] MEDS: ASCORBIC ACID 500 MG TABLET (FP) PO SCH (09:01)
[2020-03-24] MEDS: TAMSULOSIN HCL 0.4 MG CAP PO SCH (09:01)
[2020-03-24] MEDS: APIXABAN 5 MG TABLET PO SCH ×2 (09:01→21:44)
[2020-03-24] MEDS: amLODIPine BESYLATE 10 MG TABLET (FP) PO SCH (09:01)
[2020-03-24] MEDS: CHOLECALCIFEROL (VIT D3) 1,000 UNIT (25 MCG) TABLET PO SCH (09:01)
[2020-03-24] MEDS: PANTOPRAZOLE 40 MG TABLET PO SCH (09:01)
[2020-03-24] MEDS: DEXAMETHASONE SOD PHOSPHATE 4 MG/1 ML VIAL IVPUSH SCH (09:02)
[2020-03-24] MEDS: REMDESIVIR 100 MG in SODIUM CHLORIDE 230 ML IVPB SCH (16:16)
[2020-03-24] MEDS: traZODone HCL 50 MG TABLET (FP) PO SCH (21:44)
[2020-03-24] MEDS: ATORVASTATIN CA 80 MG TABLET (FP) PO SCH (21:44)
[2020-03-25 07:01] LABS: HEMOGLOBIN 8.9 GM/dL (11.7-16.9); MCHC 31.9 g/dl (32.0-35.9); MEAN CELL VOLUME 78.2 fl (80-96); MEAN PLT VOLUME 8.1 fl (7.5-11.1); PLATELET COUNT 349 K/MM3 (134-434); RBC 3.58 M/mm3 (4.00-5.60); RDW 21.8 % (11.9-15.9); WHITE BLOOD COUNT 7.3 K/mm3 (4.0-10.0)
[2020-03-25 07:39] LABS: ALBUMIN 2.3 g/dl (3.4-5.0); CALCIUM 8.4 mg/dL (8.5-10.1)
[2020-03-25 07:40] LABS: BLOOD UREA NITROGEN 47.4 mg/dL (7-18); MAGNESIUM 2.8 mg/dL (1.8-2.4)
[2020-03-25 07:42] LABS: CREATININE 1.3 mg/dL (0.55-1.3); PHOSPHOROUS 3.9 mg/dL (2.5-4.9)
[2020-03-25 07:44] LABS: BILIRUBIN,TOTAL 0.4 mg/dL (0.2-1); TOT PROT 5.8 g/dl (6.4-8.2)
[2020-03-25] MEDS ORDERED: PT OWN MED DRAWER 7, Y5N ONE (09:26)
[2020-03-25] MEDS: DEXAMETHASONE SOD PHOSPHATE 4 MG/1 ML VIAL IVPUSH SCH (09:37)
[2020-03-25] MEDS: amLODIPine BESYLATE 10 MG TABLET (FP) PO SCH (09:38)
[2020-03-25] MEDS: TAMSULOSIN HCL 0.4 MG CAP PO SCH (09:38)
[2020-03-25] MEDS: CHOLECALCIFEROL (VIT D3) 1,000 UNIT (25 MCG) TABLET PO SCH (09:38)
[2020-03-25] MEDS: APIXABAN 5 MG TABLET PO SCH ×2 (09:38→21:18)
[2020-03-25] MEDS: ASCORBIC ACID 500 MG TABLET (FP) PO SCH (09:38)
[2020-03-25] MEDS: PANTOPRAZOLE 40 MG TABLET PO SCH (09:38)
[2020-03-25] MEDS: ASPIRIN COATED 81 MG TABLET.EC PO SCH (09:38)
[2020-03-25] MEDS ORDERED: LACTATED RINGERS SOLUTION 1,000 ML/1,000 ML INFUS.BAG IV SCH (13:30)
[2020-03-25 15:01] LABS: EPI CELLS 9 /uL (0-25.1); HYALINE CASTS 1 /uL (0-3.1); PH,URINE 5.5 (5.0-8.0); URINE APPEARANCE CLEAR; URINE BACTERIA 1703 /uL (0-1359); URINE BILIRUBIN NEGATIVE (NEGATIVE); URINE COLOR YELLOW; URINE GLUCOSE (UA) NEGATIVE (NEGATIVE); URINE KETONE NEGATIVE (NEGATIVE); URINE LEUK ESTERASE NEGATIVE (NEGATIVE); URINE NITRITE POSITIVE (NEGATIVE); URINE PROTEIN TRACE (NEGATIVE); URINE RBC 11 /uL (0-23.9); URINE UROBILINOGEN 0.2 mg/dL (0.2-1.0); URINE WBC 9 /uL (0-25.8)
[2020-03-25] MEDS ORDERED: DEXTROSE 5%-WATER - 50 ML IVPB ONE (15:18)
[2020-03-25] MEDS ORDERED: cefTRIAXone SODIUM 1 GM VIAL ONE (15:18)
[2020-03-25] MEDS: CEFTRIAXONE 1 GM in DEXTROSE 5%-WATER - 50 ML IVPB SCH (15:27)
[2020-03-25 16:43] VITALS: BMI 32.9
[2020-03-25 16:50] LABS: YEAST NONE SEEN (NEGATIVE)
[2020-03-25] MEDS ORDERED: POLYETHYLENE GLYCOL 3350 119 GM BTL PO ONE (17:40)
[2020-03-25] MEDS: ACETAMINOPHEN 325 MG TABLET (FP) PO PRN (17:51)
[2020-03-25] MEDS: ATORVASTATIN CA 80 MG TABLET (FP) PO SCH (21:18)
[2020-03-25] MEDS: traZODone HCL 50 MG TABLET (FP) PO SCH (21:18)
[2020-03-26 08:10] LABS: HEMATOCRIT 28.5 % (35.4-49); HEMOGLOBIN 9.2 GM/dL (11.7-16.9); MCH 25.2 pg (25.7-33.7); MCHC 32.1 g/dl (32.0-35.9); MEAN CELL VOLUME 78.6 fl (80-96); MEAN PLT VOLUME 8.3 fl (7.5-11.1); PLATELET COUNT 318 K/MM3 (134-434); RBC 3.63 M/mm3 (4.00-5.60); RDW 21.8 % (11.9-15.9); WHITE BLOOD COUNT 7.8 K/mm3 (4.0-10.0)
[2020-03-26 08:22] LABS: ALBUMIN 2.1 g/dl (3.4-5.0); CALCIUM 8.3 mg/dL (8.5-10.1)
[2020-03-26 08:23] LABS: BLOOD UREA NITROGEN 43.6 mg/dL (7-18)
[2020-03-26 08:26] LABS: CREATININE 1.2 mg/dL (0.55-1.3)
[2020-03-26 08:27] LABS: BILIRUBIN,TOTAL 0.6 mg/dL (0.2-1)
[2020-03-26 08:32] LABS: TOT PROT 5.7 g/dl (6.4-8.2)
[2020-03-26] MEDS ORDERED: DEXTROSE 5%-WATER - 50 ML IVPB ONE (09:22)
[2020-03-26] MEDS ORDERED: cefTRIAXone SODIUM 1 GM VIAL ONE (09:22)
[2020-03-26] MEDS: CHOLECALCIFEROL (VIT D3) 1,000 UNIT (25 MCG) TABLET PO SCH (09:26)
[2020-03-26] MEDS: amLODIPine BESYLATE 10 MG TABLET (FP) PO SCH (09:26)
[2020-03-26] MEDS: CEFTRIAXONE 1 GM in DEXTROSE 5%-WATER - 50 ML IVPB SCH (09:26)
[2020-03-26] MEDS: PANTOPRAZOLE 40 MG TABLET PO SCH (09:26)
[2020-03-26] MEDS: TAMSULOSIN HCL 0.4 MG CAP PO SCH (09:26)
[2020-03-26] MEDS: MULTIVITAMINS THER W-MINERALS COMBO TABLET (FP) PO SCH (09:26)
[2020-03-26] MEDS: APIXABAN 5 MG TABLET PO SCH ×2 (09:26→22:07)
[2020-03-26] MEDS: ASPIRIN COATED 81 MG TABLET.EC PO SCH (09:26)
[2020-03-26] MEDS: ASCORBIC ACID 500 MG TABLET (FP) PO SCH (09:26)
[2020-03-26] MEDS: DEXAMETHASONE SOD PHOSPHATE 4 MG/1 ML VIAL IVPUSH SCH (09:27)
[2020-03-26] MEDS: ACETAMINOPHEN 325 MG TABLET (FP) PO PRN (20:42)
[2020-03-26] MEDS: traZODone HCL 50 MG TABLET (FP) PO SCH (22:07)
[2020-03-26] MEDS: POLYETHYLENE GLYCOL 3350 119 GM BTL PO SCH (22:08)
[2020-03-26] MEDS: ATORVASTATIN CA 80 MG TABLET (FP) PO SCH (22:08)
[2020-03-27 09:45] LABS: HEMATOCRIT 27.7 % (35.4-49); HEMOGLOBIN 8.7 GM/dL (11.7-16.9); MCHC 31.5 g/dl (32.0-35.9); MEAN CELL VOLUME 79.3 fl (80-96); MEAN PLT VOLUME 8.2 fl (7.5-11.1); PLATELET COUNT 301 K/MM3 (134-434); RDW 21.5 % (11.9-15.9); WHITE BLOOD COUNT 9.1 K/mm3 (4.0-10.0)
[2020-03-27] MEDS ORDERED: DEXTROSE 5%-WATER - 50 ML IVPB ONE (09:47)
[2020-03-27] MEDS ORDERED: cefTRIAXone SODIUM 1 GM VIAL ONE (09:47)
[2020-03-27 10:07] LABS: CALCIUM 8.3 mg/dL (8.5-10.1)
[2020-03-27 10:08] LABS: ALBUMIN 2.2 g/dl (3.4-5.0); BLOOD UREA NITROGEN 39.8 mg/dL (7-18)
[2020-03-27 10:11] LABS: CREATININE 1.2 mg/dL (0.55-1.3)
[2020-03-27 10:12] LABS: BILIRUBIN,TOTAL 0.5 mg/dL (0.2-1); TOT PROT 5.3 g/dl (6.4-8.2)
[2020-03-27] MEDS: ACETAMINOPHEN 325 MG TABLET (FP) PO PRN (10:16)
[2020-03-27] MEDS: PANTOPRAZOLE 40 MG TABLET PO SCH (10:17)
[2020-03-27] MEDS: ASCORBIC ACID 500 MG TABLET (FP) PO SCH (10:17)
[2020-03-27] MEDS: MULTIVITAMINS THER W-MINERALS COMBO TABLET (FP) PO SCH (10:17)
[2020-03-27] MEDS: CHOLECALCIFEROL (VIT D3) 1,000 UNIT (25 MCG) TABLET PO SCH (10:17)
[2020-03-27] MEDS: APIXABAN 5 MG TABLET PO SCH ×2 (10:17→22:06)
[2020-03-27] MEDS: TAMSULOSIN HCL 0.4 MG CAP PO SCH (10:17)
[2020-03-27] MEDS: ASPIRIN COATED 81 MG TABLET.EC PO SCH (10:17)
[2020-03-27] MEDS: CEFTRIAXONE 1 GM in DEXTROSE 5%-WATER - 50 ML IVPB SCH (10:17)
[2020-03-27] MEDS: amLODIPine BESYLATE 10 MG TABLET (FP) PO SCH (10:17)
[2020-03-27] MEDS: POLYETHYLENE GLYCOL 3350 119 GM BTL PO SCH ×2 (10:18→22:06)
[2020-03-27] MEDS: DEXAMETHASONE SOD PHOSPHATE 4 MG/1 ML VIAL IVPUSH SCH (10:18)
[2020-03-27] MEDS: AMINO ACIDS/PROTEIN HYDROLYS 30 ML LIQUID.PKT PO SCH (18:13)
[2020-03-27] MEDS: traZODone HCL 50 MG TABLET (FP) PO SCH (22:06)
[2020-03-27] MEDS: ATORVASTATIN CA 80 MG TABLET (FP) PO SCH (22:06)
[2020-03-28 07:44] LABS: CALCIUM 8.1 mg/dL (8.5-10.1)
[2020-03-28 07:45] LABS: BLOOD UREA NITROGEN 43.1 mg/dL (7-18); MAGNESIUM 2.8 mg/dL (1.8-2.4)
[2020-03-28 07:48] LABS: CREATININE 1.2 mg/dL (0.55-1.3); PHOSPHOROUS 2.9 mg/dL (2.5-4.9)
[2020-03-28 07:50] LABS: BILIRUBIN,TOTAL 0.5 mg/dL (0.2-1); HEMATOCRIT 25.7 % (35.4-49); HEMOGLOBIN 8.4 GM/dL (11.7-16.9); MCH 25.2 pg (25.7-33.7); MCHC 32.5 g/dl (32.0-35.9); MEAN CELL VOLUME 77.6 fl (80-96); MEAN PLT VOLUME 8.4 fl (7.5-11.1); PLATELET COUNT 267 K/MM3 (134-434); RBC 3.32 M/mm3 (4.00-5.60); RDW 21.5 % (11.9-15.9); WHITE BLOOD COUNT 8.1 K/mm3 (4.0-10.0)
[2020-03-28] MEDS ORDERED: cefTRIAXone SODIUM 1 GM VIAL ONE (10:39)
[2020-03-28] MEDS ORDERED: DEXTROSE 5%-WATER - 50 ML IVPB ONE (10:39)
[2020-03-28] MEDS: CHOLECALCIFEROL (VIT D3) 1,000 UNIT (25 MCG) TABLET PO SCH (11:13)
[2020-03-28] MEDS: AMINO ACIDS/PROTEIN HYDROLYS 30 ML LIQUID.PKT PO SCH ×2 (11:13→16:43)
[2020-03-28] MEDS: TAMSULOSIN HCL 0.4 MG CAP PO SCH (11:14)
[2020-03-28] MEDS: DEXAMETHASONE SOD PHOSPHATE 4 MG/1 ML VIAL IVPUSH SCH (11:14)
[2020-03-28] MEDS: POLYETHYLENE GLYCOL 3350 119 GM BTL PO SCH ×2 (11:14→21:46)
[2020-03-28] MEDS: ASCORBIC ACID 500 MG TABLET (FP) PO SCH (11:14)
[2020-03-28] MEDS: MULTIVITAMINS THER W-MINERALS COMBO TABLET (FP) PO SCH (11:14)
[2020-03-28] MEDS: amLODIPine BESYLATE 10 MG TABLET (FP) PO SCH (11:14)
[2020-03-28] MEDS: ASPIRIN COATED 81 MG TABLET.EC PO SCH (11:14)
[2020-03-28] MEDS: PANTOPRAZOLE 40 MG TABLET PO SCH (11:14)
[2020-03-28] MEDS: CEFTRIAXONE 1 GM in DEXTROSE 5%-WATER - 50 ML IVPB SCH (11:14)
[2020-03-28] MEDS: APIXABAN 5 MG TABLET PO SCH ×2 (11:14→21:45)
[2020-03-28] MEDS: traZODone HCL 50 MG TABLET (FP) PO SCH (21:45)
[2020-03-28] MEDS: ATORVASTATIN CA 80 MG TABLET (FP) PO SCH (21:46)
[2020-03-29] MEDS ORDERED: TAMSULOSIN HCL 0.4 MG CAP PO SCH (08:30)
[2020-03-29] MEDS ORDERED: DEXTROSE 5%-WATER - 50 ML IVPB ONE (08:55)
[2020-03-29] MEDS ORDERED: cefTRIAXone SODIUM 1 GM VIAL ONE (08:55)
[2020-03-29] MEDS: ASCORBIC ACID 500 MG TABLET (FP) PO SCH (09:37)
[2020-03-29] MEDS: CHOLECALCIFEROL (VIT D3) 1,000 UNIT (25 MCG) TABLET PO SCH (09:38)
[2020-03-29] MEDS: AMINO ACIDS/PROTEIN HYDROLYS 30 ML LIQUID.PKT PO SCH ×2 (09:38→17:49)
[2020-03-29] MEDS: ASPIRIN COATED 81 MG TABLET.EC PO SCH (09:45)
[2020-03-29] MEDS: APIXABAN 5 MG TABLET PO SCH ×2 (09:46→21:46)
[2020-03-29] MEDS: POLYETHYLENE GLYCOL 3350 119 GM BTL PO SCH ×2 (09:46→21:46)
[2020-03-29] MEDS: MULTIVITAMINS THER W-MINERALS COMBO TABLET (FP) PO SCH (09:47)
[2020-03-29] MEDS: PANTOPRAZOLE 40 MG TABLET PO SCH (09:47)
[2020-03-29] MEDS: amLODIPine BESYLATE 10 MG TABLET (FP) PO SCH (09:48)
[2020-03-29] MEDS ORDERED: DEXAMETHASONE SOD PHOSPHATE 4 MG/1 ML VIAL IVPUSH SCH (10:00)
[2020-03-29] MEDS ORDERED: CEFTRIAXONE 1 GM in DEXTROSE 5%-WATER - 50 ML IVPB SCH (10:00)
[2020-03-29] MEDS ORDERED: TAMSULOSIN HCL 0.4 MG CAP PO ONE (17:59)
[2020-03-29] MEDS: traZODone HCL 50 MG TABLET (FP) PO SCH (21:45)
[2020-03-29] MEDS: ATORVASTATIN CA 80 MG TABLET (FP) PO SCH (21:46)
[2020-03-29] MEDS: ACETAMINOPHEN 325 MG TABLET (FP) PO PRN (21:46)
[2020-03-30] MEDS: TAMSULOSIN HCL 0.4 MG CAP PO SCH (09:14)
[2020-03-30] MEDS: AMINO ACIDS/PROTEIN HYDROLYS 30 ML LIQUID.PKT PO SCH ×2 (09:14→18:19)
[2020-03-30] MEDS: MULTIVITAMINS THER W-MINERALS COMBO TABLET (FP) PO SCH (09:22)
[2020-03-30] MEDS: ASPIRIN COATED 81 MG TABLET.EC PO SCH (09:22)
[2020-03-30] MEDS: ASCORBIC ACID 500 MG TABLET (FP) PO SCH (09:22)
[2020-03-30] MEDS: PANTOPRAZOLE 40 MG TABLET PO SCH (09:22)
[2020-03-30] MEDS: CHOLECALCIFEROL (VIT D3) 1,000 UNIT (25 MCG) TABLET PO SCH (09:22)
[2020-03-30] MEDS: amLODIPine BESYLATE 10 MG TABLET (FP) PO SCH (09:22)
[2020-03-30] MEDS: APIXABAN 5 MG TABLET PO SCH ×2 (09:23→22:00)
[2020-03-30] MEDS: POLYETHYLENE GLYCOL 3350 119 GM BTL PO SCH ×2 (09:24→22:01)
[2020-03-30] MEDS: ACETAMINOPHEN 325 MG TABLET (FP) PO PRN (18:18)
[2020-03-30] MEDS: traZODone HCL 50 MG TABLET (FP) PO SCH (22:00)
[2020-03-30] MEDS: ATORVASTATIN CA 80 MG TABLET (FP) PO SCH (22:00)
[2020-03-31] MEDS ORDERED: PT OWN MED DRAWER 7, Y5N ONE (10:00)
[2020-03-31] MEDS: AMINO ACIDS/PROTEIN HYDROLYS 30 ML LIQUID.PKT PO SCH ×2 (10:02→17:13)
[2020-03-31] MEDS: TAMSULOSIN HCL 0.4 MG CAP PO SCH (10:02)
[2020-03-31] MEDS: ASPIRIN COATED 81 MG TABLET.EC PO SCH (10:02)
[2020-03-31] MEDS: POLYETHYLENE GLYCOL 3350 119 GM BTL PO SCH ×2 (10:03→21:53)
[2020-03-31] MEDS: APIXABAN 5 MG TABLET PO SCH (10:03)
[2020-03-31] MEDS: amLODIPine BESYLATE 10 MG TABLET (FP) PO SCH (10:03)
[2020-03-31] MEDS: PANTOPRAZOLE 40 MG TABLET PO SCH (10:04)
[2020-03-31] MEDS: ASCORBIC ACID 500 MG TABLET (FP) PO SCH (10:05)
[2020-03-31] MEDS: CHOLECALCIFEROL (VIT D3) 1,000 UNIT (25 MCG) TABLET PO SCH (10:05)
[2020-03-31] MEDS: MULTIVITAMINS THER W-MINERALS COMBO TABLET (FP) PO SCH (10:05)
[2020-03-31 11:16] LABS: BASO % 0.4 % (0-2.0); EOS % 1.4 % (0-4.5); HEMATOCRIT 32.4 % (35.4-49); HEMOGLOBIN 10.3 GM/dL (11.7-16.9); LYMPH % 10.1 % (8-40); MCH 25.6 pg (25.7-33.7); MCHC 31.7 g/dl (32.0-35.9); MEAN CELL VOLUME 80.8 fl (80-96); MEAN PLT VOLUME 9.2 fl (7.5-11.1); NEUT % 81.1 % (42.8-82.8); PLATELET COUNT 239 K/MM3 (134-434); RBC 4.01 M/mm3 (4.00-5.60); RDW 23.4 % (11.9-15.9); WHITE BLOOD COUNT 9.9 K/mm3 (4.0-10.0)
[2020-03-31 12:03] LABS: ANISOCYTOSIS 3+; MACROCYTOSIS 1+; OVALOCYTE 2+
[2020-03-31] MEDS: AMINO ACIDS 4.25%/D5W 1,000 ML IV SCH (18:18)
[2020-03-31] MEDS: ACETAMINOPHEN 325 MG TABLET (FP) PO PRN (21:21)
[2020-03-31] MEDS: ATORVASTATIN CA 80 MG TABLET (FP) PO SCH (21:21)
[2020-03-31] MEDS: traZODone HCL 50 MG TABLET (FP) PO SCH (21:21)
[2020-04-01] MEDS: AMINO ACIDS 4.25%/D5W 1,000 ML IV SCH ×3 (02:03→17:38)
[2020-04-01 08:38] LABS: HEMATOCRIT 28.3 % (35.4-49); HEMOGLOBIN 9.1 GM/dL (11.7-16.9); MCH 25.8 pg (25.7-33.7); MCHC 32.2 g/dl (32.0-35.9); MEAN CELL VOLUME 80.1 fl (80-96); MEAN PLT VOLUME 9.2 fl (7.5-11.1); PLATELET COUNT 198 K/MM3 (134-434); RBC 3.53 M/mm3 (4.00-5.60); RDW 23.5 % (11.9-15.9); WHITE BLOOD COUNT 7.3 K/mm3 (4.0-10.0)
[2020-04-01] MEDS: TAMSULOSIN HCL 0.4 MG CAP PO SCH (08:40)
[2020-04-01] MEDS: AMINO ACIDS/PROTEIN HYDROLYS 30 ML LIQUID.PKT PO SCH ×2 (08:41→17:38)
[2020-04-01 09:19] LABS: CALCIUM 7.9 mg/dL (8.5-10.1)
[2020-04-01 09:21] LABS: BLOOD UREA NITROGEN 44.4 mg/dL (7-18)
[2020-04-01 09:24] LABS: CREATININE 1.1 mg/dL (0.55-1.3)
[2020-04-01] MEDS ORDERED: PT OWN MED DRAWER 7, Y5N ONE (09:50)
[2020-04-01] MEDS: ASPIRIN COATED 81 MG TABLET.EC PO SCH (09:52)
[2020-04-01] MEDS: POLYETHYLENE GLYCOL 3350 119 GM BTL PO SCH ×2 (09:52→21:14)
[2020-04-01] MEDS: PANTOPRAZOLE 40 MG TABLET PO SCH ×2 (09:53→21:14)
[2020-04-01] MEDS: MULTIVITAMINS THER W-MINERALS COMBO TABLET (FP) PO SCH (09:53)
[2020-04-01] MEDS: amLODIPine BESYLATE 10 MG TABLET (FP) PO SCH (09:53)
[2020-04-01] MEDS: ASCORBIC ACID 500 MG TABLET (FP) PO SCH (09:54)
[2020-04-01] MEDS: CHOLECALCIFEROL (VIT D3) 1,000 UNIT (25 MCG) TABLET PO SCH (09:54)
[2020-04-01] MEDS: APIXABAN 5 MG TABLET PO SCH (21:14)
[2020-04-01] MEDS: ATORVASTATIN CA 80 MG TABLET (FP) PO SCH (21:14)
[2020-04-01] MEDS: traZODone HCL 50 MG TABLET (FP) PO SCH (21:14)
[2020-04-02] MEDS: AMINO ACIDS 4.25%/D5W 1,000 ML IV SCH ×3 (05:46→20:18)
[2020-04-02 08:31] LABS: HEMATOCRIT 25.2 % (35.4-49); HEMOGLOBIN 8.2 GM/dL (11.7-16.9); MCHC 32.5 g/dl (32.0-35.9); MEAN CELL VOLUME 80.2 fl (80-96); PLATELET COUNT 162 K/MM3 (134-434); RBC 3.15 M/mm3 (4.00-5.60); RDW 23.5 % (11.9-15.9); WHITE BLOOD COUNT 7.3 K/mm3 (4.0-10.0)
[2020-04-02 08:55] LABS: CALCIUM 7.8 mg/dL (8.5-10.1)
[2020-04-02 08:56] LABS: BLOOD UREA NITROGEN 46.3 mg/dL (7-18)
[2020-04-02] MEDS ORDERED: PT OWN MED DRAWER 7, Y5N ONE (09:19)
[2020-04-02] MEDS: CHOLECALCIFEROL (VIT D3) 1,000 UNIT (25 MCG) TABLET PO SCH (10:59)
[2020-04-02] MEDS: AMINO ACIDS/PROTEIN HYDROLYS 30 ML LIQUID.PKT PO SCH ×2 (10:59→17:20)
[2020-04-02] MEDS: PANTOPRAZOLE 40 MG TABLET PO SCH ×2 (11:00→22:10)
[2020-04-02] MEDS: TAMSULOSIN HCL 0.4 MG CAP PO SCH (11:00)
[2020-04-02] MEDS: APIXABAN 5 MG TABLET PO SCH ×2 (11:01→22:10)
[2020-04-02] MEDS: POLYETHYLENE GLYCOL 3350 119 GM BTL PO SCH ×2 (11:01→22:11)
[2020-04-02] MEDS: ASCORBIC ACID 500 MG TABLET (FP) PO SCH (11:01)
[2020-04-02] MEDS: amLODIPine BESYLATE 10 MG TABLET (FP) PO SCH (11:01)
[2020-04-02] MEDS: MULTIVITAMINS THER W-MINERALS COMBO TABLET (FP) PO SCH (11:01)
[2020-04-02] MEDS: ASPIRIN COATED 81 MG TABLET.EC PO SCH (11:01)
[2020-04-02] MEDS ORDERED: PCA PUMP NR ONE (19:33)
[2020-04-02] MEDS: traZODone HCL 50 MG TABLET (FP) PO SCH (22:09)
[2020-04-02] MEDS: ATORVASTATIN CA 80 MG TABLET (FP) PO SCH (22:10)
[2020-04-03] MEDS: AMINO ACIDS 4.25%/D5W 1,000 ML IV SCH ×3 (02:16→15:20)
[2020-04-03 08:56] LABS: HEMOGLOBIN 9.6 GM/dL (11.7-16.9); MCH 26.7 pg (25.7-33.7); MCHC 33.2 g/dl (32.0-35.9); MEAN CELL VOLUME 80.6 fl (80-96); MEAN PLT VOLUME 9.4 fl (7.5-11.1); PLATELET COUNT 159 K/MM3 (134-434); RBC 3.59 M/mm3 (4.00-5.60); RDW 22.1 % (11.9-15.9); WHITE BLOOD COUNT 6.8 K/mm3 (4.0-10.0)
[2020-04-03 09:17] LABS: CALCIUM 7.9 mg/dL (8.5-10.1)
[2020-04-03 09:18] LABS: BLOOD UREA NITROGEN 47.6 mg/dL (7-18)
[2020-04-03] MEDS: MULTIVITAMINS THER W-MINERALS COMBO TABLET (FP) PO SCH (10:22)
[2020-04-03] MEDS: TAMSULOSIN HCL 0.4 MG CAP PO SCH (10:22)
[2020-04-03] MEDS: CHOLECALCIFEROL (VIT D3) 1,000 UNIT (25 MCG) TABLET PO SCH (10:22)
[2020-04-03] MEDS: ASPIRIN COATED 81 MG TABLET.EC PO SCH (10:22)
[2020-04-03] MEDS: ASCORBIC ACID 500 MG TABLET (FP) PO SCH (10:22)
[2020-04-03] MEDS: AMINO ACIDS/PROTEIN HYDROLYS 30 ML LIQUID.PKT PO SCH ×2 (10:23→16:36)
[2020-04-03] MEDS: POLYETHYLENE GLYCOL 3350 119 GM BTL PO SCH ×2 (10:23→21:51)
[2020-04-03] MEDS: amLODIPine BESYLATE 10 MG TABLET (FP) PO SCH (10:23)
[2020-04-03] MEDS: PANTOPRAZOLE 40 MG TABLET PO SCH (10:23)
[2020-04-03] MEDS: APIXABAN 5 MG TABLET PO SCH ×2 (10:23→21:51)
[2020-04-03] MEDS: ATORVASTATIN CA 80 MG TABLET (FP) PO SCH (21:51)
[2020-04-03] MEDS: traZODone HCL 50 MG TABLET (FP) PO SCH (21:51)
[2020-04-03] MEDS: FAMOTIDINE 20 MG TABLET PO SCH (21:55)
[2020-04-04] MEDS: AMINO ACIDS 4.25%/D5W 1,000 ML IV SCH ×3 (02:59→18:10)
[2020-04-04] MEDS: FAMOTIDINE 20 MG TABLET PO SCH ×2 (09:30→21:40)
[2020-04-04] MEDS: ASCORBIC ACID 500 MG TABLET (FP) PO SCH (09:30)
[2020-04-04] MEDS: TAMSULOSIN HCL 0.4 MG CAP PO SCH (09:30)
[2020-04-04] MEDS: APIXABAN 5 MG TABLET PO SCH ×2 (09:31→21:40)
[2020-04-04] MEDS: MULTIVITAMINS THER W-MINERALS COMBO TABLET (FP) PO SCH (09:31)
[2020-04-04] MEDS: CHOLECALCIFEROL (VIT D3) 1,000 UNIT (25 MCG) TABLET PO SCH (09:31)
[2020-04-04] MEDS: POLYETHYLENE GLYCOL 3350 119 GM BTL PO SCH ×2 (09:32→21:40)
[2020-04-04] MEDS: AMINO ACIDS/PROTEIN HYDROLYS 30 ML LIQUID.PKT PO SCH ×2 (09:32→18:10)
[2020-04-04] MEDS: ASPIRIN COATED 81 MG TABLET.EC PO SCH (09:32)
[2020-04-04] MEDS: amLODIPine BESYLATE 10 MG TABLET (FP) PO SCH (09:32)
[2020-04-04] MEDS ORDERED: IRON SUCROSE INJECTION 200 MG in SODIUM CHLORIDE 90 ML IVPB ONE (10:00)
[2020-04-04 10:23] LABS: HEMATOCRIT 29.4 % (35.4-49); HEMOGLOBIN 9.6 GM/dL (11.7-16.9); MCH 26.9 pg (25.7-33.7); MCHC 32.7 g/dl (32.0-35.9); MEAN CELL VOLUME 82.3 fl (80-96); MEAN PLT VOLUME 9.2 fl (7.5-11.1); PLATELET COUNT 147 K/MM3 (134-434); RBC 3.57 M/mm3 (4.00-5.60); RDW 22.9 % (11.9-15.9); WHITE BLOOD COUNT 5.4 K/mm3 (4.0-10.0)
[2020-04-04 10:46] LABS: CALCIUM 8.1 mg/dL (8.5-10.1)
[2020-04-04 10:47] LABS: BLOOD UREA NITROGEN 36.5 mg/dL (7-18)
[2020-04-04 10:51] LABS: CREATININE 1.1 mg/dL (0.55-1.3)
[2020-04-04] MEDS ORDERED: PT OWN MED DRAWER 7, Y5N ONE (15:39)
[2020-04-04] MEDS: ATORVASTATIN CA 80 MG TABLET (FP) PO SCH (21:40)
[2020-04-04] MEDS: traZODone HCL 50 MG TABLET (FP) PO SCH (21:41)
[2020-04-04] MEDS: ACETAMINOPHEN 325 MG TABLET (FP) PO PRN (21:42)
[2020-04-05] MEDS: AMINO ACIDS 4.25%/D5W 1,000 ML IV SCH ×2 (02:16→14:10)
[2020-04-05] MEDS: AMINO ACIDS/PROTEIN HYDROLYS 30 ML LIQUID.PKT PO SCH ×2 (08:34→17:40)
[2020-04-05] MEDS: TAMSULOSIN HCL 0.4 MG CAP PO SCH (08:34)
[2020-04-05 08:41] LABS: HEMATOCRIT 26.9 % (35.4-49); HEMOGLOBIN 8.9 GM/dL (11.7-16.9); MCH 26.8 pg (25.7-33.7); MCHC 33.1 g/dl (32.0-35.9); MEAN PLT VOLUME 9.5 fl (7.5-11.1); PLATELET COUNT 142 K/MM3 (134-434); RBC 3.33 M/mm3 (4.00-5.60); RDW 22.6 % (11.9-15.9); WHITE BLOOD COUNT 5.3 K/mm3 (4.0-10.0)
[2020-04-05 09:48] LABS: BLOOD UREA NITROGEN 42.7 mg/dL (7-18)
[2020-04-05 09:50] LABS: CALCIUM 7.8 mg/dL (8.5-10.1)
[2020-04-05 09:51] LABS: CREATININE 1.2 mg/dL (0.55-1.3)
[2020-04-05] MEDS ORDERED: PT OWN MED DRAWER 7, Y5N ONE (10:14)
[2020-04-05] MEDS: ASPIRIN COATED 81 MG TABLET.EC PO SCH (10:16)
[2020-04-05] MEDS: APIXABAN 5 MG TABLET PO SCH ×2 (10:16→21:45)
[2020-04-05] MEDS: amLODIPine BESYLATE 10 MG TABLET (FP) PO SCH (10:17)
[2020-04-05] MEDS: FAMOTIDINE 20 MG TABLET PO SCH ×2 (10:17→21:45)
[2020-04-05] MEDS: POLYETHYLENE GLYCOL 3350 119 GM BTL PO SCH ×2 (10:17→21:45)
[2020-04-05] MEDS: MULTIVITAMINS THER W-MINERALS COMBO TABLET (FP) PO SCH (10:18)
[2020-04-05] MEDS: CHOLECALCIFEROL (VIT D3) 1,000 UNIT (25 MCG) TABLET PO SCH (10:20)
[2020-04-05] MEDS: ASCORBIC ACID 500 MG TABLET (FP) PO SCH (10:20)
[2020-04-05] MEDS: traZODone HCL 50 MG TABLET (FP) PO SCH (21:45)
[2020-04-05] MEDS: ATORVASTATIN CA 80 MG TABLET (FP) PO SCH (21:45)
[2020-04-06] MEDS: AMINO ACIDS 4.25%/D5W 1,000 ML IV SCH (02:16)
[2020-04-06] MEDS: AMINO ACIDS/PROTEIN HYDROLYS 30 ML LIQUID.PKT PO SCH ×2 (08:32→17:21)
[2020-04-06] MEDS: TAMSULOSIN HCL 0.4 MG CAP PO SCH (08:32)
[2020-04-06] MEDS ORDERED: PT OWN MED DRAWER 7, Y5N ONE (10:22)
[2020-04-06] MEDS: POLYETHYLENE GLYCOL 3350 119 GM BTL PO SCH ×2 (10:26→22:07)
[2020-04-06] MEDS: amLODIPine BESYLATE 10 MG TABLET (FP) PO SCH (10:26)
[2020-04-06] MEDS: APIXABAN 5 MG TABLET PO SCH ×2 (10:26→21:23)
[2020-04-06] MEDS: ASPIRIN COATED 81 MG TABLET.EC PO SCH (10:26)
[2020-04-06] MEDS: FAMOTIDINE 20 MG TABLET PO SCH ×2 (10:27→21:23)
[2020-04-06] MEDS: CHOLECALCIFEROL (VIT D3) 1,000 UNIT (25 MCG) TABLET PO SCH (10:27)
[2020-04-06] MEDS: MULTIVITAMINS THER W-MINERALS COMBO TABLET (FP) PO SCH (10:27)
[2020-04-06] MEDS: ASCORBIC ACID 500 MG TABLET (FP) PO SCH (10:27)
[2020-04-06] MEDS: ACETAMINOPHEN 325 MG TABLET (FP) PO PRN (10:28)
[2020-04-06] MEDS: ATORVASTATIN CA 80 MG TABLET (FP) PO SCH (21:23)
[2020-04-06] MEDS: traZODone HCL 50 MG TABLET (FP) PO SCH (21:23)
[2020-04-07] MEDS: ASPIRIN COATED 81 MG TABLET.EC PO SCH (10:30)
[2020-04-07] MEDS: APIXABAN 5 MG TABLET PO SCH (10:30)
[2020-04-07] MEDS: AMINO ACIDS/PROTEIN HYDROLYS 30 ML LIQUID.PKT PO SCH ×2 (10:30→17:52)
[2020-04-07] MEDS: amLODIPine BESYLATE 10 MG TABLET (FP) PO SCH (10:30)
[2020-04-07] MEDS: CHOLECALCIFEROL (VIT D3) 1,000 UNIT (25 MCG) TABLET PO SCH (10:31)
[2020-04-07] MEDS: ASCORBIC ACID 500 MG TABLET (FP) PO SCH (10:31)
[2020-04-07] MEDS: TAMSULOSIN HCL 0.4 MG CAP PO SCH (10:31)
[2020-04-07] MEDS: FAMOTIDINE 20 MG TABLET PO SCH ×2 (10:31→23:07)
[2020-04-07] MEDS: MULTIVITAMINS THER W-MINERALS COMBO TABLET (FP) PO SCH (10:31)
[2020-04-07] MEDS: POLYETHYLENE GLYCOL 3350 119 GM BTL PO SCH ×2 (10:32→22:57)
[2020-04-07] MEDS: ACETAMINOPHEN 325 MG TABLET (FP) PO PRN ×2 (10:34→17:54)
[2020-04-07 10:48] LABS: HEMATOCRIT 27.2 % (35.4-49); HEMOGLOBIN 9.1 GM/dL (11.7-16.9); MCHC 33.3 g/dl (32.0-35.9); PLATELET COUNT 153 K/MM3 (134-434); RBC 3.36 M/mm3 (4.00-5.60); RDW 22.9 % (11.9-15.9)
[2020-04-07 11:13] LABS: CALCIUM 8.2 mg/dL (8.5-10.1)
[2020-04-07 11:14] LABS: BLOOD UREA NITROGEN 37.3 mg/dL (7-18); MAGNESIUM 2.2 mg/dL (1.8-2.4)
[2020-04-07 11:17] LABS: CREATININE 1.1 mg/dL (0.55-1.3); PHOSPHOROUS 3.2 mg/dL (2.5-4.9)
[2020-04-07] MEDS: traZODone HCL 50 MG TABLET (FP) PO SCH (23:06)
[2020-04-07] MEDS: ATORVASTATIN CA 80 MG TABLET (FP) PO SCH (23:07)
[2020-04-08 08:55] LABS: HEMATOCRIT 27.1 % (35.4-49); HEMOGLOBIN 8.8 GM/dL (11.7-16.9); MCH 26.9 pg (25.7-33.7); MCHC 32.7 g/dl (32.0-35.9); MEAN CELL VOLUME 82.3 fl (80-96); MEAN PLT VOLUME 8.8 fl (7.5-11.1); PLATELET COUNT 159 K/MM3 (134-434); RBC 3.29 M/mm3 (4.00-5.60); RDW 22.7 % (11.9-15.9); WHITE BLOOD COUNT 4.6 K/mm3 (4.0-10.0)
[2020-04-08 09:12] LABS: BLOOD UREA NITROGEN 31.8 mg/dL (7-18); CALCIUM 8.4 mg/dL (8.5-10.1)
[2020-04-08] MEDS: CHOLECALCIFEROL (VIT D3) 1,000 UNIT (25 MCG) TABLET PO SCH (09:12)
[2020-04-08] MEDS: FAMOTIDINE 20 MG TABLET PO SCH ×2 (09:12→21:09)
[2020-04-08] MEDS: ASPIRIN COATED 81 MG TABLET.EC PO SCH (09:12)
[2020-04-08] MEDS: TAMSULOSIN HCL 0.4 MG CAP PO SCH (09:12)
[2020-04-08] MEDS: amLODIPine BESYLATE 10 MG TABLET (FP) PO SCH (09:12)
[2020-04-08] MEDS: MULTIVITAMINS THER W-MINERALS COMBO TABLET (FP) PO SCH (09:12)
[2020-04-08] MEDS: ASCORBIC ACID 500 MG TABLET (FP) PO SCH (09:12)
[2020-04-08] MEDS: AMINO ACIDS/PROTEIN HYDROLYS 30 ML LIQUID.PKT PO SCH ×2 (09:12→17:55)
[2020-04-08] MEDS: POLYETHYLENE GLYCOL 3350 119 GM BTL PO SCH ×2 (09:13→23:01)
[2020-04-08] MEDS: ACETAMINOPHEN 325 MG TABLET (FP) PO PRN ×2 (09:13→17:55)
[2020-04-08 09:16] LABS: CREATININE 1.1 mg/dL (0.55-1.3)
[2020-04-08] MEDS: ATORVASTATIN CA 80 MG TABLET (FP) PO SCH (21:09)
[2020-04-08] MEDS: traZODone HCL 50 MG TABLET (FP) PO SCH (21:09)
[2020-04-09] MEDS: AMINO ACIDS/PROTEIN HYDROLYS 30 ML LIQUID.PKT PO SCH ×2 (07:52→18:10)
[2020-04-09 08:40] LABS: HEMATOCRIT 27.3 % (35.4-49); HEMOGLOBIN 8.9 GM/dL (11.7-16.9); MCH 26.9 pg (25.7-33.7); MCHC 32.5 g/dl (32.0-35.9); MEAN CELL VOLUME 82.9 fl (80-96); MEAN PLT VOLUME 8.6 fl (7.5-11.1); PLATELET COUNT 157 K/MM3 (134-434); RBC 3.29 M/mm3 (4.00-5.60); RDW 23.3 % (11.9-15.9); WHITE BLOOD COUNT 4.1 K/mm3 (4.0-10.0)
[2020-04-09] MEDS: TAMSULOSIN HCL 0.4 MG CAP PO SCH (09:06)
[2020-04-09 09:12] LABS: CALCIUM 8.1 mg/dL (8.5-10.1)
[2020-04-09 09:13] LABS: ALBUMIN 2.1 g/dl (3.4-5.0); BLOOD UREA NITROGEN 25.2 mg/dL (7-18)
[2020-04-09 09:17] LABS: BILIRUBIN,TOTAL 0.6 mg/dL (0.2-1); TOT PROT 5.4 g/dl (6.4-8.2)
[2020-04-09] MEDS: ASPIRIN COATED 81 MG TABLET.EC PO SCH (12:19)
[2020-04-09] MEDS: ASCORBIC ACID 500 MG TABLET (FP) PO SCH (12:20)
[2020-04-09] MEDS: FAMOTIDINE 20 MG TABLET PO SCH ×2 (12:20→21:22)
[2020-04-09] MEDS: MULTIVITAMINS THER W-MINERALS COMBO TABLET (FP) PO SCH (12:20)
[2020-04-09] MEDS: POLYETHYLENE GLYCOL 3350 119 GM BTL PO SCH ×2 (12:20→21:22)
[2020-04-09] MEDS: amLODIPine BESYLATE 10 MG TABLET (FP) PO SCH (12:20)
[2020-04-09] MEDS: CHOLECALCIFEROL (VIT D3) 1,000 UNIT (25 MCG) TABLET PO SCH (12:21)
[2020-04-09] MEDS ORDERED: IRON SUCROSE INJECTION 200 MG in SODIUM CHLORIDE 90 ML IVPB ONE (13:00)
[2020-04-09] MEDS: traZODone HCL 50 MG TABLET (FP) PO SCH (21:22)
[2020-04-09] MEDS: ATORVASTATIN CA 80 MG TABLET (FP) PO SCH (21:22)
[2020-04-10 08:30] LABS: HEMATOCRIT 27.5 % (35.4-49); HEMOGLOBIN 9.2 GM/dL (11.7-16.9); MCH 27.2 pg (25.7-33.7); MCHC 33.4 g/dl (32.0-35.9); MEAN CELL VOLUME 81.3 fl (80-96); MEAN PLT VOLUME 8.2 fl (7.5-11.1); PLATELET COUNT 182 K/MM3 (134-434); RBC 3.39 M/mm3 (4.00-5.60); RDW 22.9 % (11.9-15.9); WHITE BLOOD COUNT 4.8 K/mm3 (4.0-10.0)
[2020-04-10 08:37] LABS: BLOOD UREA NITROGEN 24.4 mg/dL (7-18); CALCIUM 8.2 mg/dL (8.5-10.1)
[2020-04-10 08:41] LABS: CREATININE 1.1 mg/dL (0.55-1.3)
[2020-04-10] MEDS: TAMSULOSIN HCL 0.4 MG CAP PO SCH (08:56)
[2020-04-10] MEDS: AMINO ACIDS/PROTEIN HYDROLYS 30 ML LIQUID.PKT PO SCH ×2 (08:56→17:05)
[2020-04-10] MEDS: CHOLECALCIFEROL (VIT D3) 1,000 UNIT (25 MCG) TABLET PO SCH (09:02)
[2020-04-10] MEDS: FAMOTIDINE 20 MG TABLET PO SCH ×2 (09:02→21:07)
[2020-04-10] MEDS: ASCORBIC ACID 500 MG TABLET (FP) PO SCH (09:02)
[2020-04-10] MEDS: amLODIPine BESYLATE 10 MG TABLET (FP) PO SCH (09:02)
[2020-04-10] MEDS: MULTIVITAMINS THER W-MINERALS COMBO TABLET (FP) PO SCH (09:02)
[2020-04-10] MEDS: ASPIRIN COATED 81 MG TABLET.EC PO SCH (09:02)
[2020-04-10] MEDS: POLYETHYLENE GLYCOL 3350 119 GM BTL PO SCH ×2 (16:35→21:08)
[2020-04-10] MEDS: ACETAMINOPHEN 325 MG TABLET (FP) PO PRN (16:44)
[2020-04-10] MEDS: traZODone HCL 50 MG TABLET (FP) PO SCH (21:06)
[2020-04-10] MEDS: ATORVASTATIN CA 80 MG TABLET (FP) PO SCH (21:07)
[2020-04-10 21:49] VITALS: BP 128/65; PULSE 85; TEMP 98.7
[2020-04-10] MEDS ORDERED: APIXABAN 5 MG TABLET PO SCH (22:00)
== END 2020-04-10 21:59 | DRG 177 ==
LOC: JER 13:31 → JERBED 17:04 → J4S 03-19 19:56 → J4W 03-26 19:01 → J8W 03-28 12:10
PROVIDERS: ADMIT Student in an Organized Health Care Education/Training Program; ATTEND Internal Medicine
PROC: XW033E5 Introduction of Remdesivir Anti-infective into Peripheral Vein, Percutaneous Approach, New Technology Group 5 (ICD-10-PCS; principal; 2020-03-20)
PROC: XW13325 Transfusion of Convalescent Plasma (Nonautologous) into Peripheral Vein, Percutaneous Approach, New Technology Group 5 (ICD-10-PCS; 2020-03-20)
PROC: 30233N1 Transfusion of Nonautologous Red Blood Cells into Peripheral Vein, Percutaneous Approach (ICD-10-PCS; 2020-03-20)
PROC: 0DJ08ZZ Inspection of Upper Intestinal Tract, Via Natural or Artificial Opening Endoscopic (ICD-10-PCS; 2020-04-09)
DX: U07.1 COVID-19 (principal); J96.01 Acute respiratory failure with hypoxia; J12.89 Other viral pneumonia; N17.9 Acute kidney failure, unspecified; E87.0 Hyperosmolality and hypernatremia; I50.32 Chronic diastolic (congestive) heart failure; K92.2 Gastrointestinal hemorrhage, unspecified; I69.354 Hemiplegia and hemiparesis following cerebral infarction affecting left non-dominant side; I13.0 Hypertensive heart and chronic kidney disease with heart failure and stage 1 through stage 4 chronic kidney disease, or unspecified chronic kidney disease; D62 Acute posthemorrhagic anemia; N18.9 Chronic kidney disease, unspecified; F03.90 Unspecified dementia, unspecified severity, without behavioral disturbance, psychotic disturbance, mood disturbance, and anxiety; I78.1 Nevus, non-neoplastic; I48.0 Paroxysmal atrial fibrillation; H35.30 Unspecified macular degeneration; E11.9 Type 2 diabetes mellitus without complications; R33.9 Retention of urine, unspecified; E86.0 Dehydration; K44.9 Diaphragmatic hernia without obstruction or gangrene; E78.5 Hyperlipidemia, unspecified; K76.0 Fatty (change of) liver, not elsewhere classified; M10.9 Gout, unspecified; K57.90 Diverticulosis of intestine, part unspecified, without perforation or abscess without bleeding; I25.10 Atherosclerotic heart disease of native coronary artery without angina pectoris; Z95.1 Presence of aortocoronary bypass graft; N40.0 Benign prostatic hyperplasia without lower urinary tract symptoms
CPT/HCPCS: 36415; 36430; 36511; 71045-TC-FY; 76775-TC; 80048; 80053; 81003; 82272; 82728; 82803; 82962; 83540; 83550; 83605; 83615; 83735; 84100; 84466; 84484; 85025; 85027; 85045; 85379; 85610; 85651; 85730; 86140; 86850; 86900; 86901; 86922; 87040; 87086; 87804; 87899; 93005; 93010; 93971-TC; 94761; 97116-GP; 97161-GP; 99291; C9399; C9803; J0131; J1100; J1756; P9017; P9038; P9058; U0003